=== PATIENT | female | born 1950 | race Caucasian/White ===

== ENCOUNTER 2018-02-15 15:07 | Emergency (ER) | payer OTHER ==
[2018-02-15 15:59] LABS: Absolute Lymphocytes (CBC) 1.3 K/uL (0.7-4.9); Absolute Monocytes 0.7 K/uL (0.1-1.3); Absolute Neutrophil 3.1 K/uL (1.8-8.0); Basophils % 0.8 % (0-1.3); Eosinophils % 1.1 % (0-4.4); MCH 29.4 pg (27.0-35.0); Monocytes % 13.4 % (3.3-12.3); RBC Red Blood Cell Count 3.82 M/uL (3.86-4.86)
[2018-02-15 16:04] LABS: Protime INR 1.28
[2018-02-15 16:05] LABS: Potassium 3.8 mEq/L (3.6-5.0)
--- NOTE | 2018-02-15 16:15 | RAD REPORT ---
EXAM DESCRIPTION: CT - Head Brain Wo Cont - 02/15/2018 4:00 pm CLINICAL HISTORY: Headache COMPARISON: None. TECHNIQUE: Computed axial tomography of the head was obtained. IV contrast was not requested. All CT scans are performed using dose optimization technique as appropriate and may include automated exposure control or mA/KV adjustment according to patient size. FINDINGS: An intracranial bleed is not seen . The ventricles are normal in caliber. No extra-axial fluid collection is noted. 22 Fluid within the mastoids is not noted IMPRESSION: No acute intracranial abnormality is seen. If patient's symptoms persist MRI of the bra in would be recommended.
--- NOTE | 2018-02-15 16:19 | RAD REPORT ---
EXAM DESCRIPTION: CT - Facial Bones W/ Mpr - 02/15/2018 4:00 pm CLINICAL HISTORY: Right mastoid pain. Headache COMPARISON: none TECHNIQUE: Computed axial tomography of the face was obtained. Coronal and sagittal reconstruction w as performed. All CT scans are performed using dose optimization technique as appropriate and may include automated exposure control or mA/KV adjustment according to patient size. FINDINGS: A fracture is not seen. A TMJ dislocation is not noted. The globes are intact. Felisha bullosa is present. Mucoperiosteal thickening involves in the right max illary ostia results narrowing of the right ostiomeatal complex Mild chronic opacification the mastoids is seen. A fluid collection is not noted. A small amount of fluid is present within the ethmoid sinus. IMPRESSION: Mild acute ethmoid sinusitis Narrowing of the right ostiomeatal complex Mild chronic opacification of the mastoids
[2018-02-15] MEDS ORDERED: CEFTRIAXONE 1000 MG/VIAL ONE (17:01)
[2018-02-15] MEDS ORDERED: NA CHLORIDE 0.9% 100 ML IV ONE (17:01)
[2018-02-15] MEDS ORDERED: DEXAMETHASONE 10 MG/ML VIAL ONE (17:01)
[2018-02-15] MEDS ORDERED: METOCLOPRAMIDE 10 MG/2mL INJ ONE (17:01)
--- NOTE | 2018-02-15 17:31 | EDPHYS ---
Physician Documentation [facility] Name: Chrissie Siddiqi Age: 67 yrs Sex: Female : 1950 Arrival Date: 02/15/2018 Time: 15:11 Bed 23 Private MD: Joel Emmanuel ED Physician Rito Merrill HPI: 02/15 15:34 This 67 yrs old Female presents to ER via Wheelchair with complaints of Ear cp Pain, Headache. 15:34 The patient presents with pain, that is acute. The complaints affect the right ear. cp 15:34 Onset: The symptoms/episode began/occurred last week. Associated signs and symptoms: cp Pertinent positives: sinus trouble, Pertinent negatives: cough, fever, rhinorrhea, shortness of breath, sore throat, vomiting. Severity of symptoms: in the emergency department the symptoms are worse. The patient has been recently seen at an urgent care, for similar complaints, prescribed Bactrim antibiotic. Historical: - Allergies: 15:18 Decongestants; la1 - PMHx: 15:18 Atrial Fib; COPD; Hypertension; la1 - Immunization history:: Adult Immunizations up to date. - Social history:: Smoking status: Patient/guardian denies using tobacco. ROS: 15:40 Constitutional: Negative for body aches, chills, fever, poor PO intake. cp 15:40 Eyes: Negative for injury, pain, redness, and discharge. cp 15:40 ENT: Positive for ear pain, sinus pain, Negative for drainage from ear(s), rhinorrhea, sore throat, dental pain, difficulty swallowing, difficulty handling secretions. 15:40 Neck: Negative for pain with movement, stiffness. 15:40 Cardiovascular: Negative for chest pain, edema, palpitations. 15:40 Respiratory: Negative for cough, shortness of breath, wheezing. 15:40 Abdomen/GI: Negative for abdominal pain, nausea, vomiting, and diarrhea. 15:40 Back: Negative for pain at rest, pain with movement, radiated pain. 15:40 : Negative for urinary symptoms. 15:40 Skin: Negative for cellulitis, rash. 15:40 Neuro: Positive for headache, Negative for altered mental status, dizziness, hearing loss, weakness. 15:40 All other systems are negative. Exam: 15:45 Constitutional: The patient appears in no acute distress, alert, awake, cp non-diaphoretic, non-toxic, well developed, well nourished. 15:45 Eyes: Pupils equal round and reactive to light, extra-ocular motions intact. Lids and cp lashes normal. Conjunctiva and sclera are non-icteric and not injected. Cornea within normal limits. Periorbital areas with no swelling, redness, or edema. 15:45 Head/face: Noted is tenderness, that is mild, of the behind right ear, Sinus tenderness, that is mild, is located over the right frontal sinus and right maxillary sinus. 15:45 ENT: External ear(s): are unremarkable, Ear canal(s): are normal, clear, TM's: dullness, bilaterally, Nose: is normal, Mouth: Lips: moist, Oral mucosa: pink and intact, moist, Posterior pharynx: is normal, airway is patent, no erythema, no exudate, Dental exam: abscess, is not appreciated, dental caries, that is mild, gum swelling, not appreciated, pain, that is mild, specifically in the right upper jaw. 15:45 Neck: ROM/movement: is normal, is supple, without pain, no range of motions limitations, no meningismus, no nuchal rigidity, Lymph nodes: no appreciated lymphadenopathy. 15:45 Chest/axilla: Inspection: normal, Palpation: is normal, no crepitus, no tenderness. 15:45 Cardiovascular: Rate: bradycardic, Rhythm: regular. 15:45 Respiratory: the patient does not display signs of respiratory distress, Respirations: normal, no use of accessory muscles, no retractions, no splinting, no tachypnea, labored breathing, is not present, Breath sounds: are clear throughout. 15:45 Skin: cellulitis, is not appreciated, no rash present. 15:45 Neuro: Orientation: to person, place \T\ time. Mentation: lucid, able to follow commands, Cerebellar function: is grossly normal, Motor: moves all fours, strength is normal, Sensation: no obvious gross deficits. Vital Signs: 15:18 BP 143 / 63; Pulse 56; Resp 20; Temp 97.2(TE); Pulse Ox 98% on 3.5 lpm NC; Weight la1 136.08 kg; Height 5 ft. 7 in. (170.18 cm); 16:30 BP 144 / 60; Pulse 57; Resp 18; Pulse Ox 100% on 3 lpm NC; mb3 16:30 BP 143 / 62; Pulse 55; Resp 20; Pulse Ox 100% on 3 lpm NC; mb3 15:18 Body Mass Index 46.99 (136.08 kg, 170.18 cm) la1 15:18 pt uses home 02 la MDM: 15:24 Patient medically screened. cp 16:00 Differential diagnosis: otitis media, otitis externa, ruptured TM, cerumen impaction, cp sinusitis, mastoiditis, dental abscess. 17:28 Data reviewed: vital signs, nurses notes, radiologic studies, CT scan, and as a result, cp I will discharge patient. 17:28 Counseling: I had a detailed discussion with the patient and/or guardian regarding: the cp historical points, exam findings, and any diagnostic results supporting the discharge/admit diagnosis, radiology results, the need for outpatient follow up, an ENT specialist, to return to the emergency department if symptoms worsen or persist or if there are any questions or concerns that arise at home. 02/15 15:34 Order name: BMP cp 02/15 15:34 Order name: CBC with Diff; Complete Time: 16:29 cp 02/15 16:29 Interpretation: Normal except: RBC 3.82; HGB 11.2; HCT 34.0; MCV 89.0; RDW 16.4; MN% cp 13.4. 02/15 15:34 Order name: CT Head Brain wo Cont; Complete Time: 16:29 cp 02/15 16:34 Interpretation: Report reviewed. cp 02/15 15:34 Order name: PT-INR; Complete Time: 16:29 cp 02/15 16:30 Interpretation: Abnormal: PT 15.2. cp 02/15 15:34 Order name: Ptt, Activated; Complete Time: 16:29 cp 02/15 15:34 Order name: Basic Metabolic Panel; Complete Time: 16:29 EDMS 02/15 16:30 Interpretation: Normal except: CL 98; BUN 22; GFR 56. cp 02/15 15:34 Order name: IV; Complete Time: 15:53 cp 02/15 15:47 Order name: CT Facial Bones W/O Con; Complete Time: 16:29 cp Administered Medications: 17:11 Drug: Rocephin - (cefTRIAXone) 2 grams Route: IVPB; Infused Over: 30 mins; Site: right mb3 antecubital; 18:15 Follow up: IV Status: Completed infusion mb3 18:15 Follow up: Response: No adverse reaction mb3 17:11 Drug: Reglan 10 mg Route: IVP; Site: right antecubital; mb3 18:15 Follow up: Response: No adverse reaction mb3 17:12 Drug: Decadron - Dexamethasone 10 mg Route: IVP; Site: right antecubital; mb3 18:15 Follow up: Response: No adverse reaction mb3 Disposition: 02/16 07:48 Co-signature as Attending Physician, Rito Merrill MD I agree with the assessment and iram plan of care. Disposition: 02/15/18 17:30 Discharged to Home. Impression: Acute ethmoidal sinusitis. - Condition is Stable. - Discharge Instructions: Sinusitis, Adult. - Prescriptions for prednisone 50 mg Oral tablet - take 1 tablet by ORAL route once daily for 5 days; 5 tablet. Augmentin 875- 125 mg Oral Tablet - take 1 tablet by ORAL route every 12 hours for 10 days; 20 tablet. - Medication Reconciliation Form, Thank You Letter, Antibiotic Education, Prescription Opioid Use form. - Follow up: Nicolasa Orozco MD; When: 2 - 3 days; Reason: Recheck today's complaints. - Problem is new. - Symptoms have improved. Signatures: Dispatcher [employer] Rito Damon MD MD cha Attema, Lee, RN RN la1 Rito Reynaga PA PA cp Abhilash Parry, RN RN mb3 Corrections: (The following items were deleted from the chart) 02/15 15:50 15:34 Sinus Wo Cont+CT.RAD.BRZ ordered. [facility] 18:16 17:30 02/15/2018 17:30 Discharged to Home. Impression: Acute ethmoidal sinusitis. mb3 Condition is Stable. Forms are Medication Reconciliation Form, Thank You Letter, Antibiotic Education, Prescription Opioid Use. Follow up: Nicolasa Orozco; When: 2 - 3 days; Reason: Recheck today's complaints. Problem is new. Symptoms have improved. cp
--- NOTE | 2018-02-15 17:31 | ER ---
Nurse's Notes [facility] Name: Chrissie Siddiqi Age: 67 yrs Sex: Female : 1950 Arrival Date: 02/15/2018 Time: 15:11 Bed 23 Private MD: Joel Emmanuel Diagnosis: Acute ethmoidal sinusitis Presentation: 02/15 15:17 Presenting complaint: Patient states: I have had right ear pain and a headache since la1 Friday, was seen then by urgent care and given abx but I am still having the pain. Transition of care: patient was not received from another setting of care. Onset of symptoms was February 15, 2018. Initial Sepsis Screen: Does the patient meet any 2 criteria? No. Patient's initial sepsis screen is negative. Does the patient have a suspected source of infection? No. Patient's initial sepsis screen is negative. Care prior to arrival: None. 15:17 Method Of Arrival: Wheelchair la1 15:17 Acuity: RODRIGO 4 la1 Historical: - Allergies: 15:18 Decongestants; la1 - PMHx: 15:18 Atrial Fib; COPD; Hypertension; la1 - Immunization history:: Adult Immunizations up to date. - Social history:: Smoking status: Patient/guardian denies using tobacco. Screenin:14 Abuse screen: Denies threats or abuse. Nutritional screening: No deficits noted. mb3 Tuberculosis screening: No symptoms or risk factors identified. Fall Risk None identified. Assessment: 16:30 General: Appears uncomfortable, obese, well groomed, Behavior is calm, cooperative, mb3 appropriate for age. Pain: Complains of pain in right cheek, right ear, right amish and right jaw. Neuro: Level of Consciousness is awake, alert, obeys commands, Oriented to person, place, time, situation, Appropriate for age. Cardiovascular: No deficits noted. Heart tones S1 S2 present Capillary refill < 3 seconds Clubbing of nail beds is present Pulses are 1+ in right radial artery, right dorsalis pedis artery, left radial artery and left dorsalis pedis artery. Respiratory: Airway is patent Respiratory effort is even, labored, Respiratory pattern is regular, symmetrical, Breath sounds are clear Breath sounds are diminished bilaterally. 16:30 GI: Abdomen is round obese, Bowel sounds present X 4 quads. : No signs and/or mb3 symptoms were reported regarding the genitourinary system. EENT: Oral mucosa is moist. Vital Signs: 15:18 BP 143 / 63; Pulse 56; Resp 20; Temp 97.2(TE); Pulse Ox 98% on 3.5 lpm NC; Weight la1 136.08 kg; Height 5 ft. 7 in. (170.18 cm); 16:30 BP 144 / 60; Pulse 57; Resp 18; Pulse Ox 100% on 3 lpm NC; mb3 16:30 BP 143 / 62; Pulse 55; Resp 20; Pulse Ox 100% on 3 lpm NC; mb3 15:18 Body Mass Index 46.99 (136.08 kg, 170.18 cm) la1 15:18 pt uses home 02 la1 ED Course: 15:11 Patient arrived in ED. sb2 15:12 Joel Emmanuel MD is Private Physician. sb2 15:18 Triage completed. la1 15:18 Arm band placed on left wrist. la1 15:23 Rito Reynaga PA is PHCP. cp 15:23 Rito Merrill MD is Attending Physician. cp 15:40 Abhilash Parry, DAVID is Primary Nurse. mb3 15:50 Initial lab(s) drawn, by me, sent to lab. Inserted saline lock: 20 gauge in right dh3 antecubital area, using aseptic technique. Blood collected. 16:00 CT Head Brain wo Cont In Process Unspecified. EDMS 16:00 CT completed. Patient moved to CT via wheelchair. Patient moved back from CT. cw1 16:00 CT Facial Bones W/O Con In Process Unspecified. EDMS 17:29 Nicolasa Orozco MD is Referral Physician. cp 18:10 No provider procedures requiring assistance completed. IV discontinued, intact, mb3 bleeding controlled, No redness/swelling at site. Pressure dressing applied. 18:14 Patient has correct armband on for positive identification. mb3 Administered Medications: 17:11 Drug: Rocephin - (cefTRIAXone) 2 grams Route: IVPB; Infused Over: 30 mins; Site: right mb3 antecubital; 18:15 Follow up: IV Status: Completed infusion mb3 18:15 Follow up: Response: No adverse reaction mb3 17:11 Drug: Reglan 10 mg Route: IVP; Site: right antecubital; mb3 18:15 Follow up: Response: No adverse reaction mb3 17:12 Drug: Decadron - Dexamethasone 10 mg Route: IVP; Site: right antecubital; mb3 18:15 Follow up: Response: No adverse reaction mb3 Outcome: 17:30 Discharge ordered by . cp 18:13 Discharged to home via wheelchair. mb3 18:13 Condition: stable 18:13 Discharge instructions given to patient, family, Instructed on discharge instructions, follow up and referral plans. medication usage, Demonstrated understanding of instructions, follow-up care, medications, Prescriptions given X 2. 18:16 Patient left the ED. mb3 Signatures: Dispatcher [employer] EDMS Lori Hahn cw1 David Smith, RN RN la1 Rito Reynaga PA PA cp Herrera, Deanna 3 Abbey Omer sb2 Abhilash Parry, RN RN mb3
[2018-02-15 18:23] VITALS: TEMP 97.2
[2018-02-15 18:25] VITALS: BP 143/62; O2SAT 100
== END 2018-02-15 18:16 | disposition home or self-care (01) ==
LOC: ER 15:07
DX: J01.20 Acute ethmoidal sinusitis, unspecified (principal); I10 Essential (primary) hypertension; J44.9 Chronic obstructive pulmonary disease, unspecified
CPT/HCPCS: 36415; 70450; 70486; 76377; 80048; 85025; 85610; 85730; 96365; 96375; 99284; J1100; J2765

== ENCOUNTER 2019-03-16 19:38 | Emergency (ER) | payer OTHER ==
--- OUTSIDE RECORDS SUMMARY | 2019-03-16 19:47 | XMS REPORT | Continuity of Care Document ---
:1950 Author Organization Interface Problems Problem Status Onset Classification Date Comments Source Date Reported Hypercapnic Active Finding 11/05/[address] [facility] respiratory failure [facility]18 [facility] [place] CHF Active Finding 11/05/[address] [facility]18 [facility] [place] Morbid obesity with Active Finding 11/05/[address] [facility] BMI of 50.0-59.9, 018 [facility] [place] COPD Active Finding 11/05/[address] [facility]18 [facility] [place] Obesity Active Finding 11/05/[address] [facility] hypoventilation 018 [facility] syndrome [place] GERD Active Finding 11/05/[address] [facility]18 [facility] [place] Congestive heart Active Finding 11/05/[address] [facility] failure 018 [facility] [place] Chronic obstructive Active Finding 11/05/[address] [facility] pulmonary disease 018 [facility] [place] Gastroesophageal Active Finding 11/05/[address] [facility] reflux disease 018 [facility] [place] Respiratory failure Active Finding 11/05/[address] [facility] with hypercapnia 018 [facility] [place] Morbid obesity with Active Finding 11/05/[address] [facility] 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 fibrillation 018 [facility] [place] COPD exacerbation Active Finding 11/05/[address] [facility]18 [facility] [place] HTN Active Finding 11/05/[address] [facility]18 [facility] [place] Pneumonia Active Finding 11/05/[address] [facility]18 [facility] [place] RESPIRATORY FAILURE Active [facility]16 [facility] AF (<span Active Problem 03/14/2019 [facility] ID="[id number]">C Neuro onfirmed</span>) [facility] (<span ID="[id number]">C onfirmed</span>) Hay fever Resolved Problem 03/14/2019 [facility] Neuro Hypothyroidism [facility] Morbid obesity Active Problem 03/14/2019 [facility] Peripheral [facility] Obstructive sleep Active Finding 11/05/[address] [facility] [address] apnea [facility] [place] Edema Active Finding 11/05/[address] [facility] [place] Respiratory failure Resolved Finding 11/05/[address] [facility] [place] Obesity Active Finding 11/05/[address] [facility] [address] [facility] [place] RESPIRATORY Active [facility] Sugar FAILURE, UNSP, UNSP [place] W HYPOXI Medications Medication Details Route Status Patient Ordering Order Source Instructions Provider Date Aspirin 81 mg, PO, Active 07/01/ [facility] [place] Daily, 0 2017 [facility] Refill(s) Fluticasone/[place] TWICE DAILY Active Roel [facility] St[facility] eterol 2018 [facility] [place] Spironolactone TWICE DAILY Active Roel [facility] St[facility] 2018 [facility] [place] Cefuroxime TWICE DAILY Active Roel [facility] St[facility] 2018 [facility] [place] Prednisone TWICE DAILY Active Roel [facility] St[facility] 2018 [facility] [place] Ipratropium/Albu FOUR TIMES Active [facility] St[facility] terol Sulfate DAILY PRN For 2018 [facility] Shortness Of [place] Breath Metolazone DAILY Active [facility] St[facility] 2018 [facility] [place] Metoprolol DAILY Active [facility] St[facility] Succinate 2018 [facility] [place] Mometasone/Formo TWICE DAILY Active Prezas [facility] St[facility] terol 2018 [facility] [place] Nicotine DAILY Active Prezas [facility] St. 2018 [facility] [place] Benzonatate THREE TIMES A Active Prezas [facility] St[facility] DAY PRN For 2018 [facility]ough [place] Furosemide DAILY Active Prezas . 2017 [facility] [place] Albuterol EVERY 6 HOURS Active Pre. Inhaler NEEDED PRN 2018 [facility] Shortness [place] Of Breath Pantoprazole DAILY Active Prezas . 2017 [facility] [place] Rivaroxaban DAILY Active . 2017 [facility] [place] Albuterol EVERY 6 HOURS Active . Inhaler NEEDED PRN 2018 [facility] [place] Of Breath Furosemide DAILY Active . 2017 [facility] [place] Amiodarone Hcl TWICE DAILY Active 2017 [facility] [place] Levofloxacin 750 mg, 1 tab, No Longer Sugar Route: PO, Drug Active 2015 [place] form: TAB, Daily, Dosing Weight 150.5, kg, For CrCl > 49ml/min, Start date: 04/10/16 9:00:00 CDT, Duration: 30 day, Stop date: 05/09/16 9:00:00 CDTNotes: Do not give w/antacids, dairy pdt & minerals Take 1 hr before or 2 hr after dairy products Nebulizer 1 ea, MISC, Active [facility] ONCALL, # 1 ea, 2015 [place] 0 Refill(s) pantoprazole 40 40 mg=1 tab, Active [facility] mg oral enteric PO, Daily, # 30 2015 coated tablet tab, 0 Refill(s) metoprolol 25 mg=1 tab, Active [facility] tartrate 25 mg PO, Q12H, # 60 2015 [place] oral tablet tab, 0 Refill(s) levofloxacin 750 750 mg=1 tab, Active [facility] mg oral tablet PO, Daily, X 5 2015 day, # 5 tab, 0 Refill(s) Budesonide 0.25 1 mg=4 mL, NEB, Active [facility] MG/ML Inhalant RBID, # 240 mL, 2015 [place] Solution 0 Refill(s) [Pulmicort] atorvastatin 40 40 mg=1 tab, Active [facility] mg oral tablet PO, Bedtime, # 2016 [place] 30 tab, 0 Refill(s) AMIODarone 200 200 mg=1 tab, Active [facility] mg oral tablet PO, BID, # 60 2016 [place] tab, 0 Refill(s) predniSONE 20 mg See Special Active Sugar oral tablet Instructions, 2016 [place] PO, Daily, 16 day regimen: Days 1-4 - 40 mg (2 tabs) daily Days 5-8 - 30 mg (1 1/2 tabs) daily Days 9-12 - 20 mg (1 tab) daily Day 13-16 - 10 mg (1/2 tab) daily, X 16 day, # 24 tab, 0 Refill(s) Albuterol 0.833 3 mL, NEB, QID, Active Sugar MG/ML / PRN as needed 2015 [place] Ipratropium for shortness [place] 0.167 of breath or MG/ML Inhalant wheezing, # 360 Solution mL, 0 Refill(s) [DuoNeb] apixaban 5 mg 5 mg=1 tab, PO, Active [place] oral tablet BID, # 60 tab, 2015 [place] 0 Refill(s) Furosemide 40 MG 40 mg=1 tab, Active [facility] Oral Tablet PO, Daily, # 30 2016 [place] [Lasix] tab, 0 Refill(s) diltiazem 360 360 mg=1 tab, Active Sugar mg/24 hours oral PO, Daily, # 30 2016 [place] tablet, extended tab, 0 release Refill(s) Acetazolamide 250 mg, 1 tab, Inactive Sugar Route: PO, Drug 2015 [place] form: TAB, Daily, Dosing Weight 153.007, kg, Start date: 04/09/16 9:00:00 CDT, Duration: 30 day, Stop date: 05/08/16 9:00:00 CDTNotes: (Same as: Diamox) Acetylcysteine 400 mg, 2 mL, No Longer Sugar 200 MG/ML Route: NEB, Active 2015 Inhalant Drug Form: Solution SOLN, Dosing Weight 153.007, kg, RQID, Start date: 04/08/16 15:00:00 CDT, Duration: 30 day, Stop date: 05/08/16 11:00:00 CDT Albuterol 0.833 3 ml, Route: No Longer Sugar MG/ML / NEB, Drug Form: Active 2015 [place] Ipratropium SOLN, Dosing [place] 0.167 Weight 157.2, MG/ML Inhalant kg, QID, PRN as Solution needed for [DuoNeb] shortness of breath or wheezing, Start date: 04/08/16 13:56:00 CDT, Duration: 30 day, Stop date: 05/08/16 13:55:00 CDTNotes: (Same as: Duoneb) metoprolol 25 mg, 1 tab, No Longer Sugar tartrate Route: PO, Drug Active 2015 [place] form: TAB, Q12H, Dosing Weight 153.007, kg, Priority: NOW, Start date: 04/08/16 10:24:00 CDT, Duration: 30 day, Stop date: 05/08/16 9:00:00 CDTNotes: (Same as: Lopressor) vancomycin + 2,000 mg, No Longer Sugar sodium chloride Route: IVPB, Active 2015 [place] 0.9% 500 mL INJ [id number], Start (for IV set) 500 date: 04/07/16 mL 23:00:00 CDT, Duration: 30 day, Stop date: 05/07/16 11:00:00 CDTNotes: TIME CRITICAL MEDICATION (Same As: Vancocin) Infusion rate 2001 mg: infuse over 2.5 hours MEDICATION WASTE Product Size: 1000 mg Product Wasted: ___ mg Solu-Medrol 40 mg, 1 mL, No Longer Sugar Route: IVP, Active 2015 [facility] Drug form: INJ, Q12H, Dosing Weight 157.2, kg, Start date: 04/07/16 21:00:00 CDT, Duration: 30 day, Stop date: 05/07/16 9:00:00 CDTNotes: (Same as:Solu-MEDROL, A-Methapred) Cardizem 360 mg, 2 cap, No Longer Sugar Route: PO, Drug Active 2015 [place] form: ERCAP, Daily, Dosing Weight 153.007, kg, Start date: 04/07/16 11:32:00 CDT, Duration: 30 day, Stop date: 05/07/16 9:00:00 CDTNotes: (Same as: Tiazac) Before meals. DO NOT CRUSH. 24 HR Nifedipine 30 mg, 1 tab, Inactive Sugar 30 MG Extended Route: PO, Drug 2015 [place] Release Tablet form: ERTAB, [Procardia] Daily, Dosing Weight 153.007, kg, Priority: NOW, Start date: 04/07/16 9:05:00 CDT, Duration: 30 day, Stop date: 05/07/16 9:00:00 CDTNotes: (Same as: Procardia XL) "Do Not Crush" "Avoid grapefruit and grapefruit juice" Lasix 40 mg, 4 mL, No Longer Sugar Route: IVP, Active 2015 [place] Drug form: INJ, Daily, Dosing Weight 157.2, kg, Start date: 04/07/16 9:00:00 CDT, Duration: 30 day, Stop date: 05/06/16 9:00:00 CDTNotes: (Same as: Lasix) MEDICATION WASTE Product Size: 40 mg Product Wasted: ___ mg Lipitor 40 mg, 1 tab, No Longer Sugar Route: PO, Drug Active 2015 [place] form: TAB, Bedtime, Dosing Weight 153.007, kg, Start date: 04/06/16 21:00:00 CDT, Duration: 30 day, Stop date: 05/05/16 21:00:00 CDTNotes: (Same as: Lipitor) Aspirin 325 MG 325 mg, 1 tab, Inactive Sugar Oral Tablet Route: PO, Drug 2015 [place] form: TAB, Daily, Dosing Weight 153.007, kg, Start date: 04/06/16 9:00:00 CDT, Duration: 30 day, Stop date: 05/05/16 9:00:00 CDTNotes: Take with food. Cardizem 90 mg, 3 tab, No Longer Sugar Route: PO, Drug Active 2015 [place] form: TAB, QID, Dosing Weight 153.007, kg, Priority: NOW, Start date: 04/05/16 14:20:00 CDT, Stop date: 05/05/16 13:00:00 CDTNotes: (Same as: Cardizem) Before meals vancomycin + 2,250 mg, No Longer Sugar sodium chloride Route: IVPB, Active 2015 [place] 0.9% 500 mL INJ [id number], Start (for IV set) 500 date: 04/05/16 mL 11:00:00 CDT, Duration: 30 day, Stop date: 05/04/16 23:00:00 CDTNotes: TIME CRITICAL MEDICATION (Same As: Vancocin) Infusion rate 2001 mg: infuse over 2.5 hours MEDICATION WASTE Product Size: 1000 mg Product Wasted: ___ mg apixaban 5 mg, 2 tab, No Longer Sugar Route: PO, Drug Active 2015 [place] form: TAB, Q12H, Dosing Weight 153.007, kg, Start date: 04/04/16 20:00:00 CDT, Duration: 30 day, Stop date: 05/04/16 9:00:00 CDTNotes: Same as: Eliquis Insulin, Aspart, 10 unit, 0.1 No Longer Sugar Human mL, Route: Active 2015 [place] SUB-Q, Drug form: SOLN, TID-Before Meals, Dosing Weight 153.007, kg, PRN Blood Glucose Results, Start date: 04/04/16 11:12:00 CDT, Duration: 30 day, Stop date: 05/04/16 11:11:00 CDTNotes: Roll in palms of hands gently; Do not shake vigorously. (Same as: NovoLOG) "single patient use only" WASTE: F/P - Black; E - Municipal Trash Bin Stable for 28 days at room temperature. Expires in days from D ate Glucagon 1 mg, Route: No Longer Sugar IM, Drug form: Active 2015 [place] PDR/INJ, PRN, Dosing Weight 153.007, kg, PRN Blood Glucose Results, Start date: 04/04/16 11:12:00 CDT, Duration: 30 day, Stop date: 05/04/16 11:11:00 CDT Dextrose 50% 25 gm, 50 mL, No Longer Sugar Syringe Route: IVP, Active 2015 [place] Drug Form: INJ, Dosing Weight 153.007, kg, PRN, PRN Blood Glucose Results, Start date: 04/04/16 11:12:00 CDT, Duration: 30 day, Stop date: 05/04/16 11:11:00 CDT Diltiazem 125 mg, 25 mL, No Longer Sugar Rate: Titrate, 2015 Start Dose: 5 mg/hr, Titration: 5 mg/hr every hour, Goal(s): Maintain HR Notes: (Same as: Cardizem) Amiodarone 200 mg, 1 tab, No Longer Sugar Route: PO, Drug Active 2015 [place] form: TAB, BID, Dosing Weight 153.007, kg, Priority: NOW, Start date: 04/04/16 9:28:00 CDT, Duration: 30 day, Stop date: 05/04/16 9:00:00 CDTNotes: (Same as: Cordarone) Aspirin 81 mg, 1 tab, Inactive Sugar Route: PO, Drug 2015 [place] form: ECTAB, Daily, Dosing Weight 157.2, kg, Start date: 04/04/16 9:00:00 CDT, Duration: 30 day, Stop date: 05/03/16 9:00:00 CDTNotes: Do not crush or chew. (Same As: Ecotrin) Bumex 1 mg, 4 mL, Inactive Sugar Route: IVP2015 Drug form: INJ, ONCE, Dosing Weight 153.007, kg, Start date: 04/04/16 7:59:00 CDT, Stop date: 04/04/16 7:59:00 CDTNotes: (Same As: Bumex) Protonix 40 mg, 1 tab, No Longer Sugar Route: PO, Drug Active 2015 [place] form: ECTAB, Daily, Dosing Weight 157.2, kg, Start date: 04/04/16 7:30:00 CDT, Duration: 30 day, Stop date: 05/03/16 7:30:00 CDTNotes: Tablet should not be chewed or crushed. (Same as: Protonix) AMIODarone INJ 900 mg, 18 mL, No Longer Sugar 900 mg + D5W Rate: 1 mg/min 2015 [place] 500ml non PVC for 6 hours, bag 482 mL then reduce to 0.5 mg/min, Dosing Weight 157.2, kg, Route: IV, Total Volume: 500, Start Date: 04/03/16 12:12:00 CDT, Duration: 30 day, Stop date: 05/03/16 12:11:00 CDT, Replace Every: 24 hrNotes: Central administration only for concentrations > 2 mg/ml. "Recommendation : Use an in-line filter during administration for continuous infusions to reduce the incidence of phlebitis" (Same as Codarone) MEDICATION WASTE Product Size: 150 mg Product Wasted: ___ mg Vitamin E 500 IntlUnit, Active Sugar PO, Daily, 0 2015 Refill(s) vancomycin 2 gm, 500 mL, No Longer Sugar Route: IVPB, Active 2015 Drug form: SOLN, [id number], Start date: 04/03/16 11:00:00 CDT, Duration: 30 day, Stop date: 05/02/16 23:00:00 CDTNotes: TIME CRITICAL MEDICATION Same as: Vancocin Infusion rate 2000 mg: infuse over 2.5 hours Vitamin B-50 1 tab, PO, Active Sugar Daily, 0 2015 Refill(s) Vitamin C 500 mg 500 mg=1 tab, Active Sugar oral tablet PO, Daily, # 30 2015 [place] tab, 0 Refill(s) Fish Oil 800 mg, PO, 0 Active Sugar Refill(s) 2015 [place] 200 ACTUAT 2 puff, Active Sugar Albuterol 0.09 INHALER, Q4H, 2015 [place] MG/ACTUAT PRN wheezing, Metered Dose coughing, or Inhaler [ProAir shortness of HFA] breath, # 1 ea, 1 Refill(s) heparin additive 500 mL, Rate: No Longer Sugar 25,000 unit [14 27.96 ml/hr, Active 2015 [place] unit/kg/hr] + Infuse over: Premix Diluent 17.9 hr, Route: Dextrose 5% 500 IV, Dosing mL Weight 99.84 kg, Total Volume: 500 mL, Start date: 04/03/16 10:21:00 CDT, Duration: 30 day, Stop date: 05/03/16 10:20:00 CDT Diltiazem 125 mg, 25 mL, No Longer Sugar Rate: Titrate, Active 2015 [facility] Start Dose: 5 mg/hr, Titration: 5 mg/hr every hour, Goal(s): Maintain HR Notes: (Same as: Cardizem) Adenosine 12 mg, 4 mL, No Longer Sugar Route: IVP, Active 2015 [facility] Drug form: INJ, ONCE, Dosing Weight 157.2, kg, PRN Other -See Comment, Start date: 04/03/16 9:37:00 CDTNotes: Rapid IV PUSH over 1-2 sec; Flush line immediately after drug is given. Lasix 40 mg, 4 mL, No Longer Sugar Route: IVP, 2015 [facility] Drug form: INJ, Q12H, Dosing Weight 157.2, kg, Start date: 04/03/16 9:00:00 CDT, Duration: 30 day, Stop date: 05/02/16 21:00:00 CDTNotes: (Same as: Lasix) MEDICATION WASTE Product Size: 40 mg Product Wasted: ___ mg Vancomycin 1 gm, Route: Inactive Sugar IVPB, Drug 2015 [place] form: INJ, Q12H, Dosing Weight 157.2, kg, Start date: 04/03/16 9:00:00 CDT, Duration: 30 day, Stop date: 05/02/16 21:00:00 CDT Lovenox 40 mg, 0.4 mL, Inactive Sugar Route: SUB-Q, 2015 Drug form: INJ, Daily, Dosing Weight 157.2, kg, Start date: 04/03/16 9:00:00 CDT, Duration: 30 day, Stop date: 05/02/16 9:00:00 CDTNotes: (Same as: Lovenox) Docusate 100 mg, 1 cap, No Longer Sugar Route: PO, Drug Active 2015 [place] form: CAP, BID, Dosing Weight 157.2, kg, Start date: 04/03/16 9:00:00 CDT, Duration: 30 day, Stop date: 05/02/16 17:00:00 CDTNotes: (Same as: Colace) (Do Not Crush) Nystatin 100 1 appl, Route: No Longer Sugar UNT/MG Topical TOP, TID, Drug Active 2015 [facility] Powder form: PWDR, Start date: 04/03/16 9:00:00 CDT, Duration: 30 day, Stop date: 05/02/16 21:00:00 CDTNotes: (Same as:Mycostatin, Nilstat) For external use only. Solu-Medrol 40 mg, 1 mL, No Longer Sugar Route: IVP, Active 2015 Drug form: INJ, Q8H, Dosing Weight 157.2, kg, Start date: 04/03/16 8:00:00 CDT, Duration: 30 day, Stop date: 05/03/16 0:00:00 CDTNotes: (Same as:Solu-MEDROL, A-Methapred) Ipratropium 0.5 mg, 2.5 ml, No Longer Sugar [place] 0.2 Route: NEB, Active 2015 [place] MG/ML Inhalant Drug form: Solution SOLN, RQ6H, Dosing Weight 157.2, kg, Start date: 04/03/16 8:00:00 CDT, Duration: 30 day, Stop date: 05/03/16 2:00:00 CDTNotes: SEE RT DOCUMENTATION (Same as:Atrovent) Xopenex 0.63 mg, 3 mL, No Longer Sugar Route: NEB, Active 2015 Drug form: SOLN, RQ6H, Dosing Weight 157.2, kg, Start date: 04/03/16 8:00:00 CDT, Duration: 30 day, Stop date: 05/03/16 2:00:00 CDTNotes: SEE RT DOCUMENTATION (Same as:Xopenex) Non-Formulary Lopressor 5 mg, 5 mL, Inactive Sugar Route: IVP2015 Drug form: INJ, ONCE, Dosing Weight 157.2, kg, Priority: STAT, Start date: 04/03/16 7:45:00 CDT, Stop date: 04/03/16 7:45:00 CDTNotes: (Same as: Lopressor) Push over 2 minutes Budesonide 0.25 1 mg, 4 ml, No Longer Sugar MG/ML Inhalant Route: NEB, Active 2015 [place] Solution Drug form: [Pulmicort] SUSP, RBID, Dosing Weight 157.2, kg, Start date: 04/03/16 7:34:00 CDT, Duration: 30 day, Stop date: 05/02/16 20:00:00 CDTNotes: (Same As: Pulmicort) Protonix 40 mg, 1 tab, Inactive Sugar Route: PO, Drug 2015 [place] form: ECTAB, Before Breakfast, Dosing Weight 157.2, kg, Start date: 04/03/16 7:30:00 CDT, Duration: 30 day, Stop date: 05/02/16 7:30:00 CDTNotes: Tablet should not be chewed or crushed. (Same as: Protonix) Lasix 40 mg, 4 mL, Inactive Sugar Route: IVP, 2015 Drug form: INJ, ONCE, Dosing Weight 157.2, kg, Start date: 04/03/16 7:24:00 CDT, Stop date: 04/03/16 7:24:00 CDTNotes: (Same as: Lasix) MEDICATION WASTE Product Size: 40 mg Product Wasted: ___ mg Insulin, Aspart, 3 unit, 0.03 No Longer Sugar Human mL, Route: Active 2015 [facility] SUB-Q, Drug form: SOLN, TID-Before Meals, Dosing Weight 157.2, kg, PRN Blood Glucose Results, Start date: 04/03/16 7:18:00 CDT, Duration: 30 day, Stop date: 05/03/16 7:17:00 CDTNotes: Roll in palms of hands gently; Do not shake vigorously. (Same as: NovoLOG) "single patient use only" WASTE: F/P - Black; E - Municipal Trash Bin Stable for 28 days at room temperature. Expires in days from D ate Dextrose 50% 25 gm, 50 mL, No Longer Sugar Syringe Route: IVP, Active 2015 Drug Form: INJ, Dosing Weight 157.2, kg, PRN, PRN Blood Glucose Results, Start date: 04/03/16 7:18:00 CDT, Duration: 30 day, Stop date: 05/03/16 7:17:00 CDT Glucagon 1 mg, Route: No Longer Sugar IM, Drug form: 2015 PDR/INJ, PRN, Dosing Weight 157.2, kg, PRN Blood Glucose Results, Start date: 04/03/16 7:18:00 CDT, Duration: 30 day, Stop date: 05/03/16 7:17:00 CDT Calcium 1,000 mg, 2 No Longer Sugar Carbonate 500 MG tab, Route: PO, 2015 Chewable Tablet Drug form: CHEWTAB, PRN, Dosing Weight 157.2, kg, PRN Abnormal Lab Result, FOR ICU USE ONLY, Start date: 04/03/16 6:50:00 CDT, Duration: 30 day, Stop date: 05/03/16 6:49:00 CDTNotes: (Same As: Tums) Calcium Carbonate 500 oe=211 mg elemental calcium Dose= mg calcium carbonate ( mg elemental calcium) Calcium 1 gm, 10 mL, No Longer Sugar Gluconate Route: IVPB, Active 2015 PRN, Dosing Weight 157.2, kg, PRN Abnormal Lab Result, Start date: 04/03/16 6:50:00 CDT, Duration: 30 day, Stop date: 05/03/16 6:49:00 CDT, FOR ICU USE ONLYNotes: WASTE: F/P - Sink; E - Municipal Trash Bin Magnesium Oxide 800 mg, 2 tab, No Longer Sugar Route: PO, Drug Active 2015 [place] form: TAB, PRN, Dosing Weight 157.2, kg, PRN Abnormal Lab Result, FOR ICU USE ONLY, Start date: 04/03/16 6:50:00 CDT, Duration: 30 day, Stop date: 05/03/16 6:49:00 CDTNotes: (Same as: Mag-Ox 400) Magnesium oxide [id number] elemental magnesium Dose=____mg magnesium oxide (___mg elemental magnesium) Neutra-Phos 2 pkt, Route: No Longer Sugar PO, Drug Form: Active 2015 [place] PDR/REC, Dosing Weight 157.2, kg, PRN, PRN Abnormal Lab Result, FOR ICU USE ONLY, Start date: 04/03/16 6:50:00 CDT, Duration: 30 day, Stop date: 05/03/16 6:49:00 CDTNotes: (Same as: Neutra-Phos) Each 1.25 gm pkt has 250mg phosphorous. Mix w/2.5oz water and stir. potassium 20 mEq, 15 mL, No Longer Sugar chloride Route: NJ, Drug Active 2015 [facility] form: LIQ, PRN, Dosing Weight 157.2, kg, PRN Abnormal Lab Result, Start date: 04/03/16 6:50:00 CDT, Duration: 30 day, Stop date: 05/03/16 6:49:00 CDT, FOR ICU USE ONLYNotes: (Same as: Potassium Chloride) Magnesium 2 gm, 50 mL, No Longer Sugar Sulfate Route: IVPB, 2015 [facility] Drug form: INJ, PRN, Dosing Weight 157.2, kg, PRN Abnormal Lab Result, Start date: 04/03/16 6:50:00 CDT, Duration: 30 day, Stop date: 05/03/16 6:49:00 CDT, FOR ICU USE ONLYNotes: WASTE: F/P - Sink; E - Municipal Trash Bin potassium 30 mmol, 10 mL, No Longer Sugar phosphate + Route: IVPB, Active 2015 sodium chloride PRN, Dosing 0.9% INJ 250 mL Weight 157.2, kg, PRN Abnormal Lab Result, Start date: 04/03/16 6:50:00 CDT, Duration: 30 day, Stop date: 05/03/16 6:49:00 CDT, FOR ICU USE ONLYNotes: (Same as: K Phosphate.) 1 mMol phoshate has 1.47 mEq potassium Infuse over 4 hours sodium phosphate 45 mmol, 15 mL, No Longer Sugar + sodium Route: IVPB, Active 2015 [facility] chloride 0.9% PRN, Dosing INJ 250 mL Weight 157.2, kg, PRN Abnormal Lab Result, Start date: 04/03/16 6:50:00 CDT, Duration: 30 day, Stop date: 05/03/16 6:49:00 CDT, FOR ICU USE ONLY Lasix 40 mg, 4 mL, Inactive Sugar Route: IV, Drug 2015 [place] form: INJ, ONCE, Dosing Weight 157.2, kg, Start date: 04/03/16 1:04:00 CDT, Stop date: 04/03/16 1:04:00 CDTNotes: (Same as: Lasix) MEDICATION WASTE Product Size: 40 mg Product Wasted: ___ mg Levaquin 750 mg, 150 mL, No Longer Sugar Route: IVPB, Active 2015 [facility] Drug form: SOLN, [id number], Dosing Weight 157.2, kg, Start date: 04/03/16 1:00:00 CDT, Duration: 30 day, Stop date: 05/02/16 1:00:00 CDTNotes: (Same as:Levaquin) Albuterol 0.833 3 ml, Route: No Longer Sugar MG/ML / NEB, Drug Form: Active 2015 [facility] Ipratropium SOLN, Dosing [place] 0.167 Weight 157.2, MG/ML Inhalant kg, QID, PRN as Solution needed for [DuoNeb] shortness of breath or wheezing, Start date: 04/03/16 0:52:00 CDT, Duration: 30 day, Stop date: 05/03/16 0:51:00 CDTNotes: (Same as: Duoneb) Acetaminophen 325 mg, 1 tab, No Longer Sugar Route: PO, Drug Active 2015 [place] form: TAB, Q4H, Dosing Weight 157.2, kg, PRN Pain Score 4-6, Start date: 04/03/16 0:50:00 CDT, Duration: 30 day, Stop date: 05/03/16 0:49:00 CDTNotes: Do not exceed 4 gm/day. (Same as: Tylenol) Ondansetron 4 mg, 2 mL, No Longer Sugar Route: IVP, Active 2015 [facility] Drug form: INJ, Q6H, Dosing Weight 157.2, kg, PRN Nausea & Vomiting, Start date: 04/03/16 0:50:00 CDT, Duration: 30 day, Stop date: 05/03/16 0:49:00 CDTNotes: (Same as: Esme) MEDICATION WASTE Product Size: 4 mg Product Wasted: ___ mg Allergies, Adverse Reactions, Alerts Substance Category Reaction Severity Reaction Status Date Comments Source type Reported Decongestant Assertion Severe Drug Active [facility] allergy [facility] Immunizations Immunization Date Given Site Status Last Comments Source Updated pneumococcal 04/03/2016 Left deltoid completed [facility] 23-valent vaccine [place],[facility] Results Order Name Results Value Reference Date Interpretation Comments Source Range Laboratory Other Total 11.7 g/dl 12 - 18 11/05 [facility] [address] Studies Hemoglobin [facility] (Blood Gas) [place] [facility] Blood Gas pH 7.45 7.35 - 11/05 [facility] [address] Studies 7.45 [facility] [place] [facility] Blood Gas 61.3 mmHG 75 - 100 11/[address] [facility] [address] Studies PO2 [facility] [place] [facility] Blood Gas 61.2 mmHG 35 - 45 11/05 [facility]. Studies PCO2 [facility] [place] [facility] Blood Gas 89.0 % 94 - 97 11/05 [facility]. Studies Oxyhemoglobi /2017 [facility] n [place] [facility] Blood Gas 30.0 % 11/05 [facility]. Studies Inspired [facility] - Oxygen [place] [facility] Blood Gas 42.4 22 - 28 11/05 [facility] [address]. Studies HCO3 mmol/L [facility] [place] [facility] Blood Gas 17.1 11/05 [facility] [address]. Studies Base Excess mmol/L [facility] [place] [facility] Arterial 0.6 % 0 - 1.5 11/05 [facility] [address]. Studies Blood [facility] - Methemoglobi [place] n [facility] Arterial 1.5 % 0 - 1.5 11/05 [facility] [address]. Studies Blood [facility] Carboxyhemog [place] lobin Laboratory Arterial Bld 90.9 % 92 - 98.5 11/05 [facility]. Studies O2 [facility] - Saturation [place] ([facility]) Laboratory Total 0.5 mg/dL 0.3 - 1.2 10/31 [facility] [address] Studies Bilirubin [facility] [place] [facility] Sodium Level 139 mEq/L 135 - 145 10/31 [facility] [facility] St[facility] Studies /2018 [facility] Serum Total 6.5 g/dL 6.0 - 8.3 10/31 [facility]. Studies Protein /2017 [facility] Potassium 4.5 mEq/L 3.6 - 5.0 10/31 [facility]. Studies Level /2018 [facility] Glucose 155 mg/dL 65 - 120 10/[address] [facility] [address] Studies Level /2017 [facility] Globulin 3.5 g/dL 2.3 - 3.5 10/31 [facility] [address] Studies /2017 [facility] Estimat null 90 10/31 [facility]. Studies Glomerular /2017 [facility] Filtration [facility] Creatinine 0.58 mg/dL 0.44 - 02 [facility]. Studies 1.00 [facility] Chloride 100 mEq/L 101 - 111 10/31 [facility] [address] Studies Level /2017 [facility] Carbon 34 mEq/L 21 - 31 10/31 [facility] [address] Studies Dioxide /2017 [facility] Level [facility] Calcium 8.4 mg/dL 8.5 - 10.5 10/31 [facility]. Studies Level /2017 [facility] Blood Urea 16 mg/dL 6 - 20 10/31 [facility]. Studies Nitrogen /2017 [facility] Aspartate 21 IU/L 10 - 42 10/31 [facility]. Studies Amino Transf /2017 [facility] (AST/SGOT) [facility] Alkaline 39 IU/L 42 - 121 10/31 [facility]. Studies Phosphatase /2017 [facility] Albumin/Glob 0.9 1.1 - 1.8 10/31 [facility]. Studies ulin Ratio /2017 [facility] Albumin 3.0 g/dL 3.2 - 5.5 10/31 [facility] [address] Studies /2017 [facility] Alanine 39 IU/L 10 - 60 10/31 [facility] Studies Aminotransfe /2017 [facility] rase [place] (ALT/SGPT) Laboratory White Blood 9.1 K/uL 4.3 - 10.9 10/31 [facility]. Studies Count /2017 [facility] Red Cell 17.7 % 12.1 - [address] [facility] [address] Studies Distribution 15.2 [facility] Width [facility] Red Blood 4.58 M/uL 3.86 - 02 [facility] [address] Studies Count 4.86 /2017 [facility] Platelet 172 K/uL 152 - 406 10/31 [facility] [address] Studies Count /2017 [facility] Neutrophils 84.1 % 41.7 - 02 [facility] [address] Studies % 73.7 /2017 [facility] Monocytes % 7.9 % 3.3 - 12.3 10/31 [facility] [address]. Studies /2018 [facility] Mean 8.6 fL 7.6 - 11.3 10/31 [facility] [address] Studies Platelet /2017 [facility] Volume [facility] Mean 85.4 fL 80 - 100 10/31 [facility] [address] Studies Corpuscular /2017 [facility] Volume [facility] Mean 31.2 g/dL 32.0 - 10/31 [facility] [address]. Studies Corpuscular 36.0 [facility] Hemoglobin [place] [facility] Mean 26.7 pg 27.0 - 10/31 [facility] [address] Studies Corpuscular 35.0 [facility] Hemoglobin [facility] Lymphocytes 7.4 % 15.3 - 10/31 [facility] [address]. Studies % 44.8 /2017 [facility] Hemoglobin 12.2 g/dL 12.0 - 10/31 [facility] [address] Studies 15.0 /2017 [facility] Hematocrit 39.1 % 36.0 - 10/31 [facility] [address] Studies 45.0 /2017 [facility] Eosinophils 0.3 % 0 - 4.4 10/31 [facility] [address] Studies % /2018 [facility] Basophils % 0.3 % 0 - 1.3 10/31 [facility] [address]. Studies /2018 [facility] Absolute 7.7 K/uL 1.8 - 8.0 10/31 [facility] [address] Studies Neutrophil /2017 [facility] Absolute 0.7 K/uL 0.1 - 1.3 10/31 [facility] [address] Studies Monocytes /2017 [facility] (CBC) [place] Absolute 0.7 K/uL 0.7 - 4.9 10/31 [facility] [address] Studies Lymphocytes /2017 [facility] (CBC[facility] Absolute 0.0 K/uL 0 - 0.5 10/31 [facility]. Studies Eosinophils /2017 [facility] (CBC[facility] [place] Absolute 0.0 K/uL 0 - 0.5 10/31 [facility]. Studies Basophils /2017 [facility] (CBC[facility] [place] Vancomycin 20.5 ug/mL 5 - 20 10/29 [facility] Studies Level Trough /2017 [facility] Segmented 63 % 40 - 80 10/28 [facility]. Studies Neutrophils /2017 [facility] Monocytes 10 % 0 - 10 10/28 St. Studies /2017 [facility] Lymphocytes 3 % 15 - 42 10/28 [facility] [address] Studies /2017 [facility] Blood Blood 10/28 [facility] Studies Morphology Morphology /2017 [facility] Comment Comment [place] [facility] Band 24 % 0 - 1 10/28 [facility] Studies Neutrophils /2017 [facility] Prothrombin 15.0 9.5 - 12.5 10/28 [facility] Studies Time SECONDS [facility] INR 1.27 10/28 [facility] Studies Internationa /2017 [facility] l Normalized [place] Ratio Laboratory Phosphorus 3.5 mg/dL 2.5 - 4.3 10/28 [facility] Studies Level /2017 [facility] Magnesium 1.9 mg/dL 1.8 - 2.5 10/28 [facility] Studies Level /2018 [facility] Procalcitoni null 10/27 [facility]. Studies n [facility] Lactic Acid 12.1 mg/dL 4.5 - 19.8 10/27 [facility] Studies Level /2018 [facility] Reactive 9 % 10/10 [facility] Studies Lymphocytes /2017 [facility] Urine WBC null 10/09 [facility]. Studies /2017 [facility] Urine Urine 10/09 [facility] Studies Squamous Squamous /2017 [facility] Epithelial Epithelial [place] Cells Cells [facility] Urine RBC null 10/09 [facility]. Studies /2018 [facility] Urine Mucus Urine 10/09 [facility]. Studies Mucus /2017 [facility] Urine Urine 10/09 [facility] Studies Culture Culture /2017 [facility] Reflexed Reflexed [place] [facility] Urine null 10/09 [facility] Studies Bacteria /2017 [facility] Urine pH 5.5 10/09 [facility]. Studies /2017 [facility] Urine 1.0 mg/dL 10/09 [facility] Studies Urobilinogen /2017 [facility] Urine Total Urine 10/09 [facility] Studies Protein Total /2017 [facility] Protein [facility] Urine 1.025 10/09 [facility]. Studies Specific /2017 [facility] [place] [facility] Urine Urine 10/09 [facility] Studies Nitrite Nitrite /2017 [facility] Urine Urine 10/09 [facility] Studies Leukocyte Leukocyte /2017 [facility] Esterase Esterase [place] [facility] Urine Urine 10/09 [facility] Studies Ketones Ketones /2017 [facility] Urine Urine 10/09 [facility] Studies Glucose Glucose /2017 [facility] Urine Color Urine 10/09 [facility] Studies Color /2017 [facility] Urine Blood Urine 10/09 [facility]. Studies Blood /2017 [facility] Urine Urine 10/09 [facility] Studies Bilirubin Bilirubin /2017 [facility] Urine Urine 10/09 [facility] Studies Appearance Appearance /2017 [facility] B-Type 179 pg/ml 10/08 [facility] Studies Natriuretic /2017 [facility] Peptide [place] [facility] Rapid null 10/08 [facility] Studies Troponin I /2017 [facility] Direct 0.2 mg/dL 0 - 0.2 10/08 [facility] Studies Bilirubin /2017 [facility] Activated 28.3 24.3 - 10/08 [facility] Studies Partial SECONDS 36.9 [facility] Thromboplast [place] Time CHEM PANEL Phosphorus 3.5 mg/dL 2.5 - 4.5 04/09 [facility] /2015 [place] CHEM PANEL Magnesium 2.5 mg/dL 1.8 - 2.4 04/09 [facility] Lvl [place] PARATHYROI Ca Norm WB 1.07 1.05 - 04/09 [facility] D PROFILE mMol/L . [place] PARATHYROI Ca Ion WB 1.07 1.05 - 04/09 [facility] PROFILE mMol/L . [place] CHEM PANEL eGFR 81 07/11 Result Comment: The eGFR is calculated using the CKD-EPI formula. In most young, healthy individuals the eGFR will be >90 mL/ min/1.73m2. The eGFR declines with age. An eGFR of 60-89 may be normal in mL/min/1. some populations, particularly the elderly, for whom the CKD-EPI formula has not been extensively validated. Use of the eGFR is not recommended in the following populations: [facility] 3m2 Individuals with unstable creatinine concentrations, including patients and those with serious co-morbid conditions. Patients with extremes in muscle mass or diet. The data above are obtained from the National Kidney Disease Education Program (NKDEP) which additionally recommends that when the eGFR is used in patients with extremes of body mass index for purposes of drug dosing, the eGFR should be multiplied by the estimated BMI. CHEM PANEL Glucose Lvl 124 mg/dL 70 - 99 04/08 [place] CHEM PANEL ALT 95 unit/L 0 - 65 04/08 [place] CHEM PANEL Albumin Lvl 2.9 g/dL 3.5 - 5.0 04/08 [place] CHEM PANEL A/G Ratio 0.8 0.7 - 1.6 04/08 [place] CHEM PANEL Globulin 3.5 g/dL 2.0 - 4.0 04/08 [place] CHEM PANEL AGAP 9.1 meq/L 10.0 - 04/08 [facility] 20.0 [place] CHEM PANEL Calcium Lvl 8.3 mg/dL 8.5 - 10.5 04/08 [place] CHEM PANEL CO2 42 meq/L 24 - 32 04/08 Result Comment: [facility] Critical Result(s) called to JESUS LAWS RN at 04/08/2016 03:37 byTLN. Read back OK. CHEM PANEL AST 48 unit/L 0 - 37 04/08 [place] CHEM PANEL Alk Phos 38 unit/L 39 - 136 04/08 [place] CHEM PANEL Bili Total 0.6 mg/dL 0.2 - 1.3 04/08 [place] CHEM PANEL B/C Ratio 38 6 - 25 07 [place] CHEM PANEL Total 6.4 g/dL 6.4 - 8.4 04/08 [place] CHEM PANEL Creatinine 0.77 mg/dL 0.50 - 07/11 [facility] Lvl 1.40 /2015 [place] CHEM PANEL BUN 29 mg/dL 7 - 22 04/08 [facility] /[place] CHEM PANEL Sodium Lvl 138 meq/L 135 - 145 04/08 [facility] [place] CHEM PANEL Potassium 4.1 meq/L 3.5 - 5.1 04/08 [facility] /2015 [place] CHEM PANEL Chloride Lvl 91 meq/L 95 - 109 04/08 [facility] [place] CHEM PANEL Phosphorus 3.8 mg/dL 2.5 - 4.5 04/08 [facility] /2015 [place] CHEM PANEL Magnesium 2.4 mg/dL 1.8 - 2.4 04/08 [facility] Lvl /2015 [place] HEMATOLOGY PTT 27.1 s 22.9 - 04/08 [facility] 35.8 [place] HEMATOLOGY PT 16.3 s 12.0 - 04/08 [facility] 14.7 [place] HEMATOLOGY INR 1.28 0.85 - 04/08 [facility] 1.17 [place] HEMATOLOGY Basophils # 0.0 K/CMM 0.0 - 0.2 04/08 [place] HEMATOLOGY Eosinophils 0.0 K/CMM 0.0 - 0.5 04/08 [facility] # /2015 [place] HEMATOLOGY Monocytes # 0.9 K/CMM 0.0 - 0.8 04/08 [place] HEMATOLOGY Lymphocytes 0.8 K/CMM 1.0 - 5.5 04/08 [facility] # /2015 [place] HEMATOLOGY Segs-Bands # 12.1 K/CMM 1.5 - 8.1 04/08 [place] HEMATOLOGY Eosinophils 0.0 % 0.0 - 4.0 04/08 [place] HEMATOLOGY Basophils 0.1 % 0.0 - 1.0 04/08 [place] HEMATOLOGY Lymphocytes 5.7 % 20.0 - 04/08 [place] 40.0 [place] HEMATOLOGY Monocytes 6.3 % 2.0 - 12.0 04/08 [place] HEMATOLOGY Segs 87.9 % 45.0 - 07 [place] 75.0 [place] HEMATOLOGY MCHC 31.9 g/dL 32.0 - 07/ [place] 36.0 /2015 [place] HEMATOLOGY MCH 26.8 pg 27.0 - 07 [facility] 31.0 [place] HEMATOLOGY Hgb 13.4 g/dL 12.0 - 04/08 [facility] 16.0 [facility] HEMATOLOGY RDW 18.1 % 11.5 - 04/08 [facility] 14.5 [facility] HEMATOLOGY MCV 84.1 fL 80.0 - 04/08 [facility] 98.0 [facility] HEMATOLOGY Hct 42.2 % 36.0 - 04/08 [facility] 48.0 [facility] HEMATOLOGY MPV 8.7 fL 7.4 - 10.4 04/08 [facility] HEMATOLOGY Platelet 202 K/CMM 133 - 450 04/08 [facility] HEMATOLOGY RBC 5.01 M/CMM 4.20 - 04/08 [facility] 5.40 /2015 [facility] HEMATOLOGY WBC 13.7 K/CMM 3.7 - 10.4 04/08 [facility] PARATHYROI Ca Ion WB 1.03 1.05 - 04/08 [facility] PROFILE mMol/L 1. [facility] PARATHYROI Ca Norm WB 1.03 1.05 - 04/08 [facility] PROFILE mMol/L 1. [facility] Chest Chest 1view EXAM: CHEST 1 VIEW XR 04/08 - [facility] 1view DX DX DATE: 04/08/2016 3:00 AM CDT . Read by: Carlo Neal MD Dictated Date/time: 04/08/16 05:25 TECHNIQUE: AP view of the chest Electronically Signed by: Carlo Neal MD 04/08/16 05:26 FINAL REPORT CLINICAL INDICATION: Line placement. COMPARISON: Chest x-ray of 04/07/2016 FINDINGS: SEE BELOW IMPRESSION: 1. Life-support: Right internal jugular central venous catheter tip projects over the right atrium, stable 2. Stable left greater than right pleural effusions. 3. Slightly improved pulmonary aeration with continued mild pulmonary edema 4. Stable cardiac silhouette TOXICOLOGY Vanco Tr TND N/A 04/08 [facility] TOXICOLOGY Vanco Tr 8.5 ug/ml 04/08 [facility] Chest Chest 1view CLINICAL HISTORY: Central Line Placement 04/07 - [facility] 1view DX DX AGE: 65 years GENDER: Female Read by: Juan Velázquez MD Dictated Date/time: 04/07/16 09:40 Electronically Signed by: Juan Velázquez MD 04/07/16 09:42 FINAL REPORT TECHNIQUE: Single AP, portable chest radiograph, 1 view. COMPARISON: None FINDINGS: The cardiomediastinal silhouette dementia is borderline cardiomegaly. Again seen is mild pulmonary edema with small bilateral pleural effusions. Improving left basilar consolidation/atelectasis.. Right IJ central venous catheter with its tip in the right atrium, unchanged. No significant osseous abnormalities are identified. IMPRESSION: Stable mild pulmonary edema. Unchanged positioning of right IJ central venous catheter. CHEM PANEL Phosphorus 3.3 mg/dL 2.5 - 4.5 /10 [facility] /2016 [place] CHEM PANEL Magnesium 2.5 mg/dL 1.8 - 2.4 /10 [facility] Lvl /2016 [place] ELECTROLYT AGAP 8.2 meq/L 10.0 - 04/07 [facility] ES 20.0 /2015 [place] ELECTROLYT Calcium Lvl 8.2 mg/dL 8.5 - 10.5 / [facility] ES /2016 [place] ELECTROLYT eGFR 92 04/07 Result Comment: The eGFR is calculated using the CKD-EPI formula. In most young, healthy individuals the eGFR will be >90 mL/ min/1.73m2. The eGFR declines with age. An eGFR of 60-89 may be normal in [place] [facility] mL/min/1.7 /2016 some populations, particularly the elderly, for whom the CKD-EPI formula has not been extensively validated. Use of the eGFR is not recommended in the following populations: [place] 3m2 Individuals with unstable creatinine concentrations, including patients and those with serious co-morbid conditions. Patients with extremes in muscle mass or diet. The data above are obtained from the National Kidney Disease Education Program (NKDEP) which additionally recommends that when the eGFR is used in patients with extremes of body mass index for purposes of drug dosing, the eGFR should be multiplied by the estimated BMI. ELECTROLYT Creatinine 0.66 mg/dL 0.50 - 07/10 [facility] [place] Lvl 1.40 /2016 [place] ELECTROLYT Glucose Lvl 131 mg/dL 70 - 99 /10 [facility] ES /2016 [place] ELECTROLYT BUN 26 mg/dL 7 - 22 /10 [facility] /2016 [place] ELECTROLYT Chloride Lvl 91 meq/L 95 - 109 /10 [facility] ES /2016 [place] ELECTROLYT CO2 41 meq/L 24 - 32 /10 Result [facility] Comment: [place] Critical Result(s) called to JESUS LAWS RN at _04/07/2016 04:00 by TLN_. Read back OK. ELECTROLYT Sodium Lvl 136 meq/L 135 - 145 07/10 [facility] ES /2016 [place] ELECTROLYT Potassium 4.2 meq/L 3.5 - 5.1 07/10 [facility] [place] Lvl /2015 [place] HEMATOLOGY MCV 85.1 fL 80.0 - 07/10 [facility] [place] 98.0 /2016 [place] HEMATOLOGY Hgb 13.6 g/dL 12.0 - 10 [facility] [place] 16.0 /2015 [place] HEMATOLOGY Hct 42.4 % 36.0 - 07/10 [facility] [place] 48.0 /2015 [place] HEMATOLOGY MCH 27.2 pg 27.0 - 07/10 [facility] [place] 31.0 /2015 [place] HEMATOLOGY RDW 17.7 % 11.5 - 07/10 [facility] [place] 14.5 /2015 [place] HEMATOLOGY MCHC 32.0 g/dL 32.0 - 07 [facility] [place] 36.0 /2015 [place] HEMATOLOGY MPV 8.6 fL 7.4 - 10.4 /10 [facility] /2015 [place] HEMATOLOGY Platelet 214 K/CMM 133 - 450 07/10 [facility] [place] /2016 [place] HEMATOLOGY RBC 4.98 M/CMM 4.20 - 07/10 [facility] [place] 5.40 /2016 [place] HEMATOLOGY WBC 12.2 K/CMM 3.7 - 10.4 07/10 [facility] [place] /2016 [place] HEMATOLOGY Monocytes 3.9 % 2.0 - 12.0 /10 [facility] [place] /2016 [place] HEMATOLOGY Lymphocytes 4.5 % 20.0 - 07/10 [facility] [place] 40.0 /2016 [place] HEMATOLOGY Segs 91.5 % 45.0 - 07/10 [facility] [place] 75.0 /2016 [place] HEMATOLOGY Monocytes # 0.5 K/CMM 0.0 - 0.8 07/10 [facility] [place] /2016 [place] HEMATOLOGY Lymphocytes 0.6 K/CMM 1.0 - 5.5 07/10 [facility] [place] # /2016 [place] HEMATOLOGY Basophils 0.1 % 0.0 - 1.0 07/10 [facility] /2016 [place] HEMATOLOGY Eosinophils 0.0 % 0.0 - 4.0 07/10 [facility] /2016 [place] HEMATOLOGY Segs-Bands # 11.2 K/CMM 1.5 - 8.1 07/10 [facility] [place] /2016 [place] HEMATOLOGY Eosinophils 0.0 K/CMM 0.0 - 0.5 07/10 [facility] [place] # /2016 [place] HEMATOLOGY Basophils # 0.0 K/CMM 0.0 - 0.2 04/07 [facility] /2015 [facility] HEMATOLOGY PTT 27.0 s 22.9 - 04/07 [place] 35.8 /2015 [facility] PARATHYROI Ca Ion WB 1.00 1.05 - 04/07 [facility] PROFILE mMol/L 1. [facility] PARATHYROI Ca Norm WB 1.02 1.05 - 04/07 [facility] PROFILE mMol/L . [facility] TOXICOLOGY Vanco Tr TND [id number] 04/07 [facility] /2015 [facility] TOXICOLOGY Vanco Tr 23.3 ug/ml 04/07 [facility] /2015 [facility] Carotid Carotid EXAM: 04/06 [facility] artery artery - [facility] Doppler Doppler Carotid Ultrasound. bilat US bilat US Read by: Jose Carlos Hernandez MD Dictated Date/time: 04/06/16 20:09 INDICATION: Electronically Signed by: Jose Carlos Hernandez MD 04/06/16 20:18 FINAL REPORT Transient cerebral ischemia. TECHNIQUE: Grayscale and Doppler sonogram of the carotid arteries. Note: ICA=internal carotid artery. CCA=common carotid artery. PSV=peak systolic velocity. Stenosis measurements are made indirectly by velocities using SRU Consensus Conference for Duplex Ultrasound using the below criteria: Stenosis (%): ICA PSV (cm/s) ICA/CCA ratio <50 <125 <2 50-69 125-230 2-4 >70 >230 >4 FINDINGS: Right: There is mild atherosclerotic plaque within the ICA and CCA. ICA: PSV 66.6 cm/s. CCA: PSV 60 cm/s. ICA/CCA PSV ratio: 1.11. Vertebral artery: Not well seen secondary to an overlying patch related to a catheter Left: There is mild atherosclerotic plaque within the ICA and CCA ICA: PSV 72.6 cm/s. CCA: PSV 75.7 cm/s. ICA/CCA PSV ratio: 0.96. Vertebral artery: Cephalad flow. IMPRESSION: Less than 50% stenosis of the bilateral internal carotid arteries Brain wo Brain wo MRI BRAIN WITHOUT CONTRAST: 04/06/201604/06 - [facility] contrast contrast MRI /2015 - [facility] MRI COMPARISON: Yesterday's head CT Read by: Jose Macdonald MD Dictated Date/time: 04/06/16 17:54 CLINICAL: Acute cognitive change Electronically Signed by: Jose Macdonald MD 04/06/16 17:57 FINAL REPORT COMMENTS: Limited sequences a of diffusion and T2 FLAIR axial images were performed only. There is mild diffuse cerebral atrophy. There are mild punctate T2 hyperintensities involving the cerebral white matter and tawanda without diffusion restriction. These are nonspecific but likely represent small vessel ischemic change. No hydrocephalus, acute infarct, definite intracranial hemorrhage, mass, or midline shift is seen. There is no evidence of diffusion restriction. IMPRESSION: No acute intracranial abnormality. The apparent left MCA infarction on prior CT is probably related to streak artifact. Mild probable small vessel ischemic changes, including tawanda involvement. CHEM PANEL AST 25 unit/L 0 - 37 04/06 [facility] CHEM PANEL ALT 38 unit/L 0 - 65 04/06 [facility] CHEM PANEL Bili Total 0.7 mg/dL 0.2 - 1.3 04/06 [facility] CHEM PANEL eGFR 91 04/06 Result Comment: The eGFR is calculated using the CKD-EPI formula. In most young, healthy individuals the eGFR will be >90 mL/ min/1.73m2. The eGFR declines with age. An eGFR of 60-89 may be normal in mL/min/1.7 /2016 some populations, particularly the elderly, for whom the CKD-EPI formula has not been extensively validated. Use of the eGFR is not recommended in the following populations: [place] 3m2 Individuals with unstable creatinine concentrations, including patients and those with serious co-morbid conditions. Patients with extremes in muscle mass or diet. The data above are obtained from the National Kidney Disease Education Program (NKDEP) which additionally recommends that when the eGFR is used in patients with extremes of body mass index for purposes of drug dosing, the eGFR should be multiplied by the estimated BMI. CHEM PANEL Alk Phos 41 unit/L 39 - 136 04/06 [facility] CHEM PANEL A/G Ratio 0.7 0.7 - 1.6 04/06 [place] CHEM PANEL Globulin 4.2 g/dL 2.0 - 4.0 04/06 [facility] [place] CHEM PANEL Albumin Lvl 2.9 g/dL 3.5 - 5.0 04/06 [place] CHEM PANEL Total 7.1 g/dL 6.4 - 8.4 04/06 [place] CHEM PANEL B/C Ratio 35 6 - 25 07/09 [facility] [place] /2015 [place] CHEM PANEL BUN 24 mg/dL 7 - 22 / [facility] [place] /2015 [place] CHEM PANEL Creatinine 0.69 mg/dL 0.50 - 07/09 [facility] [place] Lvl 1.40 /2015 [place] CHEM PANEL Glucose Lvl 127 mg/dL 70 - 99 07/ [facility] [place] /2015 [place] CHEM PANEL Sodium Lvl 134 meq/L 135 - 145 07/ [facility] [place] CHEM PANEL Calcium Lvl 8.3 mg/dL 8.5 - 10.5 / [facility] [place] /2015 [place] CHEM PANEL Chloride Lvl 90 meq/L 95 - 109 07/ [facility] [place] CHEM PANEL CO2 42 meq/L 24 - 32 / Result Comment: [place] Critical Result(s) called to Lisa FRANKLIN RN at 04/06/2016 05:16 byTLN. Read back OK. CHEM PANEL AGAP 6.1 meq/L 10.0 - 07 [place] 20.0 [place] CHEM PANEL Potassium 4.1 meq/L 3.5 - 5.1 04/06 [place] Lvl /2015 [place] CHEM PANEL LDH 179 unit/L 98 - 192 07/ [place] HEMATOLOGY Hct 42.5 % 36.0 - 07 [facility] 48.0 [place] HEMATOLOGY MCV 85.2 fL 80.0 - 04/06 [place] 98.0 [place] HEMATOLOGY MCH 26.9 pg 27.0 - 04/06 [place] 31.0 [place] HEMATOLOGY WBC 13.1 K/CMM 3.7 - 10.4 / [place] HEMATOLOGY RBC 4.99 M/CMM 4.20 - 09 [facility] 5.40 [place] HEMATOLOGY Hgb 13.4 g/dL 12.0 - 07 [place] 16.0 [place] HEMATOLOGY MCHC 31.6 g/dL 32.0 - 0709 [place] 36.0 /2015 [place] HEMATOLOGY MPV 8.4 fL 7.4 - 10.4 /09 [facility] [place] /2015 [place] HEMATOLOGY Platelet 224 K/CMM 133 - 450 07/ [place] /2015 [place] HEMATOLOGY RDW 18.0 % 11.5 - 07 [place] 14.5 /2015 [place] HEMATOLOGY Segs 88.7 % 45.0 - 07/09 [place] 75.0 /2016 [facility] HEMATOLOGY Lymphocytes 0.9 K/CMM 1.0 - 5.5 04/06 [place] # /2015 [place] HEMATOLOGY Monocytes # 0.5 K/CMM 0.0 - 0.8 04/06 [facility] HEMATOLOGY Segs-Bands # 11.6 K/CMM 1.5 - 8.1 04/06 [facility] HEMATOLOGY Eosinophils 0.0 K/CMM 0.0 - 0.5 04/06 [place] # /2016 [facility] HEMATOLOGY Basophils # 0.1 K/CMM 0.0 - 0.2 04/06 [facility] HEMATOLOGY Monocytes 4.1 % 2.0 - 12.0 04/06 [facility] HEMATOLOGY Eosinophils 0.0 % 0.0 - 4.0 04/06 [facility] HEMATOLOGY Lymphocytes 6.7 % 20.0 - 04/06 [place] 40.0 [facility] HEMATOLOGY Basophils 0.5 % 0.0 - 1.0 04/06 [facility] Chest Chest 1view EXAM: CHEST 1 VIEW XR 04/06 [facility] 1view DX DX DATE: 04/06/2016 3:00 AM CDT . Read by: Carlo Neal MD Dictated Date/time: 04/06/16 06:08 TECHNIQUE: AP view of the chest Electronically Signed by: Carlo Neal MD 04/06/16 06:09 FINAL REPORT CLINICAL INDICATION: Abnormal chest sounds. COMPARISON: Chest x-ray of 04/17/2016 FINDINGS: SEE BELOW IMPRESSION: 1. Life-support: Right internal jugular central venous catheter tip projects over the right atrium, stable 2. Stable cardiac silhouette, vascular congestion, mild pulmonary edema and small pleural effusions 3. Overall stable study Brain wo Brain wo EXAM: CT HEAD WITHOUT CONTRAST 04/05 [facility] contrast contrast CT CT DATE: 04/05/2016 6:16 PM CDT Read by: Carlo Neal MD Dictated Date/time: 04/05/16 22:24 Electronically Signed by: Carlo Neal MD 04/05/16 22:29 FINAL REPORT CLINICAL INDICATION: Dysarthria. COMPARISON: Unavailable TECHNIQUE: Contiguous axial images of the brain are obtained from skull base to vertex without administration of intravenous contrast .Axial, sagittal, coronal images are interpreted. Dose: DLP 691 mGy-cm FINDINGS: There is subtle vasogenic edema in the left temporal lobe. The insular and motor strip are spared.. The ibarra-white distinction is otherwise maintained. The ventricles, sulci, and basal cistern s are normal. The orbits, mastoids, paranasal sinuses and skull base are within normal limits. IMPRESSION: 1. Findings most suggestive of recent left MCA infarct without hemorrhage or mass effect 2. Critical findings were discussed with Intensive Care Unit nurse Nia by telephone on 04/05/2016 at approximately 1029 hours CHEM PANEL Alk Phos 47 unit/L 39 - 136 / [facility] 2016 [facility] CHEM PANEL ALT 33 unit/L 0 - 65 / MH Sugar [facility] CHEM PANEL AST 23 unit/L 0 - 37 / MH Sugar [facility] CHEM PANEL Bili Total 0.5 mg/dL 0.2 - 1.3 04/05 Sugar [facility] CHEM PANEL B/C Ratio 26 6 - 25 04/05 [place] CHE[place] PANEL Total 7.4 g/dL 6.4 - 8.4 04/05 [place] CHEM PANEL Albumin Lvl 3.0 g/dL 3.5 - 5.0 07/ MH [facility] 2016 [facility] CHEM PANEL A/G Ratio 0.7 0.7 - 1.6 / MH [place] /2016 [place] CHEM PANEL Globulin 4.4 g/dL 2.0 - 4.0 /08 MH [facility] /2016 [facility] HEMATOLOGY PT 15.6 s 12.0 - 07/08 [facility] 14.7 /2015 [facility] HEMATOLOGY INR 1.21 0.85 - / [facility] 1.17 /2015 [facility] HEMATOLOGY PTT 30.4 s 22.9 - 07/08 [facility] 35.8 /2016 [facility] LIPIDS CHD Risk 3.13 3.90 - 07/08 [facility] 5.80 /2016 [facility] LIPIDS VLDL 16 / MH [facility] 2016 [facility] LIPIDS LDL 65 mg/dL <=99 mg/dL 04/05 [facility] (Calculated) [facility] LIPIDS HDL 38 mg/dL >=61 mg/dL 04/05 [facility] 2016 [facility] LIPIDS Trig 80 mg/dL <=149 /08 [facility] mg/dL /2016 [facility] LIPIDS Chol 119 mg/dL <=199 /08 [facility] mg/dL /2015 [facility] Chest Chest 1view EXAM: CHEST 1 VIEW XR 04/05 - [place] 1view DX DX /2015 - [place] DATE: 04/05/2016 3:00 AM CDT . Read by: Carlo Neal MD Dictated Date/time: 04/05/16 06:32 TECHNIQUE: AP view of the chest Electronically Signed by: Carlo Neal MD 04/05/16 06:33 FINAL REPORT CLINICAL INDICATION: Abnormal chest sounds. COMPARISON: Chest x-ray of 04/04/2016 FINDINGS: SEE BELOW IMPRESSION: 1. Life-support: Right internal jugular central venous catheter tip remains overlying the right atrium 2. Small bilateral pleural effusions, stable 3. Slightly improved pulmonary aeration with continued venous congestion left retrocardiac atelectasis 4. Stable heart and mediastinal contour TOXICOLOGY Vanco Tr TND [id number] 04/05 [facility] TOXICOLOGY Vanco Tr 13.8 ug/ml 04/05 [facility] BODY Protein BF 2.5 g/dL 04/04 [facility] FLUIDS /2015 [facility] BODY Prot BF Type Pleural 04/04 [facility] FLUIDS /2015 [place] *NA* (04/04/16 3:24 PM) BODY LDH BF Type Pleural 04/04 [facility] FLUIDS /2015 [place] *NA* (04/04/16 3:24 PM) BODY LDH BF 201 unit/L 04/04 [facility] FLUIDS /2015 [facility] BODY Glucose BF 144 mg/dL 04/04 [facility] FLUIDS /2015 [facility] BODY Gluc BF Type Pleural 04/04 [place] FLUIDS /2015 [place] *NA* (04/04/16 3:24 PM) BODY Macrophage 0 % 04/04 [place] FLUIDS BF [facility] BODY Lymph BF 0 % 04/04 [facility] FLUIDS /2015 [facility] BODY CellCnt BF Pleural 04/04 [facility] FLUIDS Type /2015 [facility] (04/04/16 3:24 PM) BODY Eos BF 0 % 04/04 [facility] FLUIDS /2015 [facility] BODY Color BF Light Yellow Colorless 04/04 [facility] FLUIDS /2015 [facility] (04/04/16 3:24 PM) BODY Supernat BF Colorless Colorless 04/04 [facility] FLUIDS /2015 [facility] (04/04/16 3:24 PM) BODY Clarity BF Clear Clear 04/04 [facility] FLUIDS /2015 [facility] (04/04/16 3:24 PM) BODY WBC BF 0 /mm3 04/04 [facility] FLUIDS /2015 [facility] BODY RBC BF 75 /mm3 04/04 [place] FLUIDS /2016 [facility] BODY Segs BF 0 % 04/04 [facility] FLUIDS /2015 [facility] HEMATOLOGY INR 1.15 0.85 - 04/04 [facility] 1.17 /2015 [facility] HEMATOLOGY PT 15.0 s 12.0 - 04/04 [facility] 14.7 /2015 [facility] Thoracente Thoracentesi ULTRASOUND GUIDED RIGHT THORACENTESIS, 04/04/201604/04 - [facility] sis wo s - [facility] catheter catheter US US HISTORY: Right pleural effusion Read by: Uriah Lakhani MD Dictated Date/time: 04/05/16 06:50 Electronically Signed by: Uriah Lakhani MD 04/05/16 06:52 FINAL REPORT After obtaining informed consent, the loculated right pleural effusion was localized with ultrasound. The skin was cleansed and anesthetized with 5 cc of 1% Lidocaine. A [employer] catheter was used to acce ss the fluid. Less than 10 mL of yellow fluid were aspirated. Specimens were sent to lab as requested. The patient tolerated the procedure well with no immediate complications. Images were recorded before, during and following the procedure. IMPRESSION: Loculated right pleural effusion with less than 10 mL of yellow fluid aspirated. Chest Chest 1view Exam: Chest x-ray, one view 04/04 - [facility] 1view DX DX [facility] Reason for Exam: Pleural effusion. Status post thoracentesis. Read by: Juan Jose Baer MD Dictated Date/time: 04/04/16 16:26 Electronically Signed by: Juan Jose Baer MD 04/04/16 16:27 FINAL REPORT Comparison Exam: 04/04/2016 at 0526 hours Discussion: Cardiac silhouette is slightly enlarged. Mild pulmonary vascular congestion. Small bilateral pleural effusions. No appreciable evidence seen for pneumothorax. Right IJ line appears stable. No acute bony abnormalities. Impression: 1. Small bilateral pleural effusions. No appreciable evidence seen for pneumothorax. CVC insert CVC insert Right IJ central line insertion using ultrasound guidance, 04/03/201604/04 - [place] non-tunnel non-tunnel /2015 - [facility] age 5+ yrs age 5+ yrs VR VR HISTORY: Venous access. Read by: Uriah Lakhani MD Dictated Date/time: 04/04/16 08:01 Electronically Signed by: Uriah Lakhani MD 04/04/16 08:03 FINAL REPORT After obtaining informed consent, the right neck was cleansed and draped in the usual manner. Ultrasound was used to identify the right IJ vein, confirm patency, and guide needle access into the vein. A micropuncture set was used to access the vein. Following needle access of the right IJ vein, guidewire, dilator, and right IJ central line were inserted without complication. The patient tolerated the procedure well with no immediate complications. IMPRESSION: Successful ultrasound-guided right IJ central line insertion. CARDIAC Troponin-I 0.02 ng/mL 0.00 - 04/04 [facility] ENZYMES 0.40 /2015 [facility] CARDIAC Total CK 43 unit/L 12 - 191 04/04 [facility] ENZYMES [facility] Chest Chest 1view EXAM: CHEST 1 VIEW XR 04/04 - [facility] 1view DX DX /2015 [facility] DATE: 04/04/2016 3:00 AM CDT . Read by: Carlo Neal MD Dictated Date/time: 04/04/16 06:16 TECHNIQUE: AP view of the chest Electronically Signed by: Carlo Neal MD 04/04/16 06:17 FINAL REPORT CLINICAL INDICATION: Abnormal chest sounds. COMPARISON: 04/03/2016 chest x-ray FINDINGS: SEE BELOW IMPRESSION: 1. Life-support: Right internal jugular central venous catheter tip is stable overlying the right atrium 2. Stable venous congestion, pulmonary edema, and bilateral pleural effusions 3. Stable cardiac silhouette CARDIAC Total CK 53 unit/L 12 - 191 04/03 [facility] ENZYMES [facility] CARDIAC Troponin-I 0.02 ng/mL 0.00 - 04/03 [facility] ENZYMES 0.40 /2015 [facility] CARDIAC BNP 327 pg/mL <=100 04/03 [facility] ENZYMES pg/mL /2015 [facility] HEMATOLOGY RBC Morph Normal 04/03 [place] /2015 [facility] (04/03/16 11:20 AM) Ext Lower Ext Lower EXAM: 04/03 - [facility] Venous Venous /2015 - [facility] Doppler Doppler Bilateral lower extremity venous doppler. Bilat US Bilat US Read by: Dutch Ken MD Dictated Date/time: 04/03/16 15:37 INDICATION: Electronically Signed by: Dutch Ken MD 04/03/16 15:38 FINAL REPORT Embolism/occlusion lower extremity. TECHNIQUE: The bilateral lower extremity deep venous system was evaluated with grayscale and Doppler ultrasound. Note: DVT=deep vein thrombosis. FINDINGS: Acute DVT: Negative. Other: Mildly limited by nonvisualization of the peroneal veins bilaterally. Mild bilateral lower extremity subcutaneous edema. IMPRESSION: 1. No evidence of acute DVT. CARDIAC Total CK 45 unit/L 12 - 191 04/03 [place] ENZYMES /2015 [facility] CARDIAC Troponin-I 0.02 ng/mL 0.00 - 04/03 [facility] ENZYMES 0.40 /2015 [facility] Chest Chest 1view Addendum: 04/03 - [place] 1view DX DX /2015 - [facility] The tip of right IJ line is most likely in the upper right atrium. The catheter may be used for IV therapy. Read by: Uriah Lakhani MD Dictated Date/time: 04/03/16 13:01 Electronically Signed by: Uriah Lakhani MD 04/03/16 13:03 FINAL REPORT Film discussed with DAVID Montanez. - - EXAM: Read by: Dutch Ken MD Dictated Date/time: 04/03/16 12:47 1 view(s) of the chest. Electronically Signed by: Dutch Ken MD 04/03/16 12:54 FINAL REPORT INDICATION: Central line placement. COMPARISON: Chest x-ray: Earlier today. IMPRESSION: 1. Support apparatus: New right IJ central line with tip projecting over the right atrium; consider 5 cm retraction. 2. Stable enlarged cardiac silhouette with mild pulmonary edema and right greater left pleural effusions. 3. No pneumothorax. Note: Critical findings discussed with the patient's Intensive Care Unit nurse Cecilia on 04/03/2016 12:51 PM CDT over the phone. Readback performed. URINE AND Micro? Performed 04/03 [facility] STOOL [facility] (04/03/16 6:05 AM) URINE AND UA Sq Epi Rare /LPF Few /LPF 04/03 [facility] STOOL [facility] URINE AND UA Bacteria Occasional None Seen 04/03 [place] STOOL /HPF /HPF /2015 [facility] URINE AND UA RBC 0-2 /HPF 0 - 2 04/03 [place] STOOL [facility] URINE AND UA WBC 0-2 /HPF None Seen 04/03 [place] STOOL /HPF /2015 [place] URINE AND UA Ketones Negative Negative 04/03 [place] STOOL mg/dL mg/dL [facility] URINE AND UA 0.2 EU/dL 0.1 - 1.0 04/03 [place] STOOL Urobilinogen /2015 [facility] URINE AND UA Bili Negative Negative 04/03 [place] *NA* (04/03/16 6:05 AM) URINE AND UA Nitrite Negative Negative 04/03 [place] (04/03/16 6:05 AM) URINE AND UA Blood Negative Negative 04/03 [place] (04/03/16 6:05 AM) URINE AND UA Leuk Est Negative Negative 04/03 [place] (04/03/16 6:05 AM) URINE AND UA Glucose Negative Negative 04/03 [place] STO[facility] mg/dL mg/dL URINE AND UA Protein Negative Negative 04/03 [place] [facility] mg/dL mg/dL URINE AND UA pH 6.0 5.0 - 8.0 04/03 [place] URINE AND UA Color Yellow Yellow 04/03 [place] *NA* (04/03/16 6:05 AM) URINE AND UA Turbidity Clear Clear 04/03 [place] (04/03/16 6:05 AM) URINE AND UA Spec Grav 1.015 <=1.030 04/03 Sugar [facility] Chest Chest 1view EXAM: CHEST 1 VIEW XR 04/03 [facility] 1view DX DATE: 04/03/2016 5:34 AM CDT . Read by: Carlo Neal MD Dictated Date/time: 04/03/16 06:25 TECHNIQUE: AP view of the chest Electronically Signed by: Carlo Neal MD 04/03/16 06:25 FINAL REPORT CLINICAL INDICATION: Same-day chest CT. COMPARISON: UNAVAILABLE FINDINGS: SEE BELOW IMPRESSION: 1. Life-support: None present 2. Cardiomegaly, central venous congestion and bilateral pleural effusions. Mild pulmonary edema is suspected 3. Basal atelectasis BACTERIAL MRSA by PCR Negative 04/03 [place] - SEROLOGY (04/03/16 12:20 AM) CHEM PANEL Lactic Acid 1.3 mMol/L 0.5 - 2.2 04/03 [place] Lvl [facility] HEMATOLOGY Plt Morph Normal 04/03 (04/03/16 12:18 AM) HEMATOLOGY Hypochrom Slight 04/03 HEMATOLOGY Macrocyte 1+ None Seen 04/03 *ABN* (7/6/16 12:18 AM) Chest Chest EXAM: CT CHEST WITH CONTRAST: PE PROTOCOL 04/03 - [place] Pulmonary Pulmonary /2015 - [place] Embolism Embolism CTA DATE: 04/02/2016 11:37 PM CDT CTA Read by: Carlo Neal MD Dictated Date/time: 04/03/16 02:09 CLINICAL INDICATION: Tachycardia. Electronically Signed by: Carlo Neal MD 04/03/16 02:16 FINAL REPORT TECHNIQUE: Following the intravenous administration of 150 mL Omnipaqueiodinated contrast, the chest was scanned from bases to apices. Computer-generated, sagittal, coronal and oblique MIP images were obtained and reviewed. Total DLP was 576 mGy-cm COMPARISON: Unavailable FINDINGS: Pulmonary arteries: The main, right, and left pulmonary arteries are normal in size. There are no filling defects. Aorta: Mild calcified atherosclerosis Lungs: Bilateral lower lobe atelectasis. Right lower lobe calcified granuloma Pleura: Small to moderate bilateral pleural effusions without loculation.. Lymph nodes: No lymphadenopathy. Heart: Cardiac chamber enlargement. Mild calcified atherosclerosis Proximal abdomen: Unremarkable. Neck soft tissues: Unremarkable where visualized. Bony thorax: No worrisome abnormality Subcutaneous tissues: Unremarkable IMPRESSION: 1. No pulmonary embolus identified 2. Right greater than left pleural effusions with dependent atelectasis 3. Mild cardiomegaly and calcified coronary atherosclerosis. Vital Signs Vital Sign Value Date Comments Source BMI Calculated 57.91 02/05/[facility] Weight 167.727 02/05/2019 [facility] Height 170.18 cm 02/05/2019 [facility] Systolic (mm Hg) 165 02/05/2019 [facility] Diastolic (mm Hg) 80 02/05/2019 [facility] Heart Rate 66 02/05/2019 [facility] Respitory Rate 16 02/05/2019 [facility] Height 160.02 cm 07/01/2018 [facility] Heart Rate 65 07/01/2018 [facility] Systolic (mm Hg) 154 07/01/2018 [facility] Diastolic (mm Hg) 71 07/01/2018 [facility] BMI Calculated 62.13 07/01/2018 [facility] Weight 159.091 07/01/2018 [facility] Temperature Oral (F) 97.4 F 11/05/[address] [facility] Heart Rate 66 11/05/[address] [facility] Respitory Rate 18 11/05/[address] [facility] Systolic (mm Hg) 165 11/05/[address] [facility] Diastolic (mm Hg) 60 11/05/[address] [facility] Height 67 11/04/[address] [facility] Weight 337 11/04/[address] [facility] Temperature Oral (F) 97.4 F 04/09/2016 [facility] Systolic (mm Hg) 118 04/09/2016 [facility] [place] Diastolic (mm Hg) 76 04/09/2016 [facility] Heart Rate 67 04/09/2016 [facility] Heart Rate 69 04/09/2016 [facility] Temperature Oral (F) 97.9 F 04/09/2016 [facility] [place] Systolic (mm Hg) 131 04/09/2016 [facility] [place] Diastolic (mm Hg) 86 04/09/2016 [facility] [place] Systolic (mm Hg) 138 04/09/2016 [facility] [place] Diastolic (mm Hg) 85 04/09/2016 [facility] Heart Rate 84 04/09/2016 [facility] Respitory Rate 18 04/09/2016 [facility] Temperature Oral (F) 98.1 F 04/09/2016 [facility] [place] Weight 150.5 04/09/2016 [facility] Respitory Rate 18 04/09/2016 [facility] Respitory Rate 20 04/09/2016 [facility] Weight 153.007 04/04/2016 [facility] Height 170.18 cm 04/04/2016 [facility] Weight 157.2 04/03/2016 [facility] Height 170.18 cm 04/03/2016 [facility] BMI Calculated 54.28 04/03/2016 [facility] Encounters Location Location Encounter Encounter Reason Attending ADM DC Status Source Details Type Number For Provider Date Date Visit [facility] Inpatient [id number] Jarad 04/03 04/09 [facility]an Lamie /[place] [facility] [id number] 10/08 10/[address] [facility] [id number] 10/27 11/[address] [facility] Out[facility] [id number] SUNG 05/21 Active [facility] KRE Phan Outpatient [id number] SUNG 07/01 Active [facility] KRE [place] [facility] [id number] Sung 07/01 07/02 [facility] Krell /2017 [facility] [place] [facility] Outside [id number] 07/09 07/11 [facility] /2017 [facility] [place] Records Outpatient [id number] SUNG 08/25 Active [facility] KRE [place] [facility] Ambulatory [id number] Sung 08/25 08/25 [facility] Pre-Reg Krell /2017 [facility] [place] Outpatient [id number] SUNG 08/28 Active [facility] [place] Outpatient [id number] Sung 12/25 [facility] Phan Outpatient [id number] Sung 02/05 Active [facility] [place] [facility] Outpatient [id number] Sung 02/05 02/06 [facility] Kre /2018 [facility] [place] Outpatient [id number] Sung 05/14 Active [facility] Phan Procedures Procedure Code Date Perfomer Comments Source Chest Single View [id number] 10/31/[address] [facility] Chest Single View [id number] 10/30/[address] [facility] Chest Single View [id number] 10/29/[address] [facility] Gram Stain [id number] 10/28/[address] [facility] Culture & [id number] 10/28/[address] [facility] [place] Chest Single View [id number] 10/28/[address] [facility] Anaerobic Blood [id number] 10/27/[address] [facility] [place] Aerobic Blood [id number] 10/27/[address] [facility] [place] Chest Single View [id number] 10/27/[address] [facility] Chest Pa And Lat [id number] 10/10/[address] [facility] (2 [facility] [place] Gram Stain [id number] 10/09/[address] [facility] Culture & [id number] 10/09/[address] [facility] [place] Chest Pa And Lat [id number] 10/09/[address] [facility] (2 [facility] [place] Anaerobic Blood [id number] 10/08/[address] [facility] [place] Aerobic Blood [id number] 10/08/[address] [facility] [place] Chest Single View [id number] 10/08/[address] [facility] [place] Carpal tunnel [id number] [facility] release Hysterectomy<sup> [id number] 16 years ago [facility] 1</sup> Carpal tunnel [id number] [facility] release Hysterectomy<sup> [id number] 16 years ago [facility] 1</sup>
--- OUTSIDE RECORDS SUMMARY | 2019-03-16 19:48 | XMS REPORT | Summary of Care ---
:1950 Author Organization [facility] Address [address] [place] [address]- Encounter HQ Clark(FIN) [id number] Date(s): 07/01/18 - 07/01/18 [facility] [address] [place] [address]- [phone] Discharge Disposition: Home or Self Care Attending Physician: Dylon Tang MD Referring Physician: Dylon Tang MD Vital Signs Most recent to oldest [Reference Range]: 1 Height 160.02 cm (07/01/18 10:32 AM) Blood Pressure [90-140/60-90 mmHg] 154/71 mmHg *HI* (07/01/18 10:32 AM) Peripheral Pulse Rate [60-100 bpm] 65 bpm (07/01/18 10:32 AM) Weight 159.091 kg (07/01/18 10:32 AM) Body Mass Index 62.13 m2 (07/01/18 10:32 AM) Problem List Condition Effective Dates Status Health Status Informant AF (atrial fibrillation)(Confirmed) Active Chronic obstructive pulmonary Active disease (COPD)(Confirmed) Hay fever(Confirmed) Resolved Hypothyroidism(Confirmed) Active Morbid obesity(Confirmed) Active Peripheral neuropathy(Confirmed) Active Allergies, Adverse Reactions, Alerts Substance Reaction Severity Status Decongestant Severe Active Medications aspirin 81 mg, PO, Daily, 0 Refill(s) Start Date: 07/01/18 Status: Ordered Results No data available for this section Immunizations Given and Recorded Vaccine Date Status Refusal Reason pneumococcal 23-valent vaccine 04/03/16 Given Procedures Procedure Date Related Diagnosis Body Site Status Carpal tunnel release Completed Hysterectomy1 Completed 116 years ago Social History Social History Type Response Substance Abuse Use: None. Employment/School Status: Retired. Alcohol Past, Frequency: 1-2 times per week. Last use: 15 years ago. Smoking Status Never smoker; Exposure to Tobacco Smoke None; Cigarette Smoking Last 365 Days No; Reg Smoking Cessation Counseling No entered on: 12/25/18 Assessment and Plan No data available for this section
--- OUTSIDE RECORDS SUMMARY | 2019-03-16 19:48 | XMS REPORT | Summary of Care ---
:1950 Author Organization [facility] Address [address] [place] [address]- Encounter [facility] Clark(FIN) [id number] Date(s): 02/05/19 - 02/05/19 [facility] [address] [place] [address]- [phone] Discharge Disposition: Home or Self Care Attending Physician: Dylon Tang MD Referring Physician: Joel Gutierrez MD Vital Signs Most recent to oldest [Reference Range]: 1 Height 170.18 cm (02/05/19 11:04 AM) Blood Pressure [90-140/60-90 mmHg] 165/80 mmHg *HI* (02/05/19 11:04 AM) Respiratory Rate [14-20 BRMIN] 16 BRMIN (02/05/19 11:04 AM) Peripheral Pulse Rate [60-100 bpm] 66 bpm (02/05/19 11:04 AM) Weight 167.727 kg (02/05/19 11:04 AM) Body Mass Index 57.91 m2 (02/05/19 11:04 AM) Problem List Condition Effective Dates Status Health Status Informant AF (atrial fibrillation)(Confirmed) Active Chronic obstructive pulmonary Active disease (COPD)(Confirmed) Hay fever(Confirmed) Resolved Hypothyroidism(Confirmed) Active Morbid obesity(Confirmed) Active Peripheral neuropathy(Confirmed) Active Allergies, Adverse Reactions, Alerts Substance Reaction Severity Status Decongestant Severe Active Medications No Known Medications Results No data available for this section [...] Last use: 15 years ago. Smoking Status Current every day smoker; Type: Cigarettes; Ready to change: Yes; Concerns about tobacco use in household: No; Exposure to Tobacco Smoke None ; Cigarette Smoking Last 365 Days Yes; Reg Smoking Cessation Counseling No; Tobacco u se per day: 10; Number of years: 50; entered on: 02/05/19 Assessment and Plan No data available for this section
--- OUTSIDE RECORDS SUMMARY | 2019-03-16 19:48 | XMS REPORT | Summary of Care ---
:1950 Author Organization [facility] [place] Address [address] [place] [address]- Encounter HQ Lilianer_william(FIN) [id number] Date(s): 08/25/18 - 08/25/18 [facility] [address] [place] [address]- [phone] Attending Physician: Dylon Tang MD Referring Physician: Dylon Tang MD Vital Signs No data available for this section Problem List Condition Effective Dates Status Health Status Informant AF (atrial fibrillation)(Confirmed) Active Chronic obstructive pulmonary Active disease (COPD)(Confirmed) Hay fever(Confirmed) Resolved Hypothyroidism(Confirmed) Active Morbid obesity(Confirmed) Active Peripheral neuropathy(Confirmed) Active Allergies, Adverse Reactions, Alerts Substance Reaction Severity Status Decongestant Severe Active Medications No data available for this section Results No data available for this section [...]
--- OUTSIDE RECORDS SUMMARY | 2019-03-16 19:48 | XMS REPORT | Summary of Care ---
:1950 Author Organization [facility] Address [address] [place] [address]- Encounter HQ Janellentr_william(FIN) [id number] Date(s): 07/09/18 - 07/10/18 [facility] [place] [address] [place] [address]- [phone] Vital Signs No data available for this [...]
[2019-03-16 20:33] LABS: Absolute Lymphocytes (CBC) 1.6 K/uL (0.7-4.9); Basophils % 0.8 % (0-1.3); Eosinophils % 1.7 % (0-4.4); Hematocrit 32.4 % (36.0-45.0); Lymphocytes % 17.7 % (15.3-44.8); MPV 10.3 fL (7.6-11.3); Monocytes % 8.5 % (3.3-12.3); RBC Red Blood Cell Count 3.63 M/uL (3.86-4.86)
[2019-03-16] MEDS ORDERED: NA CHLORIDE 0.9% 1,000 ML ONE (20:33)
[2019-03-16] MEDS ORDERED: CEFTRIAXONE/SWI 1gm 1 GM/10 ML SYR ONE (20:33)
[2019-03-16 20:35] LABS: Protime INR 0.98
--- NOTE | 2019-03-16 20:39 | RAD REPORT ---
EXAM DESCRIPTION: RAD - Chest Single View - 03/16/2019 8:31 pm CLINICAL HISTORY: COUGH Chest pain. COMPARISON: <Comparisons> FINDINGS: Portable technique limits examination quality. The lungs are grossly clear. The heart is mildly enlarged in size. No displaced fractures. IMPRESSION: No acute intrathoracic process suspected.
[2019-03-16 20:51] LABS: ALT/SGPT 40 U/L (12-78); AST/SGOT 26 U/L (15-37); Alkaline Phosphatase 57 U/L (45-117); BUN Blood Urea Nitrogen 19 mg/dL (7-18); Bicarbonate 29 mmol/L (21-32); Bilirubin Direct 0.1 mg/dL (0-0.2); Bilirubin Total 0.4 mg/dL (0.2-1.0); Glucose Level 131 mg/dL (74-106); Lipase 123 U/L (73-393); Magnesium 2.5 mg/dL (1.8-2.4); NT PRO-BNP 409 pg/mL (<125); Potassium 4.2 mmol/L (3.5-5.1); Protein, Total 8.3 g/dL (6.4-8.2); Sodium Level 142 mmol/L (136-145); Troponin (Emerg Dept Use Only) < 0.02 ng/mL (0.0-0.045)
[2019-03-16 21:16] LABS: Urine Bacteria <20 /HPF (<20); Urine Culture Reflex Order NOT NEEDED; Urine RBC >50 /HPF (NONE SEEN)
--- NOTE | 2019-03-16 22:24 | EDPHYS ---
Physician Documentation [facility] Name: Chrissie Siddiqi Age: 68 yrs Sex: Female : 1950 Arrival Date: 03/16/2019 Time: 19:41 Bed 23 Private MD: Jamir Packer V ED Physician Rito Merrill HPI: 03/16 20:08 This 68 yrs old Female presents to ER via Wheelchair with complaints of Blood iram in urine. 20:08 The patient presents with urinary symptoms, dysuria, frequency, hematuria, hesitancy. iram Onset: The symptoms/episode began/occurred 2 day(s) ago. Modifying factors: The symptoms are alleviated by nothing, the symptoms are aggravated by nothing. Associated signs and symptoms: The patient has no apparent associated signs or symptoms. Severity of symptoms: At their worst the symptoms were. The patient has not experienced similar symptoms in the past. Historical: - Allergies: 19:55 Decongestants; lp1 - Home Meds: 19:55 amiodarone 200 mg Oral tab 1 tab once daily [Active]; Lasix 40 mg Oral tab 1 tab once lp1 daily [Active]; Albuterol Inhl [Active]; Advair Diskus Inhl [Active]; Diuretic that is 2x/week [Active]; - PMHx: 19:55 Atrial Fib; COPD; Hypertension; lp1 - PSHx: 19:55 Hysterectomy; lp1 - Immunization history:: Adult Immunizations up to date. - Social history:: Smoking status: Patient/guardian denies using tobacco, the patient reports quitting approximately 1 years ago. - Ebola Screening: : No symptoms or risks identified at this time. - Family history:: not pertinent. ROS: 20:08 Constitutional: Negative for fever, chills, and weight loss, Eyes: Negative for injury, iram pain, redness, and discharge, ENT: Negative for injury, pain, and discharge, Neck: Negative for injury, pain, and swelling, Cardiovascular: Negative for chest pain, palpitations, and edema, Respiratory: Negative for shortness of breath, cough, wheezing, and pleuritic chest pain, Abdomen/GI: Negative for abdominal pain, nausea, vomiting, diarrhea, and constipation, Back: Negative for injury and pain, MS/Extremity: Negative for injury and deformity, Skin: Negative for injury, rash, and discoloration, Neuro: Negative for headache, weakness, numbness, tingling, and seizure, Psych: Negative for depression, anxiety, suicide ideation, homicidal ideation, and hallucinations, Allergy/Immunology: Negative for hives, rash, and allergies, Endocrine: Negative for neck swelling, polydipsia, polyuria, polyphagia, and marked weight changes, Hematologic/Lymphatic: Negative for swollen nodes, abnormal bleeding, and unusual bruising. 20:08 : Positive for urinary symptoms, urinary frequency, small amounts, hematuria, burning with urination, difficulty urinating. Exam: 20:08 Constitutional: This is a well developed, well nourished patient who is awake, alert, iram and in no acute distress. Head/Face: Normocephalic, atraumatic. Eyes: Pupils equal round and reactive to light, extra-ocular motions intact. Lids and lashes normal. Conjunctiva and sclera are non-icteric and not injected. Cornea within normal limits. Periorbital areas with no swelling, redness, or edema. ENT: Nares patent. No nasal discharge, no septal abnormalities noted. Tympanic membranes are normal and external auditory canals are clear. Oropharynx with no redness, swelling, or masses, exudates, or evidence of obstruction, uvula midline. Mucous membranes moist. Neck: Trachea midline, no thyromegaly or masses palpated, and no cervical lymphadenopathy. Supple, full range of motion without nuchal rigidity, or vertebral point tenderness. No Meningismus. Chest/axilla: Normal chest wall appearance and motion. Nontender with no deformity. No lesions are appreciated. Cardiovascular: Regular rate and rhythm with a normal S1 and S2. No gallops, murmurs, or rubs. Normal PMI, no JVD. No pulse deficits. Respiratory: Lungs have equal breath sounds bilaterally, clear to auscultation and percussion. No rales, rhonchi or wheezes noted. No increased work of breathing, no retractions or nasal flaring. Abdomen/GI: Soft, non-tender, with normal bowel sounds. No distension or tympany. No guarding or rebound. No evidence of tenderness throughout. Back: No spinal tenderness. No costovertebral tenderness. Full range of motion. Female : Normal external genitalia. Skin: Warm, dry with normal turgor. Normal color with no rashes, no lesions, and no evidence of cellulitis. MS/ Extremity: Pulses equal, no cyanosis. Neurovascular intact. Full, normal range of motion. Neuro: Awake and alert, GCS 15, oriented to person, place, time, and situation. Cranial nerves II-XII grossly intact. Motor strength 5/5 in all extremities. Sensory grossly intact. Cerebellar exam normal. Normal gait. Psych: Awake, alert, with orientation to person, place and time. Behavior, mood, and affect are within normal limits. Vital Signs: 19:53 BP 154 / 69; Pulse 67; Resp 18; Temp 98.4(O); Pulse Ox 98% on 4 lpm NC; Weight 158.76 lp1 kg; Height 5 ft. 7 in. (170.18 cm); Pain 0/10; 21:47 BP 156 / 67; Pulse 67; Resp 18; Pulse Ox 100% on R/A; mg2 22:40 BP 155 / 68; Pulse 68; Resp 18; Temp 98(O); Pulse Ox 98% on 3 lpm NC; Pain 0/10; mg2 19:53 Body Mass Index 54.82 (158.76 kg, 170.18 cm) lp1 MDM: 19:58 Patient medically screened. [facility] 20:10 Data reviewed: vital signs, nurses notes, lab test result(s), EKG, radiologic studies, [facility] CT scan, plain films. 03/16 20:07 Order name: Basic Metabolic Panel; Complete Time: 21:05 [facility] 03/16 20:07 Order name: CBC with Diff; Complete Time: 21:05 [facility] 03/16 20:07 Order name: LFT's; Complete Time: 21:05 [facility] 03/16 20:07 Order name: Magnesium; Complete Time: 21:05 [facility] 03/16 20:07 Order name: NT PRO-BNP; Complete Time: 21:05 [facility] 03/16 20:07 Order name: PT-INR; Complete Time: 21:05 [facility] 03/16 20:07 Order name: Troponin (emerg Dept Use Only); Complete Time: 21:05 [facility] 03/16 20:07 Order name: XRAY Chest (1 view); Complete Time: 21:05 [facility] 03/16 20:07 Order name: Lipase; Complete Time: 21:05 [facility] 03/16 20:07 Order name: CT Stone Protocol [facility] 03/16 20:07 Order name: Urine Culture [facility] 03/16 20:14 Order name: Urine Microscopic Only; Complete Time: 21:31 [facility] 03/16 20:07 Order name: EKG; Complete Time: 20:11 [facility] 03/16 20:07 Order name: Cardiac monitoring; Complete Time: 20:14 [facility] 03/16 20:07 Order name: EKG - Nurse/Tech; Complete Time: 20:14 [facility] 03/16 20:07 Order name: IV Saline Lock; Complete Time: 20:14 [facility] 03/16 20:07 Order name: Labs collected and sent; Complete Time: 20:14 [facility] 03/16 20:07 Order name: O2 Per Protocol; Complete Time: 20:14 [facility] 03/16 20:07 Order name: O2 Sat Monitoring; Complete Time: 20:14 [facility] 03/16 20:07 Order name: Urine Dipstick-Ancillary (obtain specimen); Complete Time: 20:14 [facility] Administered Medications: 21:04 Drug: Rocephin - (cefTRIAXone) 1 grams Route: IVPB; Infused Over: 30 mins; Site: [place] [facility] antecubital; 22:26 Follow up: Response: No adverse reaction; IV Status: Completed infusion mg2 22:26 Not Given (no iv): NS 0.9% 1000 ml IV at 125 ml/hr continuous mg2 22:39 Drug: Bactrim (160 mg-800 mg (DS) 1 tablet Route: PO; mg2 22:39 Follow up: Response: No adverse reaction; Medication administered at discharge. mg2 Disposition: 03/16/19 22:23 Discharged to Home. Impression: Hematuria, Dysuria, Anemia, unspecified, Obesity, unspecified. - Condition is Stable. - Discharge Instructions: Dysuria, Hematuria, Adult, Obesity, Adult, Obesity, Adult, Umai-ry-Iwap. - Prescriptions for Tylenol- Codeine #3 300-30 mg Oral Tablet - take 2 tablet by ORAL route every 6 hours As needed; 30 tablet. Bactrim DS 800- 160 mg Oral Tablet - take 1 tablet by ORAL route every 12 hours for 7 days; 14 tablet. - Medication Reconciliation Form, Thank You Letter, Antibiotic Education, Prescription Opioid Use form. - Follow up: Jamir Packer; When: 2 - 3 days; Reason: Recheck today's complaints, Continuance of care, Re-evaluation by your physician. Follow up: Petar Conteh; When: 2 - 3 days; Reason: Recheck today's complaints, Re-evaluation by your physician. - Problem is new. - Symptoms have improved. Signatures: Dispatcher [employer] EDRito Ji MD MD cha Pena, Laura, RN RN lp1 Wayne Martínez RN RN mg2 Corrections: (The following items were deleted from the chart) 22:41 22:23 03/16/2019 22:23 Discharged to Home. Impression: Hematuria; Dysuria; Anemia, mg2 unspecified; Obesity, unspecified. Condition is Stable. Discharge Instructions: Dysuria, Hematuria, Adult. Prescriptions for Tylenol-Codeine #3 300-30 mg Oral Tablet - take 2 tablet by ORAL route every 6 hours As needed; 30 tablet, Bactrim DS 800-160 mg Oral Tablet - take 1 tablet by ORAL route every 12 hours for 7 days; 14 tablet. and Forms are Medication Reconciliation Form, Thank You Letter, Antibiotic Education, Prescription Opioid Use. Follow up: Jamir Packer; When: 2 - 3 days; Reason: Recheck today's complaints, Continuance of care, Re-evaluation by your physician. Follow up: Petar Conteh; When: 2 - 3 days; Reason: Recheck today's complaints, Re-evaluation by your physician. Problem is new. Symptoms have improved. iram
--- NOTE | 2019-03-16 22:24 | ER ---
Nurse's Notes [facility] Name: Chrissie Siddiqi Age: 68 yrs Sex: Female : 1950 Arrival Date: 03/16/2019 Time: 19:41 Bed 23 Private MD: Jamir Packer V Diagnosis: Hematuria;Dysuria;Anemia, unspecified;Obesity, unspecified Presentation: 03/16 19:52 Presenting complaint: Patient states: Blood in urine since Friday, states more lp1 significant now; Passed some blood clots last night; Denies any pain, fever. Transition of care: patient was not received from another setting of care. Onset of symptoms was March 16, 2019. Risk Assessment: Do you want to hurt yourself or someone else? Patient reports no desire to harm self or others. Initial Sepsis Screen: Does the patient meet any 2 criteria? No. Patient's initial sepsis screen is negative. Does the patient have a suspected source of infection? No. Patient's initial sepsis screen is negative. Care prior to arrival: None. 19:52 Method Of Arrival: Wheelchair lp1 19:52 Acuity: RODRIGO 3 lp1 Historical: - Allergies: 19:55 Decongestants; lp1 - Home Meds: 19:55 amiodarone 200 mg Oral tab 1 tab once daily [Active]; Lasix 40 mg Oral tab 1 tab once lp1 daily [Active]; Albuterol Inhl [Active]; Advair Diskus Inhl [Active]; Diuretic that is 2x/week [Active]; - PMHx: 19:55 Atrial Fib; COPD; Hypertension; lp1 - PSHx: 19:55 Hysterectomy; lp1 - Immunization history:: Adult Immunizations up to date. - Social history:: Smoking status: Patient/guardian denies using tobacco, the patient reports quitting approximately 1 years ago. - Ebola Screening: : No symptoms or risks identified at this time. - Family history:: not pertinent. Screenin:55 Abuse screen: Denies threats or abuse. Denies injuries from another. Nutritional lp1 screening: No deficits noted. Tuberculosis screening: No symptoms or risk factors identified. 20:40 Fall Risk IV access (20 points). mg2 Assessment: 20:39 General: Appears in no apparent distress. comfortable, Behavior is calm, cooperative. mg2 Pain: Denies pain. Neuro: Level of Consciousness is awake, alert, obeys commands, Oriented to person, place, time, situation. Cardiovascular: Capillary refill < 3 seconds Patient's skin is warm and dry. Respiratory: Airway is patent Respiratory effort is even, unlabored. GI: No signs and/or symptoms were reported involving the gastrointestinal system. : Urine is león blood, Reports hematuria. EENT: No signs and/or symptoms were reported regarding the EENT system. Derm: Skin is intact, is healthy with good turgor, Skin is pink, warm \T\ dry. normal. Musculoskeletal: Circulation, motion, and sensation intact. Capillary refill < 3 seconds. 21:15 Reassessment: patient sent to ct scan via stretcher. mg2 22:39 Reassessment: no complaints noted. mg2 Vital Signs: 19:53 BP 154 / 69; Pulse 67; Resp 18; Temp 98.4(O); Pulse Ox 98% on 4 lpm NC; Weight 158.76 lp1 kg; Height 5 ft. 7 in. (170.18 cm); Pain 0/10; 21:47 BP 156 / 67; Pulse 67; Resp 18; Pulse Ox 100% on R/A; mg2 22:40 BP 155 / 68; Pulse 68; Resp 18; Temp 98(O); Pulse Ox 98% on 3 lpm NC; Pain 0/10; mg2 19:53 Body Mass Index 54.82 (158.76 kg, 170.18 cm) lp1 ED Course: 19:41 Patient arrived in ED. es 19:42 Jamir Packer MD is Private Physician. es 19:53 Triage completed. lp1 19:53 Arm band placed on right wrist. lp1 19:57 Wayne Martínez, DAVID is Primary Nurse. mg2 19:58 Rito Merrill MD is Attending Physician. iram 20:05 Urine collected: clean catch specimen, tea colored, blood tinged, Amount Voided: 30mL. jp3 20:20 EKG done, by ED staff, reviewed by Rito Merrill MD. jp3 20:21 Placed in gown. Bed in low position. Call light in reach. Side rails up X 1. Side rails jp3 up X2. Warm blanket given. Verbal reassurance given. athletic monitor on. Pulse ox on. NIBP on. 20:28 XRAY Chest (1 view) In Process Unspecified. EDMS 20:40 No provider procedures requiring assistance completed. mg2 21:32 CT Stone Protocol In Process Unspecified. EDMS 22:20 Paresh Reza PA is PHCP. [facility] 22:23 Jamir Packer MD is Referral Physician. [facility] 22:23 Petar Conteh MD is Referral Physician. [facility] 22:41 Patient did not have IV access during this emergency room visit. mg2 Administered Medications: 21:04 Drug: Rocephin - (cefTRIAXone) 1 grams Route: IVPB; Infused Over: 30 mins; Site: left [facility] [place] antecubital; 22:26 Follow up: Response: No adverse reaction; IV Status: Completed infusion mg2 22:26 Not Given (no iv): NS 0.9% 1000 ml IV at 125 ml/hr continuous mg2 22:39 Drug: Bactrim (160 mg-800 mg (DS) 1 tablet Route: PO; mg2 22:39 Follow up: Response: No adverse reaction; Medication administered at discharge. mg2 Outcome: 22:23 Discharge ordered by . [facility] 22:40 Discharged to home via wheelchair, with family. mg2 22:40 Condition: stable 22:40 Discharge instructions given to patient, family, Instructed on discharge instructions, follow up and referral plans. medication usage, Demonstrated understanding of instructions, follow-up care, medications, Prescriptions given X 1. 22:41 Patient left the ED. mg2 Signatures: Dispatcher [employer] EDMS Rito Merrill MD MD cha Mickail, Joel, PA PA Mechelle Umanzor Laura, RN RN lp1 aWyne Martínez RN RN mg2 Fracisco Shetty jp3
[2019-03-16] MEDS ORDERED: SMZ./TMP. 800/160 MG TABLET ONE (22:53)
[2019-03-16 23:26] VITALS: BP 155/68; TEMP 98; O2SAT 98
--- NOTE | 2019-03-17 07:55 | EKG ---
Test Date: 2019-03-16 Test Time: 20:14:26 Production Illustrator: JOSE LUIS MEASUREMENT RESULTS: Intervals: Rate: 67 NE: 168 QRSD: 92 QT: 412 QTc: 435 [place]: P: 44 NE: 168 QRS: 16 T: 64 INTERPRETIVE STATEMENTS: Normal sinus rhythm Normal ECG Compared to ECG 10/08/2017 17:18:12 No significant changes Electronically Signed On 03-17-19 07:54:24 CDT by Carlo Balderas
--- NOTE | 2019-03-17 09:59 | RAD REPORT ---
EXAM DESCRIPTION: Stone Protocol CLINICAL HISTORY: HEMATURIA. COMPARISON: None. TECHNIQUE: Sequential axial images were obtained with a multi-detector helical CT without administra tion of intravenous iodinated contrast material. Oral contrast was not given. Automatic exposure co ntrol (AEC), mA and/or kV adjustment by patient size, and/or iterative reconstructive technique was u sed, per departmental dose optimization program, during the performance of the CT examination. Due to technical factors the examination is somewhat limited. The lack of contrast limits detailed evaluation of the abdominal organs. FINDINGS: The visualized lung bases are clear. The non-contrast enhanced images of the liver is unremarkable . The spleen, pancreas and right adrena l gland are unremarkable. Low-attenuation is noted consistent with nonfunctioning adenoma. It measure s 3.7 x 2.2 cm in size. The gallbladder is unremarkable. The kidneys are normal in appearance. Ther e are no renal calculi. No evidence of ureteral calculi are seen. The stomach is unremarkable. The loops of small bowel are unremarkable. The appendix is normal. Colon ic diverticulosis is noted. The aorta and inferior vena cava are unremarkable. The bladder is unremarkable. Reproductive organs are absent. There is no pelvic or abdominal lymphade nopathy. No ascites. No free air. The inguinal regions are unremarkable. The visualized bony structures are Unremarkable. Exaggerated lumbar lordosis is noted. IMPRESSION: Unremarkable non-contrast abdominal and pelvis CT. Incidental nonfunctioning left adrena l adenoma. Electronically signed by: Edita Mendenhall MD 03/16/2019 10:06 PM CDT Due to temporary technical issues with the PACS/Fluency reporting system, reports are being signed by the in house radiologist as a courtesy to ensure prompt reporting. The interpreting radiologist is nu rivasly responsible for the content of the report.
== END 2019-03-16 22:41 | disposition home or self-care (01) ==
LOC: ER 19:38
DX: R30.0 Dysuria (principal); D64.9 Anemia, unspecified; E66.9 Obesity, unspecified; I10 Essential (primary) hypertension; J44.9 Chronic obstructive pulmonary disease, unspecified; I48.91 Unspecified atrial fibrillation; Z88.8 Allergy status to other drugs, medicaments and biological substances
CPT/HCPCS: 93005; 87088; 85025; 87086; 80048; 36415; 83735; 85610; 80076; 81015; 84484; 83690; 83880; 76377; 74176; 71045; J0696; J7030; 96365; 99284

== ENCOUNTER 2019-07-07 10:28 | Inpatient (IN) | payer OTHER ==
--- NOTE | 2019-07-07 11:57 | ER ---
Nurse's Notes [facility] Name: Chrissie Siddiqi Age: 69 yrs Sex: Female : 1950 Arrival Date: 07/07/2019 Time: 10:31 Bed 18 Private MD: Diagnosis: Cellulitis and acute lymphangitis of other parts of limb-failed outpatient;Obesity, unspecified;Atrial fibrillation and flutter;Hypokalemia;Unspecified combined systolic (congestive) and diastolic (congestive) heart failure;Anemia, unspecified;Unspecified kidney failure Presentation: 07/07 10:39 Presenting complaint: Patient states: "I saw the automobile mechanic a couple of weeks ago and aa5 he gave me antibiotics and I finished them but it didn't take care of the problem". ([employer] Administrator) sent patient here to be evaluated of left leg cellulitis. Transition of care: patient was not received from another setting of care. Onset of symptoms was 2018. Risk Assessment: Do you want to hurt yourself or someone else? Patient reports no desire to harm self or others. Initial Sepsis Screen: Does the patient meet any 2 criteria? No. Patient's initial sepsis screen is negative. Does the patient have a suspected source of infection? No. Patient's initial sepsis screen is negative. Care prior to arrival: None. 10:39 Acuity: RODRIGO 3 aa5 10:39 Method Of Arrival: Wheelchair aa5 Historical: - Allergies: 10:41 Decongestants; aa5 - PMHx: 10:41 Atrial Fib; COPD; Hypertension; aa5 - PSHx: 10:41 Hysterectomy; aa5 - Immunization history:: Flu vaccine is not up to date. - Social history:: Smoking status: Patient/guardian denies using tobacco. - Ebola Screening: : No symptoms or risks identified at this time. Screenin:45 Abuse screen: Denies threats or abuse. Denies injuries from another. Nutritional aj1 screening: No deficits noted. Tuberculosis screening: No symptoms or risk factors identified. 17:43 Fall Risk No fall in past 12 months (0 pts). No secondary diagnosis (0 pts). IV access aj1 (20 points). Ambulatory Aid- None/Bed Rest/Nurse Assist (0 pts). Gait- Normal/Bed Rest/Wheelchair (0 pts) Mental Status- Oriented to own ability (0 pts). Total Castro Fall Scale indicates No Risk (0-24 pts). Assessment: 11:45 General: Appears in no apparent distress. comfortable, Behavior is calm, cooperative, aj1 appropriate for age. Pain: Complains of pain in left leg. Neuro: Level of Consciousness is awake, alert, obeys commands. Cardiovascular: Patient's skin is warm and dry. Respiratory: Airway is patent Respiratory effort is even, unlabored, Respiratory pattern is regular, symmetrical. GI: No signs and/or symptoms were reported involving the gastrointestinal system. : No signs and/or symptoms were reported regarding the genitourinary system. EENT: No signs and/or symptoms were reported regarding the EENT system. Derm: redness, swelling, and blistering to right leg. Musculoskeletal: No signs and/or symptoms reported regarding the musculoskeletal system. Circulation, motion, and sensation intact. 12:45 Reassessment: Patient appears in no apparent distress at this time. No changes from aj1 previously documented assessment. Patient and/or family updated on plan of care and expected duration. Pain level reassessed. Patient is alert, oriented x 3, equal unlabored respirations, skin warm/dry/pink. 13:45 Reassessment: Patient and/or family updated on plan of care and expected duration. Pain aj1 level reassessed. General: Appears in no apparent distress. comfortable, Behavior is calm, cooperative, appropriate for age. Neuro: Level of Consciousness is awake, alert, obeys commands, Oriented to person, place, time, situation. Cardiovascular: Patient's skin is warm and dry. Rhythm is sinus rhythm. Respiratory: Airway is patent Respiratory effort is even, unlabored, Respiratory pattern is regular, symmetrical. GI: No signs and/or symptoms were reported involving the gastrointestinal system. Derm: redness, swelling and blistering noted to left lower leg. Musculoskeletal: No signs and/or symptoms reported regarding the musculoskeletal system. Circulation, motion, and sensation intact. 14:20 Reassessment: Patient appears in no apparent distress at this time. No changes from aj1 previously documented assessment. Patient and/or family updated on plan of care and expected duration. Pain level reassessed. Patient is alert, oriented x 3, equal unlabored respirations, skin warm/dry/pink. 15:20 Reassessment: Patient appears in no apparent distress at this time. No changes from aj1 previously documented assessment. Patient and/or family updated on plan of care and expected duration. Pain level reassessed. Patient is alert, oriented x 3, equal unlabored respirations, skin warm/dry/pink. 16:30 Reassessment: Patient and/or family updated on plan of care and expected duration. Pain aj1 level reassessed. General: Appears in no apparent distress. comfortable, Behavior is calm, cooperative, appropriate for age. Neuro: Level of Consciousness is awake, alert, obeys commands, Oriented to person, place, time, situation. Cardiovascular: Patient's skin is warm and dry. Rhythm is sinus rhythm. Respiratory: Airway is patent Respiratory effort is even, unlabored, Respiratory pattern is regular, symmetrical. GI: No signs and/or symptoms were reported involving the gastrointestinal system. Derm: Skin is pink, warm \\T\\ dry. Musculoskeletal: Circulation, motion, and sensation intact. 17:30 Reassessment: Patient appears in no apparent distress at this time. No changes from aj1 previously documented assessment. Patient and/or family updated on plan of care and expected duration. Pain level reassessed. Patient is alert, oriented x 3, equal unlabored respirations, skin warm/dry/pink. Vital Signs: 10:41 BP 144 / 59; Pulse 62; Resp 20 S; Temp 97.3(TE); Pulse Ox 97% on 4 lpm NC; Weight aa5 158.76 kg (R); Height 5 ft. 7 in. (170.18 cm) (R); Pain 8/10; 11:45 BP 147 / 65; Pulse 60; Resp 14; Pulse Ox 100% on 4 lpm NC; aj1 12:45 BP 139 / 66; Pulse 65; Resp 18; Pulse Ox 100% on 4 lpm NC; aj1 13:45 BP 142 / 78; Pulse 63; Resp 16; Pulse Ox 100% on 4 lpm NC; aj1 14:22 BP 161 / 67; Pulse 60; Resp 13; Pulse Ox 100% on 4 lpm NC; aj1 15:15 BP 136 / 70; Pulse 70; Resp 18; Pulse Ox 100% on 4 lpm NC; aj1 16:15 BP 155 / 69; Pulse 64; Resp 18; Pulse Ox 96% on 4 lpm NC; aj1 17:40 BP 147 / 66; Pulse 69; Resp 20; Pulse Ox 98% on 4 lpm NC; aj1 10:41 Body Mass Index 54.82 (158.76 kg, 170.18 cm) aa5 ED Course: 10:31 Patient arrived in ED. as 10:39 Arm band placed on. aa5 10:40 Triage completed. aa5 10:43 Malika Dempsey RN is Primary Nurse. aj1 10:44 Rito Merrill MD is Attending Physician. iram 11:45 Patient has correct armband on for positive identification. Bed in low position. Call aj1 light in reach. 11:45 No provider procedures requiring assistance completed. aj1 11:56 Jamir Packer MD is Hospitalizing Provider. iram 12:05 EKG done, by technical sales support manager. reviewed by Rito Merrill MD. at1 17:40 Patient admitted, IV remains in place. aj1 17:42 Report given to DAVID Huizar on 4th floor. aj1 Administered Medications: 12:44 CANCELLED (Duplicate Order): NS 0.9% 1000 ml IV at 125 ml/hr continuous iram 14:01 Drug: Potassium Effervescent Tablet 50 mEq Route: PO; aj1 15:05 Follow up: Response: No adverse reaction aj1 14:01 Drug: Lasix 40 mg Route: IVP; Site: right antecubital; aj1 15:05 Follow up: Response: No adverse reaction aj1 14:02 Drug: morphine 2 mg {Note: RASS score 0- patient is alert.} Route: IVP; Site: right aj1 antecubital; 15:05 Follow up: Response: No adverse reaction; Pain is decreased; RASS: Alert and Calm (0) aj1 14:02 Drug: Zofran 4 mg Route: IVP; Site: right antecubital; aj1 15:05 Follow up: Response: No adverse reaction aj1 14:02 Drug: Zosyn 3.375 grams Route: IVPB; Infused Over: 60 mins; Site: right antecubital; aj1 15:05 Follow up: IV Status: Completed infusion; IV Intake: 100ml aj1 14:02 Drug: Lovenox 40 mg Route: Sub-Q; Site: right lower abdomen; aj1 15:05 Follow up: Response: No adverse reaction aj1 14:02 Drug: Pepcid 20 mg Route: IVP; Site: right antecubital; aj 15:05 Follow up: Response: No adverse reaction aj 15:16 Drug: vancoMYCIN 2 grams Route: IVPB; Rate: calculated rate; Site: right antecubital; aj1 17:41 Follow up: IV Status: Infusion continued upon admission; IV Intake: 250ml aj Intake: 15:05 IV: 100ml; Total: 100ml. aj1 17:41 IV: 250ml; Total: 350ml. aj Outcome: 11:57 Decision to Hospitalize by Provider. iram 17:43 Admitted to Med/surg aj 17:43 Condition: good 17:43 Discharge instructions given to patient, Instructed on the need for admit, Demonstrated understanding of instructions. 17:44 Patient left the ED. aj Signatures: Malika Dempsey RN RN aj1 Rito Merrill MD MD cha Martinez, Amelia as Calderon, Audri, RN RN aa5 Vanessa Bazan, obstetrics/gynecology nurse EKG Tat1 Corrections: (The following items were deleted from the chart) 17:03 11:45 BP 147 / 65; Pulse 60bpm; Resp 14bpm; Pulse Ox 100% RA; [place] [id number] 17:03 12:45 BP 139 / 66; Pulse 65bpm; Resp 18bpm; Pulse Ox 100% RA; [facility] aj 17:03 13:45 BP 142 / 78; Pulse 63bpm; Resp 16bpm; Pulse Ox 100% RA; [place] [id number] 17:03 14:22 BP 161 / 67; Pulse 60bpm; Resp 13bpm; Pulse Ox 100% RA; [place] [id number]
--- NOTE | 2019-07-07 11:58 | EDPHYS ---
Physician Documentation [facility] Name: Chrissie Siddiqi Age: 69 yrs Sex: Female : 1950 Arrival Date: 07/07/2019 Time: 10:31 Bed 18 Private MD: ED Physician Rito Merrill HPI: 07/07 11:52 This 69 yrs old Female presents to ER via Wheelchair with complaints of left iram leg cellulitis. 11:52 The patient presents with pain, swelling, tenderness. The complaints affect the right iram leg and left leg. Context: The problem was sustained at home. Onset: The symptoms/episode began/occurred 3 day(s) ago. Modifying factors: The symptoms are alleviated by elevating leg, remaining still, the symptoms are aggravated by movement, weight bearing. Associated signs and symptoms: Pertinent positives: calf tenderness, fever, swelling, warmth, weakness. Treatment prior to arrival includes: prescription medications, abx, bactrim. Severity of symptoms: At their worst the symptoms were mild, moderate, in the emergency department the symptoms are unchanged. The patient has experienced similar episodes in the past, multiple times. Historical: - Allergies: 10:41 Decongestants; aa5 - PMHx: 10:41 Atrial Fib; COPD; Hypertension; aa5 - PSHx: 10:41 Hysterectomy; aa5 - Immunization history:: Flu vaccine is not up to date. - Social history:: Smoking status: Patient/guardian denies using tobacco. - Ebola Screening: : No symptoms or risks identified at this time. ROS: 11:53 Constitutional: Negative for fever, chills, and weight loss, Eyes: Negative for injury, iram pain, redness, and discharge, ENT: Negative for injury, pain, and discharge, Neck: Negative for injury, pain, and swelling, Cardiovascular: Negative for chest pain, palpitations, and edema, Respiratory: Negative for shortness of breath, cough, wheezing, and pleuritic chest pain, Abdomen/GI: Negative for abdominal pain, nausea, vomiting, diarrhea, and constipation, Back: Negative for injury and pain, : Negative for injury, bleeding, discharge, and swelling, Neuro: Negative for headache, weakness, numbness, tingling, and seizure, Psych: Negative for depression, anxiety, suicide ideation, homicidal ideation, and hallucinations, Allergy/Immunology: Negative for hives, rash, and allergies, Endocrine: Negative for neck swelling, polydipsia, polyuria, polyphagia, and marked weight changes, Hematologic/Lymphatic: Negative for swollen nodes, abnormal bleeding, and unusual bruising. 11:53 MS/extremity: Positive for decreased range of motion, pain, swelling, tenderness, of the right leg and left leg. 11:53 Skin: Positive for cellulitis, swelling. Exam: 11:53 Constitutional: This is a well developed, well nourished patient who is awake, alert, iram and in no acute distress. Head/Face: Normocephalic, atraumatic. Eyes: Pupils equal round and reactive to light, extra-ocular motions intact. Lids and lashes normal. Conjunctiva and sclera are non-icteric and not injected. Cornea within normal limits. Periorbital areas with no swelling, redness, or edema. ENT: Nares patent. No nasal discharge, no septal abnormalities noted. Tympanic membranes are normal and external auditory canals are clear. Oropharynx with no redness, swelling, or masses, exudates, or evidence of obstruction, uvula midline. Mucous membranes moist. Neck: Trachea midline, no thyromegaly or masses palpated, and no cervical lymphadenopathy. Supple, full range of motion without nuchal rigidity, or vertebral point tenderness. No Meningismus. Chest/axilla: Normal chest wall appearance and motion. Nontender with no deformity. No lesions are appreciated. Cardiovascular: Regular rate and rhythm with a normal S1 and S2. No gallops, murmurs, or rubs. Normal PMI, no JVD. No pulse deficits. Respiratory: Lungs have equal breath sounds bilaterally, clear to auscultation and percussion. No rales, rhonchi or wheezes noted. No increased work of breathing, no retractions or nasal flaring. Abdomen/GI: Soft, non-tender, with normal bowel sounds. No distension or tympany. No guarding or rebound. No evidence of tenderness throughout. Back: No spinal tenderness. No costovertebral tenderness. Full range of motion. Neuro: Awake and alert, GCS 15, oriented to person, place, time, and situation. Cranial nerves II-XII grossly intact. Motor strength 5/5 in all extremities. Sensory grossly intact. Cerebellar exam normal. Normal gait. Psych: Awake, alert, with orientation to person, place and time. Behavior, mood, and affect are within normal limits. 11:53 Musculoskeletal/extremity: Circulation is intact in all extremities. Severe pain noted. Compartment Syndrome exam of affected extremity: is normal. DVT Exam: no tenderness, negative Homans' sign noted on exam, no appreciated bluish discoloration, pain, swelling, tenderness, erythema, increased warmth. Vital Signs: 10:41 BP 144 / 59; Pulse 62; Resp 20 S; Temp 97.3(TE); Pulse Ox 97% on 4 lpm NC; Weight aa5 158.76 kg (R); Height 5 ft. 7 in. (170.18 cm) (R); Pain 8/10; 11:45 BP 147 / 65; Pulse 60; Resp 14; Pulse Ox 100% on 4 lpm NC; aj1 12:45 BP 139 / 66; Pulse 65; Resp 18; Pulse Ox 100% on 4 lpm NC; aj1 13:45 BP 142 / 78; Pulse 63; Resp 16; Pulse Ox 100% on 4 lpm NC; aj1 14:22 BP 161 / 67; Pulse 60; Resp 13; Pulse Ox 100% on 4 lpm NC; aj1 15:15 BP 136 / 70; Pulse 70; Resp 18; Pulse Ox 100% on 4 lpm NC; aj1 16:15 BP 155 / 69; Pulse 64; Resp 18; Pulse Ox 96% on 4 lpm NC; aj1 17:40 BP 147 / 66; Pulse 69; Resp 20; Pulse Ox 98% on 4 lpm NC; aj1 10:41 Body Mass Index 54.82 (158.76 kg, 170.18 cm) [facility] MDM: 10:44 Patient medically screened. [facility] 11:53 Data reviewed: vital signs, nurses notes, lab test result(s), EKG, radiologic studies, iram plain films. 07/07 11:51 Order name: Basic Metabolic Panel; Complete Time: 12:44 [facility] 07/07 11:51 Order name: CBC with Diff; Complete Time: 12:44 [facility] 07/07 11:51 Order name: LFT's; Complete Time: 12:44 [facility] 07/07 11:51 Order name: Magnesium; Complete Time: 12:44 [facility] 07/07 11:51 Order name: NT PRO-BNP; Complete Time: 12:44 [facility] 07/07 11:51 Order name: PT-INR; Complete Time: 12:44 [facility] 07/07 11:51 Order name: Troponin (emerg Dept Use Only); Complete Time: 12:44 [facility] 07/07 11:51 Order name: XRAY Chest (1 view) [facility] 07/07 12:31 Order name: RAD; Complete Time: 12:44 [facility] 07/07 11:51 Order name: EKG; Complete Time: 11:52 [facility] 07/07 11:51 Order name: Cardiac monitoring; Complete Time: 13:13 [facility] 07/07 11:51 Order name: EKG - Nurse/Tech; Complete Time: 11:57 [facility] 07/07 11:51 Order name: IV Saline Lock; Complete Time: 13:00 [facility] 07/07 11:51 Order name: Labs collected and sent; Complete Time: 13:00 [facility] 07/07 11:51 Order name: O2 Per Protocol; Complete Time: 11:57 [facility] 07/07 11:51 Order name: O2 Sat Monitoring; Complete Time: 11:57 [facility] 07/07 16:34 Order name: Diet Heart Healthy; Complete Time: 16:35 aj Administered Medications: 12:44 CANCELLED (Duplicate Order): NS 0.9% 1000 ml IV at 125 ml/hr continuous [facility] 14:01 Drug: Potassium Effervescent Tablet 50 mEq Route: PO; aj1 15:05 Follow up: Response: No adverse reaction aj 14:01 Drug: Lasix 40 mg Route: IVP; Site: right antecubital; aj1 15:05 Follow up: Response: No adverse reaction aj 14:02 Drug: morphine 2 mg {Note: RASS score 0- patient is alert.} Route: IVP; Site: right aj1 antecubital; 15:05 Follow up: Response: No adverse reaction; Pain is decreased; RASS: Alert and Calm (0) aj 14:02 Drug: Zofran 4 mg Route: IVP; Site: right antecubital; aj1 15:05 Follow up: Response: No adverse reaction aj 14:02 Drug: Zosyn 3.375 grams Route: IVPB; Infused Over: 60 mins; Site: right antecubital; aj1 15:05 Follow up: IV Status: Completed infusion; IV Intake: 100ml 14:02 Drug: Lovenox 40 mg Route: Sub-Q; Site: right lower abdomen; aj1 15:05 Follow up: Response: No adverse reaction aj1 14:02 Drug: Pepcid 20 mg Route: IVP; Site: right antecubital; aj1 15:05 Follow up: Response: No adverse reaction aj1 15:16 Drug: vancoMYCIN 2 grams Route: IVPB; Rate: calculated rate; Site: right antecubital; aj1 17:41 Follow up: IV Status: Infusion continued upon admission; IV Intake: 250ml aj1 Disposition: 07/07/19 11:57 Hospitalization ordered by Jamir Packer for Inpatient Admission. Preliminary diagnosis are Cellulitis and acute lymphangitis of other parts of limb - failed outpatient, Obesity, unspecified, Atrial fibrillation and flutter, Hypokalemia, Unspecified combined systolic (congestive) and diastolic (congestive) heart failure, Anemia, unspecified, Unspecified kidney failure. - Bed requested for Telemetry/MedSurg (Inpatient). - Status is Inpatient Admission. aj1 - Condition is Fair. - Problem is new. - Symptoms have improved. UTI on Admission? No Signatures: Dispatcher [employer] EDMalika Hirsch RN RN aj1 Rito Merrill MD MD cha Calderon, Audri RN RN aa5 Lani Fuentes Corrections: (The following items were deleted from the chart) 12:44 11:51 NS 0.9% 1000 ml IV at 125 ml/hr continuous ordered. iram iram 12:46 11:57 Hospitalization Ordered by Jamir Packer MD for Inpatient Admission. Preliminary [facility] diagnosis is Cellulitis and acute lymphangitis of other parts of limb - failed outpatient; Obesity, unspecified; Atrial fibrillation and flutter. Bed requested for Telemetry/MedSurg (Inpatient). Status is Inpatient Admission. Condition is Fair. Problem is new. Symptoms have improved. UTI on Admission? No. iram 14:34 12:46 07/07/2019 11:57 Hospitalization Ordered by Jamir Packer MD for Inpatient gm Admission. Preliminary diagnosis is Cellulitis and acute lymphangitis of other parts of limb - failed outpatient; Obesity, unspecified; Atrial fibrillation and flutter; Hypokalemia; Unspecified combined systolic (congestive) and diastolic (congestive) heart failure; Anemia, unspecified. Bed requested for Telemetry/MedSurg (Inpatient). Status is Inpatient Admission. Condition is Fair. Problem is new. Symptoms have improved. UTI on Admission? No. iram 14:38 14:34 07/07/2019 11:57 Hospitalization Ordered by Jamir Packer MD for Inpatient iram Admission. Preliminary diagnosis is Cellulitis and acute lymphangitis of other parts of limb - failed outpatient; Obesity, unspecified; Atrial fibrillation and flutter; Hypokalemia; Unspecified combined systolic (congestive) and diastolic (congestive) heart failure; Anemia, unspecified. Bed requested for Telemetry/MedSurg (Inpatient). Status is Inpatient Admission. Condition is Fair. Problem is new. Symptoms have improved. UTI on Admission? No. gm 17:44 14:38 07/07/2019 11:57 Hospitalization Ordered by Jamir Packer MD for Inpatient aj1 Admission. Preliminary diagnosis is Cellulitis and acute lymphangitis of other parts of limb - failed outpatient; Obesity, unspecified; Atrial fibrillation and flutter; Hypokalemia; Unspecified combined systolic (congestive) and diastolic (congestive) heart failure; Anemia, unspecified; Unspecified kidney failure. Bed requested for Telemetry/MedSurg (Inpatient). Status is Inpatient Admission. Condition is Fair. Problem is new. Symptoms have improved. UTI on Admission? No. iram
--- NOTE | 2019-07-07 12:10 | EKG ---
Test Date: 2019-07-07 Test Time: 11:57:16 Group Billing Coordinator: RACH MEASUREMENT RESULTS: Intervals: Rate: 61 MN: 188 QRSD: 100 QT: 468 QTc: 471 [place]: P: 71 MN: 188 QRS: 25 T: 53 INTERPRETIVE STATEMENTS: Normal sinus rhythm Normal ECG Compared to ECG 03/16/2019 20:14:26 No significant changes Electronically Signed On 07-07-19 12:10:09 CDT by Carlo Balderas
[2019-07-07 12:19] LABS: Absolute Lymphocytes (CBC) 1.4 K/uL (0.7-4.9); Basophils % 0.6 % (0-1.3); Hematocrit 27.5 % (36.0-45.0); Lymphocytes % 17.7 % (15.3-44.8); MPV 9.1 fL (7.6-11.3); RBC Red Blood Cell Count 3.28 M/uL (3.86-4.86)
[2019-07-07 12:25] LABS: Protime INR 1.04
--- NOTE | 2019-07-07 12:29 | RAD REPORT ---
EXAM DESCRIPTION: RAD - Chest Single View - 07/07/2019 12:22 pm CLINICAL HISTORY: COUGH Chest pain. COMPARISON: Chest Single View dated 03/16/2019; Chest Single View dated 10/31/2017; Chest Single View d ated 10/30/2017; Chest Single View dated 10/29/2017 FINDINGS: Portable technique limits examination quality. Mild pulmonary edema is noted. The heart is moderately enlarged in size. No displaced fractures. IMPRESSION: Mild CHF.
[2019-07-07 12:41] LABS: Albumin 3.5 g/dL (3.4-5.0); Bilirubin Direct 0.1 mg/dL (0-0.2); Bilirubin Total 0.3 mg/dL (0.2-1.0); Potassium 3.3 mmol/L (3.5-5.1); Protein, Total 8.1 g/dL (6.4-8.2)
[2019-07-07 12:42] LABS: Magnesium 2.4 mg/dL (1.8-2.4); Troponin (Emerg Dept Use Only) < 0.02 ng/mL (0.0-0.045)
[2019-07-07] MEDS ORDERED: POTASSIUM 25 MEQ EFFERV TAB ONE (13:34)
[2019-07-07] MEDS ORDERED: ONDANSETRON 4 MG/2 ML VIAL ONE (13:34)
[2019-07-07] MEDS ORDERED: MORPHINE 2 MG/ML SYR ONE (13:34)
[2019-07-07] MEDS ORDERED: FAMOTIDINE 20 MG/2 ML VIAL IV ONE (13:34)
[2019-07-07] MEDS ORDERED: FUROSEMIDE 40 MG/4 ML VIAL ONE (13:34)
[2019-07-07] MEDS ORDERED: ENOXAPARIN 60 MG/0.6 ML SQ ONE (13:35)
[2019-07-07] MEDS ORDERED: PIPER/TAZO/NS 3.375gm 3.375 GM/100 ML BAG ONE (13:35)
[2019-07-07] MEDS: VANCOMYCIN 2 GM in NA CHLORIDE 0.9% 500 ML IVPB SCH (14:00)
[2019-07-07] MEDS ORDERED: MORPHINE 4 MG/ML SYR IV PRN (14:43)
[2019-07-07] MEDS ORDERED: ONDANSETRON 4 MG/2 ML VIAL IV PRN (14:43)
[2019-07-07] MEDS ORDERED: VANCOMYCIN/NS 1 gm 1 GM/250 ML BAG IVPB SCH (14:43)
[2019-07-07 17:59] VITALS: BMI 54.8
[2019-07-07] MEDS ORDERED: HOME MED 1 EA UNK (Ipratropium/Albuterol Sulfate [Iprat-Albut 0.5-3(2.5) Mg/3 Ml] 1 VIAL) IH PRN (20:30)
[2019-07-07] MEDS ORDERED: ALBUTEROL NEB PRN (20:30)
--- NOTE | 2019-07-07 20:39 | P.HP ---
Certification for Inpatient Patient admitted to: Inpatient With expected LOS: >2 Midnights Practitioner: I am a practitioner with admitting privileges, knowledge of patient current condition, hospital course, and medical plan of care. Services: Services provided to patient in accordance with Admission requirements found in Title 42 Section 412.3 of the Code of Federal Regulations Patient History Date of Service: 07/07/19 Reason for admission: LEG PAIN AND REDNESS. History of Present Illness: MR. PORTER IS 69 YEARS OLD LADY WHO HAS BEEN TO A FOOT DOCTOR FOR LEG SWELLING AND PAIN. HE GAVE HER BACTRIM DS THAT DID NOT WORK AND HER PAIN IS GETTING WORSE. SHE HAS NO NEW DYSPEA. Allergies decongestants Adverse Reaction (Uncoded 05/06/16 14:38) increased heart rate Home Medications: Amiodarone HCl [Pacerone] 200 mg PO DAILY 10/08/17 Albuterol Inhaler [Ventolin Inhaler*] 1 puff NEB Q6HP PRN #1 hfa.aer.ad Ipratropium/Albuterol Sulfate [Iprat-Albut 0.5-3(2.5) mg/3 ml] 1 vial IH QID PRN 10/28/17 Fluticasone/Umeclidin/Vilanter [Trelegy Ellipta 100-62.5-25] 1 puff IH DAILY 06/17 Furosemide [Lasix] 40 mg PO DAILY 07/07/19 - Past Medical/Surgical History Has patient received pneumonia vaccine in the past: Yes Diabetic: No -: COPD -: Atrial Fib -: Hypertension -: PAD -: Obesity -: SILVANA -: CHF -: Former Smoker -: hysterectomy -: carpal tunnel surgery Psychosocial/ Personal History: Lives with her - Family History Mother -: Cancer Notes: lung cancer Father -: Heart disease - Social History Smoking Status: Never smoker Alcohol use: Yes CD- Drugs: No Caffeine use: Yes Place of Residence: Home Review of Systems 10-point ROS is otherwise unremarkable General: Malaise Physical Examination - Vital Signs Temperature: 97.3 F Blood Pressure: 147/66 Pulse: 69 Respirations: 20 - Physical Exam General: Moderate distress, Obese HEENT: Atraumatic, PERRLA, Mucous membr. moist/pink, EOMI, Sclerae nonicteric Neck: Supple, 2+ carotid pulse no bruit, No LAD, Without JVD or thyroid abnormality Respiratory: Clear to auscultation bilaterally, Normal air movement Cardiovascular: Regular rate/rhythm, Normal S1 S2 Gastrointestinal: Normal bowel sounds, No tenderness Musculoskeletal: Swelling, Erythema (L LEG MORE THAN R), Tenderness, Warmth Integumentary: No rashes Neurological: Normal gait, Normal speech, Normal strength at 5/5 x4 extr, Normal tone, Normal affect Lymphatics: No axilla or inguinal lymphadenopathy Assessment and Plan - Problems (Diagnosis) (1) Cellulitis, leg Current Visit: Yes Status: Acute Plan: BACTRIM DID NOT WORK. CHANGE TO VANCYMYCIN AND ZOSY STARTED BY ER. MAY GO HOME IN A FEW DAYS. THIS MAY BE ALSO REACTION TO LASIX BEING DIURETIC WITH SULFA. I WILL CHANGE TO TORSEMIDE AND SPIRONOLACTONE HER VENOUS DOPPLER WAS NEGATIVE RECENTLY. SHE WILL BENEFIT BY EDEMA THERAPY THAT SHE HAS NOT HAD YET. Qualifiers: Laterality: left Qualified Code(s): L03.116 - Cellulitis of left lower limb (2) Edema Current Visit: No Status: Chronic Plan: CHANGE TO TORSEMIDE AND SPIRONOLACTONE. CXR SHOWS CHF BUT I AM NOT SURE CLINICALLY. Qualifiers: - Advance Directives Does patient have a Living Will: Yes Does patient have a Durable POA for Healthcare: No
[2019-07-07] MEDS ORDERED: INFLUENZA VACCINE (for 3y+) 0.5 ML DOSE IMVAC ONE (21:00)
[2019-07-08] MEDS: PIPER/TAZO/NS 3.375gm 3.375 GM/100 ML BAG IVPB SCH ×3 (01:43→16:28)
[2019-07-08 04:47] LABS: Absolute Lymphocytes (CBC) 1.5 K/uL (0.7-4.9); Basophils % 0.4 % (0-1.3); Hematocrit 26.3 % (36.0-45.0); Lymphocytes % 19.6 % (15.3-44.8); MPV 9.2 fL (7.6-11.3); RBC Red Blood Cell Count 3.11 M/uL (3.86-4.86)
[2019-07-08 05:07] LABS: Potassium 3.6 mmol/L (3.5-5.1)
[2019-07-08] MEDS: AMIODARONE HCL 200 MG TAB PO SCH (08:01)
[2019-07-08] MEDS: SPIRONOLACTONE 25 MG TABLET PO SCH (08:01)
[2019-07-08] MEDS: TORSEMIDE 20 MG TAB PO SCH (08:01)
[2019-07-08] MEDS: ASPIRIN EC 81 MG TAB PO SCH (08:02)
[2019-07-08] MEDS: Fluticasone/Umeclidin/Vilanter [Trelegy Ellipta 100-62.5-25] IH SCH (08:03)
--- NOTE | 2019-07-08 08:13 | RAD REPORT ---
EXAM DESCRIPTION: RAD - Chest Single View - 07/08/2019 5:52 am CLINICAL HISTORY: Chest Pain Chest pain. COMPARISON: Chest Single View dated 07/07/2019; Chest Single View dated 03/16/2019; Chest Single View dated 10/31/2017; Chest Single View dated 10/30/2017 FINDINGS: Portable technique limits examination quality. Mild interstitial pulmonary edema. The pre pulmonary edema is mildly improved since the prior study. The heart is moderately enlarged. No displaced fractures. IMPRESSION: Mild improvement in CHF since yesterday's study.
[2019-07-08] MEDS: GABAPENTIN 400 MG CAP PO SCH ×2 (10:19→21:13)
--- NOTE | 2019-07-08 11:37 | EKG ---
Test Date: 2019-07-08 Test Time: 07:17:55 Dry Cleaning Supervisor: RACH MEASUREMENT RESULTS: Intervals: Rate: 60 [place]: 198 QRSD: 98 QT: 460 QTc: 460 [place]: P: 58 [place]: 198 QRS: 22 T: 67 INTERPRETIVE STATEMENTS: Normal sinus rhythm Normal ECG Compared to ECG 07/07/2019 11:57:16 No significant changes Electronically Signed On 07-08-19 11:36:07 CDT by Carlo Balderas
[2019-07-08] MEDS: ENOXAPARIN 40 MG/0.4 ML SQ SCH (16:28)
[2019-07-09] MEDS: ACETAMINOPHEN 325 MG TABLET PO PRN (02:17)
[2019-07-09] MEDS: PIPER/TAZO/NS 3.375gm 3.375 GM/100 ML BAG IVPB SCH ×3 (02:17→17:14)
[2019-07-09] MEDS: VANCOMYCIN 2 GM in NA CHLORIDE 0.9% 500 ML IVPB SCH (02:18)
--- NOTE | 2019-07-09 02:24 | PN ---
Subjective: Patient is feeling about the same. Denies any chest pain, nausea, vomiting. She contin ues to have bilateral leg pains, chronic edema from lymphedema. Physical Examination: Vital Signs: Blood pressure 128/55, pulse is 63. HEENT: No JVD. No carotid bruits. Abdomen: She is morbidly obese. No guarding, no rebound, no rigidity. Chest: Clear. Heart: Irregular. Extremities: Leg examination, left side has still significant inflammation and pain on the left leg, more than right side. Assessment And Plan: 1.Severe cellulitis. Continue IV antibiotics, vancomycin and Zosyn currently as clinically she fail ed Bactrim orally. 2.Morbid obesity. Weight control needs to be there as a primary concern for her at this point. She is aware. 3.Edema, chronic lymphedema. On lymphedema therapy by lymphedema therapist in [facility]. LAMAR/MURALI Voice ID: [id number] Report ID: [id number]
[2019-07-09] MEDS: ASPIRIN EC 81 MG TAB PO SCH (08:25)
[2019-07-09] MEDS: AMIODARONE HCL 200 MG TAB PO SCH (08:25)
[2019-07-09] MEDS: GABAPENTIN 400 MG CAP PO SCH ×2 (08:25→20:01)
[2019-07-09] MEDS: SPIRONOLACTONE 25 MG TABLET PO SCH (08:25)
[2019-07-09] MEDS: TORSEMIDE 20 MG TAB PO SCH (08:25)
[2019-07-09] MEDS: Fluticasone/Umeclidin/Vilanter [Trelegy Ellipta 100-62.5-25] IH SCH (08:26)
[2019-07-09] MEDS: ENOXAPARIN 40 MG/0.4 ML SQ SCH (17:13)
--- NOTE | 2019-07-10 04:02 | PN ---
Subjective: The patient is feeling a lot better. Denies any chest pain, nausea, vomiting. She is s hort of breath at rest minimally. She is morbidly obese. Physical Examination: VITAL SIGNS: Blood pressure 145/65, pulse is 63. HEENT: No JVD. No carotid bruits. Chest: Clear. Heart: Regular. Abdomen: No guarding, no rebound, no rigidity. Morbidly obese. Lymphedema is from obesity. Cellul itis improved on both sides significantly. Assessment: Lower limb cellulitis failed on Bactrim p.o., which is why I want to keep her in the [facility] pital for IV antibiotics for about 3-4 days. She does not have any culturable discharge. Her therap y is on the clinical management at this point, and I believe she would need vancomycin as character o f infection was Methicillin-resistant Staphylococcus aureus like. LAMAR/MURALI Voice ID: [id number] Report ID: [id number]
[2019-07-10] MEDS ORDERED: VANCOMYCIN 2 GM in NA CHLORIDE 0.9% 500 ML IVPB SCH (05:00)
[2019-07-10] MEDS: Fluticasone/Umeclidin/Vilanter [Trelegy Ellipta 100-62.5-25] IH SCH (09:00)
[2019-07-10] MEDS: GABAPENTIN 400 MG CAP PO SCH ×2 (09:50→20:38)
[2019-07-10] MEDS: ASPIRIN EC 81 MG TAB PO SCH (09:50)
[2019-07-10] MEDS: AMIODARONE HCL 200 MG TAB PO SCH (09:51)
[2019-07-10] MEDS: SPIRONOLACTONE 25 MG TABLET PO SCH (09:51)
[2019-07-10] MEDS: TORSEMIDE 20 MG TAB PO SCH (09:52)
[2019-07-10] MEDS ORDERED: PIPER/TAZO/NS 3.375gm 3.375 GM/100 ML BAG IV SCH ×2 (13:00→14:00)
--- NOTE | 2019-07-10 15:41 | PN ---
Subjective: Chrissie is feeling a little worse today. Her pain in the left leg has worsened and this is after I stopped her Zosyn yesterday evening, thinking that she will possibly need only for MRSA cove rage. Physical Examination: Vital Signs: Blood pressure 146/59, pulse is 68. General: Morbidly obese lady with chronic lymphedema. Chest: Clear. Heart: Regular. Abdomen: No guarding, no rebound, no rigidity. Assessment And Plan: Severe cellulitis. Add Zosyn at this point, 3.375 g q.6 hours. Continue vanco mycin and depending on the response, I will probably stop vancomycin. This is a clinical diagnosis a t this point. We do not have the culture source or any kind of discharge from any ulcer. She has no ulcer, so this is a clinical judgment for antibiotic choice at this point. LAMAR/MURALI Voice ID: [id number] Report ID: [id number]
[2019-07-10] MEDS: ENOXAPARIN 40 MG/0.4 ML SQ SCH (18:08)
[2019-07-10] MEDS ORDERED: DIPHENHYDRAMINE 25 MG TAB/CAP PO ONE (21:19)
[2019-07-11] MEDS: TORSEMIDE 20 MG TAB PO SCH (08:56)
[2019-07-11] MEDS: SPIRONOLACTONE 25 MG TABLET PO SCH (08:56)
[2019-07-11] MEDS: GABAPENTIN 400 MG CAP PO SCH ×2 (08:57→20:56)
[2019-07-11] MEDS: ASPIRIN EC 81 MG TAB PO SCH (08:57)
[2019-07-11] MEDS: AMIODARONE HCL 200 MG TAB PO SCH (08:57)
[2019-07-11] MEDS: Fluticasone/Umeclidin/Vilanter [Trelegy Ellipta 100-62.5-25] IH SCH (08:58)
[2019-07-11] MEDS ORDERED: Levofloxacin500mg IV 500 MG/100 ML BAG IV SCH (09:00)
[2019-07-11] MEDS ORDERED: NA CHLORIDE 0.9% 0 ML ONE (11:30)
--- NOTE | 2019-07-11 12:15 | PN ---
Subjective: Ms. Siddiqi had an episode of tongue swelling yesterday, on 2 antibiotics. It is uncle ar what antibiotic gave her swelling of the tongue. Otherwise, she is feeling lot better today. She is short of breath with a few steps or long duration. She is on oxygen therapy at home by Dr. Royer cortes. She is morbidly obese. She has also atrial fibrillation. She is on amiodarone for control of t hat. Physical Examination: Vital Signs: Blood pressure 146/59, pulse is 58. HEENT: No JVD. No carotid bruits. Chest: Clear. Decreased breath sounds bilaterally. Heart: Regular. Abdomen: No guarding. No rebound or rigidity. Extremities: Cellulitis in the left leg has significantly improved. Right side is normal now. Assessment And Plan: 1.Cellulitis both legs. We will give her Levaquin alone at this point. She is allergic to either v ancomycin or Zosyn, unclear what and whether it was really allergic reaction or just angioedema from being on gabapentin is unclear and this will remain unsolved question until she needs antibiotics aga in. 2.Atrial fibrillation. I am not sure why she is not on anticoagulation from Dr. Carrington. I will di scuss with him. She should be possibly on Eliquis 5 mg p.o. b.i.d. She is morbidly obese. She is h igh risk for pulmonary embolus and she may have intermittent atrial fibrillation, which we may not be aware of and I think she should be on anticoagulation. I will talk to Dr. Carrington to clarify need o f Levaquin and amiodarone together. LAMAR/MURALI Voice ID: [id number] Report ID: [id number]
[2019-07-11] MEDS: ENOXAPARIN 40 MG/0.4 ML SQ SCH (18:25)
[2019-07-11] MEDS: ACETAMINOPHEN 325 MG TABLET PO PRN (21:06)
[2019-07-11 21:35] VITALS: O2SAT 99
[2019-07-12] MEDS: GABAPENTIN 400 MG CAP PO SCH (08:08)
[2019-07-12] MEDS: TORSEMIDE 20 MG TAB PO SCH (08:08)
[2019-07-12] MEDS: Fluticasone/Umeclidin/Vilanter [Trelegy Ellipta 100-62.5-25] IH SCH (08:08)
[2019-07-12] MEDS: SPIRONOLACTONE 25 MG TABLET PO SCH (08:09)
[2019-07-12] MEDS: ASPIRIN EC 81 MG TAB PO SCH (08:09)
[2019-07-12] MEDS ORDERED: AMIODARONE HCL 200 MG TAB PO SCH (09:00)
[2019-07-12] MEDS ORDERED: levoFLOXacin 500 MG TAB PO SCH (09:00)
[2019-07-12] MEDS ORDERED: levoFLOXacin 250 MG TAB PO SCH (09:00)
--- NOTE | 2019-07-12 09:03 | CON ---
Date of Consultation: 07/11/[address] Packer's service on 07/09/2019, I saw the patient on 07/11/2019. Reason For Consultation: Atrial fibrillation. History Of Present Illness: Ms. Siddiqi is a 69-year-old white woman. She is known to me from previ ous office visits and admission. She has a history of paroxysmal atrial fibrillation, COPD, neuropat hy, and hypertension. She was admitted with bilateral cellulitis, more on the left side. She has mullen d some dyspnea. History Of Present Illness: Ms. Siddiqi has major issue with morbid obesity. She is not having any chest pain or palpitation. She has been in sinus rhythm for actually a few years on amiodarone 200 mg daily. She is actually bradycardic but not symptomatic with it. Has had some dyspnea but no ches t pain and no syncope. Past Medical History: As stated above. Allergies: DECONGESTANTS. Medications: At home, include amiodarone 200 mg daily, inhalers, Lasix, potassium, and Neurontin. Review of Systems: Negative. Social History: Negative. Family History: Noncontributory. Physical Examination: General: Ms. Siddiqi appeared to be in no acute distress. When I saw her, she stated that she had mostly shortness of breath when she bends over. She was in sinus sophia. HEENT: Negative. Neck: Supple no bruit. Chest: Clear. Cardiac: Exam revealed normal sinus rhythm without murmurs, gallops, or rubs. Abdomen: Obese. Extremities: Revealed no clubbing or cyanosis. She had some bilateral edema. Cellulitis appears to be improving. Diagnostic Data: All within normal limits. Her last echocardiogram was in September of 2017 that was normal. Impression And Plan: The patient with cellulitis. Dr. Packer wants to put her on Levaquin. She did try vancomycin, but she had angioedema of her tongue with the vancomycin. I agree with the use of Le vaquin. However, with her amiodarone on board, I would actually cut the amiodarone dose to 100 mg da latonya as well as the Levaquin to 250 mg daily. We will monitor her rate and her rhythm overnight and t hen as an outpatient. Another echocardiogram is pending. D-dimer is pending. Case was discussed wi Dr. Packer. Her COPD, neuropathy, and hypertension, are well controlled. I will continue to follo w her along with him. MARIELLE/MURALI Voice ID: [id number] Report ID: [id number]
--- NOTE | 2019-07-12 09:59 | EKG ---
Test Date: 2019-07-12 Test Time: 07:29:38 Coffee Grower: RACH MEASUREMENT RESULTS: Intervals: Rate: 57 NH: 198 QRSD: 92 QT: 460 QTc: 447 [place]: P: 57 [place]: 198 QRS: 29 T: 62 INTERPRETIVE STATEMENTS: Sinus bradycardia Nonspecific ST abnormality Abnormal ECG Compared to ECG 07/08/2019 07:17:55 ST (T wave) deviation now present Sinus rhythm no longer present Electronically Signed On 07-12-19 09:59:07 CDT by Carlo Balderas
--- NOTE | 2019-07-12 10:43 | ECHO ---
HEIGHT: 5 ft 7 in WEIGHT: 350 lb 0 oz DATE OF STUDY: 07/12/[address]: Chris Carrington MD 2-DIMENSIONAL: YES M.MODE: YES DOPPLER: YES COLOR FLOW: YES TDS: NO PORTABLE: NO DEFINITY: NO BUBBLE STUDY: NO DIAGNOSIS: SHORTNESS OF BREATH CARDIAC HISTORY: CATHERIZATION: NO SURGERY: NO PROSTHETIC VALVE: NO PACEMAKER: NO MEASUREMENTS (cm) DIASTOLIC (NORMALS) SYSTOLIC (NORMALS) IVSd 1.2 (0.6-1.2) LA Diam 4.3 (1.9-4.0) LVEF 68% LVIDd 5.5 (3.5-5.7) LVIDs 3.4 (2.0-3.5) %FS 38% LVPWd 1.3 (0.6-1.2) Ao Diam 3.1 (2.0-3.7) 2 DIMENSIONAL ASSESSMENT: RIGHT ATRIUM: NORMAL LEFT ATRIUM: DILATED RIGHT VENTRICLE: NORMAL LEFT VENTRICLE: LEFT VENTRICULAR HYPERTROPHY TRICUSPID VALVE: NORMAL MITRAL VALVE: NORMAL PULMONIC VALVE: NORMAL AORTIC VALVE: NORMAL PERICARDIAL EFFUSION: NONE AORTIC ROOT: NORMAL LEFT VENTRICULAR WALL MOTION: NORMAL DOPPLER/COLOR FLOW: MILD MITRAL AND TRICUSPID REGURGITATION. NORMAL RIGHT VENTRICULAR SYSTOLIC PRESSURE. COMMENTS: NORMAL LEFT VENTRICULAR EJECTION FRACTION. LEFT VENTRICULAR HYPERTROPHY. DILATED LEFT ATRIUM. MILD MITRAL AND TRICUSPID REGURGITATION. TECHNOLOGIST: Jina CONCEPCION
[2019-07-12 13:49] VITALS: BP 157/70; TEMP 97
--- NOTE | 2019-07-12 20:39 | P.DS ---
Admission Date: 07/07/19 Discharge Date: 07/12/19 Disposition: ROUTINE DISCHARGE Discharge Condition: FAIR Reason for Admission: LEG PAIN AND REDNESS. - Problems (1) Cellulitis, leg Status: Acute Qualifiers: Laterality: left Qualified Code(s): L03.116 - Cellulitis of left lower limb (2) Edema Status: Chronic Qualifiers: Brief History of Present Illness: MR. PORTER IS 69 YEARS OLD LADY WHO HAS BEEN TO A FOOT DOCTOR FOR LEG SWELLING AND PAIN. HE GAVE HER BACTRIM DS THAT DID NOT WORK AND HER PAIN IS GETTING WORSE. SHE HAS NO NEW DYSPEA. Hospital Course: MS. PORTER IS DOING GREAT. SHE IS STABLE TO GO HOME. I CHECKED HER EKG AND MADE SURE HER QT IS NOT PROLONGED. I DISCUSSED WITH DR. MARR TO SEE IF IT IS OKAY FOR HER TO HAVE AMIODARONE AND LEVAQUIN. HE ASKED TO CUT DOSE OF BOTH IN HALF TO REDUCE THE QT PRLONGATION COMPLICATION. I WILL SEE HER ON FRIDAY. SHE IS HIGH RISK FOR CARDIAC COMPLICATIONS JUST BY HER HISTORY OF OBESITY, CHF AND COPD WITH HYPOXIA. Vital Signs/Physical Exam: Temp Pulse Resp BP Pulse Ox 97.0 F 66 20 157/70 H 95 07/12/19 12:00 07/12/19 12:00 07/12/19 12:00 07/12/19 12:00 07/12/19 12:00 Laboratory Data at Discharge: WBC 7.7 K/uL (4.3-10.9) 07/08/19 04:05 Hgb 8.6 g/dL (12.0-15.0) L 07/08/19 04:05 Hct 26.3 % (36.0-45.0) L 07/08/19 04:05 Plt Count 191 K/uL (152-406) 07/08/19 04:05 PT 12.3 SECONDS (9.5-12.5) 07/07/19 12:10 INR 1.04 07/07/19 12:10 Sodium 138 mmol/L (136-145) 07/08/19 04:05 Potassium 3.6 mmol/L (3.5-5.1) 07/08/19 04:05 BUN 29 mg/dL (7-18) H 07/08/19 04:05 Creatinine 1.12 mg/dL (0.55-1.3) 07/08/19 04:05 Glucose 114 mg/dL (74-106) H 07/08/19 04:05 Magnesium 2.4 mg/dL (1.8-2.4) 07/07/19 12:10 Total Bilirubin 0.3 mg/dL (0.2-1.0) 07/07/19 12:10 AST 23 U/L (15-37) 07/07/19 12:10 ALT 35 U/L (12-78) 07/07/19 12:10 Alkaline Phosphatase 41 U/L (45-117) L 07/07/19 12:10 Troponin I < 0.02 ng/mL (0.0-0.045) 07/07/19 20:54 Home Medications: Amiodarone HCl [Pacerone] 200 mg PO DAILY 10/08/17 Albuterol Inhaler [Ventolin Inhaler*] 1 puff NEB Q6HP PRN #1 hfa.aer.ad Ipratropium/Albuterol Sulfate [Iprat-Albut 0.5-3(2.5) mg/3 ml] 1 vial IH QID PRN 10/28/17 Fluticasone/Umeclidin/Vilanter [Trelegy Ellipta 100-62.5-25] 1 puff IH DAILY 06/17 Gabapentin [Neurontin*] 400 mg PO BID 07/08/19 Spironolactone [Aldactone*] 50 mg PO DAILY #90 tab 07/12/19 Torsemide [Demadex*] 20 mg PO DAILY #90 tab 07/12/19 levoFLOXacin [Levaquin*] 250 mg PO DAILY #7 tab 07/12/19 New Medications: levoFLOXacin [Levaquin*] 250 mg PO DAILY #7 tab Spironolactone [Aldactone*] 50 mg PO DAILY #90 tab Torsemide [Demadex*] 20 mg PO DAILY #90 tab Followup: Jamir Packer MD [Primary Care Provider] - (call to schedule appointment)
== END 2019-07-12 13:26 | disposition home or self-care (01) | DRG 603 ==
LOC: ER 10:28 → ERHOLD 11:59 → 4TH 17:12
PROVIDERS: ADMIT Internal Medicine; ATTEND Internal Medicine
DX: L03.116 Cellulitis of left lower limb (principal); Z68.43 Body mass index [BMI] 50.0-59.9, adult; L03.115 Cellulitis of right lower limb; R60.9 Edema, unspecified; J44.9 Chronic obstructive pulmonary disease, unspecified; I48.0 Paroxysmal atrial fibrillation; E66.01 Morbid (severe) obesity due to excess calories; I11.0 Hypertensive heart disease with heart failure; I50.9 Heart failure, unspecified
CPT/HCPCS: 36415; 71045; 80048; 80076; 80202; 83605; 83735; 83880; 84145; 84484; 85025; 85610; 93005; 93306; 96365; 96366; 96367; 96372; 96375; 99285; J1650; J1940; J2270; J2405; J2543; J7030; J7040

== ENCOUNTER 2021-04-10 16:07 | Inpatient (IN) | payer OTHER ==
--- NOTE | 2021-04-10 18:27 | ER ---
Nurse's Notes [facility] Name: Chrissie Siddiqi Age: 70 yrs Sex: Female : 1950 Arrival Date: 04/10/2021 Time: 16:08 Bed Waiting Private MD: Diagnosis: Unspecified atrial flutter Presentation: 04/10 16:19 Chief complaint: Send by Dr. Carrington for direct admit, a fluttter. Pt c/o worsening SOB hb and exercise intolerance x 1 week. Coronavirus screen: Client presents with at least one sign or symptom that may indicate coronavirus-19. Standard/surgical mask placed on the client. Provider contacted for isolation considerations. Ebola Screen: No symptoms or risks identified at this time. Initial Sepsis Screen: Does the patient meet any 2 criteria? No. Patient's initial sepsis screen is negative. Does the patient have a suspected source of infection? No. Patient's initial sepsis screen is negative. Risk Assessment: Do you want to hurt yourself or someone else? Patient reports no desire to harm self or others. Onset of symptoms was April 04, 2021. 16:19 Method Of Arrival: Wheelchair hb 16:19 Acuity: RODRIGO 3 hb Historical: - Allergies: 16:21 Decongestants; hb - PMHx: 16:21 Atrial Fib; COPD; Hypertension; CHF; hb - Immunization history:: Adult Immunizations up to date, Client reports having NOT received the Covid vaccine. - Social history:: Smoking status: Patient denies any tobacco usage or history of. Vital Signs: 16:19 Pulse 82; Resp 20; Temp 97.3; Pulse Ox 97% 3 lpm ; Weight 158.76 kg; Height 5 ft. 7 in. hb (170.18 cm); Pain 0/10; 16:19 Body Mass Index 54.82 (158.76 kg, 170.18 cm) hb ED Course: 16:08 Patient arrived in ED. as 16:21 Triage completed. hb 16:21 Arm band placed on. hb 18:23 Chris Carrington MD is Hospitalizing Provider. ss Administered Medications: No medications were administered Outcome: 18:26 Decision to Hospitalize by Provider. ss 18:27 Patient left the ED. ss Signatures: Ines Mello Shelby, RN RN ss Sheron Edwards, RN RN hb Corrections: (The following items were deleted from the chart) 17:01 16:19 Pulse 82bpm; Resp 20bpm; Pulse Ox 97% 3 lpm; Temp 87.3F; 158.76 kg; Height 5 ft. hb 7 in.; BMI: 54.8; Pain 0/10; hb
[2021-04-10] MEDS: ALBUTEROL 2.5 MG/3 ML NEB SOL NEB SCH (20:55)
[2021-04-10] MEDS ORDERED: DULOXETINE 30 MG CAP PO SCH (21:00)
[2021-04-10] MEDS: RIVAROXABAN 20 MG TABLET PO SCH (21:49)
[2021-04-10] MEDS: AMIODARONE HCL 200 MG TAB PO SCH (21:50)
[2021-04-10 22:10] LABS: Absolute Lymphocytes (CBC) 0.9 K/uL (0.7-4.9); Basophils % 0.3 % (0-1.3); Hematocrit 29.5 % (36.0-45.0); Lymphocytes % 9.2 % (15.3-44.8); RBC Red Blood Cell Count 3.54 M/uL (3.86-4.86)
[2021-04-10 22:14] LABS: Protime INR 1.19
[2021-04-10 22:22] LABS: Potassium 4.4 mmol/L (3.5-5.1)
[2021-04-11] MEDS: ALBUTEROL 2.5 MG/3 ML NEB SOL NEB SCH ×7 (01:00→23:15)
[2021-04-11] MEDS ORDERED: FUROSEMIDE 40 MG/4 ML VIAL IV ONE (02:40)
[2021-04-11] MEDS: METHYLPREDNISOLONE 40 MG INJ IV SCH ×4 (02:48→23:30)
[2021-04-11] MEDS ORDERED: FUROSEMIDE 40 MG/4 ML VIAL ONE (03:01)
[2021-04-11] MEDS ORDERED: METHYLPREDNISOLONE 40 MG INJ ONE (03:02)
--- NOTE | 2021-04-11 06:27 | RAD REPORT ---
EXAM DESCRIPTION: RAD - Chest Single View - 04/10/2021 10:08 pm CLINICAL HISTORY: Aflutter COMPARISON: June 2019 TECHNIQUE: AP portable chest image was obtained 04/10/2021 10:08 pm . FINDINGS: Lung volumes are low and very large body habitus accentuates the heart, vasculature and trupti ng markings. Diffuse airspace opacification is present throughout both lung burgess. Cardiomegaly is present simila r to comparison. Vascular engorgement is present. Trachea is midline. No measurable pleural effusion and no pneumothorax. No acute bony abnormality seen. No acute aortic findings suspected. IMPRESSION: Diffuse airspace opacification throughout the lung burgess with cardiomegaly and vascular engorgement. Prominent CHF/volume overload would be the primary consideration. Noncardiogenic pulmonary edema is a lso possible. Diffuse pneumonia is possible but unlikely given the absence of any supporting history.
[2021-04-11] MEDS ORDERED: predniSONE 10 MG TAB PO SCH (09:00)
[2021-04-11] MEDS: AMIODARONE HCL 200 MG TAB PO SCH ×3 (09:00→23:30)
[2021-04-11] MEDS: FUROSEMIDE 40 MG TABLET PO SCH ×2 (09:50→17:00)
[2021-04-11] MEDS: DULOXETINE 30 MG CAP PO SCH (09:51)
--- NOTE | 2021-04-11 12:38 | EKG ---
Test Date: 2021-04-11 Test Time: 08:06:20 Business Operations Manager: RACH MEASUREMENT RESULTS: Intervals: Rate: 106 [place]: 116 QRSD: 94 QT: 346 QTc: 459 [place]: P: 84 [place]: 116 QRS: 26 T: 70 INTERPRETIVE STATEMENTS: Sinus tachycardia Nonspecific ST abnormality Abnormal ECG Compared to ECG 04/10/2021 16:20:44 No significant changes Electronically Signed On 04-11-21 12:37:17 CDT by Chris Carrington
--- NOTE | 2021-04-11 12:40 | EKG ---
Test Date: 2021-04-10 Test Time: 21:50:19 Product Inspection Supervisor: SILVIANO MEASUREMENT RESULTS: Intervals: Rate: 107 [place]: 230 QRSD: 96 QT: 376 QTc: 501 [place]: P: [place]: 230 QRS: 39 T: 71 INTERPRETIVE STATEMENTS: Sinus tachycardia with 1st degree AV block Otherwise normal ECG Compared to ECG 04/10/2021 16:20:44 First degree AV block now present ST (T wave) deviation no longer present Electronically Signed On 04-11-21 12:37:30 CDT by Chris Carrington
--- NOTE | 2021-04-11 12:41 | EKG ---
Test Date: 2021-04-10 Test Time: 16:20:44 Ore Smelter: MIRANDA MEASUREMENT RESULTS: Intervals: Rate: 111 SD: 128 QRSD: 90 QT: 336 QTc: 456 [place]: P: 100 SD: 128 QRS: 67 T: 86 INTERPRETIVE STATEMENTS: Sinus tachycardia Nonspecific ST and T wave abnormality Abnormal ECG Compared to ECG 07/12/2019 07:29:38 Sinus bradycardia no longer present ST (T wave) deviation still present Electronically Signed On 04-11-21 12:37:40 CDT by Chris Carrington
[2021-04-11] MEDS ORDERED: RIVAROXABAN 20 MG TABLET PO SCH (17:00)
[2021-04-11] MEDS: RIVAROXABAN 20 MG TABLET PO SCH (17:00)
[2021-04-12 00:50] VITALS: BMI 63.7
[2021-04-12] MEDS: ALBUTEROL 2.5 MG/3 ML NEB SOL NEB SCH ×3 (03:30→11:40)
[2021-04-12] MEDS: METHYLPREDNISOLONE 40 MG INJ IV SCH ×2 (04:50→08:23)
[2021-04-12] MEDS: AMIODARONE HCL 200 MG TAB PO SCH (08:17)
[2021-04-12] MEDS: DULOXETINE 30 MG CAP PO SCH (08:17)
[2021-04-12] MEDS: FUROSEMIDE 40 MG TABLET PO SCH (08:17)
--- NOTE | 2021-04-12 10:54 | PN ---
Date of Progress Note: 04/12/2021 Ms. Siddiqi was admitted with atrial flutter that has resolved on amiodarone 400 b.i.d. She was adm itted for CHF exacerbation that has improved on IV Lasix. She had COPD exacerbation that was improve d with nebulized treatment. I think she can go home today with her present regimen and I will see he r in the office in the next 2 weeks. MARIELLE/MURALI Voice ID: [id number] Report ID: [id number]
[2021-04-12 11:56] VITALS: BP 137/74; TEMP 97.2
--- NOTE | 2021-04-12 12:30 | CON ---
Date of Consultation: 04/11/2021 Reason For Consultation: Congestive heart failure and atrial flutter. History Of Present Illness: Ms. Siddiqi is a 70-year-old white woman, very well known to me from of fice visits and admission. She has a history of COPD, atrial flutter, status post cardioversion in t he past, has a history of diastolic congestive heart failure, diabetes, hypertension, dyslipidemia, a nd obesity. I recently noted that she has recurrent atrial flutter. We put her on amiodarone 400 b. i.d. and then cut the dose down to 200 b.i.d. and she remained in atrial flutter, remained short of b reath, so she got admitted through the emergency room yesterday for cardioversion today; however, tod ay she is back in sinus tachycardia at a rate of 100. Past Medical History: As stated above. Allergies: INCLUDE DECONGESTANT. Review of Systems: Negative. Social History: Negative. Family History: Noncontributory. Medications: Listed by Dr. Kim, but mainly include amiodarone 200 mg b.i.d. and she is also on Xa relto. Physical Examination: General: She is morbidly obese, on home oxygen because of COPD. O2 saturations were adequate. She was in sinus tachycardia at a rate of 100. HEENT: Negative. Neck: Supple with no bruit. Chest: Revealed expiratory wheezing and some rales at the bases. Cardiac: Revealed sinus tachycardia. Abdomen: Obese. Extremities: Revealed 2+ edema. Diagnostic Data: Unremarkable, except for the initial EKG of atrial flutter. Impression And Plan: 1.Atrial flutter, resolved on amiodarone. She is in sinus tachycardia. We will continue to observe , continue amiodarone 400 b.i.d., continue Xarelto. Echocardiogram showed normal ejection fraction. 2.Acute on chronic diastolic congestive heart failure. We will diurese. 3.Chronic obstructive pulmonary disease exacerbation. We will give Xarelto. I would prefer to keep the patient in the office 1 more day and send her home in 24 hours after diuresis and after inhalers and nebulized treatment. I think if her atrial flutter reoccur, we will cardiovert her electrically and if that does not work, we will consider ablation. MARIELLE/MURALI Voice ID: [id number] Report ID: [id number]
[2021-04-12 14:44] VITALS: O2SAT 98
== END 2021-04-12 14:56 | disposition home or self-care (01) | DRG 308 ==
LOC: ER 16:07 → ERHOLD 16:10 → 2ND 18:27 → OBSVTOIN 04-11 15:05
DX: I48.92 Unspecified atrial flutter (principal); I50.33 Acute on chronic diastolic (congestive) heart failure; J44.1 Chronic obstructive pulmonary disease with (acute) exacerbation; Z68.43 Body mass index [BMI] 50.0-59.9, adult; E66.01 Morbid (severe) obesity due to excess calories; I11.0 Hypertensive heart disease with heart failure; E11.9 Type 2 diabetes mellitus without complications; E78.5 Hyperlipidemia, unspecified; R00.0 Tachycardia, unspecified; Z99.81 Dependence on supplemental oxygen; Z88.8 Allergy status to other drugs, medicaments and biological substances; Z20.822 Contact with and (suspected) exposure to COVID-19
CPT/HCPCS: 36415; 71045; 80048; 85025; 85610; 85730; 93005; 94640; 99281; G0378; J1940; J2920; U0003

== ENCOUNTER 2021-04-20 09:14 | Day surgery (SDC) | payer OTHER ==
[~2021-04-20 09:14] MED LIST: ATROPINE SULF 1 MG/10 ML SYR IV ONE; FLUMAZENIL 0.1 MG/ML (5 mL VIAL) IV ONE; MIDAZOLAM HCL 2 MG/2 ML INJ ONE; NA CHLORIDE 0.9% 500 ML ONE
[2021-04-20 09:28] VITALS: TEMP 97; O2SAT 100
[2021-04-20 10:53] VITALS: BP 107/58
--- NOTE | 2021-04-20 11:11 | OP ---
Date of Procedure: 04/20/2021 Surgeon: Chris Carrington MD Procedure: Direct current cardioversion. Indication: Atrial flutter. Ms. Siddiqi is a 71-year-old woman with recurrent atrial flutter that had failed p.o. amiodarone. She is having symptoms with dyspnea on exertion. She was brought to the recovery room today as an outpatient. She received a total of 5 mg of Versed for total sedation. S he received 1 shock of 100 joules and she converted to sinus rhythm without any complications or bloo d loss. The patient tolerated the procedure well. She will be going home today after she wakes up o n amiodarone 200 mg b.i.d., her anticoagulation of Xarelto and I will see her in the office in the ne xt 2 weeks. MARIELLE/MURALI Voice ID: [id number] Report ID: [id number]
--- NOTE | 2021-04-24 12:43 | EKG ---
Test Date: 2021-04-20 Test Time: 06:46:34 Pedigree Researcher: MEASUREMENT RESULTS: Intervals: Rate: 105 [place]: 166 QRSD: 92 QT: 370 QTc: 489 [place]: P: 97 [place]: 166 QRS: 35 T: 57 INTERPRETIVE STATEMENTS: Sinus tachycardia Junctional ST depression, probably normal Borderline ECG Compared to ECG 04/11/2021 08:06:20 No significant changes Electronically Signed On 04-24-21 12:38:06 CDT by Chris Carrington
--- NOTE | 2021-04-24 12:43 | EKG ---
Test Date: 2021-04-20 Test Time: 07:53:26 Paster Supervisor: MEASUREMENT RESULTS: Intervals: Rate: 67 UT: 146 QRSD: 92 QT: 418 QTc: 441 [place]: P: 37 UT: 146 QRS: 45 T: 60 INTERPRETIVE STATEMENTS: Normal sinus rhythm Normal ECG Compared to ECG 04/20/2021 06:46:34 Sinus tachycardia no longer present ST (T wave) deviation no longer present Electronically Signed On 04-24-21 12:38:05 CDT by Chris Carrington
== END 2021-04-20 10:30 | disposition home or self-care (01) ==
LOC: CCL 09:14
DX: I48.92 Unspecified atrial flutter (principal); I48.0 Paroxysmal atrial fibrillation; I11.0 Hypertensive heart disease with heart failure; I50.32 Chronic diastolic (congestive) heart failure; E78.2 Mixed hyperlipidemia; I87.2 Venous insufficiency (chronic) (peripheral); J44.1 Chronic obstructive pulmonary disease with (acute) exacerbation; K21.9 Gastro-esophageal reflux disease without esophagitis; E03.9 Hypothyroidism, unspecified; G62.9 Polyneuropathy, unspecified; E66.01 Morbid (severe) obesity due to excess calories
CPT/HCPCS: 92960; U0003; J2250 ×2; J7040; 93005

== ENCOUNTER 2021-05-29 15:51 | Emergency (ER) | payer OTHER ==
[2021-05-29 19:43] LABS: Absolute Lymphocytes (CBC) 1.6 K/uL (0.7-4.9); Basophils % 0.4 % (0-1.3); Lymphocytes % 15.3 % (15.3-44.8); MPV 8.7 fL (7.6-11.3); RBC Red Blood Cell Count 4.05 M/uL (3.86-4.86)
[2021-05-29] MEDS ORDERED: ONDANSETRON 4 MG/2 ML VIAL ONE (21:38)
[2021-05-29] MEDS ORDERED: CLINDAMYCIN 600MG/D5W 600 MG/50 ML BAG IV ONE (21:38)
[2021-05-29] MEDS ORDERED: MORPHINE 4 MG/ML SYR ONE (21:38)
--- NOTE | 2021-05-29 22:25 | EDPHYS ---
Physician Documentation [facility] Name: Chrissie Siddiqi Age: 71 yrs Sex: Female : 1950 Arrival Date: 05/29/2021 Time: 15:57 Bed 3 Private MD: ED Physician Timo Desouza HPI: 05/29 21:07 This 71 yrs old Female presents to ER via Wheelchair with complaints of Fall ma2 Injury, Leg Injury. 21:07 Details of fall: The patient fell from an upright position. Onset: The symptoms/episode ma2 began/occurred gradually, 3 day(s) ago. Associated injuries: The patient sustained right leg. Severity of symptoms: At their worst the symptoms were mild, in the emergency department the symptoms are unchanged. The patient has experienced a previous episode. Historical: - Allergies: 16:59 Decongestants; jl7 - PMHx: 16:59 Atrial Fib; COPD; CHF; Hypertension; jl7 - PSHx: 16:59 Total abdominal hysterectomy; jl7 - Immunization history:: Adult Immunizations unknown, Client reports having NOT received the Covid vaccine. - Social history:: Smoking status: Patient denies any tobacco usage or history of. - Family history:: not pertinent. ROS: 21:07 Constitutional: Negative for fever, chills, and weight loss. ma2 21:07 All other systems are negative. Exam: 21:07 Constitutional: This is a well developed, well nourished patient who is awake, alert, ma2 and in no acute distress. Head/Face: Normocephalic, atraumatic. Eyes: Pupils equal round and reactive to light, extra-ocular motions intact. Lids and lashes normal. Conjunctiva and sclera are non-icteric and not injected. Cornea within normal limits. Periorbital areas with no swelling, redness, or edema. ENT: Nares patent. No nasal discharge, no septal abnormalities noted. Tympanic membranes are normal and external auditory canals are clear. Oropharynx with no redness, swelling, or masses, exudates, or evidence of obstruction, uvula midline. Mucous membranes moist. Neck: Trachea midline, no thyromegaly or masses palpated, and no cervical lymphadenopathy. Supple, full range of motion without nuchal rigidity, or vertebral point tenderness. No Meningismus. Chest/axilla: Normal chest wall appearance and motion. Nontender with no deformity. No lesions are appreciated. Cardiovascular: Regular rate and rhythm with a normal S1 and S2. No gallops, murmurs, or rubs. Normal PMI, no JVD. No pulse deficits. Respiratory: Lungs have equal breath sounds bilaterally, clear to auscultation and percussion. No rales, rhonchi or wheezes noted. No increased work of breathing, no retractions or nasal flaring. Abdomen/GI: Soft, non-tender, with normal bowel sounds. No distension or tympany. No guarding or rebound. No evidence of tenderness throughout. Back: No spinal tenderness. No costovertebral tenderness. Full range of motion. Skin: Warm, dry with normal turgor. Normal color with no rashes, no lesions, and no evidence of cellulitis. MS/ Extremity: has lymphedema and obesety, right lateral lower leg has cellulitis smild, 3x10 cm, no swelling no fluctuence or crepitations, there is area of contusion andechymosis as well, otherwise Pulses equal, no cyanosis. Neurovascular intact. Full, normal range of motion. Neuro: Awake and alert, GCS 15, oriented to person, place, time, and situation. Cranial nerves II-XII grossly intact. Motor strength 5/5 in all extremities. Sensory grossly intact. Cerebellar exam normal. Normal gait. Vital Signs: 16:56 BP 152 / 56; Pulse 66; Resp 19; Temp 97.4; Pulse Ox 100% on 3.5 lpm NC; Weight 158.76 jl7 kg (R); Height 5 ft. 7 in. (170.18 cm); Pain 7/10; 22:16 BP 112 / 58; Pulse 66; Resp 18; Pulse Ox 100% on R/A; ea 16:56 Body Mass Index 54.82 (158.76 kg, 170.18 cm) jl7 MDM: 20:25 Patient medically screened. ma2 21:07 Differential diagnosis: abrasion, contusion, sprain, strain, cellulitis, no abscess or ma2 nec fascitis . 22:24 Data reviewed: vital signs, nurses notes. Counseling: I had a detailed discussion with ma2 the patient and/or guardian regarding: the historical points, exam findings, and any diagnostic results supporting the discharge/admit diagnosis, the presence of at least one elevated blood pressure reading (>120/80) during this emergency department visit, the need for outpatient follow up. Response to treatment: the patient's symptoms have markedly improved after treatment. 05/29 19:19 Order name: Basic Metabolic Panel; Complete Time: 20:32 [facility] 05/29 19:19 Order name: CBC with Diff; Complete Time: 20:32 [facility] 05/29 19:19 Order name: Procalcitonin; Complete Time: 22:25 [facility] 05/29 19:19 Order name: Blood Culture Adult (2) 7 Administered Medications: 21:24 Drug: morphine 4 mg Route: IVP; Site: right hand; ea 22:16 Follow up: Response: No adverse reaction ea 21:24 Drug: Zofran (Ondansetron) 4 mg Route: IVP; Site: right hand; ea 22:16 Follow up: Response: No adverse reaction ea 21:24 Drug: Clindamycin 600 mg Route: IVPB; Infused Over: 30 mins; Site: right hand; ea 22:16 Follow up: Response: No adverse reaction; IV Status: Completed infusion ea Disposition Summary: 05/29/21 22:25 Discharge Ordered Location: Home ma2 Condition: Stable ma2 Diagnosis - Acute lymphangitis of right lower limb ma2 Followup: ma2 - With: Private Physician - When: Tomorrow - Reason: If symptoms return Discharge Instructions: - Discharge Summary Sheet ma2 - Cellulitis, Adult, [id number] ma2 Forms: - Medication Reconciliation Form ma2 - Thank You Letter ma2 - Antibiotic Education ma2 - Prescription Opioid Use ma2 Prescriptions: - Clindamycin HCl 300 mg Oral Capsule - take 1 capsule by ORAL route every 6 hours for 10 days; 40 capsule; Refills: 0, ma2 Product Selection Permitted - Diclofenac Sodium 75 mg Oral Tablet Sustained Release - take 1 tablet by ORAL route 2 times per day; 30 tablet; Refills: 0, Product ma2 Selection Permitted - bacitracin zinc - apply 1 application by TOPICAL route 3-4 times daily for 14 days; 5 tube; ma2 Refills: 0, Product Selection Permitted Signatures: Dispatcher [employer] Mayra Thornton RN RN jl7 Moran, Gloria, RN RN ea Alzahri, Mohammad, MD MD ma2
--- NOTE | 2021-05-29 22:25 | ER ---
Nurse's Notes [facility] Name: Chrissie Siddiqi Age: 71 yrs Sex: Female : 1950 Arrival Date: 05/29/2021 Time: 15:57 Bed 3 Private MD: Diagnosis: Acute lymphangitis of right lower limb Presentation: 05/29 16:56 Chief complaint: Patient states: Fell 5 days ago and scrapped the lymphedema bumps off jl7 of right lateral calf, increased redness and swelling and pain. Coronavirus screen: Vaccine status: Patient reports being unvaccinated. Ebola Screen: No symptoms or risks identified at this time. Initial Sepsis Screen: Does the patient meet any 2 criteria? No. Patient's initial sepsis screen is negative. Does the patient have a suspected source of infection? No. Patient's initial sepsis screen is negative. Risk Assessment: Do you want to hurt yourself or someone else? Patient reports no desire to harm self or others. Onset of symptoms was May 25, 2021. 16:56 Method Of Arrival: Wheelchair [facility] 16:56 Acuity: RODRIGO 3 jl7 Triage Assessment: 16:59 General: Appears in no apparent distress. uncomfortable, Behavior is calm, cooperative, jl7 appropriate for age. Pain: Complains of pain in lateral aspect of right calf. Neuro: Level of Consciousness is awake, alert, obeys commands, Oriented to person, place, time, situation. Cardiovascular: Patient's skin is warm and dry. Respiratory: Airway is patent Respiratory effort is even, unlabored, Respiratory pattern is regular, symmetrical. Derm: Skin is pink, warm \T\ dry. redness and swelling noted to right lateral calf. Historical: - Allergies: 16:59 Decongestants; jl7 - PMHx: 16:59 Atrial Fib; COPD; CHF; Hypertension; jl7 - PSHx: 16:59 Total abdominal hysterectomy; jl7 - Immunization history:: Adult Immunizations unknown, Client reports having NOT received the Covid vaccine. - Social history:: Smoking status: Patient denies any tobacco usage or history of. - Family history:: not pertinent. Screenin:24 Abuse screen: Denies threats or abuse. Nutritional screening: No deficits noted. ea Tuberculosis screening: No symptoms or risk factors identified. Fall Risk IV access (20 points). Assessment: 21:25 General: Appears in no apparent distress. Behavior is appropriate for age. Pain: ea Complains of pain in right leg. Neuro: Level of Consciousness is awake, alert, obeys commands, Oriented to person, place, time. Respiratory: Airway is patent Respiratory effort is even, unlabored, Respiratory pattern is regular, symmetrical. Derm: warmth and redness to right lower extremity. 22:16 Reassessment: Patient and/or family updated on plan of care and expected duration. Pain ea level reassessed. Patient is alert, oriented x 3, equal unlabored respirations, skin warm/dry/pink. Patient states feeling better. 22:48 Reassessment: Patient and/or family updated on plan of care and expected duration. Pain ea level reassessed. Patient is alert, oriented x 3, equal unlabored respirations, skin warm/dry/pink. Discharge instruction given to patient verbalized the understanding of instruction. Pt left ED via wheelchair accompanied by family, pt tolerating well. Vital Signs: 16:56 BP 152 / 56; Pulse 66; Resp 19; Temp 97.4; Pulse Ox 100% on 3.5 lpm NC; Weight 158.76 jl7 kg (R); Height 5 ft. 7 in. (170.18 cm); Pain 7/10; 22:16 BP 112 / 58; Pulse 66; Resp 18; Pulse Ox 100% on R/A; ea 16:56 Body Mass Index 54.82 (158.76 kg, 170.18 cm) 7 ED Course: 15:57 Patient arrived in ED. mr 16:59 Triage completed. [facility] 17:17 Paresh Reza PA is PHCP. [facility] 17:17 Rito Merrill MD is Attending Physician. [facility] 20:25 Timo Desouza MD is Attending Physician. ma2 21:24 Patient has correct armband on for positive identification. Bed in low position. Call ea light in reach. 22:16 Arm band placed on right wrist. Patient placed in an exam room, on a stretcher, on ea pulse oximetry. 22:17 Gloria Moran, RN is Primary Nurse. ea 22:17 No provider procedures requiring assistance completed. ea 22:48 IV discontinued, intact, bleeding controlled, No redness/swelling at site. Pressure ea dressing applied. Administered Medications: 21:24 Drug: morphine 4 mg Route: IVP; Site: right hand; ea 22:16 Follow up: Response: No adverse reaction ea 21:24 Drug: Zofran (Ondansetron) 4 mg Route: IVP; Site: right hand; ea 22:16 Follow up: Response: No adverse reaction ea 21:24 Drug: Clindamycin 600 mg Route: IVPB; Infused Over: 30 mins; Site: right hand; ea 22:16 Follow up: Response: No adverse reaction; IV Status: Completed infusion ea Outcome: 22:25 Discharge ordered by MD. guallpa 22:48 Discharged to home via wheelchair, with family. ea 22:48 Condition: stable 22:48 Discharge instructions given to patient, Instructed on discharge instructions, follow up and referral plans. medication usage, Demonstrated understanding of instructions, follow-up care, medications, Prescriptions given X 3. 22:49 Patient left the ED. ea Signatures: Paresh Reza PA PA jmm Rivera, Mary mr Mayra Emmanuel RN RN jl7 Gloria Moran RN RN ea Alzahri, Mohammad, MD MD ma2
[2021-05-29 23:01] VITALS: TEMP 97.4; O2SAT 100
[2021-05-29 23:02] VITALS: BP 112/58
== END 2021-05-29 22:49 | disposition home or self-care (01) ==
LOC: ER 15:51
DX: L03.125 Acute lymphangitis of right lower limb (principal); W19.XXXA Unspecified fall, initial encounter; I10 Essential (primary) hypertension; Z88.8 Allergy status to other drugs, medicaments and biological substances
CPT/HCPCS: 96365; 87040 ×2; 85025; 80048; 36415; 84145; 96375; 99283; J2405

== ENCOUNTER 2021-07-03 08:17 | Emergency (ER) | payer OTHER ==
--- NOTE | 2021-07-03 08:59 | ER ---
Nurse's Notes [facility] Name: Chrissie Siddiqi Age: 71 yrs Sex: Female : 1950 Arrival Date: 07/03/2021 Time: 08:19 Bed 12 Private MD: Diagnosis: Cellulitis of right lower limb Presentation: 07/03 08:29 Chief complaint: Patient states: RLE swelling and redness have increased over the last sv few days. Coronavirus screen: Vaccine status: Patient reports being unvaccinated. Client denies travel out of the [place] in the last 14 days. Ebola Screen: No symptoms or risks identified at this time. Risk Assessment: Do you want to hurt yourself or someone else? Patient reports no desire to harm self or others. Onset of symptoms was June 2021. 08:29 Method Of Arrival: Wheelchair sv 08:29 Acuity: RODRIGO 3 sv 08:39 Initial Sepsis Screen: Does the patient have a suspected source of infection? Yes: oh Other: previous diagnosed cellulitis. 08:39 Initial Sepsis Screen: Does the patient meet any 2 criteria? No. Patient's initial oh sepsis screen is negative. Triage Assessment: 08:39 General: Appears uncomfortable, Behavior is calm, cooperative, appropriate for age. oh Historical: - Allergies: 08:31 Decongestants; sv 08:31 Clindamycin; sv - PMHx: 08:31 Atrial Fib; CHF; COPD; Hypertension; Lymphedema; Arthritis; Neuropathy; sv - PSHx: 08:31 Total abdominal hysterectomy; sv - Immunization history:: Adult Immunizations up to date, Flu vaccine is not up to date. - Family history:: not pertinent. Screenin:38 Abuse screen: Denies threats or abuse. Nutritional screening: No deficits noted. oh Tuberculosis screening: No symptoms or risk factors identified. Fall Risk Gait-. Assessment: 08:37 Derm: Rash noted that is on right leg. oh Vital Signs: 08:29 Weight 158.76 kg; Height 5 ft. 7 in. (170.18 cm); sv 08:37 BP 170 / 60 LA; Pulse 65; Resp 20; Temp 98.7(O); Pulse Ox 98% on 3 lpm NC; oh 08:43 BP 157 / 63 RA; oh 08:29 Body Mass Index 54.82 (158.76 kg, 170.18 cm) sv ED Course: 08:19 Patient arrived in ED. ds1 08:20 Santosh Alberto MD is Attending Physician. rn 08:24 Angie Hamlin, DAVID is Primary Nurse. oh 08:30 Triage completed. sv 08:30 Arm band placed on. sv 08:38 Bed in low position. Call light in reach. oh 09:07 Patient did not have IV access during this emergency room visit. oh 09:07 No provider procedures requiring assistance completed. oh Administered Medications: 08:52 CANCELLED (Duplicate Order): Bactrim (trimethoprim-sulfamethoxazole) (160 mg-800 mg rn (DS) 1 tablet PO once 08:56 Drug: Bactrim (trimethoprim-sulfamethoxazole) (160 mg-800 mg (DS) 2 tablet Route: PO; oh 09:08 Follow up: Response: No adverse reaction oh Outcome: 08:59 Discharge ordered by . rn 09:07 Discharged to home via wheelchair, with friend. oh 09:07 Condition: stable 09:07 Discharge instructions given to patient. 09:08 Patient left the ED. oh Signatures: Nicolasa Harkins RN RN Adia Jeffries ds1 Santosh Alberto MD MD rn Harriott, Oneka, DAVID RN oh Corrections: (The following items were deleted from the chart) 08:44 08:37 BP 170 / 60; Pulse 65bpm; Resp 20bpm; Pulse Ox 98% 3 lpm Nasal Cannula; Temp oh 98.7F Oral; oh
--- NOTE | 2021-07-03 09:00 | EDPHYS ---
Physician Documentation [facility] Name: Chrissie Siddiqi Age: 71 yrs Sex: Female : 1950 Arrival Date: 07/03/2021 Time: 08:19 Bed 12 Private MD: ED Physician Santosh Alberto HPI: 07/03 08:55 This 71 yrs old Female presents to ER via Wheelchair with complaints of Leg rn Swelling, redness. 08:55 The patient presents with cellulitis of the right leg. rn 08:55 Onset: The symptoms/episode began/occurred 3 day(s) ago. Possible cause(s): unknown. rn Associated signs and symptoms: Pertinent positives: erythema, swelling, Pertinent negatives: fever, shortness of breath. Modifying factors: the symptoms are alleviated by nothing, the symptoms are aggravated by touching. Severity of symptoms: At their worst the symptoms were mild, in the emergency department the symptoms are unchanged. The patient has experienced similar episodes in the past. The patient has not recently seen a physician. Reports fell on carpet a few days ago with abrasion, now having erythema and warmth to right lower extremity. Patient with chronic lymphedema and has not worsened recently. Denies any fever.. Historical: - Allergies: 08:31 Decongestants; sv 08:31 Clindamycin; sv - PMHx: 08:31 Atrial Fib; CHF; COPD; Hypertension; Lymphedema; Arthritis; Neuropathy; sv - PSHx: 08:31 Total abdominal hysterectomy; sv - Immunization history:: Adult Immunizations up to date, Flu vaccine is not up to date. - Family history:: not pertinent. ROS: 08:55 Constitutional: Negative for fever, chills, and weight loss, Cardiovascular: Negative rn for chest pain, palpitations Respiratory: Negative for shortness of breath, cough, wheezing, and pleuritic chest pain, Abdomen/GI: Negative for abdominal pain, nausea, vomiting, diarrhea, and constipation, MS/Extremity: Positive for right lower extremity itching and redness Skin: Positive for rash and itching to right lower extremity Neuro: Negative for headache, weakness, numbness, tingling, and seizure. Exam: 08:55 Constitutional: This is a well developed, well nourished patient who is awake, alert, rn and in no acute distress. MS/ Extremity: Pulses equal, no cyanosis. Neurovascular intact. Full, normal range of motion. Equal circumference. Mild erythema and dry flaky skin to right pretibial region. No fluctuance. No open wounds. No streaking. Erythema and skin changes do not cross the knee. Vital Signs: 08:29 Weight 158.76 kg; Height 5 ft. 7 in. (170.18 cm); sv 08:37 BP 170 / 60 LA; Pulse 65; Resp 20; Temp 98.7(O); Pulse Ox 98% on 3 lpm NC; oh 08:43 BP 157 / 63 RA; oh 08:29 Body Mass Index 54.82 (158.76 kg, 170.18 cm) sv MDM: 08:22 Patient medically screened. rn 08:55 Differential diagnosis: cellulitis. Data reviewed: vital signs, nurses notes, and as a rn result, I will discharge patient. Counseling: I had a detailed discussion with the patient and/or guardian regarding: the historical points, exam findings, and any diagnostic results supporting the discharge/admit diagnosis, the need for outpatient follow up, to return to the emergency department if symptoms worsen or persist or if there are any questions or concerns that arise at home. Special discussion: I discussed with the patient/guardian in detail that at this point there is no indication for admission to the hospital. It is understood, however, that if the symptoms persist or worsen the patient needs to return immediately for re-evaluation. ED course: Patient with mild cellulitis of the right lower extremity on top of her chronic lymphedema. Afebrile. Stable vital signs. No indication for emergent admission at this point. Will DC home with return precautions. Administered Medications: 08:52 CANCELLED (Duplicate Order): Bactrim (trimethoprim-sulfamethoxazole) (160 mg-800 mg rn (DS) 1 tablet PO once 08:56 Drug: Bactrim (trimethoprim-sulfamethoxazole) (160 mg-800 mg (DS) 2 tablet Route: PO; oh 09:08 Follow up: Response: No adverse reaction oh Disposition Summary: 07/03/21 08:59 Discharge Ordered Location: Home rn Problem: new rn Symptoms: are unchanged rn Condition: Stable rn Diagnosis - Cellulitis of right lower limb rn Followup: rn - With: Private Physician - When: As needed - Reason: Recheck today's complaints, Re-evaluation by your physician Discharge Instructions: - Discharge Summary Sheet rn - Cellulitis, Adult rn Forms: - Medication Reconciliation Form rn - Thank You Letter rn - Antibiotic turn supervisor - Prescription Opioid Use rn Prescriptions: - Bactrim DS 800-160 mg Oral Tablet - take 1 tablet by ORAL route every 12 hours for 10 days; 20 tablet; Refills: 0, rn Product Selection Permitted Signatures: Nicolasa Harkins RN RN sv Nieto, Roman, MD MD rn Harriott, Oneka, RN RN oh Corrections: (The following items were deleted from the chart) 08:52 08:51 Bactrim (trimethoprim-sulfamethoxazole) (160 mg-800 mg (DS) 1 tablet PO once rn ordered. rn
[2021-07-03 09:13] VITALS: TEMP 98.7; O2SAT 98
[2021-07-03 09:14] VITALS: BP 157/63
[2021-07-03] MEDS ORDERED: SMZ./TMP. 800/160 MG TABLET ONE (09:20)
== END 2021-07-03 09:08 | disposition home or self-care (01) ==
LOC: ER 08:17
DX: L03.115 Cellulitis of right lower limb (principal); I10 Essential (primary) hypertension; Z88.3 Allergy status to other anti-infective agents; Z88.8 Allergy status to other drugs, medicaments and biological substances
CPT/HCPCS: 99283

== ENCOUNTER 2021-08-24 11:04 | Inpatient (IN) | payer OTHER ==
[2021-08-24] MEDS ORDERED: CEFTRIAXONE 1000 MG/VIAL ONE (12:36)
[2021-08-24] MEDS ORDERED: NA CHLORIDE 0.9% 50 ML ONE (12:36)
[2021-08-24] MEDS ORDERED: ACETAMINOPHEN 500 MG TAB ONE (12:36)
[2021-08-24 13:17] LABS: Absolute Lymphocytes (CBC) 0.4 K/uL (0.7-4.9); Basophils % 0.5 % (0-1.3); Hematocrit 26.7 % (36.0-45.0); Lymphocytes % 1.5 % (15.3-44.8); MPV 8.1 fL (7.6-11.3); RBC Red Blood Cell Count 3.63 M/uL (3.86-4.86)
[2021-08-24 13:20] LABS: Protime INR 1.52
[2021-08-24 13:33] LABS: ALT/SGPT 33 U/L (12-78); AST/SGOT 18 U/L (15-37); Albumin 2.7 g/dL (3.4-5.0); Alkaline Phosphatase 56 U/L (45-117); Amylase 27 U/L (25-115); BUN Blood Urea Nitrogen 24 mg/dL (7-18); Bicarbonate 30 mmol/L (21-32); Bilirubin Direct 0.4 mg/dL (0-0.2); Creatine Phosphokinase 59 U/L (26-192); Glucose Level 207 mg/dL (74-106); Lipase 49 U/L (73-393); Potassium 4.1 mmol/L (3.5-5.1); Protein, Total 7.9 g/dL (6.4-8.2); Sodium Level 135 mmol/L (136-145); Troponin (Emerg Dept Use Only) < 0.02 ng/mL (0.0-0.045)
[2021-08-24 13:34] LABS: CKMB Creatine Kinase MB < 1.0 ng/mL (1.0-3.6)
--- NOTE | 2021-08-24 13:34 | RAD REPORT ---
EXAM DESCRIPTION: Samara Single View08/24/2021 1:10 pm CLINICAL HISTORY: Cough COMPARISON: March 2021 FINDINGS: 8 centimeter right upper lobe opacity. Additional bilateral pulmonary opacities. Moderate cardiomegaly IMPRESSION: 8 centimeter right upper lobe opacity may represent pneumonia or focal alveolar pulmonar y edema. A mass is probably less likely and should be followed on subsequent examinations. Additional bilateral pulmonary opacities could represent pulmonary edema or pneumonia
[2021-08-24] MEDS ORDERED: NA CHLORIDE 0.9% 0 ML ONE (13:43)
[2021-08-24] MEDS ORDERED: NA CHLORIDE 0.9% 1,000 ML ONE (13:48)
[2021-08-24] MEDS ORDERED: VANCOMYCIN 1.5 GM in NA CHLORIDE 0.9% 500 ML IVPB ONE (14:00)
[2021-08-24 14:33] LABS: Platelet Estimate ADEQ; Toxic Granulation 1+
[2021-08-24 14:34] LABS: Blood Morphology Comment NOT SEEN (NOT SEEN)
[2021-08-24 15:05] LABS: Urine Blood 2+ (Negative); Urine Glucose Negative (Negative); Urine Protein 1+ (Negative); Urine Specific Gravity 1.025 (1.005-1.030)
[2021-08-24 15:29] LABS: Urine Amorphous Sediment 1+ /HPF (NONE SEEN); Urine Bacteria 20-50 /HPF (<20); Urine Mucus 4+ /HPF (NONE SEEN); Urine RBC 20-50 /HPF (NONE SEEN)
[2021-08-24] MEDS ORDERED: ALBUTEROL 2.5 MG/3 ML NEB SOL ONE (17:05)
[2021-08-24] MEDS ORDERED: METHYLPREDNISOLONE 125 MG INJ ONE (17:05)
[2021-08-24] MEDS ORDERED: IPRATROPIUM BROM 0.5MG/2.5ML ONE (17:05)
[2021-08-24] MEDS ORDERED: IBUPROFEN 400 MG TAB ONE (17:08)
--- NOTE | 2021-08-24 17:44 | ER ---
Nurse's Notes [facility] Name: Chrissie Siddiqi Age: 71 yrs Sex: Female : 1950 Arrival Date: 08/24/2021 Time: 11:53 Bed External Waiting Private MD: Diagnosis: Other pneumonia, unspecified organism;Shortness of breath;Fever, unspecified;Fever presenting with conditions classified elsewhere;COPD/ Chronic obstructive pulmonary disease with (acute) exacerbation Presentation: 08/24 11:58 Chief complaint: EMS states: Toned out for SOB. Coronavirus screen: Vaccine status: ll3 Patient reports being unvaccinated. Client denies travel out of the [place] in the last 14 days. Client presents with at least one sign or symptom that may indicate coronavirus-19. Standard/surgical mask placed on the client. Ebola Screen: No symptoms or risks identified at this time. Initial Sepsis Screen: Does the patient meet any 2 criteria? RR > 20 per min. Temp <36.0*C (96.8*F)) or > 38.3*C (100.9*F). Yes Does the patient have a suspected source of infection? Yes: Productive cough/pneumonia Dysuria/Frequency/Urgency/UTI. Risk Assessment: Do you want to hurt yourself or someone else? Patient reports no desire to harm self or others. Onset of symptoms was August 21, 2021. 11:58 Method Of Arrival: EMS: [place] [id number] 11:58 Acuity: RODRIGO 2 ll3 Triage Assessment: 14:35 General: Appears in no apparent distress. uncomfortable, Behavior is calm, cooperative. ll3 Historical: - Allergies: 12:03 Clindamycin; ll3 12:03 Decongestants; ll3 - PMHx: 12:03 Arthritis; Atrial Fib; CHF; COPD; Hypertension; lymphedema; neuropathy; ll3 - PSHx: 12:03 Total abdominal hysterectomy; ll3 - Immunization history:: Client reports having NOT received the Covid vaccine. - Social history:: Smoking status: Patient/guardian denies using tobacco, the patient reports quitting approximately 3 years ago. Screenin:34 Abuse screen: Denies threats or abuse. Nutritional screening: No deficits noted. ll3 Tuberculosis screening: No symptoms or risk factors identified. Fall Risk Secondary diagnosis (15 points) impaired mobility, IV access (20 points). Ambulatory Aid- None/Bed Rest/Nurse Assist (0 pts). Assessment: 12:04 General: See triage. Pain: Denies pain. Neuro: Level of Consciousness is awake, alert, ll3 Oriented to person, place, time, situation, Weakness Speech is normal, Facial symmetry appears normal. Cardiovascular: Patient's skin is warm and dry. 12:04 Respiratory: Airway is patent Trachea midline Respiratory effort is even, unlabored, ll3 Respiratory pattern is regular, symmetrical, Breath sounds are diminished bilaterally. 13:31 Reassessment: Patient appears in no apparent distress at this time. No changes from ll3 previously documented assessment. Patient and/or family updated on plan of care and expected duration. Pain level reassessed. Patient is alert, oriented x 3, equal unlabored respirations, skin warm/dry/pink. 14:30 Reassessment: Patient appears in no apparent distress at this time. No changes from ll3 previously documented assessment. Patient and/or family updated on plan of care and expected duration. Pain level reassessed. Patient is alert, oriented x 3, equal unlabored respirations, skin warm/dry/pink. 15:46 Reassessment: Patient appears in no apparent distress at this time. No changes from ll3 previously documented assessment. Patient and/or family updated on plan of care and expected duration. Pain level reassessed. Patient is alert, oriented x 3, equal unlabored respirations, skin warm/dry/pink. 17:03 Reassessment: Pt reports increased difficulty breathing, sat pt and and pt continues to jl7 c/o of shortness of breath, pulse Ox 90% on [address] Hammer notified and gave VO for 125 mg Solu-medrol IVP and 3:1 NEB treatment. 17:08 Reassessment: Pt's temp 100.8, Dr. Hammer notified and gave VO for 800 mg ibuprofen. jl7 18:12 Reassessment: Patient appears in no apparent distress at this time. No changes from jl7 previously documented assessment. Patient and/or family updated on plan of care and expected duration. Pain level reassessed. Patient is alert, oriented x 3, equal unlabored respirations, skin warm/dry/pink. Patient states feeling better. Vital Signs: 11:58 BP 147 / 108; Pulse 78; Resp 24; Temp 100.6; Pulse Ox 99% on 4 lpm NC; Weight 181.44 kg ll3 (R); Height 5 ft. 4 in. (162.56 cm) (R); 12:30 BP 159 / 78; Pulse 74; Resp 22; Pulse Ox 98% on 4 lpm NC; ll3 13:00 BP 170 / 71; Pulse 75; Resp 22; Pulse Ox 100% on 4 lpm NC; ll3 15:00 BP 125 / 53; Pulse 68; Resp 20; Pulse Ox 98% on 4 lpm NC; ll3 15:58 BP 134 / 96; Pulse 72; Resp 22; Pulse Ox 99% on 4 lpm NC; ll3 16:07 BP 140 / 75; Pulse 72; Resp 15; Pulse Ox 96% on 4 lpm NC; ll3 17:09 BP 170 / 75; Pulse 76; Resp 25; Temp 100.8; Pulse Ox 90% ; jl7 18:09 BP 131 / 48; Pulse 80; Resp 21; Temp 99.6(O); Pulse Ox 97% ; jl7 11:58 Body Mass Index 68.66 (181.44 kg, 162.56 cm) ll3 ED Course: 11:53 Patient arrived in ED. ss 11:53 Dwayne Hammer MD is Attending Physician. kdr 11:58 Cassius Cabrera, DAVID is Primary Nurse. ll3 12:03 Triage completed. ll3 12:50 Missed attempt(s): 22 gauge in left wrist. Bleeding controlled, band aid applied, jl7 catheter tip intact. 12:58 Missed attempt(s): 22 gauge in right wrist. Bleeding controlled, band aid applied, jl7 catheter tip intact. 13:04 Inserted saline lock: 20 gauge in left upper arm, using aseptic technique. Blood jl7 collected. 13:04 Initial lab(s) drawn, by me, sent to lab. First set of blood cultures drawn by me. jl7 13:10 Chest Single View XRAY In Process Unspecified. EDMS 14:34 Patient has correct armband on for positive identification. Placed in gown. Bed in low ll3 position. Call light in reach. Side rails up X2. 14:35 Arm band placed on. ll3 17:32 Basic Metabolic Panel Sent. ll3 17:32 Amylase, Serum Sent. ll3 17:42 Jamir Packer MD is Hospitalizing Provider. kdr 18:41 Eric Alberto MD is Hospitalizing Provider. kdr 21:16 No provider procedures requiring assistance completed. Patient admitted, IV remains in df1 place. Administered Medications: 13:10 Drug: Tylenol 1000 mg Route: PO; ll3 13:29 Follow up: Response: No adverse reaction ll3 13:10 Drug: Rocephin - (cefTRIAXone) 1 grams Route: IVPB; Infused Over: 30 mins; Site: left ll3 antecubital; 13:50 Follow up: Response: No adverse reaction; IV Status: Completed infusion; IV Intake: [id number] 13:46 Drug: NS 0.9% (30 ml/kg) 30 ml/kg {Note: VO to give 500 ml NS bolus then NS at 125 ll3 ml/hr.} Route: IV; Rate: bolus; Site: left upper arm; 18:11 Follow up: Response: No adverse reaction; IV Status: Completed infusion; IV Intake: jl7 1000ml 14:07 Drug: vancoMYCIN 1.5 grams Route: IVPB; Rate: calculated rate; Site: left upper arm; jl7 16:07 Follow up: Response: No adverse reaction; IV Status: Completed infusion; IV Intake: ll3 500ml 17:22 Drug: SOLU-Medrol (methylPrednisoLONE) 125 mg Route: IVP; Site: left upper arm; ll3 17:52 Follow up: Response: No adverse reaction; Marked relief of symptoms ll3 17:22 Drug: Albuterol - atroVENT (ipratropium) (3:1) (2.5 mg - 0.5 mg) 3 ml Route: Nebulizer; ll3 17:52 Follow up: Response: No adverse reaction; Marked relief of symptoms ll3 17:23 Drug: Motrin (ibuprofen) 800 mg Route: PO; ll3 18:08 Follow up: Response: No adverse reaction; Temperature is decreased jl7 19:03 Drug: Lasix (furosemide) 40 mg Route: IVP; Site: left femoral; jl7 Intake: 13:50 IV: 50ml; Total: 50ml. ll3 16:07 IV: 500ml; Total: 550ml. ll3 18:11 IV: 1000ml; Total: 1550ml. jl7 Outcome: 17:43 Decision to Hospitalize by Provider. kdr 21:16 Admitted to Tele accompanied by tech. df1 21:16 Condition: good 21:16 Instructed on the need for admit. 21:17 Patient left the ED. df1 Signatures: Dispatcher [employer] EDMS Dwayne Hammer MD MD kdr Rosemary Lopez RN RN ss Mayra Emmanuel RN RN jl7 Ana María Temple df1 Cassius Cabrera RN RN ll3 Corrections: (The following items were deleted from the chart) 13:52 13:46 NS 0.9% (30 ml/kg) 30 ml/kg IV at bolus in left upper arm ll3 ll3 15:44 14:33 BP 120 / 29; Pulse 76bpm; Resp 22bpm; Pulse Ox 98%; ll3 ll3 15:46 15:00 BP 125 / 53; Pulse 68bpm; Resp 20bpm; Pulse Ox 98%; ll3 ll3 16:07 13:14 BP 159 / 78; Pulse 74bpm; Resp 22bpm; Pulse Ox 98%; ll3 ll3
--- NOTE | 2021-08-24 17:44 | EDPHYS ---
Physician Documentation [facility] Name: Chrissie Siddiqi Age: 71 yrs Sex: Female : 1950 Arrival Date: 08/24/2021 Time: 11:53 Bed External Waiting Private MD: ED Physician Dwayne Hammer HPI: 08/24 17:43 This 71 yrs old Female presents to ER via EMS with complaints of Shortness Of Breath. kdr 17:43 The patient has shortness of breath at rest. Onset: The symptoms/episode began/occurred kdr gradually, 2 day(s) ago. Duration: The symptoms are continuous, and are steadily getting worse. The patient's shortness of breath is aggravated by coughing, exertion, light activity, is alleviated by nothing. Associated signs and symptoms: Pertinent positives: productive cough, fever, nausea. Severity of symptoms: At their worst the symptoms were mild moderate just prior to arrival, in the emergency department the symptoms are unchanged. The patient has not experienced similar symptoms in the past. The patient has not recently seen a physician. Patient had a complaint of shortness of breath. Historical: - Allergies: 12:03 Clindamycin; ll3 12:03 Decongestants; ll3 - PMHx: 12:03 Arthritis; Atrial Fib; CHF; COPD; Hypertension; lymphedema; neuropathy; ll3 - PSHx: 12:03 Total abdominal hysterectomy; ll3 - Immunization history:: Client reports having NOT received the Covid vaccine. - Social history:: Smoking status: Patient/guardian denies using tobacco, the patient reports quitting approximately 3 years ago. ROS: 17:44 Eyes: Negative for injury, pain, redness, and discharge, ENT: Negative for injury, kdr pain, and discharge, Neck: Negative for injury, pain, and swelling, Cardiovascular: Negative for chest pain, palpitations, and edema, Abdomen/GI: Negative for abdominal pain, vomiting, diarrhea, and constipation, she has had nausea Back: Negative for injury and pain, : Negative for injury, bleeding, discharge, and swelling, MS/Extremity: Negative for injury and deformity, Skin: Negative for injury, rash, and discoloration, Neuro: Negative for headache, weakness, numbness, tingling, and seizure activity. Psych: Negative for depression, anxiety, suicide ideation, homicidal ideation, and hallucinations, Allergy/Immunology: Negative for hives, rash, and allergies, Endocrine: Negative for neck swelling, polydipsia, polyuria, polyphagia, and marked weight changes, Hematologic/Lymphatic: Negative for swollen nodes, abnormal bleeding, and unusual bruising. 17:44 Constitutional: Positive for chills, fever. 17:44 Respiratory: Positive for cough, "sounds productive", dyspnea on exertion, shortness of breath. Exam: 17:44 Constitutional: This is a well developed, well nourished patient who is awake, alert, kdr and in no acute distress. Head/Face: Normocephalic, atraumatic. Eyes: Pupils equal round and reactive to light, extra-ocular motions intact. Lids and lashes normal. Conjunctiva and sclera are non-icteric and not injected. Cornea within normal limits. Periorbital areas with no swelling, redness, or edema. Neck: Trachea midline, no thyromegaly or masses palpated, and no cervical lymphadenopathy. Supple, full range of motion without nuchal rigidity, or vertebral point tenderness. No Meningismus. Chest/axilla: Normal chest wall appearance and motion. Nontender with no deformity. No lesions are appreciated. Cardiovascular: Regular rate and rhythm with a normal S1 and S2. No gallops, murmurs, or rubs. Normal PMI, no JVD. No pulse deficits. Back: No spinal tenderness. No costovertebral tenderness. Full range of motion. Skin: Warm, dry with normal turgor. Normal color with no rashes, no lesions, and no evidence of cellulitis. Neuro: Awake and alert, GCS 15, oriented to person, place, time, and situation. Cranial nerves II-XII grossly intact. Motor strength 5/5 in all extremities. Sensory grossly intact. Cerebellar exam normal. Normal gait. 17:44 Respiratory: mild respiratory distress is noted, moderate respiratory distress is noted, Respirations: normal, Breath sounds: rales, that are mild, are scattered, wheezing: that is mild, is scattered. 19:02 ECG was reviewed by the Attending Physician. kdr Vital Signs: 11:58 BP 147 / 108; Pulse 78; Resp 24; Temp 100.6; Pulse Ox 99% on 4 lpm NC; Weight 181.44 kg ll3 (R); Height 5 ft. 4 in. (162.56 cm) (R); 12:30 BP 159 / 78; Pulse 74; Resp 22; Pulse Ox 98% on 4 lpm NC; ll3 13:00 BP 170 / 71; Pulse 75; Resp 22; Pulse Ox 100% on 4 lpm NC; ll3 15:00 BP 125 / 53; Pulse 68; Resp 20; Pulse Ox 98% on 4 lpm NC; ll3 15:58 BP 134 / 96; Pulse 72; Resp 22; Pulse Ox 99% on 4 lpm NC; ll3 16:07 BP 140 / 75; Pulse 72; Resp 15; Pulse Ox 96% on 4 lpm NC; ll3 17:09 BP 170 / 75; Pulse 76; Resp 25; Temp 100.8; Pulse Ox 90% ; jl7 18:09 BP 131 / 48; Pulse 80; Resp 21; Temp 99.6(O); Pulse Ox 97% ; jl7 11:58 Body Mass Index 68.66 (181.44 kg, 162.56 cm) ll3 MDM: 17:43 Patient medically screened. kdr 17:44 Data reviewed: vital signs, nurses notes, lab test result(s), radiologic studies. kdr Counseling: I had a detailed discussion with the patient and/or guardian regarding: the historical points, exam findings, and any diagnostic results supporting the discharge/admit diagnosis, lab results, radiology results, the need for outpatient follow up. 08/24 12:06 Order name: Amylase, Serum kdr 08/24 12:06 Order name: Basic Metabolic Panel kdr 08/24 12:06 Order name: Blood Culture Adult (2) kdr 08/24 12:06 Order name: CBC with Diff; Complete Time: 15:49 kdr 08/24 12:06 Order name: CPK; Complete Time: 13:54 kdr 08/24 12:06 Order name: Ckmb; Complete Time: 13:54 kdr 08/24 12:06 Order name: LFT's; Complete Time: 13:54 kdr 08/24 12:06 Order name: Lactate; Complete Time: 13:54 kdr 08/24 12:06 Order name: Lipase; Complete Time: 13:54 kdr 08/24 12:06 Order name: Procalcitonin; Complete Time: 13:54 kdr 08/24 12:06 Order name: Protime (+inr); Complete Time: 13:54 kdr 08/24 12:06 Order name: Ptt, Activated; Complete Time: 13:[address] [facility] 08/24 12:06 Order name: Troponin (emerg Dept Use Only); Complete Time: 13:[address] [facility] 08/24 12:06 Order name: Urine Microscopic Only; Complete Time: 15:[address] [facility] 08/24 12:06 Order name: Chest Single View XRAY; Complete Time: 13:[address] [facility] 08/24 12:07 Order name: Amylase; Complete Time: 13:54 [facility] 08/24 12:07 Order name: Basic Metabolic Panel; Complete Time: 13:54 [facility] 08/24 12:19 Order name: Urine Culture [facility] 08/24 14:01 Order name: SARS-COV-2 RT PCR; Complete Time: 15:49 [facility] 08/24 14:33 Order name: Manual Differential; Complete Time: 15:49 [facility] 08/24 15:05 Order name: Urine Dipstick-Ancillary; Complete Time: 15:49 [facility] 08/24 18:53 Order name: Chest For Pe Angio [facility] 08/24 12:06 Order name: Accucheck; Complete Time: 13:[address] [facility] 08/24 12:06 Order name: Cardiac monitoring; Complete Time: 13:[address] [facility] 08/24 12:06 Order name: EKG - Nurse/Tech; Complete Time: 17:[address] [facility] 08/24 12:06 Order name: IV Saline Lock - Large Bore; Complete Time: 13:[address] [facility] 08/24 12:06 Order name: Labs collected and sent; Complete Time: 13:[address] [facility] 08/24 12:06 Order name: O2 Per Protocol; Complete Time: 13:[address] [facility] 08/24 12:06 Order name: O2 Sat Monitoring; Complete Time: 13:[address] [facility] 08/24 12:06 Order name: Urine Dipstick-Ancillary (obtain specimen); Complete Time: 15:[address] [facility] 08/24 12:18 Order name: Misc. Order: Hold fluid bolus secondary to possible volume overload/failure kdr ; Complete Time: 12:28 08/24 12:19 Order name: Reid Leg Bag; Complete Time: 15:[address] [facility] 08/24 16:02 Order name: VS Recheck; Complete Time: 16:[address] [facility] 08/24 18:53 Order name: CONS Physician Consult EDMS Administered Medications: 13:10 Drug: Tylenol 1000 mg Route: PO; ll3 13:29 Follow up: Response: No adverse reaction ll3 13:10 Drug: Rocephin - (cefTRIAXone) 1 grams Route: IVPB; Infused Over: 30 mins; Site: left ll3 antecubital; 13:50 Follow up: Response: No adverse reaction; IV Status: Completed infusion; IV Intake: [id number] 13:46 Drug: NS 0.9% (30 ml/kg) 30 ml/kg {Note: VO to give 500 ml NS bolus then NS at 125 ll3 ml/hr.} Route: IV; Rate: bolus; Site: left upper arm; 18:11 Follow up: Response: No adverse reaction; IV Status: Completed infusion; IV Intake: jl7 1000ml 14:07 Drug: vancoMYCIN 1.5 grams Route: IVPB; Rate: calculated rate; Site: left upper arm; jl7 16:07 Follow up: Response: No adverse reaction; IV Status: Completed infusion; IV Intake: ll3 500ml 17:22 Drug: SOLU-Medrol (methylPrednisoLONE) 125 mg Route: IVP; Site: left upper arm; ll3 17:52 Follow up: Response: No adverse reaction; Marked relief of symptoms ll3 17:22 Drug: Albuterol - atroVENT (ipratropium) (3:1) (2.5 mg - 0.5 mg) 3 ml Route: Nebulizer; ll3 17:52 Follow up: Response: No adverse reaction; Marked relief of symptoms ll3 17:23 Drug: Motrin (ibuprofen) 800 mg Route: PO; ll3 18:08 Follow up: Response: No adverse reaction; Temperature is decreased jl7 19:03 Drug: Lasix (furosemide) 40 mg Route: IVP; Site: left femoral; jl7 Disposition Summary: 08/24/21 17:43 Hospitalization Ordered Hospitalization Status: Inpatient Admission [facility]dr [facility] Condition: Fair kdr Problem: new kdr Symptoms: have improved kdr Bed/Room Type: Standard kdr Provider: Eric Alberto(08/24/21 18:41) kdr Room Assignment: [facility](08/24/21 20:08) cg Diagnosis - Other pneumonia, unspecified organism kdr - Shortness of breath kdr - Fever, unspecified kdr - Fever presenting with conditions classified elsewhere kdr - COPD/ Chronic obstructive pulmonary disease with (acute) exacerbation kdr Forms: - Medication Reconciliation Form kdr - SBAR form kdr Signatures: Dispatcher [employer] EDMS Dwayne Hammer MD MD kdr Fela Hammond RN RN cg Mayra Emmanuel RN RN jl7 Cassius Cabrera RN RN ll3 Corrections: (The following items were deleted from the chart) 14:01 12:20 CORONAVIRUS+LAB.BRZ ordered. EDMS EDMS 18:41 17:43 Jamir Packer kdr kdr 20:08 17:43 kdr
[2021-08-24] MEDS ORDERED: FUROSEMIDE 20 MG/ 2ML VIAL ONE (18:51)
--- NOTE | 2021-08-24 21:07 | RAD REPORT ---
EXAM DESCRIPTION: CT - Chest For Pe Angio - 08/24/2021 8:45 pm CLINICAL HISTORY: sob COMPARISON: August 24, 2021 chest x-ray TECHNIQUE: Dynamically enhanced axial 3 mm thick images of the chest were obtained during administra tion of <100> mL Isovue 370 IV contrast. Coronal and oblique reconstruction images were generated and reviewed. Exam utilizes a protocol for optimal evaluation of pulmonary arterial tree. Maximum intensity projections 3D imaging was utilized All CT scans are performed using dose optimization technique as appropriate and may include automated exposure control or mA/KV adjustment according to patient size. FINDINGS: The opacification of pulmonary arteries is suboptimal. A pulmonary embolus is not seen. A thoracic aortic aneurysm is not noted. A pleural effusion is not seen. A pericardial effusion is not seen. Left lower lobe and right upper lobe consolidations. Additional patchy alveolar opacities within the lungs. 3.6 centimeter left adrenal mass without significant change from 2019 presumably an adenoma IMPRESSION: No gross evidence of a pulmonary embolus. Bilateral lung consolidations in additional bilateral pulmonary opacities all probably pneumonia. Thi s should be followed until it is clear to help exclude a post obstructive process/underlying mass
--- NOTE | 2021-08-24 21:47 | P.HP ---
Certification for Inpatient Patient admitted to: Inpatient With expected LOS: >2 Midnights Patient will require the following post-hospital care: None Practitioner: I am a practitioner with admitting privileges, knowledge of patient current condition, hospital course, and medical plan of care. Services: Services provided to patient in accordance with Admission requirements found in Title 42 Section 412.3 of the Code of Federal Regulations Patient History Date of Service: 08/24/21 Reason for admission: pneumonia History of Present Illness: Ms. Siddiqi is a 71 yo F with COPD on 3.5L home O2, CHF, afib, lymphedema who presents with 3 days of fever, cough productive of brown sputum, SOB, BROWN, orthopnea, and wheezing. She denies N/V/D, pleuritic pain. She has had to increase her home Ow to 5L at home and her home O2 sats have continued to decrease. She says she has short mild relief with nebulizer treatments and her rescue inhaler. WBC 28.9 H/H 8.1 MCV 73.6 Glu 207 procal 0.61. CXR IMPRESSION: 8 centimeter right upper lobe opacity may represent pneumonia or focal alveolar pulmonary edema. A mass is probably less likely and should be followed on subsequent examinations. Additional bilateral pulmonary opacities could represent pulmonary edema or pneumonia CTPE IMPRESSION: No gross evidence of a pulmonary embolus. Bilateral lung consolidations in additional bilateral pulmonary opacities all probably pneumonia. This should be followed until it is clear to help exclude a post obstructive process/underlying mass Allergies decongestants Adverse Reaction (Mild, Uncoded 04/10/21 19:40) increased heart rate Home Medications: Albuterol Inhaler [Ventolin Inhaler*] 2 puff IH QIDP PRN 04/10/21 Albuterol Neb [Proventil 0.083% Neb Soln] 1 amp NEB QIDP PRN 04/10/21 Amiodarone HCl [Cordarone*] 400 mg PO BID 04/10/21 Duloxetine HCl [Cymbalta] 30 mg PO DAILY 04/10/21 Gabapentin [Neurontin*] 400 mg PO BID 04/10/21 Ipratropium Neb [Atrovent*] 1 amp NEB QIDP PRN 04/10/21 Rivaroxaban [Xarelto*] 20 mg PO DAILY 04/10/21 Spironolactone [Aldactone*] 25 mg PO DAILY 04/10/21 Torsemide [Demadex*] 20 mg PO DAILY 04/10/21 predniSONE [Prednisone*] 10 mg PO DAILY 04/10/21 - Past Medical/Surgical History Diabetic: No -: COPD -: Atrial Fib -: htn -: PAD -: Obesity -: SILVANA -: CHF -: Former Smoker -: hysterectomy -: carpal tunnel surgery Psychosocial/ Personal History: Lives with her - Family History Mother -: Cancer Notes: lung cancer Father -: Heart disease - Social History Smoking Status: Former smoker Alcohol use: No CD- Drugs: No Caffeine use: Yes Place of Residence: Home Review of Systems 10-point ROS is otherwise unremarkable General: Fever, Chills, Sweats, Malaise, As per HPI Eyes: Unremarkable ENT: Unremarkable Respiratory: Cough, Shortness of Breath, SOB with Excertion, Sputum, Wheezing, As per HPI Cardiovascular: Orthopnea, As per HPI Gastrointestinal: Unremarkable Genitourinary: Unremarkable Musculoskeletal: Unremarkable Integumentary: Unremarkable Neurological: Unremarkable Lymphatics: Unremarkable Physical Examination - Vital Signs Temperature: 99.6 F Blood Pressure: 131/48 Pulse: 80 Respirations: 21 - Physical Exam General: Alert, In no apparent distress, Obese HEENT: Atraumatic, PERRLA, Mucous membr. moist/pink, EOMI, Sclerae nonicteric Neck: Supple, 2+ carotid pulse no bruit, No LAD, Without JVD or thyroid abnormality Respiratory: Crackles/rales, Expiratory wheezes, Rhonchi/gurgles Cardiovascular: Regular rate/rhythm, Normal S1 S2, Edema Gastrointestinal: Normal bowel sounds, No tenderness Musculoskeletal: No tenderness Integumentary: No rashes Neurological: Normal speech, Normal strength at 5/5 x4 extr, Normal tone, Normal affect Lymphatics: No axilla or inguinal lymphadenopathy - Studies Laboratory Data (last 24 hrs) 08/24/21 13:04: PT 17.6 H, INR 1.52, APTT 31.1 08/24/21 13:04: WBC 28.90 H*, Hgb 8.1 L, Hct 26.7 L, Plt Count 290 08/24/21 13:04: Sodium 135 L, Potassium 4.1, BUN 24 H, Creatinine 1.26, Glucose 207 H, Total Bilirubin 1.0, AST 18, ALT 33, Alkaline Phosphatase 56, Amylase 27, Lipase 49 L Assessment and Plan - Problems (Diagnosis) (1) Pneumonia Onset Date: 10/09/17 Current Visit: No Status: Acute Qualifiers: Pneumonia type: due to unspecified organism Laterality: right Lung location: upper lobe of lung Qualified Code(s): J18.9 - Pneumonia, unspecified organism (2) CHF (congestive heart failure) Onset Date: 10/28/17 Current Visit: No Status: Chronic Qualifiers: Qualified Code(s): I50.32 - Chronic diastolic (congestive) heart failure (3) COPD (chronic obstructive pulmonary disease) Onset Date: 10/28/17 Current Visit: No Status: Chronic Qualifiers: COPD type: COPD with acute exacerbation Qualified Code(s): J44.1 - Chronic obstructive pulmonary disease with (acute) exacerbation (4) Chronic atrial fibrillation Onset Date: 10/09/17 Current Visit: No Status: Chronic (5) Morbid obesity with BMI of 50.0-59.9, adult Onset Date: 10/28/17 Current Visit: No Status: Chronic - Plan pulm consulted, RT consulted continue IV antibiotics and IV steroids continue IV Lasix breathing treatments and O2 as needed antipyretics PRN anemia workup pending, continue to monitor H/H sliding scale insulin and accuchecks, A1c pending reconcile and continue home medications DVT ppx Discharge Plan: Home Plan to discharge in: 72 Hours - Advance Directives Does patient have a Living Will: No Does patient have a Durable POA for Healthcare: No - Code Status/Comfort Care Code Status Assessed: Yes (full code ) Critical Care: No Time Spent Managing Pts Care (In Minutes): 70
[2021-08-24] MEDS ORDERED: BENZONATATE 100 MG CAP PO PRN (22:37)
[2021-08-24] MEDS: LEVALBUTEROL 1.25 MG/3 ML NEB NEB SCH (22:37)
[2021-08-24] MEDS ORDERED: ONDANSETRON 4 MG/2 ML VIAL IV PRN (22:37)
[2021-08-24] MEDS ORDERED: Levofloxacin 750mg IV 750 MG/150 ML BAG IV SCH (23:00)
[2021-08-24] MEDS: INSULIN -REGULAR HUMAN 50 UNIT/0.5 ML ML SQ SCH (23:07)
[2021-08-24 23:26] LABS: Blood O2 Saturation 90.5 % (92-98.5)
[2021-08-24 23:27] LABS: Arterial Blood Carboxyhemoglob 2.2 % (0-1.5); Blood Gas Oxyhemoglobin 87.4 % (94-97)
[2021-08-25] MEDS ORDERED: VANCOMYCIN 500 MG/VIAL ONE (00:41)
[2021-08-25] MEDS: METHYLPREDNISOLONE 40 MG INJ IV SCH ×2 (00:55→08:33)
[2021-08-25] MEDS ORDERED: VANCOMYCIN 1.5 GM in NA CHLORIDE 0.9% 500 ML IVPB ONE (01:00)
[2021-08-25] MEDS ORDERED: Pharmacy Consult 1 EA XX PRN (02:00)
[2021-08-25] MEDS: LEVALBUTEROL 1.25 MG/3 ML NEB NEB SCH ×4 (02:45→20:20)
[2021-08-25] MEDS: IPRATROPIUM BROM 0.5MG/2.5ML NEB PRN ×3 (02:45→13:45)
[2021-08-25] MEDS: ACETAMINOPHEN 500 MG TAB PO PRN (05:52)
[2021-08-25 06:31] LABS: Absolute Lymphocytes (CBC) 0.3 K/uL (0.7-4.9); Basophils % 0.1 % (0-1.3); Hematocrit 26.7 % (36.0-45.0); Lymphocytes % 0.9 % (15.3-44.8); MPV 8.3 fL (7.6-11.3); RBC Red Blood Cell Count 3.52 M/uL (3.86-4.86)
--- NOTE | 2021-08-25 06:32 | P.PN ---
Date of Service: 08/25/21 Subjective: Patient still having shortness of breath, reports some slight improvements Still requiring BiPAP, fever curve seems to be slightly improving, but still intermittently febrile No new complaints ROS: 10 point ROS as noted above, otherwise negative Physical exam GEN: Alert, oriented, NAD HEENT: Normal conjunctiva, sclera anicteric CV: Regular rate and rhythm, no edema Pulm: On BiPAP, expiratory wheeze with rhonchi bilaterally ABD: Soft, nontender, nondistended Integumentary: No rashes Neuro: Normal speech, normal affect, moves all extremities Problem List Community-acquired pneumonia Acute on chronic COPD exacerbation Chronic diastolic CHF Chronic atrial fibrillation Super morbid obesity Chronic anemia, microcytic continue empiric antibiotics for community-acquired pneumonia IV steroids, nebs, BiPAP for hypoxia and COPD exacerbation Pulmonology consulted Continue home diuretic Antipyretics as needed Anemia work-up pending this morning, trend H&H Microcytic, suspect iron deficiency, no evidence of león bleeding Code: full Dispo: anticipate hospitalization > 2 days Time Spent Managing Pts Care (In Minutes): 35
[2021-08-25 06:53] LABS: Arterial Blood Carboxyhemoglob 2.1 % (0-1.5); Blood Gas Oxyhemoglobin 90.5 % (94-97); Blood O2 Saturation 93.7 % (92-98.5)
[2021-08-25 07:22] LABS: ALT/SGPT 42 U/L (12-78); AST/SGOT 32 U/L (15-37); Albumin 2.6 g/dL (3.4-5.0); Alkaline Phosphatase 57 U/L (45-117); BUN Blood Urea Nitrogen 28 mg/dL (7-18); Bicarbonate 33 mmol/L (21-32); Bilirubin Total 0.6 mg/dL (0.2-1.0); Ferritin 174.3 ng/mL (8-388); Folic Acid, (Folate) > 20.0 ng/mL (3.1-17.5); Glucose Level 240 mg/dL (74-106); HDL Cholesterol 37 mg/dL (40-60); LDL Cholesterol, Calculated 35 (<130); Magnesium 2.6 mg/dL (1.8-2.4); Phosphorus 3.4 mg/dL (2.5-4.9); Potassium 4.4 mmol/L (3.5-5.1); Sodium Level 136 mmol/L (136-145); Transferrin 248 mg/dL (200-360)
[2021-08-25] MEDS: INSULIN -REGULAR HUMAN 50 UNIT/0.5 ML ML SQ SCH ×4 (08:34→21:00)
[2021-08-25] MEDS ORDERED: INFLUENZA VACCINE (for 6+ mo) 0.5 ML DOSE IMVAC ONE (09:00)
[2021-08-25] MEDS ORDERED: FUROSEMIDE 40 MG/4 ML VIAL IV SCH (09:00)
--- NOTE | 2021-08-25 10:49 | P.CNS ---
Date of Consult: 08/25/21 Reason for Consult: Severe community-acquired pneumonia Chief Complaint: pneumonia History of Present Illness: Patient is 71 years of age with a history of COPD on home oxygen admitted with 3-day onset of fever productive cough she has severe community-acquired pneumonia currently stable to maybe doing a little bit better Allergies decongestants Adverse Reaction (Mild, Uncoded 04/10/21 19:40) increased heart rate Home Medications: Albuterol Inhaler [Ventolin Inhaler*] 2 puff IH QIDP PRN 04/10/21 Albuterol Neb [Proventil 0.083% Neb Soln] 1 amp NEB QIDP PRN 04/10/21 Amiodarone HCl [Cordarone*] 400 mg PO BID 04/10/21 Duloxetine HCl [Cymbalta] 30 mg PO DAILY 04/10/21 Gabapentin [Neurontin*] 400 mg PO BID 04/10/21 Ipratropium Neb [Atrovent*] 1 amp NEB QIDP PRN 04/10/21 Rivaroxaban [Xarelto*] 20 mg PO DAILY 04/10/21 Spironolactone [Aldactone*] 25 mg PO DAILY 04/10/21 Torsemide [Demadex*] 20 mg PO DAILY 04/10/21 predniSONE [Prednisone*] 10 mg PO DAILY 04/10/21 - Past Medical/Surgical History Diabetic: No -: COPD -: Atrial Fib -: htn -: PAD -: Obesity -: SILVANA -: CHF -: Former Smoker -: hysterectomy -: carpal tunnel surgery Psychosocial/ Personal History: Lives with her - Family History Mother Medical History: Cancer Notes: lung cancer Father Medical History: Heart disease Notes: heart attack - Social History Smoking Status: Current every day smoker Alcohol use: No CD- Drugs: No Caffeine use: Yes Place of Residence: Home Review of Systems 10-point ROS is otherwise unremarkable General: Weakness Respiratory: Cough, Shortness of Breath Physical Examination Temp Pulse Resp BP Pulse Ox 97.8 F 74 19 131/54 L 92 08/25/21 08:00 08/25/21 08:00 08/25/21 08:00 08/25/21 08:00 08/25/21 08:00 General: Alert, In no apparent distress, Oriented x3 Neck: Supple Respiratory: Crackles/rales (Crackles worse on the left side) Cardiovascular: Normal S1 S2, Edema Laboratory Data (last 24 hrs) 08/24/21 13:04: PT 17.6 H, INR 1.52, APTT 31.1 08/24/21 13:04: WBC 28.90 H*, Hgb 8.1 L, Hct 26.7 L, Plt Count 290 08/24/21 13:04: Sodium 135 L, Potassium 4.1, BUN 24 H, Creatinine 1.26, Glucose 207 H, Total Bilirubin 1.0, AST 18, ALT 33, Alkaline Phosphatase 56, Amylase 27, Lipase 49 L - Problems (1) Pneumonia Onset Date: 10/09/17 Current Visit: No Status: Acute Plan: Patient is 71 years of age admitted with severe community-acquired pneumonia bilateral infiltrate right greater than left but is bilateral labs reviewed patient has significant leukocytosis microcytic anemia hypoxic hypercarbic respiratory failure hemodynamically stable changed to p.o. prednisone DC vancomycin Qualifiers: Pneumonia type: due to unspecified organism Laterality: right Lung location: upper lobe of lung Qualified Code(s): J18.9 - Pneumonia, unspecified organism
[2021-08-25] MEDS ORDERED: CEFTRIAXONE 1,000 MG in NA CHLORIDE 0.9% 50 ML IVPB SCH (12:00)
[2021-08-25] MEDS: SPIRONOLACTONE 25 MG TABLET PO SCH (12:46)
[2021-08-25] MEDS: TORSEMIDE 20 MG TAB PO SCH (12:46)
[2021-08-25] MEDS: RIVAROXABAN 10 MG TABLET PO SCH (17:23)
[2021-08-25] MEDS: predniSONE 20 MG TAB PO SCH (20:58)
[2021-08-26] MEDS: LEVALBUTEROL 1.25 MG/3 ML NEB NEB SCH ×4 (01:45→20:20)
[2021-08-26 04:46] LABS: Absolute Lymphocytes (CBC) 0.4 K/uL (0.7-4.9); Basophils % 0.1 % (0-1.3); Hematocrit 25.9 % (36.0-45.0); Lymphocytes % 1.4 % (15.3-44.8); MPV 8.3 fL (7.6-11.3); RBC Red Blood Cell Count 3.48 M/uL (3.86-4.86)
[2021-08-26 05:03] LABS: Albumin 2.3 g/dL (3.4-5.0); Bilirubin Total 0.5 mg/dL (0.2-1.0); Magnesium 2.7 mg/dL (1.8-2.4); Potassium 4.3 mmol/L (3.5-5.1); Protein, Total 7.7 g/dL (6.4-8.2)
[2021-08-26] MEDS ORDERED: FUROSEMIDE 20 MG/ 2ML VIAL IV ONE (06:15)
--- NOTE | 2021-08-26 06:17 | P.PN ---
Date of Service: 08/26/21 Subjective: increased somnolence this morning, arousable, but only briefly Seems to have a slight increased work of breathing. Reportedly no acute events overnight ROS: 10 point ROS as noted above, otherwise negative Physical exam GEN: Somnolent, arousable HEENT: Normal conjunctiva, sclera anicteric CV: Regular rate and rhythm, 1+ b/l edema Pulm: On BiPAP, expiratory wheeze with rhonchi bilaterally (worse on R) ABD: Soft, nontender, nondistended Integumentary: No rashes Neuro: Somnolent, moves extremities, arousable to verbal stimuli Problem List Acute hypoxemic, hypercarbic respiratory failure secondary to severe community- acquired pneumonia Acute on chronic COPD exacerbation Chronic diastolic CHF Chronic atrial fibrillation Super morbid obesity Chronic anemia, microcytic continue empiric antibiotics for community-acquired pneumonia IV steroids, nebs, BiPAP for hypoxia and COPD exacerbation Pulmonology consulted, continue levaquin, dc'd vanc patient with increased rhonchi, and more somnolent, suspect more hypercarbic, will obtain chest x-ray and ABG to further evaluate patient appears somewhat volume overloaded as well will change medications to IV to minimized aspiration risk and law off BIPAP Antipyretics as needed Hemoglobin slightly decreased, workup with component of iron deficiency, no bleeding. Will transfuse 1 unit PRBC will discuss further with pulm Code: full Dispo: anticipate hospitalization > 2 days Time Spent Managing Pts Care (In Minutes): 35
[2021-08-26] MEDS ORDERED: NA CHLORIDE 0.9% 250 ML IV SCH (07:00)
[2021-08-26] MEDS: INSULIN -REGULAR HUMAN 50 UNIT/0.5 ML ML SQ SCH ×4 (07:30→20:29)
[2021-08-26] MEDS: IPRATROPIUM BROM 0.5MG/2.5ML NEB PRN (08:49)
[2021-08-26] MEDS: SPIRONOLACTONE 25 MG TABLET PO SCH ×2 (09:00→09:43)
[2021-08-26] MEDS: predniSONE 20 MG TAB PO SCH ×2 (09:00→09:43)
[2021-08-26] MEDS: TORSEMIDE 20 MG TAB PO SCH ×2 (09:00→09:43)
[2021-08-26] MEDS ORDERED: FUROSEMIDE 40 MG/4 ML VIAL IV SCH (11:00)
[2021-08-26 11:32] LABS: Arterial Blood Carboxyhemoglob 1.8 % (0-1.5); Blood Gas Oxyhemoglobin 88.5 % (94-97)
--- NOTE | 2021-08-26 11:41 | P.PN ---
Subjective Date of Service: 08/26/21 Chief Complaint: Respiratory failure Subjective: Worsening (Patient's condition is deteriorating she is now unresponsive 100% BiPAP chest x-ray also looks worse) Review of Systems is unable to be obtained Physical Examination - Vital Signs Temperature: 97.6 F Blood Pressure: 164/72 Pulse: 76 Respirations: 22 Pulse Ox (%): 91 - Physical Exam General: Unresponsive Respiratory: Clear to auscultation bilaterally, Diminished, Crackles/rales (Worse on the right side) Cardiovascular: Regular rate/rhythm, Edema - Studies Microbiology Data (last 24 hrs): 08/24/21 15:00 Catheterized Urine [place] Count - Final No growth. 08/24/21 15:00 Catheterized Urine - Final No growth. 08/24/21 13:04 Blood - Blood Anaerobic Blood Culture - Final Assessment & Plan - Problems (Diagnosis) (1) Pneumonia Onset Date: 10/09/17 Current Visit: No Status: Acute Plan: Patient is 71 years of age admitted with severe community-acquired pneumonia bilateral infiltrate right greater than left but is bilateral labs reviewed patient has significant leukocytosis microcytic anemia hypoxic hypercarbic respiratory failure hemodynamically stable changed to p.o. prednisone DC vancomycin Qualifiers: Pneumonia type: due to unspecified organism Laterality: right Lung location: upper lobe of lung Qualified Code(s): J18.9 - Pneumonia, unspecified organism (2) Respiratory failure with hypoxia and hypercapnia Current Visit: Yes Status: Acute Plan: Patient is 71 years of age admitted with severe pneumonia community-acquired she has become progressively worse chest x-ray also looks worse she is got complete consolidation of the right upper lobe white count is declining hemodynamically stable plan to transfer to the ICU continue with the present treatment Qualifiers: Chronicity: acute on chronic Qualified Code(s): J96.21 - Acute and chronic respiratory failure with hypoxia; J96.22 - Acute and chronic respiratory failure with hypercapnia
--- NOTE | 2021-08-26 11:48 | RAD REPORT ---
EXAM DESCRIPTION: RAD - Chest Single View - 08/26/2021 9:38 am CLINICAL HISTORY: hypoxia, pneumonia Chest pain. COMPARISON: Chest Single View dated 08/24/2021; Chest Single View dated 04/10/2021; Chest Single View dated 07/08/2019; Chest Single View dated 07/07/2019 FINDINGS: Portable technique limits examination quality. Large right upper lobe pulmonary consolidation has moderately worsened since comparative study. Moder ate bilateral pulmonary opacities have also moderately worsened. The heart is significantly enlarged. No displaced fractures. IMPRESSION: Moderate worsening in lung aeration is seen since comparative examination.
[2021-08-26] MEDS: METHYLPREDNISOLONE 125 MG INJ IV SCH ×2 (11:51→20:33)
[2021-08-26] MEDS ORDERED: FUROSEMIDE 20 MG/ 2ML VIAL IV SCH (12:00)
[2021-08-26] MEDS ORDERED: VANCOMYCIN 2 GM in NA CHLORIDE 0.9% 500 ML IVPB SCH (13:00)
[2021-08-26 15:57] LABS: Blood O2 Saturation 96.1 % (92-98.5)
[2021-08-26 15:58] LABS: Arterial Blood Carboxyhemoglob 1.8 % (0-1.5); Blood Gas Oxyhemoglobin 93.5 % (94-97)
[2021-08-26] MEDS: RIVAROXABAN 10 MG TABLET PO SCH (16:01)
[2021-08-26] MEDS ORDERED: NA CHLORIDE 0.9% 250 ML ONE (16:04)
[2021-08-26] MEDS ORDERED: FUROSEMIDE 20 MG/ 2ML VIAL ONE (19:25)
[2021-08-26] MEDS ORDERED: LEVALBUTEROL 1.25 MG/3 ML NEB ONE (20:19)
[2021-08-26] MEDS ORDERED: METHYLPREDNISOLONE 125 MG INJ ONE (20:31)
[2021-08-26] MEDS ORDERED: FUROSEMIDE 40 MG/4 ML VIAL ONE (20:32)
[2021-08-26 21:26] LABS: Hematocrit 25.8 % (36.0-45.0)
[2021-08-26] MEDS: FUROSEMIDE 40 MG/4 ML VIAL IV SCH (22:00)
[2021-08-26] MEDS ORDERED: Levofloxacin 750mg IV 750 MG/150 ML BAG IV ONE (22:35)
[2021-08-26] MEDS: Levofloxacin 750mg IV 750 MG/150 ML BAG IV SCH (22:36)
[2021-08-26] MEDS ORDERED: Levofloxacin 750mg IV 750 MG/150 ML BAG IV SCH (23:00)
[2021-08-27] MEDS: LEVALBUTEROL 1.25 MG/3 ML NEB NEB SCH ×4 (01:40→20:45)
[2021-08-27] MEDS ORDERED: LEVALBUTEROL 1.25 MG/3 ML NEB ONE ×4 (01:42→20:35)
[2021-08-27 03:48] LABS: Absolute Lymphocytes (CBC) 0.6 K/uL (0.7-4.9); Hematocrit 26.3 % (36.0-45.0); Lymphocytes % 2.7 % (15.3-44.8)
[2021-08-27 04:05] LABS: Bilirubin Total 0.5 mg/dL (0.2-1.0); Potassium 4.4 mmol/L (3.5-5.1); Protein, Total 7.7 g/dL (6.4-8.2)
--- NOTE | 2021-08-27 06:24 | P.PN ---
Date of Service: 08/27/21 Subjective: Improved, more alert/awake, breathing more comfortably slightly States she feels a little better than yesterday, yesterday morning is a bit hazy for her No new complaints ROS: 10 point ROS as noted above, otherwise negative Physical exam GEN: Awake, alert/oriented HEENT: Normal conjunctiva, sclera anicteric CV: Regular rate and rhythm, 1+ b/l edema Pulm: On BiPAP, expiratory wheeze with rhonchi bilaterally (worse on R) ABD: Soft, nontender, nondistended Integumentary: No rashes Neuro: Follows commands, moves all extremities Problem List Acute hypoxemic, hypercarbic respiratory failure secondary to severe community- acquired pneumonia Acute on chronic COPD exacerbation Chronic diastolic CHF Chronic atrial fibrillation Super morbid obesity Chronic anemia, microcytic continue empiric antibiotics for community-acquired pneumonia IV steroids, nebs, BiPAP for hypoxia and COPD exacerbation Pulmonology consulted, continue levaquin Patient transferred to ICU on 08/26 due to increased somnolence, more hypercarbic noted on ABG Improved with continued BiPAP use and diuresis Antipyretics as needed Hemoglobin slightly decreased, workup with component of iron deficiency, no bleeding. s/p transfusion 1u PRBC Code: full Dispo: anticipate hospitalization > 2 days Time Spent Managing Pts Care (In Minutes): 35
[2021-08-27] MEDS: INSULIN -REGULAR HUMAN 50 UNIT/0.5 ML ML SQ SCH ×4 (07:30→19:48)
[2021-08-27] MEDS ORDERED: INSULIN -REGULAR HUMAN 50 UNIT/0.5 ML ML ONE ×4 (08:52→19:36)
[2021-08-27] MEDS ORDERED: FUROSEMIDE 40 MG/4 ML VIAL ONE ×2 (08:53→19:34)
[2021-08-27] MEDS ORDERED: METHYLPREDNISOLONE 125 MG INJ ONE (08:53)
[2021-08-27] MEDS ORDERED: SPIRONOLACTONE 25 MG TABLET ONE (08:56)
[2021-08-27] MEDS: FUROSEMIDE 40 MG/4 ML VIAL IV SCH ×2 (09:28→19:46)
[2021-08-27] MEDS: SPIRONOLACTONE 25 MG TABLET PO SCH (09:29)
[2021-08-27] MEDS: METHYLPREDNISOLONE 125 MG INJ IV SCH (09:29)
--- NOTE | 2021-08-27 10:31 | RAD REPORT ---
EXAM DESCRIPTION: RAD - Chest Single View - 08/27/2021 8:18 am CLINICAL HISTORY: R pneumonia, eval effusions/edema COMPARISON: August 26 chest film, August 24 CT chest TECHNIQUE: AP portable chest image was obtained 08/27/2021 8:18 am . FINDINGS: Exam is semi upright in positioning. Volumes are low but fractionally improved from Novemb er 28 imaging. Dense masslike consolidation of the right upper lung field is present with no improvement or progress ion. Patchy airspace opacities are present scattered elsewhere in the lung burgess with no new or prog ressive finding. Left costophrenic angle blunting remains. This is probably part of consolidation in the posterior gutter seen on the August 24 CT study. Trachea is midline. Heart and vasculature are normal. No pneumothorax. IMPRESSION: Dense consolidation of the right upper lung field and posterior left base similar to daryn or imaging. Patchy airspace opacities elsewhere. No significant change from prior day imaging.
--- NOTE | 2021-08-27 12:01 | P.PN ---
Subjective Date of Service: 08/27/21 Chief Complaint: Respiratory failure Subjective: Improving (Patient is doing better today more comfortable on BiPAP communicating) Review of Systems is unable to be obtained Physical Examination - Vital Signs Temperature: 97.0 F Blood Pressure: 80/64 Pulse: 71 Respirations: 19 Pulse Ox (%): 92 - Physical Exam General: Alert, Cooperative Respiratory: Clear to auscultation bilaterally, Diminished Cardiovascular: Regular rate/rhythm, Edema - Studies Microbiology Data (last 24 hrs): 08/24/21 15:00 Catheterized Urine [place] Count - Final No growth. 08/24/21 15:00 Catheterized Urine - Final No growth. Assessment & Plan - Problems (Diagnosis) (1) Respiratory failure with hypoxia and hypercapnia Current Visit: Yes Status: Acute Plan: Patient admitted with severe community-acquired pneumonia appears to be improving white count has declined significantly cultures are so far negative chest x-ray shows right upper lobe consolidation continue weaning off the BiPAP can try high flow oxygen reduce dose of steroids continue with levofloxacin Qualifiers: Chronicity: acute on chronic Qualified Code(s): J96.21 - Acute and chronic respiratory failure with hypoxia; J96.22 - Acute and chronic respiratory failure with hypercapnia
[2021-08-27 13:15] LABS: Arterial Blood Carboxyhemoglob 1.8 % (0-1.5); Blood O2 Saturation 93.5 % (92-98.5)
[2021-08-27] MEDS ORDERED: RIVAROXABAN 20 MG TABLET PO ONE (17:51)
[2021-08-27] MEDS: RIVAROXABAN 20 MG TABLET PO SCH (17:53)
[2021-08-27] MEDS ORDERED: METHYLPREDNISOLONE 40 MG INJ ONE (19:34)
[2021-08-27] MEDS: METHYLPREDNISOLONE 40 MG INJ IV SCH (19:46)
[2021-08-27] MEDS ORDERED: IPRATROPIUM BROM 0.5MG/2.5ML ONE (20:34)
[2021-08-28] MEDS ORDERED: LEVALBUTEROL 0.63 MG/3 ML NEB ONE ×2 (02:44→02:45)
[2021-08-28] MEDS: LEVALBUTEROL 1.25 MG/3 ML NEB NEB SCH ×4 (02:45→19:20)
[2021-08-28 04:15] LABS: Absolute Lymphocytes (CBC) 0.6 K/uL (0.7-4.9); Hematocrit 25.3 % (36.0-45.0); Lymphocytes % 2.9 % (15.3-44.8); RBC Red Blood Cell Count 3.34 M/uL (3.86-4.86)
[2021-08-28 04:30] LABS: Bilirubin Total 0.4 mg/dL (0.2-1.0); Magnesium 2.6 mg/dL (1.8-2.4); Potassium 4.2 mmol/L (3.5-5.1); Protein, Total 7.4 g/dL (6.4-8.2)
[2021-08-28 05:22] LABS: Anisocytosis 1+; Blood Morphology Comment NOTED (NOT SEEN); Platelet Estimate ADEQ; Polychromasia SLIGHT
[2021-08-28] MEDS ORDERED: METHYLPREDNISOLONE 40 MG INJ ONE (08:17)
[2021-08-28] MEDS ORDERED: FUROSEMIDE 40 MG/4 ML VIAL ONE (08:18)
[2021-08-28] MEDS ORDERED: INSULIN -REGULAR HUMAN 50 UNIT/0.5 ML ML ONE ×3 (08:18→17:16)
[2021-08-28] MEDS ORDERED: SPIRONOLACTONE 25 MG TABLET ONE (08:20)
[2021-08-28] MEDS ORDERED: LEVALBUTEROL 1.25 MG/3 ML NEB ONE ×2 (08:23→14:10)
[2021-08-28] MEDS: INSULIN -REGULAR HUMAN 50 UNIT/0.5 ML ML SQ SCH ×4 (08:24→21:00)
[2021-08-28] MEDS: METHYLPREDNISOLONE 40 MG INJ IV SCH ×2 (08:24→21:54)
[2021-08-28] MEDS: FUROSEMIDE 40 MG/4 ML VIAL IV SCH (08:25)
[2021-08-28] MEDS: SPIRONOLACTONE 25 MG TABLET PO SCH (08:26)
--- NOTE | 2021-08-28 11:30 | P.PN ---
Subjective Date of Service: 08/28/21 Chief Complaint: Pneumonia Subjective: Improving (Much better on NC more alert less confused off BIPAP) Review of Systems General: Weakness Respiratory: Shortness of Breath Physical Examination - Vital Signs Temperature: 98.5 F Blood Pressure: 151/64 Pulse: 69 Respirations: 20 Pulse Ox (%): 95 - Physical Exam General: Alert, Oriented x3, Mild distress Respiratory: Crackles/rales Cardiovascular: No edema, Normal pulses Assessment & Plan - Problems (Diagnosis) (1) Respiratory failure with hypoxia and hypercapnia Current Visit: Yes Status: Acute Plan: Improving WBC is declining/ on 5 l on NCAN/ DC lasix renal function worse/ cultures neg Qualifiers: Chronicity: acute on chronic Qualified Code(s): J96.21 - Acute and chronic respiratory failure with hypoxia; J96.22 - Acute and chronic respiratory failure with hypercapnia
[2021-08-28] MEDS ORDERED: RIVAROXABAN 20 MG TABLET PO ONE (17:16)
[2021-08-28] MEDS: RIVAROXABAN 20 MG TABLET PO SCH (17:17)
[2021-08-28] MEDS ORDERED: INSULIN -REGULAR HUMAN 50 UNIT/0.5 ML ML IV ONE (18:08)
[2021-08-28] MEDS ORDERED: D50W 25 GM/50 ML SYRINGE IV PRN (18:08)
[2021-08-28] MEDS ORDERED: GLUCAGON 1 MG/VIAL IM PRN (18:08)
[2021-08-28] MEDS: INSULIN GLARGINE 100 UNIT/ML SQ SCH ×2 (18:13→21:00)
--- NOTE | 2021-08-28 19:51 | P.PN ---
Subjective Date of Service: 08/28/21 Chief Complaint: Pneumonia No major changes from yesterday. Patient is awake and alert. She denies shortness of breath. She is currently on 5 L oxygen by nasal cannula. Physical Examination - Vital Signs Temperature: 98.9 F Blood Pressure: 147/71 Pulse: 63 Respirations: 18 Pulse Ox (%): 96 Assessment And Plan - Plan Physical exam GEN: Awake, alert/oriented. Morbidly obese. HEENT: Normal conjunctiva, sclera anicteric CV: Regular rate and rhythm, Her bilateral lower extremity edema have improved. Pulm: Diffuse diminished breath sounds. Mild scattered wheezes. ABD: Soft, nontender, nondistended Integumentary: Bilateral lower extremity venous stasis dermatitis. Neuro: Follows commands, moves all extremities Problem List Acute hypoxemic, hypercarbic respiratory failure secondary to severe community- acquired pneumonia Acute on chronic COPD exacerbation Chronic diastolic CHF Chronic atrial fibrillation Super morbid obesity Chronic anemia, microcytic continue empiric antibiotics for community-acquired pneumonia IV steroids, nebs, BiPAP for obesity hypoventilation, sleep apnea and COPD exacerbation Pulmonology is following. Continue levaquin Diuresis as needed. Continue Aldactone Antipyretics as needed Hemoglobin slightly decreased, workup with component of iron deficiency, no bleeding. s/p transfusion 1u PRBC but hemoglobin is dropping. Monitor CBC and transfuse for hemoglobin less than 7. Stop Xarelto and check stool for occult blood.
[2021-08-28] MEDS: HYDRALAZINE HCL 20 MG/ML VIAL IV PRN (23:52)
[2021-08-29] MEDS: LEVALBUTEROL 1.25 MG/3 ML NEB NEB SCH ×4 (01:20→20:15)
[2021-08-29] MEDS: Levofloxacin 750mg IV 750 MG/150 ML BAG IV SCH (04:37)
[2021-08-29 06:05] LABS: Absolute Lymphocytes (CBC) 0.7 K/uL (0.7-4.9); Basophils % 0.1 % (0-1.3); Hematocrit 27.5 % (36.0-45.0); Lymphocytes % 3.6 % (15.3-44.8); MPV 8.3 fL (7.6-11.3); RBC Red Blood Cell Count 3.63 M/uL (3.86-4.86)
[2021-08-29 06:37] LABS: Potassium 4.4 mmol/L (3.5-5.1)
[2021-08-29] MEDS: INSULIN -REGULAR HUMAN 50 UNIT/0.5 ML ML SQ SCH ×4 (06:57→20:38)
[2021-08-29] MEDS: INSULIN GLARGINE 100 UNIT/ML SQ SCH ×2 (06:58→20:37)
[2021-08-29] MEDS: METHYLPREDNISOLONE 40 MG INJ IV SCH (08:13)
[2021-08-29] MEDS: SPIRONOLACTONE 25 MG TABLET PO SCH ×2 (08:23→20:39)
--- NOTE | 2021-08-29 10:54 | P.PN ---
Subjective Date of Service: 08/29/21 Chief Complaint: Pneumonia Patient states she feels better today. Oxygen weaned down to 4 L She is awake and alert. She denies shortness of breath. Blood sugar elevated to 371. Physical Examination - Vital Signs Temperature: 96.7 F Blood Pressure: 160/76 Pulse: 80 Respirations: 20 Pulse Ox (%): 98 Assessment And Plan - Plan Physical exam GEN: Awake, alert/oriented. Morbidly obese. HEENT: Normal conjunctiva, sclera anicteric CV: Regular rate and rhythm, Her bilateral lower extremity edema have improved. Pulm: Diffuse diminished breath sounds. Mild scattered wheezes. ABD: Soft, nontender, nondistended Integumentary: Bilateral lower extremity venous stasis dermatitis. Neuro: Follows commands, moves all extremities Problem List Acute hypoxemic, hypercarbic respiratory failure secondary to severe community- acquired pneumonia Acute on chronic COPD exacerbation Chronic diastolic CHF Chronic atrial fibrillation Super morbid obesity Chronic anemia, microcytic continue empiric antibiotics for community-acquired pneumonia Continue IV steroids, nebs, BiPAP for obesity hypoventilation, sleep apnea and COPD exacerbation. Scheduled bronchodilators. Pulmonology is following. Continue levaquin Diuresis as needed. Patient is hypertensive. Continue Aldactone Antipyretics as needed Hemoglobin slightly decreased, workup shows iron deficiency. S/p transfusion 1u PRBC hemoglobin appears to be stable. No active bleeding so we will continue Xarelto. Monitor CBC and transfuse for hemoglobin less than 7. Check stool for occult blood. Patient will need CPAP/BiPAP at home. Plan: Disposition to home with home health once leukocytosis improve.
--- NOTE | 2021-08-29 12:29 | P.PN ---
Subjective Date of Service: 08/29/21 Chief Complaint: Pneumonia Subjective: Improving (Patient is doing well on nasal cannula oxygen alert oriented responsive) Review of Systems General: Weakness Respiratory: Shortness of Breath Physical Examination - Vital Signs Temperature: 97.1 F Blood Pressure: 175/65 Pulse: 67 Respirations: 18 Pulse Ox (%): 97 - Physical Exam General: Alert, Oriented x3 Respiratory: Clear to auscultation bilaterally, Diminished Cardiovascular: No edema, Normal S1 S2, Edema Assessment & Plan - Problems (Diagnosis) (1) Pneumonia Onset Date: 10/09/17 Current Visit: No Status: Acute Plan: Patient is improving change to p.o. prednisone DC IV Solu-Medrol repeat chest x- ray tomorrow titrate sat to 90% sputum cultures are negative hemodynamically stable repeat arterial blood gases increase spironolactone for now Qualifiers: Pneumonia type: due to unspecified organism Laterality: right Lung location: upper lobe of lung Qualified Code(s): J18.9 - Pneumonia, unspecified organism
[2021-08-29] MEDS: AMIODARONE HCL 200 MG TAB PO SCH ×2 (13:38→20:39)
[2021-08-29 14:23] LABS: Arterial Blood Carboxyhemoglob 1.6 % (0-1.5); Blood Gas Oxyhemoglobin 85.5 % (94-97); Blood Gas RHB 8.6 %; Blood O2 Saturation 87.9 % (92-98.5)
[2021-08-29] MEDS: HYDRALAZINE HCL 20 MG/ML VIAL IV PRN (16:50)
[2021-08-29] MEDS: predniSONE 20 MG TAB PO SCH (20:40)
[2021-08-30] MEDS: LEVALBUTEROL 1.25 MG/3 ML NEB NEB SCH ×4 (01:30→19:25)
[2021-08-30] MEDS ORDERED: AMLODIPINE 5 MG TAB PO ONE (03:53)
[2021-08-30 05:51] LABS: Absolute Lymphocytes (CBC) 0.6 K/uL (0.7-4.9); Basophils % 0.3 % (0-1.3); Hematocrit 28.1 % (36.0-45.0); MPV 8.3 fL (7.6-11.3)
[2021-08-30 06:21] LABS: Potassium 4.6 mmol/L (3.5-5.1)
--- NOTE | 2021-08-30 07:20 | RAD REPORT ---
EXAM DESCRIPTION: RAD - Chest Single View - 08/30/2021 5:59 am CLINICAL HISTORY: Follow-up for pneumonia COMPARISON: Portable chest August 27 and August 26, CT chest August 24 TECHNIQUE: AP portable chest image was obtained 08/30/2021 5:59 am . FINDINGS: Masslike consolidation in the right upper lobe and posterior left lower lobe base have not changed. The may be slightly greater airspace opacification in the upper left lung field. Lung volum e is reduced compared to the August 27 chest film. Heart size is stable. Left costophrenic angle blunting is still present. No pneumothorax. No acute b shailesh abnormality seen. No acute aortic findings suspected. IMPRESSION: Bilateral pneumonia findings not substantially different from comparison.
[2021-08-30] MEDS: predniSONE 20 MG TAB PO SCH (11:01)
[2021-08-30] MEDS: AMIODARONE HCL 200 MG TAB PO SCH ×2 (11:01→20:10)
[2021-08-30] MEDS: INSULIN GLARGINE 100 UNIT/ML SQ SCH ×2 (11:03→20:12)
[2021-08-30] MEDS: INSULIN -REGULAR HUMAN 50 UNIT/0.5 ML ML SQ SCH ×4 (11:03→20:11)
[2021-08-30] MEDS: RIVAROXABAN 20 MG TABLET PO SCH (11:04)
[2021-08-30] MEDS: SPIRONOLACTONE 25 MG TABLET PO SCH ×2 (11:04→20:11)
--- NOTE | 2021-08-30 13:07 | P.PN ---
Subjective Date of Service: 08/30/21 Chief Complaint: Pneumonia Subjective: Improving (Patient is doing well no new complaints nasal cannula oxygen) Review of Systems General: Weakness Respiratory: Shortness of Breath Physical Examination - Vital Signs Temperature: 96.7 F Blood Pressure: 182/61 Pulse: 72 Respirations: 18 Pulse Ox (%): 94 - Physical Exam General: Alert, Oriented x3, Cooperative Respiratory: Clear to auscultation bilaterally, Diminished Cardiovascular: Edema - Studies Microbiology Data (last 24 hrs): 08/24/21 13:49 Blood - Blood Aerobic Blood Culture - Final No growth in 5 days. 08/24/21 13:49 Blood - Blood Anaerobic Blood Culture - Final No growth in 5 days. 08/24/21 13:04 Blood - Blood Aerobic Blood Culture - Final No growth in 5 days. 08/24/21 13:04 Blood - Blood Anaerobic Blood Culture - Final Assessment & Plan - Problems (Diagnosis) (1) Pneumonia Onset Date: 10/09/17 Current Visit: No Status: Acute Plan: Patient is doing well she has a history of COPD continue with bronchodilators reduce prednisone to 10 mg daily change to p.o. levofloxacin.pressure still elevated discharge planning she has oxygen at home follow-up as an outpatient follow-up chest x-rays history of sleep apnea not sure why patient is such a high dose of amiodarone patient does not use a CPAP at home not sure if she will qualify for a noninvasive ventilator as she has acute pneumonia patient has hypoxemia hypercarbia probably do a sleep study as an outpatient discharge home on oxygen and bronchodilators continue with levofloxacin for a total of 10 days reviewed dose of amiodarone with cardiology Qualifiers: Pneumonia type: due to unspecified organism Laterality: right Lung location: upper lobe of lung Qualified Code(s): J18.9 - Pneumonia, unspecified organism
--- NOTE | 2021-08-30 13:56 | P.PN ---
Subjective Date of Service: 08/30/21 Chief Complaint: Pneumonia Patient reports progressive improvement in her symptoms. Oxygen weaned down to baseline of 3.5 L She is awake and alert. She denies shortness of breath. Physical Examination - Vital Signs Temperature: 96.7 F Blood Pressure: 182/61 Pulse: 72 Respirations: 18 Pulse Ox (%): 94 - Studies Microbiology Data (last 24 hrs): 08/24/21 13:49 Blood - Blood Aerobic Blood Culture - Final No growth in 5 days. 08/24/21 13:49 Blood - Blood Anaerobic Blood Culture - Final No growth in 5 days. 08/24/21 13:04 Blood - Blood Aerobic Blood Culture - Final No growth in 5 days. 08/24/21 13:04 Blood - Blood Anaerobic Blood Culture - Final Assessment And Plan - Plan Physical exam GEN: Awake, alert/oriented. Morbidly obese. HEENT: Sclera anicteric CV: Regular rate and rhythm, Her bilateral lower extremity edema have improved. Pulm: Diffuse diminished breath sounds. No wheezes. ABD: Soft, nontender, nondistended Integumentary: Bilateral lower extremity venous stasis dermatitis. Neuro: Follows commands, moves all extremities Problem List Acute hypoxemic, hypercarbic respiratory failure secondary to severe community- acquired pneumonia Acute on chronic COPD exacerbation Chronic diastolic CHF Chronic atrial fibrillation Super morbid obesity Chronic anemia, microcytic continue empiric antibiotics for community-acquired pneumonia. CT chest ordered to further describe the pneumonia but the CT scan here could not handle her weight. Continue nebs, BiPAP for obesity hypoventilation, sleep apnea and COPD exacerbation. Scheduled bronchodilators. Pulmonology is following. Continue levaquin. IV steroids transition to oral prednisone today. Diuresis as needed. Patient is hypertensive. Continue Aldactone Antipyretics as needed Hemoglobin slightly decreased, workup shows iron deficiency. S/p transfusion 1u PRBC hemoglobin appears to be stable. No active bleeding so we will continue Xarelto. Hemoglobin has been stable. She will follow with Dr. Golden for arrangement for sleep study and CPAP. Monitor CBC and transfuse for hemoglobin less than 7. Check stool for occult blood. PT evaluation.
[2021-08-30] MEDS: HYDRALAZINE HCL 20 MG/ML VIAL IV PRN (20:10)
[2021-08-31] MEDS: LEVALBUTEROL 1.25 MG/3 ML NEB NEB SCH ×4 (02:10→20:00)
[2021-08-31 06:01] LABS: Absolute Lymphocytes (CBC) 1.4 K/uL (0.7-4.9); Basophils % 0.2 % (0-1.3); Lymphocytes % 5.9 % (15.3-44.8); MPV 7.9 fL (7.6-11.3); RBC Red Blood Cell Count 3.97 M/uL (3.86-4.86)
[2021-08-31 06:11] LABS: Potassium 4.4 mmol/L (3.5-5.1)
[2021-08-31] MEDS ORDERED: levoFLOXacin 500 MG TAB PO SCH (09:00)
[2021-08-31 09:54] LABS: Anisocytosis SLIGHT; Blood Morphology Comment NOTED (NOT SEEN); Platelet Estimate ADEQ
[2021-08-31] MEDS: predniSONE 10 MG TAB PO SCH (10:27)
[2021-08-31] MEDS: SPIRONOLACTONE 25 MG TABLET PO SCH ×2 (10:27→20:03)
[2021-08-31] MEDS: AMIODARONE HCL 200 MG TAB PO SCH ×2 (10:27→20:04)
[2021-08-31] MEDS: RIVAROXABAN 20 MG TABLET PO SCH (10:27)
[2021-08-31] MEDS: INSULIN -REGULAR HUMAN 50 UNIT/0.5 ML ML SQ SCH ×4 (10:28→20:05)
[2021-08-31] MEDS: INSULIN GLARGINE 100 UNIT/ML SQ SCH ×2 (10:28→20:04)
--- NOTE | 2021-08-31 11:51 | P.PN ---
Subjective Date of Service: 08/31/21 Chief Complaint: Pneumonia/ C resp failure Subjective: Improving (Feeling better still weak. WBc elevated. chest congestion) Review of Systems General: Weakness Respiratory: Cough, Shortness of Breath Physical Examination - Vital Signs Temperature: 96.8 F Blood Pressure: 146/58 Pulse: 60 Respirations: 18 Pulse Ox (%): 95 - Physical Exam General: Alert, In no apparent distress, Oriented x3 Respiratory: Expiratory wheezes Cardiovascular: Normal S1 S2, Edema Assessment & Plan - Problems (Diagnosis) (1) Pneumonia Onset Date: 10/09/17 Current Visit: No Status: Acute Plan: Patient is feeling better still has some chest congestion white count elevated white count elevated patient is hypoxic patient is hypoxic hypercapnic presumed history of sleep apnea liters sleep study as an outpatient continue with the present therapy hemodynamically stable hemodynamically stable titrate sat to 90% discharge planning follow-up as an outpatient labs reviewed Qualifiers: Pneumonia type: due to unspecified organism Laterality: right Lung location: upper lobe of lung Qualified Code(s): J18.9 - Pneumonia, unspecified organism
--- NOTE | 2021-08-31 13:40 | P.PN ---
Subjective Date of Service: 08/31/21 Chief Complaint: Pneumonia/ C resp failure Patient reports she feels better today compared to yesterday. She is coughing occasionally She has been tolerating 3.5 L of oxygen which is her baseline. She denies shortness of breath. Physical Examination - Vital Signs Temperature: 96.8 F Blood Pressure: 146/58 Pulse: 60 Respirations: 18 Pulse Ox (%): 95 Assessment And Plan - Plan Physical exam GEN: Awake, alert/oriented. Morbidly obese. HEENT: Sclera anicteric CV: Regular rate and rhythm, Her bilateral lower extremity edema have improved. Pulm: Diffuse diminished breath sounds. No wheezes. ABD: Soft, nontender, nondistended Integumentary: Bilateral lower extremity venous stasis dermatitis. Neuro: Follows commands, moves all extremities Problem List Acute hypoxemic, hypercarbic respiratory failure secondary to severe community- acquired pneumonia Acute on chronic COPD exacerbation Chronic diastolic CHF Chronic atrial fibrillation Super morbid obesity Chronic anemia, microcytic continue empiric antibiotics for community-acquired pneumonia. Previous CT shows large right upper lobe masslike pneumonia. Leukocytosis trended up but procalcitonin is low indicating elevated WBC is likely steroid-induced. Patient has clinically improved. She will need a repeat CT chest or chest x-ray within 1 month to assess for clearance of the masslike infiltrate, otherwise patient will need evaluation for malignancy. Continue nebs, BiPAP at night for obesity hypoventilation, sleep apnea and COPD exacerbation. Continue scheduled bronchodilators. Pulmonology is following. Continue levaquin. IV steroids transitioned to oral prednisone today. Diuresis as needed. Continue Aldactone Hemoglobin slightly decreased, workup shows iron deficiency. S/p transfusion 1u PRBC. Hemoglobin has been stable. No active bleeding so we will continue Xarelto. She will follow with Dr. Golden for arrangement for sleep study and CPAP. Monitor CBC and transfuse for hemoglobin less than 7. Patient needing significant assistance for even transfer. She will benefit from disposition to skilled rehab.
[2021-08-31] MEDS: IPRATROPIUM BROM 0.5MG/2.5ML NEB PRN (13:53)
[2021-08-31] MEDS ORDERED: TRAMADOL HCL 50 MG TAB PO PRN (14:16)
[2021-08-31] MEDS: GABAPENTIN 400 MG CAP PO PRN (18:35)
[2021-08-31] MEDS ORDERED: DOCUSATE NA/SENNA CONC 1 TAB PO PRN (19:17)
[2021-08-31] MEDS ORDERED: SIMETHICONE 80 MG TAB PO ONE (19:34)
[2021-08-31] MEDS ORDERED: FLEET ENEMA ADULT PR PRN (22:12)
[2021-09-01] MEDS: LEVALBUTEROL 1.25 MG/3 ML NEB NEB SCH ×4 (02:00→19:50)
[2021-09-01 06:23] LABS: RBC Red Blood Cell Count 3.84 M/uL (3.86-4.86)
[2021-09-01 06:24] LABS: Basophils % 0.1 % (0-1.3); Hematocrit 28.7 % (36.0-45.0); MPV 8.1 fL (7.6-11.3)
[2021-09-01 06:29] VITALS: BMI 71.1
[2021-09-01 06:35] LABS: Potassium 4.6 mmol/L (3.5-5.1)
[2021-09-01] MEDS: INSULIN -REGULAR HUMAN 50 UNIT/0.5 ML ML SQ SCH ×4 (07:30→21:00)
[2021-09-01] MEDS: IPRATROPIUM BROM 0.5MG/2.5ML NEB PRN (07:30)
[2021-09-01] MEDS: predniSONE 10 MG TAB PO SCH (08:40)
[2021-09-01] MEDS: SPIRONOLACTONE 25 MG TABLET PO SCH ×2 (08:40→21:50)
[2021-09-01] MEDS: AMIODARONE HCL 200 MG TAB PO SCH ×2 (08:41→21:50)
[2021-09-01] MEDS: INSULIN GLARGINE 100 UNIT/ML SQ SCH ×2 (08:41→21:52)
[2021-09-01] MEDS: RIVAROXABAN 20 MG TABLET PO SCH (08:41)
--- NOTE | 2021-09-01 12:37 | EKG ---
Test Date: 2021-08-31 Test Time: 09:53:33 Area Captain: RACH MEASUREMENT RESULTS: Intervals: Rate: 63 GA: 140 QRSD: 96 QT: 438 QTc: 448 Sullivan: P: GA: 140 QRS: 58 T: 72 INTERPRETIVE STATEMENTS: Sinus rhythm with premature atrial complexes Otherwise normal ECG Compared to ECG 08/24/2021 16:10:10 Atrial premature complex(es) now present ST (T wave) deviation no longer present Electronically Signed On 09-01-21 12:35:41 SACK SEWER by Chris Carrington
[2021-09-01] MEDS: IPRATROPIUM BROM 0.5MG/2.5ML NEB SCH ×2 (13:20→19:50)
--- NOTE | 2021-09-01 13:23 | P.PN ---
Subjective Date of Service: 09/01/21 Chief Complaint: Pneumonia/ C resp failure Patient reports constipation. She had an enema followed by a large bowel movement last night. She has been tolerating 3.5 L of oxygen which is her baseline. She reports some shortness of breath today. Physical Examination - Vital Signs Temperature: 97.8 F Blood Pressure: 161/66 Pulse: 62 Respirations: 17 Pulse Ox (%): 100 Assessment And Plan - Plan Physical exam GEN: Awake, alert/oriented. Morbidly obese. HEENT: Sclera anicteric CV: Regular rate and rhythm, Her bilateral lower extremity edema have improved. Pulm: Diffuse diminished breath sounds. Mild scattered wheezes. ABD: Soft, nontender, nondistended Integumentary: Bilateral lower extremity venous stasis dermatitis. Neuro: Follows commands, moves all extremities Problem List Acute hypoxemic, hypercarbic respiratory failure secondary to severe community- acquired pneumonia Acute on chronic COPD exacerbation Chronic diastolic CHF Chronic atrial fibrillation Super morbid obesity Chronic anemia, microcytic continue empiric antibiotics for community-acquired pneumonia. Previous CT shows large right upper lobe masslike pneumonia. Leukocytosis trended up but procalcitonin is low indicating elevated WBC is likely steroid-induced. WBC is trending down slowly Patient has clinically improved. She will need a repeat CT chest or chest x-ray within 1 month to assess for clearance of the masslike infiltrate, otherwise patient will need evaluation for malignancy. Continue nebs, BiPAP at night for obesity hypoventilation, sleep apnea and COPD exacerbation. Continue bronchodilators. Pulmonology is following. Continue levaquin. Continue oral prednisone. Diuresis as needed. Continue Aldactone S/p transfusion 1u PRBC. Hemoglobin has been stable. No active bleeding. Continue Xarelto. Follow with Dr. Golden for arrangement for sleep study and CPAP as an outpatient. Monitor CBC and transfuse for hemoglobin less than 7. Patient needing significant assistance for transfer. She will benefit from disposition to skilled rehab. Social service assisting with disposition to rehab.
[2021-09-02] MEDS: LEVALBUTEROL 1.25 MG/3 ML NEB NEB SCH ×4 (01:35→20:15)
[2021-09-02] MEDS: IPRATROPIUM BROM 0.5MG/2.5ML NEB SCH ×4 (01:35→20:15)
[2021-09-02 05:31] LABS: Absolute Lymphocytes (CBC) 0.9 K/uL (0.7-4.9); Hematocrit 28.2 % (36.0-45.0); Lymphocytes % 6.1 % (15.3-44.8); RBC Red Blood Cell Count 3.79 M/uL (3.86-4.86)
[2021-09-02 05:51] LABS: Potassium 4.5 mmol/L (3.5-5.1)
[2021-09-02] MEDS: INSULIN -REGULAR HUMAN 50 UNIT/0.5 ML ML SQ SCH ×4 (07:30→21:00)
[2021-09-02] MEDS: INSULIN GLARGINE 100 UNIT/ML SQ SCH ×2 (09:00→22:34)
[2021-09-02] MEDS: predniSONE 10 MG TAB PO SCH (09:55)
[2021-09-02] MEDS: SPIRONOLACTONE 25 MG TABLET PO SCH ×2 (09:55→22:23)
[2021-09-02] MEDS: AMIODARONE HCL 200 MG TAB PO SCH ×2 (09:55→22:23)
[2021-09-02] MEDS: RIVAROXABAN 20 MG TABLET PO SCH (09:55)
--- NOTE | 2021-09-02 11:57 | P.PN ---
Subjective Date of Service: 09/02/21 Chief Complaint: Pneumonia/ C resp failure Patient has no new complaint today. She has been tolerating 3.5 L of oxygen which is her baseline. Leukocytosis is trending down. Physical Examination - Vital Signs Temperature: 97.0 F Blood Pressure: 149/60 Pulse: 60 Respirations: 18 Pulse Ox (%): 100 Assessment And Plan - Plan Physical exam GEN: Awake, alert/oriented. Morbidly obese. HEENT: Sclera anicteric CV: Regular rate and rhythm, Her bilateral lower extremity edema have improved. Pulm: Diffuse diminished breath sounds. Mild scattered wheezes. ABD: Soft, nontender, nondistended Integumentary: Bilateral lower extremity venous stasis dermatitis. Neuro: Follows commands, moves all extremities Problem List Acute hypoxemic, hypercarbic respiratory failure secondary to severe community- acquired pneumonia Acute on chronic COPD exacerbation Chronic diastolic CHF Chronic atrial fibrillation Super morbid obesity Chronic anemia, microcytic continue empiric antibiotics for community-acquired pneumonia. Previous CT shows large right upper lobe masslike pneumonia. Leukocytosis trended up but procalcitonin is low indicating elevated WBC is likely steroid-induced. Leukocytosis is now trending down. Patient has clinically improved. She will need a repeat CT chest or chest x-ray within 1 month to assess for clearance of the masslike infiltrate, otherwise patient will need evaluation for malignancy. Continue nebs, BiPAP at night for obesity hypoventilation, sleep apnea and COPD exacerbation. Continue bronchodilators. Pulmonology is following. Continue levaquin. Continue oral prednisone. Diuresis as needed. Continue Aldactone S/p transfusion 1u PRBC. Hemoglobin has been stable. No active bleeding. Continue Xarelto. Follow with Dr. Golden for arrangement for sleep study and CPAP as an outpatien t. Monitor CBC and transfuse for hemoglobin less than 7. Patient needing significant assistance for transfer. She will benefit from disposition to rehab. Social service assisting with disposition to rehab.
[2021-09-02] MEDS ORDERED: RIVAROXABAN 15 MG TABLET PO SCH (17:00)
[2021-09-03] MEDS: ACETAMINOPHEN 500 MG TAB PO PRN ×2 (00:55→21:27)
[2021-09-03] MEDS: IPRATROPIUM BROM 0.5MG/2.5ML NEB SCH ×5 (02:00→20:30)
[2021-09-03] MEDS: LEVALBUTEROL 1.25 MG/3 ML NEB NEB SCH ×5 (02:00→20:30)
[2021-09-03 05:33] LABS: Absolute Lymphocytes (CBC) 0.9 K/uL (0.7-4.9); Basophils % 0.3 % (0-1.3); Hematocrit 27.8 % (36.0-45.0); Lymphocytes % 7.5 % (15.3-44.8); MPV 8.1 fL (7.6-11.3); RBC Red Blood Cell Count 3.74 M/uL (3.86-4.86)
[2021-09-03 06:02] LABS: Potassium 4.6 mmol/L (3.5-5.1)
[2021-09-03] MEDS: INSULIN -REGULAR HUMAN 50 UNIT/0.5 ML ML SQ SCH ×4 (07:30→21:03)
[2021-09-03] MEDS: predniSONE 10 MG TAB PO SCH (08:47)
[2021-09-03] MEDS: SPIRONOLACTONE 25 MG TABLET PO SCH ×2 (08:47→21:02)
[2021-09-03] MEDS: RIVAROXABAN 15 MG TABLET PO SCH (08:47)
[2021-09-03] MEDS: AMIODARONE HCL 200 MG TAB PO SCH ×2 (08:47→21:02)
[2021-09-03] MEDS: INSULIN GLARGINE 100 UNIT/ML SQ SCH ×2 (08:51→21:03)
--- NOTE | 2021-09-03 13:05 | P.PN ---
Subjective Date of Service: 09/03/21 Chief Complaint: Pneumonia/ C resp failure Patient has no new complaint. She has been tolerating 3.5 L of oxygen which is her baseline. Leukocytosis almost resolved. Physical Examination - Vital Signs Temperature: 97.5 F Blood Pressure: 134/54 Pulse: 57 Respirations: 18 Pulse Ox (%): 98 - Physical Exam General: Alert Assessment And Plan - Plan Physical exam GEN: Awake, alert/oriented. Morbidly obese. HEENT: Sclera anicteric CV: Regular rate and rhythm, Her bilateral lower extremity edema have improved. Pulm: Diffuse diminished breath sounds. ABD: Soft, nontender, nondistended Integumentary: Bilateral lower extremity venous stasis dermatitis. Neuro: Follows commands, moves all extremities Problem List Acute hypoxemic, hypercarbic respiratory failure secondary to severe community- acquired pneumonia Acute on chronic COPD exacerbation Chronic diastolic CHF Chronic atrial fibrillation Super morbid obesity Chronic anemia, microcytic continue empiric antibiotics for community-acquired pneumonia. Previous CT shows large right upper lobe masslike pneumonia. Leukocytosis trended up but procalcitonin is low indicating elevated WBC is likely steroid-induced. Leukocytosis almost resolved. Patient has clinically improved. She will need a repeat CT chest or chest x-ray within 1 month to assess for clearance of the masslike infiltrate, otherwise patient will need evaluation for malignancy. Continue nebs, BiPAP at night for obesity hypoventilation, sleep apnea and COPD exacerbation. Continue bronchodilators. Pulmonology is following. Continue levaquin. Continue oral prednisone. Diuresis as needed. Continue Aldactone S/p transfusion 1u PRBC. Hemoglobin has been stable. No active bleeding. Continue Xarelto. Follow with Dr. Golden for arrangement for sleep study and CPAP as an outpatient. Monitor CBC and transfuse for hemoglobin less than 7. Patient needing significant assistance for transfer. She will benefit from disposition to skilled rehab Social service assisting with disposition to skilled rehab.
[2021-09-04] MEDS: LEVALBUTEROL 1.25 MG/3 ML NEB NEB SCH ×4 (02:30→20:55)
[2021-09-04] MEDS: IPRATROPIUM BROM 0.5MG/2.5ML NEB SCH ×4 (02:30→20:55)
[2021-09-04 05:57] LABS: Hematocrit 27.9 % (36.0-45.0); MPV 8.4 fL (7.6-11.3); RBC Red Blood Cell Count 3.73 M/uL (3.86-4.86)
--- NOTE | 2021-09-04 06:14 | P.PN ---
Date of Service: 09/04/21 Subjective: Improved, more alert/awake, breathing more comfortably no new complaints, working with PT ROS: 10 point ROS as noted above, otherwise negative Physical exam GEN: Awake, alert/oriented HEENT: Normal conjunctiva, sclera anicteric CV: Regular rate and rhythm, 1+ b/l edema Pulm: nonlabored on 3 L NC, diminished at bases bilaterally ABD: Soft, nontender, nondistended Integumentary: No rashes Neuro: moves all extremities Problem List Acute hypoxemic, hypercarbic respiratory failure secondary to severe community- acquired bacterial pneumonia Acute on chronic COPD exacerbation Chronic diastolic CHF Chronic atrial fibrillation Super morbid obesity Chronic anemia, microcytic completed 5 days of Levaquin for community-acquired pneumonia IV steroids, nebs, BiPAP for hypoxia and COPD exacerbation Pulmonology consulted Patient transferred to ICU on 08/26 due to increased somnolence, more hypercarbic noted on ABG Improved with continued BiPAP use and diuresis Hemoglobin slightly decreased, workup with component of iron deficiency, no bleeding. s/p transfusion 1u PRBC Leukocytosis trended up but procalcitonin is low indicating elevated WBC is likely steroid-induced. Leukocytosis almost resolved. Patient has clinically improved. She will need a repeat CT chest or chest x-ray within 1 month to assess for clearance of the masslike infiltrate, otherwise patient will need evaluation for malignancy. Continue nebs, BiPAP at night for obesity hypoventilation, sleep apnea and COPD exacerbation. Diuresis as needed, continue Aldactone Follow with Dr. Frankel for arrangement for sleep study and CPAP as an outpatient. Monitor CBC and transfuse for hemoglobin less than 7. Patient needing significant assistance for transfer. She will benefit from disposition to skilled rehab Social service assisting with disposition to skilled rehab. Code: full Dispo: awaiting approval/auth for SNF Time Spent Managing Pts Care (In Minutes): 35
[2021-09-04 06:15] LABS: Magnesium 2.5 mg/dL (1.8-2.4); Potassium 4.4 mmol/L (3.5-5.1)
[2021-09-04] MEDS: INSULIN -REGULAR HUMAN 50 UNIT/0.5 ML ML SQ SCH ×4 (07:30→21:28)
[2021-09-04] MEDS: predniSONE 10 MG TAB PO SCH (08:30)
[2021-09-04] MEDS: INSULIN GLARGINE 100 UNIT/ML SQ SCH ×2 (08:30→21:29)
[2021-09-04] MEDS: AMIODARONE HCL 200 MG TAB PO SCH ×2 (08:30→21:00)
[2021-09-04] MEDS: RIVAROXABAN 15 MG TABLET PO SCH (08:30)
[2021-09-04] MEDS: SPIRONOLACTONE 25 MG TABLET PO SCH ×2 (08:30→21:26)
[2021-09-04] MEDS: SOD FERRIC GLUC COMPLX/SUCROSE 125 MG in NA CHLORIDE 0.9% 100 ML IV SCH (16:45)
[2021-09-04] MEDS: ACETAMINOPHEN 500 MG TAB PO PRN (21:25)
[2021-09-05] MEDS: LEVALBUTEROL 1.25 MG/3 ML NEB NEB SCH ×4 (02:05→20:20)
[2021-09-05] MEDS: IPRATROPIUM BROM 0.5MG/2.5ML NEB SCH ×4 (02:05→20:20)
[2021-09-05 06:34] LABS: Hematocrit 28.7 % (36.0-45.0); MPV 8.5 fL (7.6-11.3); RBC Red Blood Cell Count 3.88 M/uL (3.86-4.86)
[2021-09-05 06:53] LABS: Potassium 4.6 mmol/L (3.5-5.1)
[2021-09-05] MEDS: INSULIN -REGULAR HUMAN 50 UNIT/0.5 ML ML SQ SCH ×4 (07:30→20:31)
[2021-09-05 08:40] LABS: Anisocytosis 2+; Blood Morphology Comment NOTED (NOT SEEN); Platelet Estimate ADEQ; Stomatocytes 1+; Target Cells FEW; White Blood Cell Scan OK (OK)
[2021-09-05] MEDS: INSULIN GLARGINE 100 UNIT/ML SQ SCH ×2 (09:00→20:31)
[2021-09-05] MEDS: SOD FERRIC GLUC COMPLX/SUCROSE 125 MG in NA CHLORIDE 0.9% 100 ML IV SCH (09:00)
[2021-09-05] MEDS: SPIRONOLACTONE 25 MG TABLET PO SCH ×2 (09:02→20:29)
[2021-09-05] MEDS: RIVAROXABAN 15 MG TABLET PO SCH (09:02)
[2021-09-05] MEDS: predniSONE 10 MG TAB PO SCH (09:02)
[2021-09-05] MEDS: AMIODARONE HCL 200 MG TAB PO SCH ×2 (09:03→20:29)
--- NOTE | 2021-09-05 16:30 | P.PN ---
Date of Service: 09/05/21 Subjective: No acute events overnight. No new complaints. Feels like she is continuing to improve each day Working physical therapy, sitting to edge of bed Reluctant to stand/walk due to prior dizziness and unsteadiness ROS: 10 point ROS as noted above, otherwise negative Physical exam GEN: Awake, alert/oriented HEENT: Normal conjunctiva, sclera anicteric CV: Regular rate and rhythm, 1+ b/l edema Pulm: nonlabored on 2 L NC, diminished at bases bilaterally ABD: Soft, nontender, nondistended Integumentary: No rashes Neuro: moves all extremities Problem List Acute hypoxemic, hypercarbic respiratory failure secondary to severe community- acquired bacterial pneumonia Acute on chronic COPD exacerbation Chronic diastolic CHF Chronic atrial fibrillation Super morbid obesity Chronic anemia, microcytic; iron deficiency completed 5 days of Levaquin for community-acquired pneumonia IV steroids, nebs, BiPAP for hypoxia and COPD exacerbation Pulmonology consulted Patient transferred to ICU on 08/26 due to increased somnolence, more hypercarbic noted on ABG. Improved with continued BiPAP use and diuresis Hemoglobin slightly decreased, workup with component of iron deficiency, no bleeding. s/p transfusion 1u PRBC. Hemoglobin stable Leukocytosis trended up but procalcitonin is low indicating elevated WBC is likely steroid-induced. Leukocytosis resolved Patient has clinically improved. She will need a repeat CT chest or chest x-ray within 1 month to assess for clearance of the masslike infiltrate, otherwise patient will need evaluation for malignancy. Continue nebs, BiPAP at night for obesity hypoventilation, sleep apnea and COPD exacerbation. Diuresis as needed, continue Aldactone Follow with Dr. Frankel for arrangement for sleep study and CPAP as an outpatient. Monitor CBC and transfuse for hemoglobin less than 7. Patient needing significant assistance for transfer. She will benefit from disposition to skilled rehab Social service assisting with disposition to skilled rehab. 1 dose of IV iron given on 09/04, IVs blown x3, will transition to PO Code: full Dispo: awaiting approval/auth for SNF Time Spent Managing Pts Care (In Minutes): 35
[2021-09-05] MEDS: ACETAMINOPHEN 500 MG TAB PO PRN (20:33)
[2021-09-06] MEDS: LEVALBUTEROL 1.25 MG/3 ML NEB NEB SCH ×5 (01:45→20:00)
[2021-09-06] MEDS: IPRATROPIUM BROM 0.5MG/2.5ML NEB SCH ×5 (01:45→20:00)
--- NOTE | 2021-09-06 05:47 | P.PN ---
Date of Service: 09/06/21 Subjective: worked with PT, continues to improve awaiting insurance approval for SNF ROS: 10 point ROS as noted above, otherwise negative Physical exam GEN: Awake, alert/oriented HEENT: Normal conjunctiva, sclera anicteric CV: Regular rate and rhythm, trace to 1+ b/l edema Pulm: nonlabored on 2 L NC, diminished at bases bilaterally ABD: Soft, nontender, nondistended Integumentary: No rashes Neuro: moves all extremities Problem List Acute hypoxemic, hypercarbic respiratory failure secondary to severe community- acquired bacterial pneumonia Acute on chronic COPD exacerbation Chronic diastolic CHF Chronic atrial fibrillation Super morbid obesity Chronic anemia, microcytic; iron deficiency completed 5 days of Levaquin for community-acquired pneumonia steroids, nebs, BiPAP for hypoxia and COPD exacerbation Pulmonology consulted. Continue nebs, BiPAP at night for obesity hypoventilation, sleep apnea and COPD exacerbation. Patient transferred to ICU on 08/26 due to increased somnolence, more hypercarbic noted on ABG. Improved with continued BiPAP use and diuresis Hemoglobin slightly decreased, workup with component of iron deficiency, no bleeding. s/p transfusion 1u PRBC. Hemoglobin stable Leukocytosis trended up but procalcitonin is low indicating elevated WBC is likely steroid-induced. Leukocytosis resolved Patient has clinically improved. She will need a repeat CT chest or chest x-ray within 1 month to assess for clearance of the masslike infiltrate, otherwise patient will need evaluation for malignancy. Diuresis as needed, continue Aldactone Follow with Dr. Frankel for arrangement for sleep study and CPAP as an outpatient. Monitor CBC and transfuse for hemoglobin less than 7. Patient needing significant assistance for transfer. She will benefit from disposition to skilled rehab Social service assisting with disposition to skilled rehab. 1 dose of IV iron given on 09/04, IVs blown x3, will transition to PO Code: full Dispo: awaiting approval/auth for SNF Time Spent Managing Pts Care (In Minutes): 35
[2021-09-06 06:11] LABS: Magnesium 2.4 mg/dL (1.8-2.4); Phosphorus 3.5 mg/dL (2.5-4.9); Potassium 4.6 mmol/L (3.5-5.1)
[2021-09-06] MEDS: INSULIN -REGULAR HUMAN 50 UNIT/0.5 ML ML SQ SCH ×4 (07:30→20:31)
[2021-09-06] MEDS: INSULIN GLARGINE 100 UNIT/ML SQ SCH ×2 (08:49→20:32)
[2021-09-06] MEDS: RIVAROXABAN 15 MG TABLET PO SCH (08:54)
[2021-09-06] MEDS: FERROUS SULFATE 325 MG TAB PO SCH (08:54)
[2021-09-06] MEDS: predniSONE 10 MG TAB PO SCH (08:54)
[2021-09-06] MEDS: AMIODARONE HCL 200 MG TAB PO SCH ×2 (08:55→20:30)
[2021-09-06] MEDS: SPIRONOLACTONE 25 MG TABLET PO SCH ×2 (09:00→20:29)
[2021-09-06] MEDS: GABAPENTIN 400 MG CAP PO PRN (20:32)
[2021-09-07] MEDS: IPRATROPIUM BROM 0.5MG/2.5ML NEB SCH ×4 (01:10→20:05)
[2021-09-07] MEDS: LEVALBUTEROL 1.25 MG/3 ML NEB NEB SCH ×4 (01:10→20:05)
--- NOTE | 2021-09-07 05:50 | P.PN ---
Date of Service: 09/07/21 Subjective: No acute events overnight. Patient reports continued improvement, no new complaints/concerns Order physical therapy yesterday difficulty trying to stand up, feels she would do better if she had something higher that she could grab onto to pull herself up ROS: 10 point ROS as noted above, otherwise negative Physical exam GEN: Awake, alert/oriented HEENT: Normal conjunctiva, sclera anicteric CV: Regular rate and rhythm, trace b/l edema Pulm: nonlabored on 2 L NC, diminished at bases bilaterally ABD: Soft, nontender, nondistended Integumentary: No rashes Neuro: moves all extremities Problem List Acute hypoxemic, hypercarbic respiratory failure secondary to severe community- acquired bacterial pneumonia Acute on chronic COPD exacerbation Chronic diastolic CHF Chronic atrial fibrillation Super morbid obesity Chronic anemia, microcytic; iron deficiency completed 5 days of Levaquin for community-acquired pneumonia steroids, nebs, BiPAP for hypoxia and COPD exacerbation Pulmonology consulted. Continue nebs, BiPAP at night for obesity hypoventilation, sleep apnea and COPD exacerbation. Patient transferred to ICU on 08/26 due to increased somnolence, more hypercarbic noted on ABG. Improved with continued BiPAP use and diuresis Hemoglobin slightly decreased, workup with component of iron deficiency, no bleeding. s/p transfusion 1u PRBC. Hemoglobin stable Leukocytosis resolved, steroid-induced Diuresis as needed, continue Aldactone Follow with Dr. Frankel for arrangement for sleep study and CPAP as an outpatient. She will need a repeat CT chest or chest x-ray within 1 month to assess for clearance of the masslike infiltrate, otherwise patient will need evaluation for malignancy. Patient needing significant assistance for transfer. She will benefit from disposition to skilled rehab Social service assisting with disposition to skilled rehab. 1 dose of IV iron given on 09/04, IVs blown x3, transitioned to PO Code: full Dispo: awaiting approval/auth for SNF Time Spent Managing Pts Care (In Minutes): 35
[2021-09-07 06:35] LABS: Magnesium 2.3 mg/dL (1.8-2.4); Phosphorus 3.6 mg/dL (2.5-4.9); Potassium 4.6 mmol/L (3.5-5.1)
[2021-09-07] MEDS: INSULIN -REGULAR HUMAN 50 UNIT/0.5 ML ML SQ SCH ×4 (07:30→20:45)
[2021-09-07] MEDS: SPIRONOLACTONE 25 MG TABLET PO SCH ×2 (09:55→20:37)
[2021-09-07] MEDS: FERROUS SULFATE 325 MG TAB PO SCH (09:55)
[2021-09-07] MEDS: RIVAROXABAN 15 MG TABLET PO SCH (09:55)
[2021-09-07] MEDS: AMIODARONE HCL 200 MG TAB PO SCH ×2 (09:56→20:38)
[2021-09-07] MEDS: INSULIN GLARGINE 100 UNIT/ML SQ SCH ×2 (09:56→20:45)
[2021-09-07] MEDS: predniSONE 10 MG TAB PO SCH (10:01)
[2021-09-07] MEDS ORDERED: HYDRALAZINE HCL 10 MG TABLET PO ONE (14:00)
[2021-09-07] MEDS: MELATONIN 5 MG TABLET PO PRN (20:38)
[2021-09-07] MEDS: ACETAMINOPHEN 500 MG TAB PO PRN (20:39)
[2021-09-08] MEDS: LEVALBUTEROL 1.25 MG/3 ML NEB NEB SCH ×4 (01:47→19:15)
[2021-09-08] MEDS: IPRATROPIUM BROM 0.5MG/2.5ML NEB SCH ×4 (01:47→19:15)
--- NOTE | 2021-09-08 05:52 | P.PN ---
Date of Service: 09/08/21 Subjective: no acute events overnight, working with PT patient continues to do well, but notably sad/depressed appearing yesterday found out her ROS: 10 point ROS as noted above, otherwise negative Physical exam GEN: Awake, alert/oriented HEENT: Normal conjunctiva, sclera anicteric CV: Regular rate and rhythm, trace b/l edema Pulm: nonlabored on 2 L NC, diminished at bases bilaterally ABD: Soft, nontender, nondistended Integumentary: No rashes Neuro: moves all extremities Problem List Acute hypoxemic, hypercarbic respiratory failure secondary to severe community- acquired bacterial pneumonia Acute on chronic COPD exacerbation Chronic diastolic CHF Chronic atrial fibrillation Super morbid obesity Chronic anemia, microcytic; iron deficiency completed 5 days of Levaquin for community-acquired pneumonia steroids, nebs, BiPAP for hypoxia and COPD exacerbation Pulmonology consulted. Continue nebs, BiPAP at night for obesity hypoventilation, sleep apnea and COPD exacerbation. Patient transferred to ICU on 08/26 due to increased somnolence, more hypercarbic noted on ABG. Improved with continued BiPAP use and diuresis Hemoglobin slightly decreased, workup with component of iron deficiency, no bleeding. s/p transfusion 1u PRBC. Hemoglobin stable Leukocytosis resolved, steroid-induced Diuresis as needed, continue Aldactone Follow with Dr. Frankel for arrangement for sleep study and CPAP as an outpatient. She will need a repeat CT chest or chest x-ray within 1 month to assess for clearance of the masslike infiltrate, otherwise patient will need evaluation for malignancy. Patient needing significant assistance for transfer. She will benefit from disposition to skilled rehab Social service assisting with disposition to skilled rehab. 1 dose of IV iron given on 09/04, IVs blown x3, transitioned to PO Code: full Dispo: awaiting approval/auth for SNF Time Spent Managing Pts Care (In Minutes): 35
[2021-09-08 06:00] LABS: Absolute Lymphocytes (CBC) 0.6 K/uL (0.7-4.9); Basophils % 0.4 % (0-1.3); Hematocrit 29.8 % (36.0-45.0); Lymphocytes % 6.4 % (15.3-44.8); MPV 8.6 fL (7.6-11.3); RBC Red Blood Cell Count 3.91 M/uL (3.86-4.86)
[2021-09-08 06:16] LABS: Potassium 4.1 mmol/L (3.5-5.1)
[2021-09-08] MEDS: INSULIN -REGULAR HUMAN 50 UNIT/0.5 ML ML SQ SCH ×4 (07:30→20:36)
[2021-09-08] MEDS: RIVAROXABAN 15 MG TABLET PO SCH (08:26)
[2021-09-08] MEDS: predniSONE 10 MG TAB PO SCH (08:26)
[2021-09-08] MEDS: FERROUS SULFATE 325 MG TAB PO SCH (08:26)
[2021-09-08] MEDS: SPIRONOLACTONE 25 MG TABLET PO SCH ×2 (08:27→20:33)
[2021-09-08] MEDS: AMIODARONE HCL 200 MG TAB PO SCH ×2 (08:28→20:34)
[2021-09-08] MEDS: INSULIN GLARGINE 100 UNIT/ML SQ SCH ×2 (08:29→20:35)
[2021-09-08] MEDS: ACETAMINOPHEN 500 MG TAB PO PRN (11:12)
[2021-09-08] MEDS: DIPHENHYDRAMINE 25 MG TAB/CAP PO PRN (17:26)
[2021-09-08] MEDS: MELATONIN 5 MG TABLET PO PRN (20:36)
[2021-09-09] MEDS: IPRATROPIUM BROM 0.5MG/2.5ML NEB SCH ×3 (01:30→14:00)
[2021-09-09] MEDS: LEVALBUTEROL 1.25 MG/3 ML NEB NEB SCH ×3 (01:30→14:00)
[2021-09-09] MEDS: DIPHENHYDRAMINE 25 MG TAB/CAP PO PRN (02:14)
--- NOTE | 2021-09-09 06:02 | P.PN ---
Date of Service: 09/09/21 Subjective: Continues to do well, reports some itchiness in her back over the last few days, improves with lotion Has not gotten out of bed during the hospitalization, minimally as set up at bedside just recently Remains afebrile, no nausea/vomiting/fever Motivated to sit up at bedside today/work with physical therapy ROS: 10 point ROS as noted above, otherwise negative Physical exam GEN: Awake, alert/oriented HEENT: Normal conjunctiva, sclera anicteric CV: Regular rate and rhythm, trace to 1+ b/l pedal edema Pulm: nonlabored on 2 L NC, diminished at bases bilaterally ABD: Soft, nontender, nondistended Integumentary: mild erythema in b/l lower extremities, mild erythema on back, no induratin/drainage/lesion Neuro: moves all extremities Problem List Acute hypoxemic, hypercarbic respiratory failure secondary to severe community- acquired bacterial pneumonia Acute on chronic COPD exacerbation Chronic diastolic CHF Chronic atrial fibrillation Super morbid obesity Chronic anemia, microcytic; iron deficiency completed 5 days of Levaquin for community-acquired pneumonia steroids, nebs, BiPAP for hypoxia and COPD exacerbation Pulmonology consulted. Continue nebs, BiPAP at night for obesity hypoventilatio n, sleep apnea and COPD exacerbation. Patient transferred to ICU on 08/26 due to increased somnolence, more hypercarbic noted on ABG. Improved with continued BiPAP use and diuresis Hemoglobin slightly decreased, workup with component of iron deficiency, no bleeding. s/p transfusion 1u PRBC. Hemoglobin stable 1 dose of IV iron given on 09/04, IVs blown x3, transitioned to PO Leukocytosis resolved, steroid-induced Diuresis as needed, continue Aldactone Follow with Dr. Frankel for arrangement for sleep study and CPAP as an outpatient. She will need a repeat CT chest or chest x-ray within 1 month to assess for clearance of the masslike infiltrate, otherwise patient will need evaluation for malignancy. erythema in posterior legs / back, pt reports some sweating, minimal mobility, suspect heat rash / contact dermatitis, patient will sit up / reposition, continue lotion and benadryl PRN Patient needing significant assistance for transfer. She will benefit from disposition to skilled rehab Social service assisting with disposition to skilled rehab. Code: full Dispo: awaiting approval/auth for SNF Time Spent Managing Pts Care (In Minutes): 35
[2021-09-09] MEDS: INSULIN -REGULAR HUMAN 50 UNIT/0.5 ML ML SQ SCH ×4 (07:30→20:19)
[2021-09-09] MEDS: predniSONE 10 MG TAB PO SCH (08:25)
[2021-09-09] MEDS: RIVAROXABAN 15 MG TABLET PO SCH (08:25)
[2021-09-09] MEDS: FERROUS SULFATE 325 MG TAB PO SCH (08:25)
[2021-09-09] MEDS: SPIRONOLACTONE 25 MG TABLET PO SCH ×2 (08:26→20:28)
[2021-09-09] MEDS: AMIODARONE HCL 200 MG TAB PO SCH ×2 (08:27→20:28)
[2021-09-09] MEDS: INSULIN GLARGINE 100 UNIT/ML SQ SCH ×2 (08:28→20:28)
[2021-09-09] MEDS ORDERED: IPRATROPIUM BROM 0.5MG/2.5ML NEB PRN (15:51)
[2021-09-09] MEDS ORDERED: LEVALBUTEROL 1.25 MG/3 ML NEB NEB PRN (15:51)
[2021-09-09] MEDS: MELATONIN 5 MG TABLET PO PRN (20:27)
[2021-09-09] MEDS: GABAPENTIN 400 MG CAP PO PRN (20:28)
--- NOTE | 2021-09-10 05:57 | P.PN ---
Date of Service: 09/10/21 Subjective: ROS: 10 point ROS as noted above, otherwise negative Physical exam GEN: Awake, alert/oriented HEENT: Normal conjunctiva, sclera anicteric CV: Regular rate and rhythm, trace to 1+ b/l pedal edema Pulm: nonlabored on 2 L NC, diminished at bases bilaterally ABD: Soft, nontender, nondistended Integumentary: mild erythema in b/l lower extremities, mild erythema on back, no induratin/drainage/lesion Neuro: moves all extremities Problem List Acute hypoxemic, hypercarbic respiratory failure secondary to severe community- acquired bacterial pneumonia Acute on chronic COPD exacerbation Chronic diastolic CHF Chronic atrial fibrillation Super morbid obesity Chronic anemia, microcytic; iron deficiency completed 5 days of Levaquin for community-acquired pneumonia steroids, nebs, BiPAP for hypoxia and COPD exacerbation Pulmonology consulted. Continue nebs, BiPAP at night for obesity hypoventilation, sleep apnea and COPD exacerbation. Patient transferred to ICU on 08/26 due to increased somnolence, more hypercarbic noted on ABG. Improved with continued BiPAP use and diuresis Hemoglobin slightly decreased, workup with component of iron deficiency, no bleeding. s/p transfusion 1u PRBC. Hemoglobin stable 1 dose of IV iron given on 09/04, IVs blown x3, transitioned to PO Leukocytosis resolved, steroid-induced Diuresis as needed, continue Aldactone Follow with Dr. Frankel for arrangement for sleep study and CPAP as an outpatient. She will need a repeat CT chest or chest x-ray within 1 month to assess for clearance of the masslike infiltrate, otherwise patient will need evaluation for malignancy. erythema in posterior legs / back, pt reports some sweating, minimal mobility, suspect heat rash / contact dermatitis, patient will sit up / reposition, continue lotion and benadryl PRN Patient needing significant assistance for transfer. She will benefit from disposition to skilled rehab Social service assisting with disposition to skilled rehab. Code: full Dispo: awaiting approval/auth for SNF Time Spent Managing Pts Care (In Minutes): 35
[2021-09-10 06:01] LABS: Absolute Lymphocytes (CBC) 0.9 K/uL (0.7-4.9); Basophils % 0.7 % (0-1.3); Hematocrit 29.7 % (36.0-45.0); Lymphocytes % 8.7 % (15.3-44.8); MPV 8.3 fL (7.6-11.3); RBC Red Blood Cell Count 3.92 M/uL (3.86-4.86)
[2021-09-10 06:14] LABS: Magnesium 2.1 mg/dL (1.8-2.4); Potassium 4.2 mmol/L (3.5-5.1)
[2021-09-10] MEDS: INSULIN -REGULAR HUMAN 50 UNIT/0.5 ML ML SQ SCH ×2 (07:30→11:30)
[2021-09-10 07:35] LABS: Anisocytosis 1+; Blood Morphology Comment NOTED (NOT SEEN); Platelet Estimate ADEQ
[2021-09-10] MEDS: SPIRONOLACTONE 25 MG TABLET PO SCH (08:24)
[2021-09-10] MEDS: RIVAROXABAN 15 MG TABLET PO SCH (08:24)
[2021-09-10] MEDS: AMIODARONE HCL 200 MG TAB PO SCH (08:24)
[2021-09-10] MEDS: FERROUS SULFATE 325 MG TAB PO SCH (08:24)
[2021-09-10] MEDS: predniSONE 10 MG TAB PO SCH (08:24)
[2021-09-10] MEDS: INSULIN GLARGINE 100 UNIT/ML SQ SCH (08:25)
[2021-09-10] MEDS ORDERED: HYDROCORTISONE 0.5% CREAM 30 GM TOP PRN (09:26)
[2021-09-10 09:29] VITALS: O2SAT 97
--- NOTE | 2021-09-10 10:32 | P.DS ---
Admission Date: 08/24/21 Discharge Date: 09/10/21 Disposition: TRANSFER TO SNF - REHAB Discharge Condition: GOOD Reason for Admission: Pneumonia/ C resp failure Vital Signs/Physical Exam: Temp Pulse Resp BP Pulse Ox 97 F 53 16 137/68 96 09/10/21 04:00 09/10/21 04:00 09/10/21 04:00 09/10/21 04:00 09/10/21 04:00 Laboratory Data at Discharge: WBC 10.00 K/uL (4.3-10.9) 09/10/21 05:43 Hgb 9.3 g/dL (12.0-15.0) L 09/10/21 05:43 Hct 29.7 % (36.0-45.0) L 09/10/21 05:43 Plt Count 303 K/uL (152-406) 09/10/21 05:43 PT 17.6 SECONDS (9.5-12.5) H 08/24/21 13:04 INR 1.52 08/24/21 13:04 APTT 31.1 SECONDS (24.3-36.9) 08/24/21 13:04 Sodium 141 mmol/L (136-145) 09/10/21 05:43 Potassium 4.2 mmol/L (3.5-5.1) 09/10/21 05:43 BUN 17 mg/dL (7-18) 09/10/21 05:43 Creatinine 0.85 mg/dL (0.55-1.3) 09/10/21 05:43 Glucose 102 mg/dL (74-106) 09/10/21 05:43 Phosphorus 3.6 mg/dL (2.5-4.9) 09/07/21 05:49 Magnesium 2.1 mg/dL (1.8-2.4) 09/10/21 05:43 Total Bilirubin 0.4 mg/dL (0.2-1.0) 08/28/21 03:47 AST 72 U/L (15-37) H 08/28/21 03:47 ALT 86 U/L (12-78) H 08/28/21 03:47 Alkaline Phosphatase 58 U/L (45-117) 08/28/21 03:47 Triglycerides 105 mg/dL (<150) 08/25/21 05:37 Cholesterol 93 mg/dL (<200) 08/25/21 05:37 HDL Cholesterol 37 mg/dL (40-60) L 08/25/21 05:37 Cholesterol/HDL Ratio 2.51 08/25/21 05:37 Amylase 27 U/L (25-115) 08/24/21 13:04 Lipase 49 U/L (73-393) L 08/24/21 13:04 Home Medications: Albuterol Inhaler [Ventolin Inhaler*] 2 puff IH QIDP PRN 04/10/21 Amiodarone HCl [Cordarone*] 400 mg PO BID 04/10/21 Gabapentin [Neurontin*] 400 mg PO PRN PRN 04/10/21 Ipratropium Neb [Atrovent*] 1 amp NEB QIDP PRN 04/10/21 Rivaroxaban [Xarelto*] 20 mg PO DAILY 04/10/21 Spironolactone [Aldactone*] 25 mg PO DAILY 04/10/21 Torsemide [Demadex*] 20 mg PO DAILY 04/10/21 Diphenhydramine [Benadryl*] 50 mg PO Q6H PRN tab 09/10/21 Ferrous Sulfate [Ferrous Sulfate*] 325 mg PO DAILY tab 09/10/21 Hydrocortisone Cream [Hydrocortisone 0.5% Cream*] 1 appl TOP TID PRN tube 09/10/21 predniSONE [Deltasone*] 10 mg PO DAILY 5 Days #5 tab 09/10/21 Physician Discharge Instructions: Respiratory distress/hypoxemia secondary to CHF and COPD exacerbation. Improved with diuresis and initially use of BiPAP/CPAP. Will need to follow-up with Dr. Asif for arrangement for sleep study and CPAP as an outpatient. You will need a repeat CT chest or chest x-ray within 1 month to assess for clearance of the masslike infiltrate You are noted to be significantly iron deficient, you received 1 dose of IV iron, and was transitioned to p.o. iron, continue with iron supplementation. Continue prednisone for 5 more days Otherwise, resume home medications as previously prescribed. You were noted to have an erythematous and itchy rash, which is likely from being immobile, sweaty, leading to some heat rash. Continue topical steroid cream to help with itchiness Diet: Low sodium Activity: Fall precautions Followup: NONE,NONE [Primary Care Provider] -
[2021-09-10 12:16] VITALS: BP 149/65; TEMP 96.2
== END 2021-09-10 12:48 | DRG 190 ==
LOC: ER 11:04 → ERHOLD 19:06 → 2ND 20:11 → ERHOLD 08-26 15:51 → 2ND 08-28 18:50
PROVIDERS: ADMIT Hospitalist; ATTEND Hospitalist
PROC: 5A09457 Assistance with Respiratory Ventilation, 24-96 Consecutive Hours, Continuous Positive Airway Pressure (ICD-10-PCS; 2021-08-24)
PROC: 30233N1 Transfusion of Nonautologous Red Blood Cells into Peripheral Vein, Percutaneous Approach (ICD-10-PCS; principal; 2021-08-26)
DX: J44.0 Chronic obstructive pulmonary disease with (acute) lower respiratory infection (principal); J15.9 Unspecified bacterial pneumonia; J96.22 Acute and chronic respiratory failure with hypercapnia; J96.21 Acute and chronic respiratory failure with hypoxia; I50.32 Chronic diastolic (congestive) heart failure; I48.20 Chronic atrial fibrillation, unspecified; E66.2 Morbid (severe) obesity with alveolar hypoventilation; Z68.44 Body mass index [BMI] 60.0-69.9, adult; J44.1 Chronic obstructive pulmonary disease with (acute) exacerbation; L74.0 Miliaria rubra; I11.0 Hypertensive heart disease with heart failure; R40.4 Transient alteration of awareness; G47.33 Obstructive sleep apnea (adult) (pediatric); I87.2 Venous insufficiency (chronic) (peripheral); D50.9 Iron deficiency anemia, unspecified; L25.9 Unspecified contact dermatitis, unspecified cause; Z99.81 Dependence on supplemental oxygen; Z20.822 Contact with and (suspected) exposure to COVID-19
CPT/HCPCS: 36415; 71045; 71275; 80048; 80053; 80061; 80076; 80202; 81003; 81015; 82150; 82274; 82550; 82553; 82607; 82728; 82746; 82805; 82947; 83036; 83540; 83605; 83690; 83735; 83880; 84100; 84145; 84439; 84443; 84466; 84484; 85014; 85018; 85025; 85027; 85610; 85730; 86140; 86850; 86900; 86901; 86922; 87040; 87070; 87086; 87088; 87205; 93005; 94640; 94660; 94760; 94762; 97110; 97116; 97161; 97530; 99285; J0360; J1940; J2916; J2920; J2930; J3370; J7030; J7040; J7050; J7512; P9016; Q9967; U0003

== ENCOUNTER 2021-12-17 09:39 | Inpatient (IN) | payer OTHER ==
[2021-12-17] MEDS ORDERED: ALBUTEROL INHALER 60 PUFF/8 GM IH PRN (21:43)
[2021-12-17] MEDS: LOSARTAN POTASSIUM 50 MG TABLET PO SCH (22:14)
[2021-12-17] MEDS: AMIODARONE HCL 200 MG TAB PO SCH (22:15)
[2021-12-17] MEDS ORDERED: LOSARTAN POTASSIUM 50 MG TABLET ONE (22:15)
[2021-12-17] MEDS ORDERED: AMIODARONE HCL 200 MG TAB ONE (22:15)
[2021-12-17] MEDS ORDERED: D50W 25 GM/50 ML SYRINGE IV PRN (23:32)
[2021-12-17] MEDS ORDERED: GLUCAGON 1 MG/VIAL IM PRN (23:32)
[2021-12-18] MEDS ORDERED: PIPER TAZO 3.375 GM in NA CHLORIDE 0.9% 100 ML IV SCH ×5 (01:00→09:00)
--- OUTSIDE RECORDS SUMMARY | 2021-12-18 01:16 | XMS REPORT | Continuity of Care Document ---
:1950 Author Organization [facility] t Address [address] [place] [address] Care Team Providers Name Role Phone IHDE_G Attending Clinician Unavailable TYRONE Attending Clinician Unavailable IHDE_G Admitting Clinician Unavailable TYRONE Admitting Clinician Unavailable Payers Payer Name Policy Type Policy Number Effective Date Expiration Date [employer] - [id number] 2021 [facility] 00:00:00 (MEDICARE REPLACEMENT/[employer] - HMO) Problems This patient has no known problems. Allergies, Adverse Reactions, Alerts This patient has no known allergies or adverse reactions. Medications This patient has no known medications. Procedures This patient has no known procedures. Encounters Start End Encounter Admission Attending Care Care Encounter Source Date/Time Date/Time Type Type Clinicians Facility Department ID 2021-12-12 2021-12-12 Outpatient [id number] [place] 03:09:00 03:09:00 [id number] 2021-09-17 2021-09-26 Inpatient [facility] [id number] [place] 00:00:00 00:00:[address] Results This patient has no known results.
[2021-12-18 05:33] LABS: Absolute Lymphocytes (CBC) 1.6 K/uL (0.7-4.9); Hematocrit 27.8 % (36.0-45.0); Lymphocytes % 11.4 % (15.3-44.8); MPV 7.3 fL (7.6-11.3); RBC Red Blood Cell Count 3.57 M/uL (3.86-4.86)
[2021-12-18 06:00] LABS: Magnesium 2.5 mg/dL (1.8-2.4); Potassium 4.1 mmol/L (3.5-5.1); Prealbumin 19.5 mg/dL (20-40)
--- NOTE | 2021-12-18 07:29 | RAD REPORT ---
EXAM DESCRIPTION: RAD - Chest Single View - 12/18/2021 6:29 am CLINICAL HISTORY: Pneumonia COMPARISON: Portable chest 08/30/2021 TECHNIQUE: AP portable chest image was obtained 12/18/2021 6:29 am . FINDINGS: Left subclavian Port-A-Cath has been placed since the prior examination. Focal airspace op acification with air bronchogram formation seen in the mid upper left lung field. This is new from e August examination. Overall interstitial opacification is prominent and may be slightly increased from the comparison. Th e dense consolidation of the right upper lobe seen on the August study has cleared are almost entir irma cleared. There is minimal lateral opacification and may be remnant from that pneumonia. Heart size is prominent, similar to comparison. Central vasculature prominent. No measurable pleural effusion and no pneumothorax. No acute bony abnormality seen. No acute aortic findings suspected. IMPRESSION: Left upper lung field pneumonia new from prior imaging. Complete or near complete clearing of the right upper lobe pneumonia seen on the 08/30/2021 study. Heart, vasculature and lung markings are all prominent. A component of mild failure or volume overloa d concurrent with the pneumonia cannot be excluded.
[2021-12-18] MEDS: INSULIN -REGULAR HUMAN 50 UNIT/0.5 ML ML SQ SCH ×3 (07:30→16:30)
[2021-12-18] MEDS ORDERED: FUROSEMIDE 20 MG TABLET PO SCH (08:00)
[2021-12-18] MEDS ORDERED: SPIRONOLACTONE 25 MG TABLET PO SCH (08:00)
[2021-12-18] MEDS ORDERED: FLUCONAZOLE 100 MG TAB PO SCH (08:00)
[2021-12-18] MEDS ORDERED: LINEZOLID 600 MG TAB PO SCH ×2 (08:00)
[2021-12-18] MEDS ORDERED: FLUTICASONE 110 MCG/PUFF 12 GM INH IH SCH (08:00)
[2021-12-18] MEDS: GABAPENTIN 400 MG CAP PO SCH (08:07)
[2021-12-18] MEDS: ZINC SULFATE 220 MG CAP PO SCH ×2 (08:07→20:00)
[2021-12-18 08:08] LABS: Anisocytosis 2+; Blood Morphology Comment NOTED (NOT SEEN); White Blood Cell Scan OK (OK)
[2021-12-18] MEDS: FAMOTIDINE 20 MG TAB PO SCH ×2 (08:08→20:00)
[2021-12-18] MEDS: LOSARTAN POTASSIUM 50 MG TABLET PO SCH ×2 (08:08→19:59)
[2021-12-18] MEDS: FUROSEMIDE 20 MG TABLET PO SCH ×2 (08:08→17:24)
[2021-12-18] MEDS: FERROUS SULFATE 325 MG TAB PO SCH (08:08)
[2021-12-18] MEDS: RIVAROXABAN 10 MG TABLET PO SCH (08:08)
[2021-12-18] MEDS: SERTRALINE HCL 50 MG TAB PO SCH (08:08)
[2021-12-18 08:10] LABS: Platelet Estimate ADEQ
[2021-12-18] MEDS ORDERED: ALBUTEROL 2.5 MG/3 ML NEB SOL IH PRN (08:10)
[2021-12-18] MEDS: AMIODARONE HCL 200 MG TAB PO SCH ×2 (08:10→20:01)
[2021-12-18] MEDS: LINEZOLID 600 MG TAB PO SCH ×2 (09:47→20:00)
[2021-12-18] MEDS: FLUCONAZOLE 100 MG TAB PO SCH (09:47)
[2021-12-18] MEDS: NYSTATIN PWDR 100000 UNIT/GM TOP SCH ×2 (09:48→19:59)
[2021-12-18] MEDS: PIPER TAZO 3.375 GM in NA CHLORIDE 0.9% 100 ML IV SCH ×2 (10:49→16:03)
[2021-12-18] MEDS ORDERED: PNEUMOCOCCAL VACCINE 0.5 ML IMVAC ONE (12:00)
[2021-12-18] MEDS ORDERED: INFLUENZA VACCINE (for 6+ mo) 0.5 ML DOSE IMVAC ONE (12:00)
--- NOTE | 2021-12-18 17:00 | R.HP ---
HISTORY AND PHYSICAL FACILITY: [facility] ENCOUNTER DATE AND TIME: 12/18/2021 16:53 (CDT) MR#: [id number] NAME ISAÍAS PORTER ADDRESS: [address] [place] [address] CITY: [place]IP [id number] PHONE: DATE OF : 1950 AGE: 71 SSN# [id number] GENDER: Female MARITAL STATUS PRE-HOSPITAL LIVING SETTING 01 - Home (private home/apt. board/care, assisted living, alf, transitional living) PRE-HOSPITAL LIVING WITH Family/Relatives ENCOUNTER PHYSICIAN: Dr. Chan Augustin M.D. REFERRING DOCTOR: DATE OF ADMISSION: 12/17/2021 20:07 (CDT) REFERRING FACILITY [facility] HOME TYPE AND DETAILS: Type of home: single family house # of steps to enter the residence: 0 # of levels in the residence: 1 # of steps within the residence: 0 ONSET DATE: 12/03/2021 PRIMARY DIAGNOSIS-RELATED SURGERIES: N/A HISTORY OF PRESENT ILLNESS (HPI): Pt. is a 71 yo Right-handed female. On 12/03/2021 she was admitted to [facility] with diagnosis Bronchiectasis, Chronic Bronchiti s, COPD. Her impairment category is Pulmonary Disorders 10 - Chronic Obstructive Pulmonary Disease (10.1). Pre-morbidly, Pt. was independent/mod-I in Locomotion, Safety Awareness, Social Cognition, Balance, a nd Transfers Control; and she had good Sphincter Control, Self-Care, Communication, and Endurance. Currently, she has deficits of Locomotion, Safety Awareness, Social Cognition, Balance, Transfers Con trol, Sphincter Control, Self-Care, Communication, and Endurance. Pt. is now referred to [facility] for acute in-patient rehabilitation in order to maximize patient's functional independence in activities of daily living, strength, ROM, and mobi lity. Patient has realistic goal of being discharged at assistance level 7-Ind to reside at Home with Fami ly/Relatives. MEDICATION ALLERGIES: No Known Drug Allergies (NKDA) ENVIRONMENTAL ALLERGIES: - Substance Allergies None Known - Other Allergies None Known PAST MEDICAL HISTORY: COPD LYMPHEDMA AFIB PNEUMONIA RIGHT LEG PAIN CHRONIC ANEMIA CELLULITIS OF LEG UTI MORBID OBESITY ACUTE RENAL INSUFFICIENCY Bronchiectasis (J47) RLE W SWELLING OBESITY Chronic Respiratory Insufficiency Positive Blood Culture Unspecified chronic bronchitis (J42) SOCIAL HISTORY: - Home Living Family/Relatives REVIEW OF SYSTEMS: - Gen No Chills Fatigue No Fever - Eyes No Double Vision No itchiness - ENMT No Difficulty Swallowing - CVS Chest Discomfort No Chest Pain Fatigue No Weight Gain - Resp No Cough Shortness of Breath - GI Continent No Abdominal Pain No Constipation No Diarrhea - Continent No Kidney Pain No Painful Urination No Urinary Urgency - MSK No Joint Pain Muscle Cramps Stiffness - Skin No Itching No Rash No Suspicious Lesions - Neuro Coordination Difficulty No Difficulty with Concentration No Memory Loss No Seizures Weakness - Psych No Anxiety No Depression No HIV Exposure No Persistent Infections No Seasonal Allergies - Endo No Cold/Heat Intolerance No Excessive Hunger No Excessive Thirst No Excessive Urination PHYSICAL EXAM - Gen Alert and awake Lying in bed No apparent distress Oriented to: person, time, and place - CVS RRR VITAL SIGNS Temperature: 97.0 SBP/DBP: 122/48 Pulse: 51 Resp: 16 NURSING: - Shower allowing shower PRECAUTIONS: - Fall Precaution SAFTY AND FALL ACTIVITIES OOB only with supervision QI SCORES: - Self-Care A. Eating 03-Partial/moderate assistance B. Oral hygiene 02-Substantial/maximal assistance C. Toileting hygiene 02-Substantial/maximal assistance E. Shower/bathe self 02-Substantial/maximal assistance F. Upper body dressing 02-Substantial/maximal assistance G. Lower body dressing 02-Substantial/maximal assistance H. Putting on/taking off footwear 88-Not attempted due to medical condition or safety concerns - Mobility A. Roll left and right 03-Partial/moderate assistance B. Sit to lying 03-Partial/moderate assistance C. Lying to sitting on side of bed 02-Substantial/maximal assistance D. Sit to stand 02-Substantial/maximal assistance E. Chair/[id number] transfer 02-Substantial/maximal assistance F. Toilet transfer 02-Substantial/maximal assistance G. Car transfer 88-Not attempted due to medical condition or safety concerns I. Walk 10 feet 88-Not attempted due to medical condition or safety concerns J. Walk 50 feet with two turns 88-Not attempted due to medical condition or safety concerns K. Walk 150 feet 88-Not attempted due to medical condition or safety concerns L. Walking 10 feet on uneven surfaces 88-Not attempted due to medical condition or safety concerns M. 1 step (curb) 88-Not attempted due to medical condition or safety concerns N. 4 steps 88-Not attempted due to medical condition or safety concerns O. 12 steps 88-Not attempted due to medical condition or safety concerns P. Picking up object 88-Not attempted due to medical condition or safety concerns R. Wheel 50 feet with two turns 88-Not attempted due to medical condition or safety concerns S. Wheel 150 feet 88-Not attempted due to medical condition or safety concerns - Endurance Fair - Balance Poor - Safety Awareness Fair CURRENT [facility]. DEFICITS: Self-Care, Mobility, Endurance, Balance, and Safety Awareness MEDICATIONS: - Other See attached MAR (Medication Administration Record) ASSESSMENT: Pt. is a 71 yo Right-handed female.On 12/03/2021 she was admitted to [facility] with diagnosi s Bronchiectasis, Chronic Bronchitis, COPD.Her impairment category is Pulmonary Disorders 10 - Chron ic Obstructive Pulmonary Disease (10.1).Pre-morbidly, Pt. was independent/mod-I in Locomotion, Safety Awareness, Social Cognition, Balance, and Transfers Control; and she had good Sphincter Control, Dory f-Care, Communication, and Endurance.Currently, she has deficits of Locomotion, Safety Awareness, Soc ial Cognition, Balance, Transfers Control, Sphincter Control, Self-Care, Communication, and Endurance .Pt. is now referred to [facility] for acute in-patient rehabilitation in [facility] to maximize patient's functional independence in activities of daily living, strength, ROM, and mob ility.- Rehab Goal Patient has realistic goal of being discharged at assistance level 7-Ind to reside at Home with Fami ly/Relatives. - Physical Therapy Gait dysfunction - to improve, our physical therapists will perform initial evaluation of pt's status upon admission and devise an individualized program for Gait Training, and Wheel Chair mobility Inability to transfer - to improve, our physical therapists will perform initial evaluation of pt's s tatus upon admission and devise an individualized program for Bed mobility Need for home safety evaluation - to improve, our physical therapists will perform initial evaluation of pt's status upon admission and devise an individualized program for Home Evaluation Need in caregiver upon discharge - to improve, our physical therapists will perform initial evaluatio n of pt's status upon admission and devise an individualized program for Caregiver Training New precaution - to improve, our physical therapists will perform initial evaluation of pt's status u cornelio admission and devise an individualized program for Patient precaution education Poor balance - to improve, our physical therapists will perform initial evaluation of pt's status upo n admission and devise an individualized program for Balance Training Poor endurance - to improve, our physical therapists will perform initial evaluation of pt's status u cornelio admission and devise an individualized program for Endurance Training Weakness - to improve, our physical therapists will perform initial evaluation of pt's status upon ad mission and devise an individualized program for Aquatic Therapy, Neuromuscular Reeducation, and Stre ngthening Achieving independence - to improve, our physical therapists will perform initial evaluation of pt's status upon admission and devise an individualized program for Community Reintegration Activities - Occupational Therapy ADL deficits - to improve, our occupation therapists will perform initial evaluation of pt's status u cornelio admission and devise an individualized program for Bathing, Bed mobility, Community Reintegration , Cooking, Dressing, Eating, Fine Motor Skills, Grooming, Homemaking, Kitchen Mobility, Laundry, Sandrine ent Education, Safety Awareness, Splinting - Positioning, Transfers(Toilet, Tub, Shower), and Wheel C hair Management Cognitive deficits - to improve, our occupation therapists will perform initial evaluation of pt's st atus upon admission and devise an individualized program for Cognition - orientation Need for client care representative - to improve, our occupation therapists will perform initial evaluation of pt's s tatus upon admission and devise an individualized program for Caregiver Training Weakness - to improve, our occupation therapists will perform initial evaluation of pt's status upon admission and devise an individualized program for Aquatic Therapy, Balance, Endurance, UE ROM, and U E strengthening MEDICAL PLAN: - Diet Type Start Regular - Diet - Liquid Texture Start Regular - Tube Feed Start N/A - Fall Precaution SAFTY AND FALL - Other See attached MAR (Medication Administration Record) - Diet - Solid Texture Regular - Shower shower DISCHARGE PLAN: - Estimated Length of Stay (days) 11. - Consensus on plan Discharge plan has been discussed with primary caregiver. Patient/Family is in agreement with the pavithra n. Primary caregiver is in agreement with the plan. - Patient/Family Goals Return home independently. - Planned Living Setting Upon Discharge Home, to live with Family/Relatives. Transitional Living. MISCELLANEOUS IMPORTED INFO: - N/A WBC 13.8, neutrophils 78.8,, Hgb 8.7, Fire Claims Adjuster 1.35, prealbumin 19.5, glucose 94 to 109. Covid-19 is negat namita. SIGNATURE PANEL: (CDT)
--- NOTE | 2021-12-18 17:01 | PAPE ---
POST ADMISSION PHYSICIAN EVALUATION PATIENT: [facility] MR# [id number] REFERRING DOCTOR EVALUATION DATE AND TIME 12/18/2021 17:00 (CDT) NAME ISAÍAS PORTER DATE OF 1950 AGE 71 PHONE SSN# [id number] GENDER female EVALUATING PHYSICIAN Dr. Chan Augustin M.D. ADMISSION DIAGNOSIS: Bronchiectasis, Chronic Bronchitis, COPD ONSET DATE 12/03/2021 POST-ADMISSION FUNCTIONAL/MEDICAL STATUS: - Bladder Same accident frequency: 7-Ind - No accidents in the past 7 days - Bowel Same accident frequency: 7-Ind - No accidents in the past 7 days - Walking Same score based on distance walked: 0(N/A) - Wheelchair Same score based on distance traveled: 0(N/A) STATUS CHANGE EVALUATION: No change in Functional or Medical Status is identified compared with Pre-Admission screening. PATIENT NEEDS CLOSE MEDICAL SUPERVISION BY A REHABILITATION PHYSICIAN FOR: Coordination of Treatment Team Wound Care Medical and Co-Morbidity Management Pain Management Bowel and Bladder Management DVT Management Respiratory/Airway Management PATIENT REQUIRES 24X7 REHAB NURSING FOR MEDICAL AND FUNCTIONAL MGT. OF THE FOLLOWING DEFICITS: Disease Management Medication Management Patient requires 24x7 Rehabilitation Nursing for: Pain Issues, Identifying and preventing risk factor s, Monitoring and reporting current medical conditions, Assisting with ambulation and transfer, Amanda ting with all ADL-s, Teaching patients about disease process and medications, Family teaching, Provid ing safe environment, Bowel and Bladder Issues, Skin Integrity, and Medication Management Patient/Family Education Providing Safe Environment Bowel and Bladder Management Skin Integrity PATIENT REQUIRES INTENSIVE, COORDINATED INTERDISCIPLINARY APPROACH TO REHAB: Arranging Home Equipment/Services Discharge Planning Family Intervention/Training Patient needs Dietary and Nutrition Services for: Adequate Nutrition, Nutritional Supplements, and Nu tritional Education Patient needs Box Printer and/or Case Management for: Discharge Planning, Arranging Home Equipmen t or Services, and Family Interventions Box Printer/Case Management LIST OF IDENTIFIED AND POTENTIAL PROBLEMS: Alteration in leisure activities Bladder, Incontinence Bowel, Incontinence Infection, Actual or Potential Mobility Impaired Pain, Alteration in Comfort Self Care Deficit Skin Integrity, Actual or Potential Urinary Tract Infection (UTI), Actual or Potential RISK FOR COMPLICATIONS - SKIN BREAKDOWN Nursing will assess skin daily using assessment tool and will place on Skin Breakdown Precautions as Indicated per protocol. - DVT Medications will be administered as per MD. - Weakness Regular therapeutic activity and exercise. Strengthening exercises to be performed. - PNEUMONIA monitoring of patient symptoms and medication management by physician. - RESPIRATORY acute respiratory failure. - CVA pt has a history of A-Fib and symptoms will be monitored. - Falls Patient will be evaluated for Fall Precautions and will be placed on Fall Precautions as indicated pe r protocol. Educated pt on fall prevention strategies to reduce/eliminate fall risk. - Pain Clinical staff will assess patient's pain level every shift per protocol to monitor for pain manageme nt effectiveness. Educate patient on pain management strategies. INTERVENTIONS - CHF monitoring of patient symptoms and medication management by physician. - A-Fib monitor for complications. - ANEMIA - OBESITY monitor for complications. - Pneumonia pt will be instructed on use of and be encouraged to use incentive spirometry. Interval Chest X-Rays as needed. Medications will be administered as indicated by physician. Regular OOB activity and exerc ise to reduced risk for progression of condition. - COPD Educate pt on use of incentive spirometer and deep breathing exercises. Monitory O2 saturation and ot her vitals. Supplemental O2 as inidicated. - Cellulitis Daily monitoring of involved area. Medicate as indicated by physician. - UTI Medications as indicated by physician. Monitoring Urinary Output. PATIENT COULD BE AT RISK FOR COMPLICATIONS FROM ADVERSE MEDICAL CONDITIONS DUE TO HIS/HER COMORBIDITI ES AND THE RIGORS OF THE INTENSIVE REHABILLITATION PROGRAM. METHODS OR INTERVENTIONS TO AVOID COMPLIC ATIONS INCLUDE: - Deep Vein Thrombosis (DVT) Prophylaxis therapy for prevention . Sequential Compression Device (SCD). TE D Hose. - Bleeding Assess lab values and manage abnormalities. Nursing to teach precautions for anti-coagulation therapy . Wound to be assessed every shift. - Infection Clinical staff to assess and manage the signs and symptoms of infection including fever, redness, war mth, etc. - Urinary Tract Infection - Falls Patient will be evaluated for Fall Precautions and will be placed on Fall Precautions as indicated pe r protocol. - Skin Breakdown Nursing will assess skin daily using assessment tool and will place on Skin Breakdown Precautions as indicated per protocol. - Pain Clinical staff may employ non-medication methods such as massage, distraction, decrease stimulus, etc . as needed. Clinical staff will assess patient's pain level every shift per protocol to assess and e nsure pain management effectiveness. Medications will be given and the pain level re-assessed. PRELIMINARY PLAN OF CARE: - Physical Therapy Patient needs Physical Therapy for a daily minimum of 1.5 hours at least 5 out of 7 days, to improve: Mobility, Strengthening, Transfers, Stretching, ROM, Endurance, Ability to manage stairs, Gait, and Balance. - Speech Therapy Patient needs Speech Therapy for a daily minimum of 0.5 hours at least 5 out of 7 days, to improve: S wallowing, Cognition, Language Skills, and Compensatory Strategies. - Rehabilitation Nursing Patient requires 24x7 Rehabilitation Nursing for: Pain Issues, Identifying and preventing risk factor s, Monitoring and reporting current medical conditions, Assisting with ambulation and transfer, Amanda ting with all ADL-s, Teaching patients about disease process and medications, Family teaching, Provid ing safe environment, Bowel and Bladder Issues, Skin Integrity, and Medication Management. Patient needs Box Printer and/or Case Management for: Discharge Planning, Arranging Home Equipmen t or Services, and Family Interventions. - Dietary and Nutrition Services Patient needs Dietary and Nutrition Services for: Adequate Nutrition, Nutritional Supplements, and Nu tritional Education. - Occupational Therapy Patient needs Occupational Therapy for a daily minimum of 1.5 hours at least 5 out of 7 days, to impr ove Activities of Daily Living, including: Eating, Grooming, Bathing, Dressing, Toileting, Toilet Tra nsfers, Community Reintegration, Higher functional activities, Adaptive Equipment, Splinting, Househo ld Tasks, and Other activities as determined. QI SCORES: - Self-Care A. Eating 03-Partial/moderate assistance B. Oral hygiene 02-Substantial/maximal assistance C. Toileting hygiene 02-Substantial/maximal assistance E. Shower/bathe self 02-Substantial/maximal assistance F. Upper body dressing 02-Substantial/maximal assistance G. Lower body dressing 02-Substantial/maximal assistance H. Putting on/taking off footwear 88-Not attempted due to medical condition or safety concerns - Mobility A. Roll left and right 03-Partial/moderate assistance B. Sit to lying 03-Partial/moderate assistance C. Lying to sitting on side of bed 02-Substantial/maximal assistance D. Sit to stand 02-Substantial/maximal assistance E. Chair/[id number]-gfrvn transfer 02-Substantial/maximal assistance F. Toilet transfer 02-Substantial/maximal assistance G. Car transfer 88-Not attempted due to medical condition or safety concerns I. Walk 10 feet 88-Not attempted due to medical condition or safety concerns J. Walk 50 feet with two turns 88-Not attempted due to medical condition or safety concerns K. Walk 150 feet 88-Not attempted due to medical condition or safety concerns L. Walking 10 feet on uneven surfaces 88-Not attempted due to medical condition or safety concerns M. 1 step (curb) 88-Not attempted due to medical condition or safety concerns N. 4 steps 88-Not attempted due to medical condition or safety concerns O. 12 steps 88-Not attempted due to medical condition or safety concerns P. Picking up object 88-Not attempted due to medical condition or safety concerns R. Wheel 50 feet with two turns 88-Not attempted due to medical condition or safety concerns S. Wheel 150 feet 88-Not attempted due to medical condition or safety concerns - Endurance Fair - Balance Poor - Safety Awareness Fair POTENTIAL FUNCTIONAL GOALS FOR PATIENT TO ACHIEVE BY DISCHARGE: - Safety Precaution Patient will remain free from falls or injury at time of discharge. - Bed Mobility Patient will perform bed mobility at 4-Zuhair level of assistance. - Transfers Patient will complete transfers from bed to chair at 4-Zuhair level of assistance. - Mobility Patient will ambulate 150 ft with 4-Zuhair level of assistance with RW. PATIENT REHAB POTENTIAL Thomas PORTER is able and expected to receive 3 hours of individualized therapy daily on at least 5 of every 7 days Thomas PORTER's prognosis for significant practical improvement within a reasonable period of time appe ars Good Expected level of measurable improvement will be of a practical value to Thomas PORTER's functional cap acity or adaptations to impairments Has a viable Discharge Plan Medically appropriate; condition is sufficiently stable to participate in intensive rehab program DISCHARGE PLAN: - Estimated Length of Stay (days) 11. - Consensus on plan Discharge plan has been discussed with primary caregiver. Patient/Family is in agreement with the pavithra n. Primary caregiver is in agreement with the plan. - Patient/Family Goals Return home independently. - Planned Living Setting Upon Discharge Home, to live with Family/Relatives. Transitional Living. CONCLUSION ON REHABILITATION NECESSITY: I have evaluated patient's pre-admission functional status and, comparing it to the patient's post-ad mission functional status now, I conclude that the pre-admission assessment was accurate. Patient's c ondition on admission supports the medical necessity of admission to IR[facility]. It is safe to proceed with patient's therapy program. SIGNATURE PANEL: (CDT)
[2021-12-18] MEDS: FLUTICASONE 110 MCG/PUFF 12 GM INH IH SCH (20:00)
[2021-12-18] MEDS ORDERED: NA CHLORIDE 0.9% 250 ML ONE (20:08)
--- NOTE | 2021-12-18 21:26 | P.CNS ---
Date of Consult: 12/18/21 Reason for Consult: CKD Requesting Physician: Chan Augustin Chief Complaint: Weakness History of Present Illness: 71 yo WF morbid obesity, CKD recently admitted to [facility] with LE cellulitis and sepsis now presents to the [facility] for PT. She has a history of BARRETT that has improved since her admission. She is feeling better today. Improving appetite. She still feels swollen. Weakness and fatigue. Allergies clindamycin Allergy (Intermediate, Verified 12/17/21 21:41) Hives/Rash vancomycin Allergy (Intermediate, Verified 12/17/21 21:41) Hives/Rash decongestants Adverse Reaction (Mild, Uncoded 04/10/21 19:40) increased heart rate Home medications list reviewed: Yes Home Medications: Albuterol Inhaler [Ventolin Inhaler*] 2 puff IN Q4H PRN 12/17/21 Amiodarone HCl [Cordarone*] 200 mg PO BID 12/17/21 Famotidine [Pepcid*] 20 mg PO BID 12/17/21 Ferrous Sulfate [Ferrous Sulfate*] 325 mg PO DAILY 12/17/21 Fluconazole 200 mg PO DAILY 12/17/21 Furosemide [Lasix*] 20 mg PO BID 12/17/21 Gabapentin 400 mg PO DAILY 12/17/21 Linezolid 600 mg PO BID 12/17/21 Losartan Potassium 50 mg PO BID 12/17/21 PIPER/TAZO/NS 3.375gm [Zosyn 3.375 gm/100 ml Ns Ivpb] 3.375 gm IV Q8H 12/17/21 Rivaroxaban [Xarelto] 20 mg PO DAILY 12/17/21 Sertraline [Zoloft*] 50 mg PO DAILY 12/17/21 Spironolactone [Aldactone*] 25 mg PO DAILY 12/17/21 Zinc Sulfate [Zinc Sulfate*] 220 mg PO BID 12/17/21 - Past Medical/Surgical History Diabetic: No -: COPD -: Atrial Fib -: htn -: PAD -: Obesity -: SILVANA -: CHF -: Former Smoker -: hysterectomy -: carpal tunnel surgery Psychosocial/ Personal History: Lives with her - Family History Mother Medical History: Cancer Notes: lung cancer Father Medical History: Heart disease Notes: heart attack - Social History Smoking Status: Current every day smoker Alcohol use: No CD- Drugs: No Caffeine use: Yes Place of Residence: Home Review of Systems 10-point ROS is otherwise unremarkable General: Weakness Respiratory: SOB with Excertion Cardiovascular: Edema Neurological: Weakness Physical Examination Temp Pulse Resp BP Pulse Ox 96.5 F L 52 16 118/69 99 12/18/21 19:54 12/18/21 19:54 12/18/21 19:54 12/18/21 19:54 12/18/21 19:54 General: Oriented x3, Cooperative HEENT: Atraumatic Neck: Supple Respiratory: Diminished Cardiovascular: Regular rate/rhythm, Edema Gastrointestinal: Soft and benign, Non-distended Musculoskeletal: No clubbing, No contractures Integumentary: No rashes, No cyanosis Neurological: Normal speech Laboratory Data (last 24 hrs) 12/18/21 05:15: Sodium 134 L, Potassium 4.1, BUN 58 H, Creatinine 1.35 H, Glucose 98, Magnesium 2.5 H 12/18/21 05:15: WBC 13.80 H, Hgb 8.7 L, Hct 27.8 L, Plt Count 284 Imagings Data: [facility] [employer] records reviewed. Conclusions/Impression: CKD III -No NSAIDs Hyponatremia -Encourage nutrition Alkalosis -Start Diamox HTN with CKD/ CHF -Reduce Losartan 25mg BID SILVANA -Recommend CPAP Diastolic CHF, chronic -Start Bumex BID -Increase Spironolactone BID Mild malnutrition -Encourage nutrition Anemia in chronic illness -Monitor H&H Morbid Obesity Debility -PT as tolerated Thank you kindly for the consultation.
[2021-12-19] MEDS: PIPER TAZO 3.375 GM in NA CHLORIDE 0.9% 100 ML IV SCH ×3 (00:02→17:00)
[2021-12-19] MEDS: FLUTICASONE 110 MCG/PUFF 12 GM INH IH SCH ×2 (08:00→20:00)
[2021-12-19] MEDS: FERROUS SULFATE 325 MG TAB PO SCH (08:39)
[2021-12-19] MEDS: FLUCONAZOLE 100 MG TAB PO SCH (08:40)
[2021-12-19] MEDS: ZINC SULFATE 220 MG CAP PO SCH ×2 (08:40→20:22)
[2021-12-19] MEDS: DOCUSATE NA 100 MG CAP PO SCH ×2 (08:40→20:22)
[2021-12-19] MEDS: VITAMIN D 5,000 UNIT CAP PO SCH (08:40)
[2021-12-19] MEDS: LINEZOLID 600 MG TAB PO SCH ×2 (08:40→20:22)
[2021-12-19] MEDS: BUMETANIDE 1 MG TABLET PO SCH ×2 (08:40→17:29)
[2021-12-19] MEDS: RIVAROXABAN 10 MG TABLET PO SCH (08:41)
[2021-12-19] MEDS: SPIRONOLACTONE 25 MG TABLET PO SCH ×2 (08:41→17:29)
[2021-12-19] MEDS: GABAPENTIN 400 MG CAP PO SCH (08:42)
[2021-12-19] MEDS: LOSARTAN POTASSIUM 50 MG TABLET PO SCH ×2 (08:42→20:23)
[2021-12-19] MEDS: NYSTATIN PWDR 100000 UNIT/GM TOP SCH ×2 (08:42→20:22)
[2021-12-19] MEDS: FAMOTIDINE 20 MG TAB PO SCH ×2 (08:42→20:22)
[2021-12-19] MEDS: AMIODARONE HCL 200 MG TAB PO SCH ×2 (08:43→20:22)
[2021-12-19] MEDS: SERTRALINE HCL 50 MG TAB PO SCH (08:43)
[2021-12-19] MEDS: acetaZOLAMIDE 250 MG TAB PO SCH (12:08)
--- NOTE | 2021-12-19 17:10 | R.PN ---
PROGRESS NOTES ENCOUNTER DATE AND TIME: 12/19/2021 17:03 (CDT) NAME ISAÍAS PORTER DATE OF : 1950 DATE OF ADMISSION: 12/17/2021 20:07 (CDT) Bronchiectasis, Chronic Bronchitis, COPDCHIEF COMPLAINT: COPD, chronic bronchitis SUBJECTIVE: Pt denied any depression. Pt denied any Shortness of Breath. WBC 13.8, Hgb 8.7, Plt 284, Na 134, Clinical Science Liaison 1.35, prealbumin 19.5, glucose 94 to 135. COVID-19 is negativ e. Therapeutic exercises done with minimal assistance. Bed mobility done with standby assistance. VITAL SIGNS Temperature: 97.6 F SBP/DBP: 107 to 133/43 to 49 Pulse: 55 Resp: 16 MEDICATION ALLERGIES: No Known Drug Allergies (NKDA) ENVIRONMENTAL ALLERGIES: - Substance Allergies None Known - Other Allergies None Known NURSING: - Shower allowing shower PRECAUTIONS: - Fall Precaution SAFTY AND FALL ACTIVITIES OOB only with supervision THERAPIES: - Dietary and Nutrition Adequate Nutrition. Nutritional Education. Nutritional Supplements. Evaluate and Treat. - Occupational Therapy Cognitive Retraining. Patient needs Occupational Therapy for a daily minimum of 1.5 hours at least 5 out of 7 days, to improve Activities of Daily Living, including: Eating, Grooming, Bathing, Dressing, Toileting, Toilet Transfers, Community Reintegration, Higher functional activities, Adaptive Equipme nt, Splinting, Household Tasks, and Other activities as determined. Evaluate and Treat. Visual Percep tual Training. Patient/Family Education. Safety Awareness. Transfer Training. Adaptive Equipment. Ivan sehold Tasks. UE Strengthening. - Speech Therapy Cognitive Training. Expressive Language Skills. Memory Strategies. Patient needs Speech Therapy for a daily minimum of 1.5 hours at least 5 out of 7 days, to improve: Swallowing, Cognition, Language Ski lls, and Compensatory Strategies. Receptive Language Skills. Speech Intelligibility Training. Evaluat e and Treat. - Physical Therapy Patient needs Physical Therapy for a daily minimum of 1.5 hours at least 5 out of 7 days, to improve: Mobility, Strengthening, Transfers, Stretching, ROM, Endurance, Ability to manage stairs, Gait, and Balance. Mobility Training. Evaluate and Treat. Gait Training. Safety Awareness. Balance Training. Pa tient/Family Education. LE Strengthening. Medical Equipment Assessment and Evaluation. PHYSICAL EXAM - Gen Alert and awake Lying in bed No apparent distress Oriented to: person, time, and place - Skin No skin breakdown. Normacephalic - Eyes No abnormalities - Neck No abnormalities - CVS RRR - Chest No abnormalities - Abd Obese - Ext Moderate edema in both lower extremities. - MSK 4+/5 weakness in both lower extremities. - Neuro No focal deficits - Psych Mild depression. ASSESSMENT: Pt. is a 71 yo Right-handed female.On 12/03/2021 she was admitted to [facility] with diagnosi s Bronchiectasis, Chronic Bronchitis, COPD.Extreme obesity BMI 56.6Her impairment category is Pulmona ry Disorders 10 - Chronic Obstructive Pulmonary Disease (10.1).Pre-morbidly, Pt. was independent/mod -I in Locomotion, Safety Awareness, Social Cognition, Balance, and Transfers Control; and she had goo d Sphincter Control, Self-Care, Communication, and Endurance.Currently, she has deficits of Locomotio n, Safety Awareness, Social Cognition, Balance, Transfers Control, Sphincter Control, Self-Care, Comm unication, and Endurance.Pt. is now referred to [facility] for acute in-patien t rehabilitation in order to maximize patient's functional independence in activities of daily living , strength, ROM, and mobility.- Rehab Goal Patient has realistic goal of being discharged at assistance level 7-Ind to reside at Home with Fami ly/Relatives. MDM/PLAN: - Physical Therapy Gait dysfunction - to improve, our physical therapists will perform initial evaluation of pt's statu s upon admission and devise an individualized program for Gait Training, and Wheel Chair mobility Inability to transfer - to improve, our physical therapists will perform initial evaluation of pt's status upon admission and devise an individualized program for Bed mobility Need for home safety evaluation - to improve, our physical therapists will perform initial evaluatio n of pt's status upon admission and devise an individualized program for Home Evaluation Need in caregiver upon discharge - to improve, our physical therapists will perform initial evaluati on of pt's status upon admission and devise an individualized program for Caregiver Training New precaution - to improve, our physical therapists will perform initial evaluation of pt's status upon admission and devise an individualized program for Patient precaution education Poor balance - to improve, our physical therapists will perform initial evaluation of pt's status up on admission and devise an individualized program for Balance Training Poor endurance - to improve, our physical therapists will perform initial evaluation of pt's status upon admission and devise an individualized program for Endurance Training Weakness - to improve, our physical therapists will perform initial evaluation of pt's status upon a dmission and devise an individualized program for Aquatic Therapy, Neuromuscular Reeducation, and Str engthening Achieving independence - to improve, our physical therapists will perform initial evaluation of pt's status upon admission and devise an individualized program for Community Reintegration Activities - Occupational Therapy ADL deficits - to improve, our occupation therapists will perform initial evaluation of pt's status upon admission and devise an individualized program for Bathing, Bed mobility, Community Reintegratio n, Cooking, Dressing, Eating, Fine Motor Skills, Grooming, Homemaking, Kitchen Mobility, Laundry, Pat ient Education, Safety Awareness, Splinting - Positioning, Transfers(Toilet, Tub, Shower), and Wheel Chair Management Cognitive deficits - to improve, our occupation therapists will perform initial evaluation of pt's s tatus upon admission and devise an individualized program for Cognition - orientation Need for pet care assistant - to improve, our occupation therapists will perform initial evaluation of pt's status upon admission and devise an individualized program for Caregiver Training Weakness - to improve, our occupation therapists will perform initial evaluation of pt's status upon admission and devise an individualized program for Aquatic Therapy, Balance, Endurance, UE ROM, and UE strengthening - Other See attached MAR (Medication Administration Record) - Diet Type Continue Regular - Diet - Liquid Texture Continue Regular - Tube Feed Continue N/A - Fall Precaution SAFTY AND FALL - Diet - Solid Texture Continue Regular - Shower allowing shower FUNCTIONAL STATUS: UPDATED AT WEEKLY TEAM CONFERENCE - Bladder Same accident frequency: 7-Ind - No accidents in the past 7 days - Bowel Same accident frequency: 7-Ind - No accidents in the past 7 days - Walking Same score based on distance walked: 0(N/A) - Wheelchair Same score based on distance traveled: 0(N/A) FUNCTIONAL STATUS: - Self-Care A. Eating Ind B. Grooming modA C. Bathing Dep D. Dressing - Upper modA E. Dressing - Lower maxA F. Toileting maxA - Sphincter Control G. Bladder control sup H. Bowel control sup - Transfers Control I. Bed/Chair/Wheelchair Dep J. Toilet maxA K. Tub/Shower Dep - Locomotion L. Walk/Wheelchair (B) Dep M. Stairs ADNO - Communication N. Comprehension (B) Vern O. Expression (B) Vern - Social Cognition P. Social Interaction Ind Q. Problem Solving sup R. Memory Vern - Endurance Poor - Balance Poor - Safety Awareness Fair QI SCORES: - Self-Care A. Eating 03-Partial/moderate assistance B. Oral hygiene 02-Substantial/maximal assistance C. Toileting hygiene 02-Substantial/maximal assistance E. Shower/bathe self 02-Substantial/maximal assistance F. Upper body dressing 02-Substantial/maximal assistance G. Lower body dressing 02-Substantial/maximal assistance H. Putting on/taking off footwear 88-Not attempted due to medical condition or safety concerns - Mobility A. Roll left and right 03-Partial/moderate assistance B. Sit to lying 03-Partial/moderate assistance C. Lying to sitting on side of bed 02-Substantial/maximal assistance D. Sit to stand 02-Substantial/maximal assistance E. Chair/icn-yd-skhus transfer 02-Substantial/maximal assistance F. Toilet transfer 02-Substantial/maximal assistance G. Car transfer 88-Not attempted due to medical condition or safety concerns I. Walk 10 feet 88-Not attempted due to medical condition or safety concerns J. Walk 50 feet with two turns 88-Not attempted due to medical condition or safety concerns K. Walk 150 feet 88-Not attempted due to medical condition or safety concerns L. Walking 10 feet on uneven surfaces 88-Not attempted due to medical condition or safety concerns M. 1 step (curb) 88-Not attempted due to medical condition or safety concerns N. 4 steps 88-Not attempted due to medical condition or safety concerns O. 12 steps 88-Not attempted due to medical condition or safety concerns P. Picking up object 88-Not attempted due to medical condition or safety concerns R. Wheel 50 feet with two turns 88-Not attempted due to medical condition or safety concerns S. Wheel 150 feet 88-Not attempted due to medical condition or safety concerns - Endurance Fair - Balance Poor - Safety Awareness Fair [facility]IC[facility]: Self-Care, Mobility, Endurance, Balance, and Safety Awareness SIGNATURE PANEL: (CDT)
[2021-12-19] MEDS: JUVEN PACKET PO SCH (20:23)
[2021-12-20] MEDS: PIPER TAZO 3.375 GM in NA CHLORIDE 0.9% 100 ML IV SCH ×3 (00:32→16:50)
[2021-12-20 05:13] LABS: Absolute Lymphocytes (CBC) 0.7 K/uL (0.7-4.9); Hematocrit 27.3 % (36.0-45.0); Lymphocytes % 4.7 % (15.3-44.8); MPV 8.1 fL (7.6-11.3); RBC Red Blood Cell Count 3.45 M/uL (3.86-4.86)
[2021-12-20 05:33] LABS: Albumin 2.7 g/dL (3.4-5.0); Magnesium 2.6 mg/dL (1.8-2.4); Potassium 3.8 mmol/L (3.5-5.1); Prealbumin 22.4 mg/dL (20-40)
[2021-12-20 06:47] LABS: Platelet Estimate ADEQ
[2021-12-20 06:48] LABS: Anisocytosis 2+; Blood Morphology Comment NOTED (NOT SEEN)
[2021-12-20] MEDS: LOSARTAN POTASSIUM 50 MG TABLET PO SCH ×2 (08:00→19:39)
[2021-12-20] MEDS: FLUTICASONE 110 MCG/PUFF 12 GM INH IH SCH ×2 (08:00→19:42)
[2021-12-20] MEDS: FLUCONAZOLE 100 MG TAB PO SCH (08:20)
[2021-12-20] MEDS: NYSTATIN PWDR 100000 UNIT/GM TOP SCH ×2 (08:20→19:39)
[2021-12-20] MEDS: LINEZOLID 600 MG TAB PO SCH ×2 (08:20→19:39)
[2021-12-20] MEDS: DOCUSATE NA 100 MG CAP PO SCH ×2 (08:21→19:39)
[2021-12-20] MEDS: VITAMIN D 5,000 UNIT CAP PO SCH (08:21)
[2021-12-20] MEDS: FERROUS SULFATE 325 MG TAB PO SCH (08:21)
[2021-12-20] MEDS: SPIRONOLACTONE 25 MG TABLET PO SCH ×2 (08:21→16:51)
[2021-12-20] MEDS: BUMETANIDE 1 MG TABLET PO SCH ×2 (08:21→16:51)
[2021-12-20] MEDS: GABAPENTIN 400 MG CAP PO SCH (08:21)
[2021-12-20] MEDS: ZINC SULFATE 220 MG CAP PO SCH ×2 (08:21→20:00)
[2021-12-20] MEDS: FAMOTIDINE 20 MG TAB PO SCH ×2 (08:22→19:39)
[2021-12-20] MEDS: SERTRALINE HCL 50 MG TAB PO SCH (08:22)
[2021-12-20] MEDS: AMIODARONE HCL 200 MG TAB PO SCH ×2 (08:24→19:39)
[2021-12-20] MEDS: JUVEN PACKET PO SCH ×2 (08:27→19:42)
[2021-12-20] MEDS: RIVAROXABAN 20 MG TABLET PO SCH (08:27)
[2021-12-20] MEDS: acetaZOLAMIDE 250 MG TAB PO SCH (12:17)
[2021-12-20 14:10] VITALS: BMI 56.3
--- NOTE | 2021-12-20 18:07 | R.PN ---
PROGRESS NOTES ENCOUNTER DATE AND TIME: 12/20/2021 18:02 (CDT) NAME ISAÍAS PORTER DATE OF : 1950 DATE OF ADMISSION: 12/17/2021 20:07 (CDT) Bronchiectasis, Chronic Bronchitis, COPDCHIEF COMPLAINT: COPD, chronic bronchitis SUBJECTIVE: Pt denied any depression. Pt denied any Shortness of Breath. WBC 14.4, Hgb 8.2, Plt 284, Na 134, [employer] 1.52, prealbumin 22.4, glucose 118 to 138. COVID-19 is negati ve. Therapeutic exercises done with minimal assistance. Bed mobility done with standby assistance. Mobilized wheelchair 52' with minimum assistance. VITAL SIGNS Temperature: 97.8 F SBP/DBP: 130/65 Pulse: 61 Resp: 16 MEDICATION ALLERGIES: No Known Drug Allergies (NKDA) ENVIRONMENTAL ALLERGIES: - Substance Allergies None Known - Other Allergies None Known NURSING: - Shower allowing shower PRECAUTIONS: - Fall Precaution SAFTY AND FALL ACTIVITIES OOB only with supervision THERAPIES: - Dietary and Nutrition Adequate Nutrition. Nutritional Education. Nutritional Supplements. Evaluate and Treat. - Occupational Therapy Cognitive Retraining. Patient needs Occupational Therapy for a daily minimum of 1.5 hours at least 5 out of 7 days, to improve Activities of Daily Living, including: Eating, Grooming, Bathing, Dressing, Toileting, Toilet Transfers, Community Reintegration, Higher functional activities, Adaptive Equipme nt, Splinting, Household Tasks, and Other activities as determined. Evaluate and Treat. Visual Percep tual Training. Patient/Family Education. Safety Awareness. Transfer Training. Adaptive Equipment. Ivan sehold Tasks. UE Strengthening. - Speech Therapy Cognitive Training. Expressive Language Skills. Memory Strategies. Patient needs Speech Therapy for a daily minimum of 1.5 hours at least 5 out of 7 days, to improve: Swallowing, Cognition, Language Ski lls, and Compensatory Strategies. Receptive Language Skills. Speech Intelligibility Training. Evaluat e and Treat. - Physical Therapy Patient needs Physical Therapy for a daily minimum of 1.5 hours at least 5 out of 7 days, to improve: Mobility, Strengthening, Transfers, Stretching, ROM, Endurance, Ability to manage stairs, Gait, and Balance. Mobility Training. Evaluate and Treat. Gait Training. Safety Awareness. Balance Training. Pa tient/Family Education. LE Strengthening. Medical Equipment Assessment and Evaluation. PHYSICAL EXAM - Gen Alert and awake Lying in bed No apparent distress Oriented to: person, time, and place - Skin No skin breakdown. Normacephalic - Eyes No abnormalities - Neck No abnormalities - CVS RRR - Chest No abnormalities - Abd Obese - Ext Moderate edema in both lower extremities. - MSK 4+/5 weakness in both lower extremities. - Neuro No focal deficits - Psych Mild depression. ASSESSMENT: Pt. is a 71 yo Right-handed female.On 12/03/2021 she was admitted to [facility] with diagnosi s Bronchiectasis, Chronic Bronchitis, COPD.Extreme obesity BMI 56.6Her impairment category is Pulmona ry Disorders 10 - Chronic Obstructive Pulmonary Disease (10.1).Pre-morbidly, Pt. was independent/mod -I in Locomotion, Safety Awareness, Social Cognition, Balance, and Transfers Control; and she had goo d Sphincter Control, Self-Care, Communication, and Endurance.Currently, she has deficits of Locomotio n, Safety Awareness, Social Cognition, Balance, Transfers Control, Sphincter Control, Self-Care, Comm unication, and Endurance.Pt. is now referred to [facility] for acute in-patien t rehabilitation in order to maximize patient's functional independence in activities of daily living , strength, ROM, and mobility.- Rehab Goal Patient has realistic goal of being discharged at assistance level 7-Ind to reside at Home with Fami ly/Relatives. MDM/PLAN: - Physical Therapy Gait dysfunction - to improve, our physical therapists will perform initial evaluation of pt's statu s upon admission and devise an individualized program for Gait Training, and Wheel Chair mobility Inability to transfer - to improve, our physical therapists will perform initial evaluation of pt's status upon admission and devise an individualized program for Bed mobility Need for home safety evaluation - to improve, our physical therapists will perform initial evaluatio n of pt's status upon admission and devise an individualized program for Home Evaluation Need in caregiver upon discharge - to improve, our physical therapists will perform initial evaluati on of pt's status upon admission and devise an individualized program for Caregiver Training New precaution - to improve, our physical therapists will perform initial evaluation of pt's status upon admission and devise an individualized program for Patient precaution education Poor balance - to improve, our physical therapists will perform initial evaluation of pt's status up on admission and devise an individualized program for Balance Training Poor endurance - to improve, our physical therapists will perform initial evaluation of pt's status upon admission and devise an individualized program for Endurance Training Weakness - to improve, our physical therapists will perform initial evaluation of pt's status upon a dmission and devise an individualized program for Aquatic Therapy, Neuromuscular Reeducation, and Str engthening Achieving independence - to improve, our physical therapists will perform initial evaluation of pt's status upon admission and devise an individualized program for Community Reintegration Activities - Occupational Therapy ADL deficits - to improve, our occupation therapists will perform initial evaluation of pt's status upon admission and devise an individualized program for Bathing, Bed mobility, Community Reintegratio n, Cooking, Dressing, Eating, Fine Motor Skills, Grooming, Homemaking, Kitchen Mobility, Laundry, Pat ient Education, Safety Awareness, Splinting - Positioning, Transfers(Toilet, Tub, Shower), and Wheel Chair Management Cognitive deficits - to improve, our occupation therapists will perform initial evaluation of pt's s tatus upon admission and devise an individualized program for Cognition - orientation Need for palliative care coordinator - to improve, our occupation therapists will perform initial evaluation of pt's status upon admission and devise an individualized program for Caregiver Training Weakness - to improve, our occupation therapists will perform initial evaluation of pt's status upon admission and devise an individualized program for Aquatic Therapy, Balance, Endurance, UE ROM, and UE strengthening - Other See attached MAR (Medication Administration Record) - Diet Type Continue Regular - Diet - Liquid Texture Continue Regular - Tube Feed Continue N/A - Fall Precaution SAFTY AND FALL - Diet - Solid Texture Continue Regular - Shower allowing shower FUNCTIONAL STATUS: UPDATED AT WEEKLY TEAM CONFERENCE - Bladder Same accident frequency: 7-Ind - No accidents in the past 7 days - Bowel Same accident frequency: 7-Ind - No accidents in the past 7 days - Walking Same score based on distance walked: 0(N/A) - Wheelchair Same score based on distance traveled: 0(N/A) FUNCTIONAL STATUS: - Self-Care A. Eating Ind B. Grooming modA C. Bathing Dep D. Dressing - Upper modA E. Dressing - Lower maxA F. Toileting maxA - Sphincter Control G. Bladder control sup H. Bowel control sup - Transfers Control I. Bed/Chair/Wheelchair Dep J. Toilet maxA K. Tub/Shower Dep - Locomotion L. Walk/Wheelchair (B) Dep M. Stairs ADNO - Communication N. Comprehension (B) Vern O. Expression (B) Vern - Social Cognition P. Social Interaction Ind Q. Problem Solving sup R. Memory Vern - Endurance Poor - Balance Poor - Safety Awareness Fair QI SCORES: - Self-Care A. Eating 03-Partial/moderate assistance B. Oral hygiene 02-Substantial/maximal assistance C. Toileting hygiene 02-Substantial/maximal assistance E. Shower/bathe self 02-Substantial/maximal assistance F. Upper body dressing 02-Substantial/maximal assistance G. Lower body dressing 02-Substantial/maximal assistance H. Putting on/taking off footwear 88-Not attempted due to medical condition or safety concerns - Mobility A. Roll left and right 03-Partial/moderate assistance B. Sit to lying 03-Partial/moderate assistance C. Lying to sitting on side of bed 02-Substantial/maximal assistance D. Sit to stand 02-Substantial/maximal assistance E. Chair/[id number] transfer 02-Substantial/maximal assistance F. Toilet transfer 02-Substantial/maximal assistance G. Car transfer 88-Not attempted due to medical condition or safety concerns I. Walk 10 feet 88-Not attempted due to medical condition or safety concerns J. Walk 50 feet with two turns 88-Not attempted due to medical condition or safety concerns K. Walk 150 feet 88-Not attempted due to medical condition or safety concerns L. Walking 10 feet on uneven surfaces 88-Not attempted due to medical condition or safety concerns M. 1 step (curb) 88-Not attempted due to medical condition or safety concerns N. 4 steps 88-Not attempted due to medical condition or safety concerns O. 12 steps 88-Not attempted due to medical condition or safety concerns P. Picking up object 88-Not attempted due to medical condition or safety concerns R. Wheel 50 feet with two turns 88-Not attempted due to medical condition or safety concerns S. Wheel 150 feet 88-Not attempted due to medical condition or safety concerns - Endurance Fair - Balance Poor - Safety Awareness Fair [facility]IC[facility]: Self-Care, Mobility, Endurance, Balance, and Safety Awareness SIGNATURE PANEL: (CDT)
--- NOTE | 2021-12-20 20:40 | P.PN ---
Date of Service: 12/20/21 Vital Signs Temp Pulse Resp BP Pulse Ox 98.5 F 53 18 109/46 L 96 12/20/21 20:07 12/20/21 20:07 12/20/21 20:07 12/20/21 20:07 12/20/21 07:25 Medications Acetazolamide (Acetazolamide 250 Mg Tab) 500 mg PO Q24H [facility] Last Admin: 12/20/21 12:17 Dose: 500 mg Documented by: Albuterol Sulfate (Albuterol 2.5 Mg/3 Ml Neb Nishi) 2.5 mg IH Q4H PRN PRN Reason: SHORTNESS OF BREATH Last Admin: 12/19/21 05:40 Dose: 2.5 mg Documented by: Amiodarone HCl (Amiodarone Hcl 200 Mg Tab) 200 mg PO BID [facility] Last Admin: 12/20/21 19:39 Dose: 200 mg Documented by: Bumetanide (Bumetanide 1 Mg Tablet) 1 mg PO BIDL [facility] Last Admin: 12/20/21 16:51 Dose: 1 mg Documented by: Cholecalciferol (Vitamin D 5,000 Unit Cap) 5,000 unit PO DAILY [facility] Last Admin: 12/20/21 08:21 Dose: 5,000 unit Documented by: Dextrose (D50w 25 Gm/50 Ml Syringe) 12.5 gm IV PRN PRN; Protocol PRN Reason: HYPOGLYCEMIA Docusate Sodium (Docusate Na 100 Mg Cap) 100 mg PO BID [facility] Last Admin: 12/20/21 19:39 Dose: 100 mg Documented by: Famotidine (Famotidine 20 Mg Tab) 20 mg PO BID [facility]; Protocol Last Admin: 12/20/21 19:39 Dose: 20 mg Documented by: Ferrous Sulfate (Ferrous Sulfate 325 Mg Tab) 325 mg PO DAILY [facility] Last Admin: 12/20/21 08:21 Dose: 325 mg Documented by: Fluconazole (Fluconazole 100 Mg Tab) 200 mg PO DAILY [facility]; Protocol Stop: 12/24/21 08:01 Last Admin: 12/20/21 08:20 Dose: 200 mg Documented by: Gabapentin (Gabapentin 400 Mg Cap) 400 mg PO DAILY [facility] Last Admin: 12/20/21 08:21 Dose: 400 mg Documented by: Glucagon (Glucagon 1 Mg/Vial) 1 mg IM 1X PRN; Protocol PRN Reason: HYPOGLYCEMIA Home Med (Fluticasone 110 Mcg/Puff 12 Gm Inh) 110 ea IH BID [facility] Last Admin: 12/20/21 19:42 Dose: Not Given Documented by: Piperacillin Sod/Tazobactam (Sod 3.375 gm/ Sodium Chloride) 100 mls @ 25 mls/hr IV Q8HR [facility]; Protocol Last Admin: 12/20/21 16:50 Dose: 100 mls Documented by: L-Arginine/L-Glutamine/HMB (Chao Packet) 1 pkt PO BID [facility] Last Admin: 12/20/21 19:42 Dose: 1 pkt Documented by: Linezolid (Linezolid 600 Mg Tab) 600 mg PO BID [facility]; Protocol Stop: 12/27/21 20:01 Last Admin: 12/20/21 19:39 Dose: 600 mg Documented by: Losartan Potassium (Losartan Potassium 50 Mg Tablet) 25 mg PO BID [facility] Last Admin: 12/20/21 19:39 Dose: Not Given Documented by: Nystatin (Nystatin Pwdr [id number] Unit/Gm) 1 appl TOP BID [facility] Last Admin: 12/20/21 19:39 Dose: 1 appl Documented by: Rivaroxaban (Rivaroxaban 20 Mg Tablet) 20 mg PO DAILY [facility] Last Admin: 12/20/21 08:27 Dose: 20 mg Documented by: Sertraline HCl (Sertraline Hcl 50 Mg Tab) 50 mg PO DAILY [facility] Last Admin: 12/20/21 08:22 Dose: 50 mg Documented by: Sodium Chloride (Flush Normal Saline 10 Ml) 10 ml IV BID [facility] Last Admin: 12/20/21 19:42 Dose: 10 ml Documented by: Spironolactone (Spironolactone 25 Mg Tablet) 25 mg PO BIDL [facility] Last Admin: 12/20/21 16:51 Dose: 25 mg Documented by: Zinc Sulfate (Zinc Sulfate 220 Mg Cap) 220 mg PO BID [facility] Last Admin: 12/20/21 08:21 Dose: 220 mg Documented by: Lab Results (last 24 hrs) 12/20/21 19:11: POC Glucose 99 12/20/21 07:14: POC Glucose 120 12/20/21 04:30: Sodium 139, Potassium 3.8, Chloride 103, Carbon Dioxide 33 H, BUN 53 H, Creatinine 1.52 H, Estimated GFR 34 L, Glucose 138 H, Calcium 8.2 L, Magnesium 2.6 H, Albumin 2.7 L, Prealbumin 22.4 12/20/21 04:30: WBC 14.40 H, RBC 3.45 L, Hgb 8.2 L, Hct 27.3 L, MCV 79.1 L, MCH 23.8 L, MCHC 30.0 L, RDW 24.5 H, Plt Count 236, MPV 8.1 D, Neutrophils % 86.4 H, Lymphocytes % 4.7 L, Monocytes % 6.9, Eosinophils % 1.9, Basophils % 0.1, Absolute Neutrophils 12.4 H, Segmented Neutrophils 90 H, Absolute Lymphocytes 0.7, Lymphocytes 3 L, Monocytes 6, Absolute Monocytes 1.0, Eosinophils 1, Absolute Eosinophils 0.3, Absolute Basophils 0.0, Platelet Estimate Adeq, Anisocytosis 2+, Microcytosis 2+, Morphology Comment Noted Assessment/ Plan: Nephrology No dyspnea. BROWN. No chest pain Feeling better No acute events overnight Vitals, medications, blood work and imaging reviewed in the chart. General: Oriented x3, Cooperative. Obese. HEENT: Atraumatic Neck: Supple Respiratory: Diminished Cardiovascular: Regular rate/rhythm, Edema Gastrointestinal: Soft and benign, Non-distended Musculoskeletal: No clubbing, No contractures Integumentary: No rashes, No cyanosis Neurological: Normal speech Laboratory Data (last 24 hrs) 12/18/21 05:15: Sodium 134 L, Potassium 4.1, BUN 58 H, Creatinine 1.35 H, Glucose 98, Magnesium 2.5 H 12/18/21 05:15: WBC 13.80 H, Hgb 8.7 L, Hct 27.8 L, Plt Count 284 Imagings Data: EXAM DESCRIPTION: RAD - Chest Single View - 12/18/2021 6:29 am CLINICAL HISTORY: Pneumonia COMPARISON: Portable chest 08/30/2021 TECHNIQUE: AP portable chest image was obtained 12/18/2021 6:29 am . FINDINGS: Left subclavian Port-A-Cath has been placed since the prior examination. Focal airspace opacification with air bronchogram formation seen in the mid upper left lung field. This is new from the August examination. Overall interstitial opacification is prominent and may be slightly increased from the comparison. The dense consolidation of the right upper lobe seen on the August study has cleared are almost entirely cleared. There is minimal lateral opacification and may be remnant from that pneumonia. Heart size is prominent, similar to comparison. Central vasculature prominent. No measurable pleural effusion and no pneumothorax. No acute bony abnormality seen. No acute aortic findings suspected. IMPRESSION: Left upper lung field pneumonia new from prior imaging. Complete or near complete clearing of the right upper lobe pneumonia seen on the 08/30/2021 study. Heart, vasculature and lung markings are all prominent. A component of mild failure or volume overload concurrent with the pneumonia cannot be excluded. Conclusions/Impression: CKD III -No NSAIDs Hyponatremia -Encourage nutrition Alkalosis -Continue Diamox HTN with CKD/ CHF -Continue Losartan 25mg BID SILVANA -Recommend CPAP Diastolic CHF, chronic -Continue Bumex BID -Continue Spironolactone BID Mild malnutrition -Encourage nutrition Anemia in chronic illness -Monitor H&H Morbid Obesity Debility -PT as tolerated
[2021-12-21] MEDS: PIPER TAZO 3.375 GM in NA CHLORIDE 0.9% 100 ML IV SCH ×3 (00:32→16:44)
[2021-12-21 05:52] LABS: Hematocrit 25.5 % (36.0-45.0); Lymphocytes % 9.4 % (15.3-44.8); MPV 8.3 fL (7.6-11.3)
[2021-12-21 06:30] LABS: Albumin 2.7 g/dL (3.4-5.0); Bilirubin Total 0.5 mg/dL (0.2-1.0); Magnesium 2.2 mg/dL (1.8-2.4); Phosphorus 3.5 mg/dL (2.5-4.9); Potassium 3.8 mmol/L (3.5-5.1); Protein, Total 6.4 g/dL (6.4-8.2); Uric Acid 7.5 mg/dL (2.6-6.0)
[2021-12-21 06:31] LABS: Folic Acid, (Folate) 10.5 ng/mL (3.1-17.5)
[2021-12-21] MEDS: LOSARTAN POTASSIUM 50 MG TABLET PO SCH ×2 (08:00→20:00)
[2021-12-21] MEDS: FLUTICASONE 110 MCG/PUFF 12 GM INH IH SCH ×2 (08:00→20:00)
[2021-12-21] MEDS: JUVEN PACKET PO SCH ×2 (08:20→21:07)
[2021-12-21] MEDS: BUMETANIDE 1 MG TABLET PO SCH ×2 (08:21→16:48)
[2021-12-21] MEDS: DOCUSATE NA 100 MG CAP PO SCH ×2 (08:21→20:57)
[2021-12-21] MEDS: LINEZOLID 600 MG TAB PO SCH ×2 (08:21→20:59)
[2021-12-21] MEDS: FLUCONAZOLE 100 MG TAB PO SCH (08:21)
[2021-12-21] MEDS: RIVAROXABAN 20 MG TABLET PO SCH (08:21)
[2021-12-21] MEDS: GABAPENTIN 400 MG CAP PO SCH (08:21)
[2021-12-21] MEDS: FERROUS SULFATE 325 MG TAB PO SCH (08:22)
[2021-12-21] MEDS: VITAMIN D 5,000 UNIT CAP PO SCH (08:22)
[2021-12-21] MEDS: SPIRONOLACTONE 25 MG TABLET PO SCH ×2 (08:23→16:49)
[2021-12-21] MEDS: ZINC SULFATE 220 MG CAP PO SCH ×2 (08:23→21:01)
[2021-12-21] MEDS: SERTRALINE HCL 50 MG TAB PO SCH (08:23)
[2021-12-21] MEDS: FAMOTIDINE 20 MG TAB PO SCH ×2 (08:23→20:58)
[2021-12-21] MEDS: AMIODARONE HCL 200 MG TAB PO SCH ×2 (08:23→20:57)
[2021-12-21] MEDS: ACETAMINOPHEN 500 MG TAB PO PRN (08:53)
--- NOTE | 2021-12-21 09:46 | P.RH.PN ---
Estimated Length of Stay: 15 Expected Discharge Date: 01/01/22 Discharge Disposition Plan: Home Family Support: Yes Skilled Nursing Goal: Mobility, Transfers, Self Care Vital Signs: Last Vital Signs Temp 97.2 F 12/21/21 08:00 Pulse 56 12/21/21 08:21 Resp 16 12/21/21 08:00 BP 117/38 L 12/21/21 08:21 Pulse Ox 96 12/21/21 08:00 Laboratory: Laboratory Last Values WBC 10.70 K/uL (4.3-10.9) D 12/21/21 04:55 RBC 3.20 M/uL (3.86-4.86) L 12/21/21 04:55 Hgb 7.9 g/dL (12.0-15.0) L 12/21/21 04:55 Hct 25.5 % (36.0-45.0) L 12/21/21 04:55 MCV 79.9 fL (80-100) L 12/21/21 04:55 MCH 24.6 pg (27.0-35.0) L 12/21/21 04:55 MCHC 30.8 g/dL (32.0-36.0) L 12/21/21 04:55 RDW 23.8 % (12.1-15.2) H 12/21/21 04:55 Plt Count 233 K/uL (152-406) 12/21/21 04:55 MPV 8.3 fL (7.6-11.3) 12/21/21 04:55 Neutrophils % 79.3 % (41.7-73.7) H 12/21/21 04:55 Lymphocytes % 9.4 % (15.3-44.8) L 12/21/21 04:55 Monocytes % 8.8 % (3.3-12.3) 12/21/21 04:55 Eosinophils % 2.2 % (0-4.4) 12/21/21 04:55 Basophils % 0.3 % (0-1.3) 12/21/21 04:55 Absolute Neutrophils 8.5 K/uL (1.8-8.0) H 12/21/21 04:55 Segmented Neutrophils 90 % (40-80) H 12/20/21 04:30 Absolute Lymphocytes 1.0 K/uL (0.7-4.9) 12/21/21 04:55 Lymphocytes 3 % (15-42) L 12/20/21 04:30 Monocytes 6 % (0-10) 12/20/21 04:30 Absolute Monocytes 0.9 K/uL (0.1-1.3) 12/21/21 04:55 Eosinophils 1 % (0-3) 12/20/21 04:30 Absolute Eosinophils 0.2 K/uL (0-0.5) 12/21/21 04:55 Absolute Basophils 0.0 K/uL (0-0.5) 12/21/21 04:55 Platelet Estimate Adeq 12/20/21 04:30 Anisocytosis 2+ 12/20/21 04:30 Microcytosis 2+ 12/20/21 04:30 Morphology Comment Noted (NOT SEEN) 12/20/21 04:30 Sodium 139 mmol/L (136-145) 12/21/21 04:55 Potassium 3.8 mmol/L (3.5-5.1) 12/21/21 04:55 Chloride 103 mmol/L (98-107) 12/21/21 04:55 Carbon Dioxide 33 mmol/L (21-32) H 12/21/21 04:55 BUN 65 mg/dL (7-18) H 12/21/21 04:55 Creatinine 1.76 mg/dL (0.55-1.3) H 12/21/21 04:55 Estimated GFR 28 mL/min (=/>90) L 12/21/21 04:55 Glucose 121 mg/dL (74-106) H 12/21/21 04:55 POC Glucose 103 mg/dL (65-120) 12/21/21 07:15 Uric Acid 7.5 mg/dL (2.6-6.0) H 12/21/21 04:55 Calcium 8.7 mg/dL (8.5-10.1) 12/21/21 04:55 Phosphorus 3.5 mg/dL (2.5-4.9) 12/21/21 04:55 Magnesium 2.2 mg/dL (1.8-2.4) 12/21/21 04:55 Iron 23.0 ug/dL (50-170) L 12/21/21 04:55 TIBC 294 ug/dL (250-460) 12/21/21 04:55 Transferrin 210 mg/dL (200-360) 12/21/21 04:55 Transferrin % Sat 7.8 % (20.0-50.0) L 12/21/21 04:55 Total Bilirubin 0.5 mg/dL (0.2-1.0) 12/21/21 04:55 AST 14 U/L (15-37) L 12/21/21 04:55 ALT 33 U/L (12-78) 12/21/21 04:55 Alkaline Phosphatase 55 U/L (45-117) 12/21/21 04:55 NT-Pro-B Natriuret Pep 939 pg/mL (<125) H 12/21/21 04:55 Serum Total Protein 6.4 g/dL (6.4-8.2) 12/21/21 04:55 Albumin 2.7 g/dL (3.4-5.0) L 12/21/21 04:55 Globulin 3.7 g/dL (2.3-3.5) H 12/21/21 04:55 Albumin/Globulin Ratio 0.7 (1.1-1.8) L 12/21/21 04:55 Prealbumin 22.4 mg/dL (20-40) 12/20/21 04:30 Vitamin B12 880 pg/mL (193-986) 12/21/21 04:55 Serum Folate 10.5 ng/mL (3.1-17.5) 12/21/21 04:55 SARS-CoV-2 Rap RNA(RT-PCR) Negative (NEGATIVE) 12/17/21 22:00 Smear Scan Ok (OK) 12/18/21 05:15 Weight: 360 lb Wound Present: No Closed Surgical Incision Present: No Negative Pressure Wound Therapy Present: No Physician Update: Slow progress with physical therapy. Standby assistance yesterday. Now moderate assist with Vivien Lift to transfers. Wheelchair mobilized up to 24' with min assistance. Chest x-ray show continued pneumonia and she is on IV antibiotics. Comment: no skin breakdown reported Summary: Patient's care plan and senior living goals have been reviewed and revised as necessary. Please see the Rehabilitation Signature page for all necessary signatures.
[2021-12-21] MEDS: NYSTATIN PWDR 100000 UNIT/GM TOP SCH ×2 (10:43→20:58)
[2021-12-21] MEDS: acetaZOLAMIDE 250 MG TAB PO SCH (12:24)
[2021-12-21] MEDS ORDERED: ALBUTEROL 2.5 MG/3 ML NEB SOL IH PRN (14:00)
[2021-12-21] MEDS: SOD FERRIC GLUC COMPLX/SUCROSE 125 MG in NA CHLORIDE 0.9% 100 ML IV SCH (18:57)
--- NOTE | 2021-12-21 22:19 | P.PN ---
Date of Service: 12/21/21 Vital Signs Temp Pulse Resp BP Pulse Ox 96.6 F L 54 18 115/47 L 100 12/21/21 20:35 12/21/21 20:35 12/21/21 20:35 12/21/21 20:35 12/21/21 20:35 Medications Acetaminophen (Acetaminophen 500 Mg Tab) 500 mg PO Q4H PRN PRN Reason: Pain scale 2-4 (Mild) Last Admin: 12/21/21 08:53 Dose: 500 mg Documented by: Acetazolamide (Acetazolamide 250 Mg Tab) 500 mg PO Q24H [facility] Last Admin: 12/21/21 12:24 Dose: 500 mg Documented by: Albuterol Sulfate (Albuterol 2.5 Mg/3 Ml Neb Nishi) 2.5 mg IH [id number] PRN PRN Reason: SHORTNESS OF BREATH Amiodarone HCl (Amiodarone Hcl 200 Mg Tab) 200 mg PO BID [facility] Last Admin: 12/21/21 20:57 Dose: 200 mg Documented by: Bumetanide (Bumetanide 1 Mg Tablet) 1 mg PO BIDL [facility] Last Admin: 12/21/21 16:48 Dose: 1 mg Documented by: Cholecalciferol (Vitamin D 5,000 Unit Cap) 5,000 unit PO DAILY [facility] Last Admin: 12/21/21 08:22 Dose: 5,000 unit Documented by: Dextrose (D50w 25 Gm/50 Ml Syringe) 12.5 gm IV PRN PRN; Protocol PRN Reason: HYPOGLYCEMIA Docusate Sodium (Docusate Na 100 Mg Cap) 100 mg PO BID [facility] Last Admin: 12/21/21 20:57 Dose: 100 mg Documented by: Famotidine (Famotidine 20 Mg Tab) 20 mg PO BID [facility]; Protocol Last Admin: 12/21/21 20:58 Dose: 20 mg Documented by: Ferrous Sulfate (Ferrous Sulfate 325 Mg Tab) 325 mg PO DAILY [facility] Last Admin: 12/21/21 08:22 Dose: 325 mg Documented by: Fluconazole (Fluconazole 100 Mg Tab) 200 mg PO DAILY [facility]; Protocol Stop: 12/24/21 08:01 Last Admin: 12/21/21 08:21 Dose: 200 mg Documented by: Gabapentin (Gabapentin 400 Mg Cap) 400 mg PO DAILY [facility] Last Admin: 12/21/21 08:21 Dose: 400 mg Documented by: Glucagon (Glucagon 1 Mg/Vial) 1 mg IM 1X PRN; Protocol PRN Reason: HYPOGLYCEMIA Home Med (Fluticasone 110 Mcg/Puff 12 Gm Inh) 110 ea IH BID [facility] Last Admin: 12/21/21 20:00 Dose: Not Given Documented by: Piperacillin Sod/Tazobactam (Sod 3.375 gm/ Sodium Chloride) 100 mls @ 25 mls/hr IV Q8HR [facility]; Protocol Last Admin: 12/21/21 16:44 Dose: 100 mls Documented by: Ferric Sodium Gluconate Complex 125 mg/ Sodium Chloride 110 mls @ 100 mls/hr IV Q24H [facility] Stop: 12/28/21 21:05 Last Admin: 12/21/21 18:57 Dose: 110 mls Documented by: L-Arginine/L-Glutamine/HMB (Chao Packet) 1 pkt PO BID [facility] Last Admin: 12/21/21 21:07 Dose: 1 pkt Documented by: Linezolid (Linezolid 600 Mg Tab) 600 mg PO BID [facility]; Protocol Stop: 12/27/21 20:01 Last Admin: 12/21/21 20:59 Dose: 600 mg Documented by: Losartan Potassium (Losartan Potassium 50 Mg Tablet) 25 mg PO BID [facility] Last Admin: 12/21/21 20:00 Dose: Not Given Documented by: Nystatin (Nystatin Pwdr [id number] Unit/Gm) 1 appl TOP BID [facility] Last Admin: 12/21/21 20:58 Dose: 1 appl Documented by: Rivaroxaban (Rivaroxaban 15 Mg Tablet) 15 mg PO DAILY 5 PM [facility] Sertraline HCl (Sertraline Hcl 50 Mg Tab) 50 mg PO DAILY [facility] Last Admin: 12/21/21 08:23 Dose: 50 mg Documented by: Sodium Chloride (Flush Normal Saline 10 Ml) 10 ml IV BID [facility] Last Admin: 12/21/21 21:06 Dose: 10 ml Documented by: Spironolactone (Spironolactone 25 Mg Tablet) 25 mg PO BIDL [facility] Last Admin: 12/21/21 16:49 Dose: 25 mg Documented by: Zinc Sulfate (Zinc Sulfate 220 Mg Cap) 220 mg PO BID [facility] Last Admin: 12/21/21 21:01 Dose: 220 mg Documented by: Lab Results (last 24 hrs) 12/21/21 18:37: POC Glucose 104 12/21/21 07:15: POC Glucose 103 12/21/21 04:55: Sodium 139, Potassium 3.8, Chloride 103, Carbon Dioxide 33 H, BU N 65 H, Creatinine 1.76 H, Estimated GFR 28 L, Glucose 121 H, Uric Acid 7.5 H, Calcium 8.7, Phosphorus 3.5, Magnesium 2.2, Iron 23.0 L, TIBC 294, Transferrin 210, Transferrin % Sat 7.8 L, Total Bilirubin 0.5, AST 14 L, ALT 33, Alkaline Phosphatase 55, NT-Pro-B Natriuret Pep 939 H, Serum Total Protein 6.4, Albumin 2.7 L, Globulin 3.7 H, Albumin/Globulin Ratio 0.7 L, Vitamin B12 880, Serum Folate 10.5 12/21/21 04:55: WBC 10.70 D, RBC 3.20 L, Hgb 7.9 L, Hct 25.5 L, MCV 79.9 L, MCH 24.6 L, MCHC 30.8 L, RDW 23.8 H, Plt Count 233, MPV 8.3, Neutrophils % 79.3 H, Lymphocytes % 9.4 L, Monocytes % 8.8, Eosinophils % 2.2, Basophils % 0.3, Absolute Neutrophils 8.5 H, Absolute Lymphocytes 1.0, Absolute Monocytes 0.9, Absolute Eosinophils 0.2, Absolute Basophils 0.0 Assessment/ Plan: Nephrology No dyspnea. BROWN. No chest pain Feeling better No acute events overnight Vitals, medications, blood work and imaging reviewed in the chart. General: Oriented x3, Cooperative. Obese. HEENT: Atraumatic Neck: Supple Respiratory: Diminished Cardiovascular: Regular rate/rhythm, Edema Gastrointestinal: Soft and benign, Non-distended Musculoskeletal: No clubbing, No contractures Integumentary: No rashes, No cyanosis Neurological: Normal speech Laboratory Data (last 24 hrs) 12/18/21 05:15: Sodium 134 L, Potassium 4.1, BUN 58 H, Creatinine 1.35 H, Glucose 98, Magnesium 2.5 H 12/18/21 05:15: WBC 13.80 H, Hgb 8.7 L, Hct 27.8 L, Plt Count 284 Imagings Data: EXAM DESCRIPTION: RAD - Chest Single View - 12/18/2021 6:29 am CLINICAL HISTORY: Pneumonia COMPARISON: Portable chest 08/30/2021 TECHNIQUE: AP portable chest image was obtained 12/18/2021 6:29 am . FINDINGS: Left subclavian Port-A-Cath has been placed since the prior examination. Focal airspace opacification with air bronchogram formation seen in the mid upper left lung field. This is new from the August examination. Overall interstitial opacification is prominent and may be slightly increased from the comparison. The dense consolidation of the right upper lobe seen on the August study has cleared are almost entirely cleared. There is minimal lateral opacification and may be remnant from that pneumonia. Heart size is prominent, similar to comparison. Central vasculature prominent. No measurable pleural effusion and no pneumothorax. No acute bony abnormality seen. No acute aortic findings suspected. IMPRESSION: Left upper lung field pneumonia new from prior imaging. Complete or near complete clearing of the right upper lobe pneumonia seen on the 08/30/2021 study. Heart, vasculature and lung markings are all prominent. A component of mild failure or volume overload concurrent with the pneumonia cannot be excluded. Conclusions/Impression: CKD III -No NSAIDs Hyponatremia -Encourage nutrition Alkalosis -Continue Diamox HTN with CKD/ CHF -Continue Losartan 25mg BID with holding parameters SILVANA -Recommend CPAP Diastolic CHF, chronic -Reduce Bumex Daily -Daily weight -Continue Diamox Daily -Continue Spironolactone BID Mild malnutrition -Encourage nutrition Anemia in chronic illness Iron Deficiency -Monitor H&H -Start IV iron X8 doses Morbid Obesity Debility -PT as tolerated
[2021-12-22] MEDS: PIPER TAZO 3.375 GM in NA CHLORIDE 0.9% 100 ML IV SCH ×3 (01:03→16:28)
[2021-12-22] MEDS: BUMETANIDE 1 MG TABLET PO SCH (07:27)
[2021-12-22] MEDS: FLUCONAZOLE 100 MG TAB PO SCH (07:27)
[2021-12-22] MEDS: FERROUS SULFATE 325 MG TAB PO SCH (07:28)
[2021-12-22] MEDS: LINEZOLID 600 MG TAB PO SCH ×2 (07:28→19:27)
[2021-12-22] MEDS: NYSTATIN PWDR 100000 UNIT/GM TOP SCH ×2 (07:28→19:27)
[2021-12-22] MEDS: DOCUSATE NA 100 MG CAP PO SCH ×2 (07:30→19:26)
[2021-12-22] MEDS: LOSARTAN POTASSIUM 50 MG TABLET PO SCH ×2 (07:31→19:26)
[2021-12-22] MEDS: GABAPENTIN 400 MG CAP PO SCH (07:33)
[2021-12-22] MEDS: ZINC SULFATE 220 MG CAP PO SCH ×2 (07:33→19:26)
[2021-12-22] MEDS: VITAMIN D 5,000 UNIT CAP PO SCH (07:33)
[2021-12-22] MEDS: FAMOTIDINE 20 MG TAB PO SCH ×2 (07:33→19:27)
[2021-12-22] MEDS: JUVEN PACKET PO SCH ×2 (07:34→19:29)
[2021-12-22] MEDS: AMIODARONE HCL 200 MG TAB PO SCH ×2 (07:34→19:27)
[2021-12-22] MEDS: SERTRALINE HCL 50 MG TAB PO SCH (07:34)
[2021-12-22] MEDS: FLUTICASONE 110 MCG/PUFF 12 GM INH IH SCH ×2 (07:35→19:29)
[2021-12-22] MEDS: ACETAMINOPHEN 500 MG TAB PO PRN (07:53)
[2021-12-22] MEDS: SPIRONOLACTONE 25 MG TABLET PO SCH ×2 (09:07→16:20)
[2021-12-22] MEDS: acetaZOLAMIDE 250 MG TAB PO SCH (11:28)
--- NOTE | 2021-12-22 15:29 | R.PN ---
PROGRESS NOTES ENCOUNTER DATE AND TIME: 12/22/2021 15:23 (CDT) NAME ISAÍAS PORTER DATE OF : 1950 DATE OF ADMISSION: 12/17/2021 20:07 (CDT) Bronchiectasis, Chronic Bronchitis, COPDCHIEF COMPLAINT: COPD, chronic bronchitis SUBJECTIVE: Pt denied any depression. Pt denied any Shortness of Breath. WBC 14.4, Hgb 8.2, Plt 284, Na 134, [place] 1.76, prealbumin 22.4, glucose 103 to 121. COVID-19 is negati ve. Therapeutic exercises done with minimal assistance. Bed mobility done with standby assistance. She transferred to wheelchair with max to total assistance. She slid off the bed while being transfer red yesterday. She has no injuries. The maxi-lift was used to help her off the floor. VITAL SIGNS Temperature: 97.5 F SBP/DBP: 124/47 Pulse: 52 Resp: 15 MEDICATION ALLERGIES: No Known Drug Allergies (NKDA) ENVIRONMENTAL ALLERGIES: - Substance Allergies None Known - Other Allergies None Known NURSING: - Shower allowing shower PRECAUTIONS: - Fall Precaution SAFTY AND FALL ACTIVITIES OOB only with supervision THERAPIES: - Dietary and Nutrition Adequate Nutrition. Nutritional Education. Nutritional Supplements. Evaluate and Treat. - Occupational Therapy Cognitive Retraining. Patient needs Occupational Therapy for a daily minimum of 1.5 hours at least 5 out of 7 days, to improve Activities of Daily Living, including: Eating, Grooming, Bathing, Dressing, Toileting, Toilet Transfers, Community Reintegration, Higher functional activities, Adaptive Equipme nt, Splinting, Household Tasks, and Other activities as determined. Evaluate and Treat. Visual Percep tual Training. Patient/Family Education. Safety Awareness. Transfer Training. Adaptive Equipment. Ivan sehold Tasks. UE Strengthening. - Speech Therapy Cognitive Training. Expressive Language Skills. Memory Strategies. Patient needs Speech Therapy for a daily minimum of 1.5 hours at least 5 out of 7 days, to improve: Swallowing, Cognition, Language Ski lls, and Compensatory Strategies. Receptive Language Skills. Speech Intelligibility Training. Evaluat e and Treat. - Physical Therapy Patient needs Physical Therapy for a daily minimum of 1.5 hours at least 5 out of 7 days, to improve: Mobility, Strengthening, Transfers, Stretching, ROM, Endurance, Ability to manage stairs, Gait, and Balance. Mobility Training. Evaluate and Treat. Gait Training. Safety Awareness. Balance Training. Pa tient/Family Education. LE Strengthening. Medical Equipment Assessment and Evaluation. PHYSICAL EXAM - Gen Alert and awake Lying in bed No apparent distress Oriented to: person, time, and place - Skin No skin breakdown. Normacephalic - Eyes No abnormalities - Neck No abnormalities - CVS RRR - Chest No abnormalities - Abd Obese - Ext Moderate edema in both lower extremities. - MSK 4+/5 weakness in both lower extremities. - Neuro No focal deficits - Psych Mild depression. ASSESSMENT: Pt. is a 71 yo Right-handed female.On 12/03/2021 she was admitted to [facility] with diagnosi s Bronchiectasis, Chronic Bronchitis, COPD.Extreme obesity BMI 56.6Her impairment category is Pulmona ry Disorders 10 - Chronic Obstructive Pulmonary Disease (10.1).Pre-morbidly, Pt. was independent/mod -I in Locomotion, Safety Awareness, Social Cognition, Balance, and Transfers Control; and she had goo d Sphincter Control, Self-Care, Communication, and Endurance.Currently, she has deficits of Locomotio n, Safety Awareness, Social Cognition, Balance, Transfers Control, Sphincter Control, Self-Care, Comm unication, and Endurance.Pt. is now referred to [facility] for acute in-patien t rehabilitation in order to maximize patient's functional independence in activities of daily living , strength, ROM, and mobility.- Rehab Goal Patient has realistic goal of being discharged at assistance level 7-Ind to reside at Home with Fami ly/Relatives. MDM/PLAN: - Physical Therapy Gait dysfunction - to improve, our physical therapists will perform initial evaluation of pt's statu s upon admission and devise an individualized program for Gait Training, and Wheel Chair mobility Inability to transfer - to improve, our physical therapists will perform initial evaluation of pt's status upon admission and devise an individualized program for Bed mobility Need for home safety evaluation - to improve, our physical therapists will perform initial evaluatio n of pt's status upon admission and devise an individualized program for Home Evaluation Need in caregiver upon discharge - to improve, our physical therapists will perform initial evaluati on of pt's status upon admission and devise an individualized program for Caregiver Training New precaution - to improve, our physical therapists will perform initial evaluation of pt's status upon admission and devise an individualized program for Patient precaution education Poor balance - to improve, our physical therapists will perform initial evaluation of pt's status up on admission and devise an individualized program for Balance Training Poor endurance - to improve, our physical therapists will perform initial evaluation of pt's status upon admission and devise an individualized program for Endurance Training Weakness - to improve, our physical therapists will perform initial evaluation of pt's status upon a dmission and devise an individualized program for Aquatic Therapy, Neuromuscular Reeducation, and Str engthening Achieving independence - to improve, our physical therapists will perform initial evaluation of pt's status upon admission and devise an individualized program for Community Reintegration Activities - Occupational Therapy ADL deficits - to improve, our occupation therapists will perform initial evaluation of pt's status upon admission and devise an individualized program for Bathing, Bed mobility, Community Reintegratio n, Cooking, Dressing, Eating, Fine Motor Skills, Grooming, Homemaking, Kitchen Mobility, Laundry, Pat ient Education, Safety Awareness, Splinting - Positioning, Transfers(Toilet, Tub, Shower), and Wheel Chair Management Cognitive deficits - to improve, our occupation therapists will perform initial evaluation of pt's s tatus upon admission and devise an individualized program for Cognition - orientation Need for dialysis patient care technician - to improve, our occupation therapists will perform initial evaluation of pt's status upon admission and devise an individualized program for Caregiver Training Weakness - to improve, our occupation therapists will perform initial evaluation of pt's status upon admission and devise an individualized program for Aquatic Therapy, Balance, Endurance, UE ROM, and UE strengthening - Other See attached MAR (Medication Administration Record) - Diet Type Continue Regular - Diet - Liquid Texture Continue Regular - Tube Feed Continue N/A - Fall Precaution SAFTY AND FALL - Diet - Solid Texture Continue Regular - Shower allowing shower FUNCTIONAL STATUS: UPDATED AT WEEKLY TEAM CONFERENCE - Bladder Same accident frequency: 7-Ind - No accidents in the past 7 days - Bowel Same accident frequency: 7-Ind - No accidents in the past 7 days - Walking Same score based on distance walked: 0(N/A) - Wheelchair Same score based on distance traveled: 0(N/A) FUNCTIONAL STATUS: - Self-Care A. Eating Ind B. Grooming modA C. Bathing Dep D. Dressing - Upper modA E. Dressing - Lower maxA F. Toileting maxA - Sphincter Control G. Bladder control sup H. Bowel control sup - Transfers Control I. Bed/Chair/Wheelchair Dep J. Toilet maxA K. Tub/Shower Dep - Locomotion L. Walk/Wheelchair (B) Dep M. Stairs ADNO - Communication N. Comprehension (B) Vern O. Expression (B) Vern - Social Cognition P. Social Interaction Ind Q. Problem Solving sup R. Memory Vern - Endurance Poor - Balance Poor - Safety Awareness Fair QI SCORES: - Self-Care A. Eating 03-Partial/moderate assistance B. Oral hygiene 02-Substantial/maximal assistance C. Toileting hygiene 02-Substantial/maximal assistance E. Shower/bathe self 02-Substantial/maximal assistance F. Upper body dressing 02-Substantial/maximal assistance G. Lower body dressing 02-Substantial/maximal assistance H. Putting on/taking off footwear 88-Not attempted due to medical condition or safety concerns - Mobility A. Roll left and right 03-Partial/moderate assistance B. Sit to lying 03-Partial/moderate assistance C. Lying to sitting on side of bed 02-Substantial/maximal assistance D. Sit to stand 02-Substantial/maximal assistance E. Chair/[id number]-[id number] transfer 02-Substantial/maximal assistance F. Toilet transfer 02-Substantial/maximal assistance G. Car transfer 88-Not attempted due to medical condition or safety concerns I. Walk 10 feet 88-Not attempted due to medical condition or safety concerns J. Walk 50 feet with two turns 88-Not attempted due to medical condition or safety concerns K. Walk 150 feet 88-Not attempted due to medical condition or safety concerns L. Walking 10 feet on uneven surfaces 88-Not attempted due to medical condition or safety concerns M. 1 step (curb) 88-Not attempted due to medical condition or safety concerns N. 4 steps 88-Not attempted due to medical condition or safety concerns O. 12 steps 88-Not attempted due to medical condition or safety concerns P. Picking up object 88-Not attempted due to medical condition or safety concerns R. Wheel 50 feet with two turns 88-Not attempted due to medical condition or safety concerns S. Wheel 150 feet 88-Not attempted due to medical condition or safety concerns - Endurance Fair - Balance Poor - Safety Awareness Fair [facility]: Self-Care, Mobility, Endurance, Balance, and Safety Awareness SIGNATURE PANEL: (CDT)
[2021-12-22] MEDS: RIVAROXABAN 15 MG TABLET PO SCH (16:28)
[2021-12-22] MEDS ORDERED: EPOETIN ALFA-EPBX 4,000 UNIT/ML VIAL SQ ONE (17:27)
[2021-12-22] MEDS ORDERED: NA CHLORIDE 0.9% 250 ML ONE (18:17)
[2021-12-22] MEDS: SOD FERRIC GLUC COMPLX/SUCROSE 125 MG in NA CHLORIDE 0.9% 100 ML IV SCH (18:22)
[2021-12-22] MEDS ORDERED: EPOETIN ALFA-EPBX 10,000 UNIT/ML VIAL ONE (19:56)
--- NOTE | 2021-12-22 22:27 | PN ---
Date of Progress Note: 12/22/2021 Subjective: The patient seen at [facility]. The patient is alert, a wake, looks comfortable, lying in bed, watching some TV, has some oxygen on. The patient states that she has smoked a long time in the past and does not smoke now, but does have damage from that and se es a lung doctor and uses oxygen at home on a regular basis also. She is otherwise looking comfortab le. She is still having a lot of mobility issues. She is getting rehab and tried to participate wit h physical therapy to improve her condition. The patient is also getting antibiotics still for her c ellulitis. Her swelling in the legs is quite significant, but that seems to also be a chronic proble m. The patient is significantly obese as well that also is a chronic problem. Objective: Vital Signs: Reasonably stable. Blood pressure last was 118/43, pulse is 57-60. Cardiac: The patient has a regular heart rate. Currently not in atrial fibrillation, which she has a history of. O2 sats are about 91% on 2 L nasal cannula. Lungs: Clear to auscultation anteriorly with decreased breath sounds bilaterally. Abdomen: Soft. Extremities: With skin changes, some cellulitic changes and swelling. The patient is weak bilateral ly in arms and legs, legs more than arms. Laboratory Data: Reviewed. The patient's labs show sodium 139, potassium 3.8, chloride 103, bicarb 33, BUN 65, creatinine 1.76, uric acid 7.5, calcium 8.7, phosphorus 3.5, magnesium 2.2. Albumin 2.7. Hematology shows WBC count improved down to 10.7 from 13.8 four days ago and 14.4 two days ago. He moglobin 7.9, reasonably stable, but on the lower side compared to 8.7 on December 18 and 8.2 on December 20, platelet count 233. Creatinine is stable around 1.7. Assessment And Plan: The patient is an elderly female with significant mobility issues, cellulitis, on antibiotics, currently with elevated uric acid level with low hemoglobin. Creatinine reasonably s table around 1.7. 1.Chronic kidney disease/acute kidney injury. The patient clinically looks stable. Creatinine is r easonably stable. Avoid NSAIDs. Avoid nephrotoxins. We will continue to monitor electrolytes. Sod ium and potassium seem to be reasonable at this point. 2.Alkalosis. Continue on Diamox. Stable overall. 3.Hypertension. The patient's volume status is reasonable on losartan with holding parameters. His tory of chronic heart failure. Volume status seems reasonable. At this point, most of her breathing seems to be from her obstructive sleep apnea and chronic obstructive pulmonary disease. 4.Elevated uric acid. Start allopurinol 100 mg 1 time daily. 5.Anemia. The patient's hemoglobin is slowly drifting down at 7.9. Has gotten iron already. We wi ll go ahead and give a dose of Retacrit 10,000 units subcu once. Discussed the plan with the patient . /MURALI Voice ID: [id number] Report ID: [id number]
[2021-12-23] MEDS: PIPER TAZO 3.375 GM in NA CHLORIDE 0.9% 100 ML IV SCH ×3 (00:11→16:52)
[2021-12-23] MEDS: LINEZOLID 600 MG TAB PO SCH ×2 (07:35→19:03)
[2021-12-23] MEDS: FERROUS SULFATE 325 MG TAB PO SCH (07:35)
[2021-12-23] MEDS: NYSTATIN PWDR 100000 UNIT/GM TOP SCH ×2 (07:35→19:03)
[2021-12-23] MEDS: DOCUSATE NA 100 MG CAP PO SCH ×2 (07:36→19:04)
[2021-12-23] MEDS: BUMETANIDE 1 MG TABLET PO SCH (07:36)
[2021-12-23] MEDS: FLUCONAZOLE 100 MG TAB PO SCH (07:37)
[2021-12-23] MEDS: GABAPENTIN 400 MG CAP PO SCH (07:37)
[2021-12-23] MEDS: FAMOTIDINE 20 MG TAB PO SCH ×2 (07:37→19:04)
[2021-12-23] MEDS: SERTRALINE HCL 50 MG TAB PO SCH (07:37)
[2021-12-23] MEDS: ACETAMINOPHEN 500 MG TAB PO PRN (07:37)
[2021-12-23] MEDS: ZINC SULFATE 220 MG CAP PO SCH ×2 (07:39→19:04)
[2021-12-23] MEDS: allopurinoL 100 MG TAB PO SCH (07:39)
[2021-12-23] MEDS: VITAMIN D 5,000 UNIT CAP PO SCH (07:39)
[2021-12-23] MEDS: FLUTICASONE 110 MCG/PUFF 12 GM INH IH SCH ×2 (07:40→19:06)
[2021-12-23] MEDS: JUVEN PACKET PO SCH ×2 (07:41→19:06)
[2021-12-23] MEDS: LOSARTAN POTASSIUM 50 MG TABLET PO SCH ×2 (08:00→18:52)
[2021-12-23] MEDS: SPIRONOLACTONE 25 MG TABLET PO SCH ×2 (09:39→16:52)
[2021-12-23] MEDS: AMIODARONE HCL 200 MG TAB PO SCH ×2 (09:40→18:51)
[2021-12-23] MEDS: acetaZOLAMIDE 250 MG TAB PO SCH (12:15)
--- NOTE | 2021-12-23 13:46 | PN ---
Date of Progress Note: 12/23/2021 Subjective: The patient is seen in room 504 on rehab floor at [facility]. T he patient is alert, awake, comfortable. She is tolerating p.o. intake well. She states she does no t have any nausea, vomiting. Does not have any headache. Her blood pressure has been reasonable wit h systolic ranging from 118 to about 154. Last blood pressure 154/66. Her pulse has been on the low er side with readings running into 50s, last one at about 50. On my evaluation, the patient's heart rate is about 50 as well. Her O2 sats are about 99%. She is using about 3 L of nasal cannula. She states that she uses about 2 to 3 L at home as well. She denies any discomfort currently. She is ot herwise alert and is able to tell me that her heart doctor is Dr. Carrington. She states that she has had atrial fibrillation in the past and thus why she is on amiodarone. She has had this problem for 4 to 5 years. Objective: Lungs: Clear anteriorly. Abdomen: Soft. The patient is obese. Extremities: Do reveal chronic skin changes and edema. The patient has general weakness in upper an d lower extremities, more in the lower compared to the upper. Heart: Rhythm is regular, but rate is at about 50. Laboratory Data: From December 21, reviewed. WBC 10.7, hemoglobin 7.9, hematocrit 25.5, platelet cou nt of about 233. Hemoglobin count is relatively stable compared to 8.2 yesterday, 7.9 today. Chemis try shows sodium 139, potassium 3.8, chloride 103, bicarb is 33, BUN is 65, creatinine 1.76. The CBC and the BMP are from December 21, which is 2 days ago from today. Assessment And Plan: 1.Chronic kidney disease/acute kidney injury. The patient's kidney function seems to be improving. We will continue to monitor with BMP and CBC, again ordered for December 24, which is Friday tomorrow. The patient is clinically looking well. Avoid NSAIDs. Avoid nephrotoxins. Continue to monitor octavio ctrolytes. Sodium and potassium seem to be in reasonable range. We will recheck tomorrow. 2.Alkalosis, on Diamox. Stable overall. Continue to monitor. 3.Hypertension. The patient's blood pressure has been reasonable. Continue to monitor with adequat e balanced diet, salt restriction. 4.Elevated uric acid. The patient was started on allopurinol, tolerating that well to 1 dose today. 5.Anemia. Hemoglobin was at about 7.9. The patient did get a dose of Retacrit yesterday 10,000 uni ts. Has a CBC pending for tomorrow. 6.Bradycardia. Heart rate is around 50. The patient does have a history of atrial fibrillation and has been on amiodarone 200 mg daily, which can also cause heart rate to be on the lower side. I hav e discussed this with the patient's nurse. She has communicated with Dr. Augustin already. The [facility] ent's executive communications manager is Dr. Carrington. We will put a parameter on the amiodarone to not be given for he art rate below 55. The patient has already had her dose for today and amiodarone is a long-acting me dication, so missed in the system for sometime. Continue to monitor clinically with vitals. If Dr. Carrington agrees, amiodarone may need to be cut down and/or changed, perhaps cut down to 100 mg daily w hile heart rate is monitored. We would recommend considering Cardiology consult with Dr. Carrington, wh o is the patient's executive communications manager. /MURALI Voice ID: [id number] Report ID: [id number]
[2021-12-23] MEDS: RIVAROXABAN 15 MG TABLET PO SCH (16:52)
[2021-12-23] MEDS: SOD FERRIC GLUC COMPLX/SUCROSE 125 MG in NA CHLORIDE 0.9% 100 ML IV SCH (19:06)
[2021-12-23] MEDS: DOCUSATE NA/SENNA CONC 1 TAB PO PRN (19:13)
[2021-12-24] MEDS: PIPER TAZO 3.375 GM in NA CHLORIDE 0.9% 100 ML IV SCH ×3 (00:02→16:46)
[2021-12-24] MEDS: ACETAMINOPHEN 500 MG TAB PO PRN ×2 (04:08→09:24)
[2021-12-24 05:03] LABS: MPV 8.5 fL (7.6-11.3); RBC Red Blood Cell Count 3.08 M/uL (3.86-4.86)
[2021-12-24 05:28] LABS: Potassium 3.8 mmol/L (3.5-5.1); Uric Acid 8.4 mg/dL (2.6-6.0)
[2021-12-24] MEDS: FLUTICASONE 110 MCG/PUFF 12 GM INH IH SCH ×2 (08:00→20:00)
[2021-12-24] MEDS: AMIODARONE HCL 200 MG TAB PO SCH ×2 (08:00→20:36)
[2021-12-24] MEDS: JUVEN PACKET PO SCH ×3 (08:00→20:37)
[2021-12-24] MEDS: VITAMIN D 5,000 UNIT CAP PO SCH (09:06)
[2021-12-24] MEDS: SPIRONOLACTONE 25 MG TABLET PO SCH ×2 (09:06→16:45)
[2021-12-24] MEDS: BUMETANIDE 1 MG TABLET PO SCH (09:06)
[2021-12-24] MEDS: allopurinoL 100 MG TAB PO SCH (09:07)
[2021-12-24] MEDS: DOCUSATE NA 100 MG CAP PO SCH ×2 (09:07→20:36)
[2021-12-24] MEDS: LOSARTAN POTASSIUM 50 MG TABLET PO SCH ×2 (09:12→20:37)
[2021-12-24] MEDS: FLUCONAZOLE 100 MG TAB PO SCH ×2 (09:13→09:58)
[2021-12-24] MEDS: FERROUS SULFATE 325 MG TAB PO SCH (09:14)
[2021-12-24] MEDS: FAMOTIDINE 20 MG TAB PO SCH ×2 (09:16→20:36)
[2021-12-24] MEDS: GABAPENTIN 400 MG CAP PO SCH (09:16)
[2021-12-24] MEDS: ZINC SULFATE 220 MG CAP PO SCH ×2 (09:17→20:36)
[2021-12-24] MEDS: SERTRALINE HCL 50 MG TAB PO SCH (09:18)
[2021-12-24] MEDS: LINEZOLID 600 MG TAB PO SCH ×3 (09:22→20:36)
--- NOTE | 2021-12-24 10:29 | P.PN ---
Date of Service: 12/24/21 Vital Signs Temp Pulse Resp BP Pulse Ox 97.0 F 51 18 130/44 L 99 12/24/21 07:24 12/24/21 09:06 12/24/21 07:24 12/24/21 09:06 12/24/21 07:24 Medications Acetaminophen (Acetaminophen 500 Mg Tab) 500 mg PO Q4H PRN PRN Reason: Pain scale 2-4 (Mild) Last Admin: 12/24/21 09:24 Dose: 500 mg Documented by: Acetazolamide (Acetazolamide 250 Mg Tab) 500 mg PO Q24H [facility] Last Admin: 12/23/21 12:15 Dose: 500 mg Documented by: Albuterol Sulfate (Albuterol 2.5 Mg/3 Ml Neb Nishi) 2.5 mg IH [id number] PRN PRN Reason: SHORTNESS OF BREATH Allopurinol (Allopurinol 100 Mg Tab) 100 mg PO DAILY [facility] Last Admin: 12/24/21 09:07 Dose: 100 mg Documented by: Amiodarone HCl (Amiodarone Hcl 200 Mg Tab) 200 mg PO BID [facility] Last Admin: 12/24/21 08:00 Dose: Not Given Documented by: Bumetanide (Bumetanide 1 Mg Tablet) 1 mg PO DAILY [facility] Last Admin: 12/24/21 09:06 Dose: 1 mg Documented by: Cholecalciferol (Vitamin D 5,000 Unit Cap) 5,000 unit PO DAILY [facility] Last Admin: 12/24/21 09:06 Dose: 5,000 unit Documented by: Dextrose (D50w 25 Gm/50 Ml Syringe) 12.5 gm IV PRN PRN; Protocol PRN Reason: HYPOGLYCEMIA Docusate Sodium (Docusate Na 100 Mg Cap) 100 mg PO BID [facility] Last Admin: 12/24/21 09:07 Dose: 100 mg Documented by: Famotidine (Famotidine 20 Mg Tab) 20 mg PO BID [facility]; Protocol Last Admin: 12/24/21 09:16 Dose: 20 mg Documented by: Ferrous Sulfate (Ferrous Sulfate 325 Mg Tab) 325 mg PO DAILY [facility] Last Admin: 12/24/21 09:14 Dose: 325 mg Documented by: Gabapentin (Gabapentin 400 Mg Cap) 400 mg PO DAILY [facility] Last Admin: 12/24/21 09:16 Dose: 400 mg Documented by: Glucagon (Glucagon 1 Mg/Vial) 1 mg IM 1X PRN; Protocol PRN Reason: HYPOGLYCEMIA Home Med (Fluticasone 110 Mcg/Puff 12 Gm Inh) 110 ea IH BID [facility] Last Admin: 12/23/21 19:06 Dose: Not Given Documented by: Piperacillin Sod/Tazobactam (Sod 3.375 gm/ Sodium Chloride) 100 mls @ 25 mls/hr IV Q8HR [facility]; Protocol Last Admin: 12/24/21 06:49 Dose: 100 mls Documented by: Ferric Sodium Gluconate Complex 125 mg/ Sodium Chloride 110 mls @ 100 mls/hr IV Q24H [facility] Stop: 12/28/21 21:05 Last Admin: 12/23/21 19:06 Dose: 110 mls Documented by: L-Arginine/L-Glutamine/HMB (Chao Packet) 1 pkt PO BID [facility] Last Admin: 12/24/21 08:00 Dose: Not Given Documented by: Linezolid (Linezolid 600 Mg Tab) 600 mg PO BID [facility]; Protocol Stop: 12/27/21 20:01 Last Admin: 12/24/21 09:58 Dose: 600 mg Documented by: Losartan Potassium (Losartan Potassium 50 Mg Tablet) 25 mg PO BID [facility] Last Admin: 12/24/21 09:12 Dose: 25 mg Documented by: Nystatin (Nystatin Pwdr [id number] Unit/Gm) 1 appl TOP BID [facility] Last Admin: 12/23/21 19:03 Dose: 1 appl Documented by: Rivaroxaban (Rivaroxaban 15 Mg Tablet) 15 mg PO DAILY 5 PM [facility] Last Admin: 12/23/21 16:52 Dose: 15 mg Documented by: Senna/Docusate Sodium (Docusate Na/Senna Conc 1 Tab) 2 tab PO BEDTIME PRN PRN Reason: CONSTIPATION Last Admin: 12/23/21 19:13 Dose: 2 tab Documented by: Sertraline HCl (Sertraline Hcl 50 Mg Tab) 50 mg PO DAILY [facility] Last Admin: 12/24/21 09:18 Dose: 50 mg Documented by: Sodium Chloride (Flush Normal Saline 10 Ml) 10 ml IV BID [facility] Last Admin: 12/24/21 06:49 Dose: 10 ml Documented by: Spironolactone (Spironolactone 25 Mg Tablet) 25 mg PO BIDL [facility] Last Admin: 12/24/21 09:06 Dose: 25 mg Documented by: Zinc Sulfate (Zinc Sulfate 220 Mg Cap) 220 mg PO BID [facility] Last Admin: 12/24/21 09:17 Dose: 220 mg Documented by: Lab Results (last 24 hrs) 12/24/21 07:07: POC Glucose 110 12/24/21 04:24: Sodium 140, Potassium 3.8, Chloride 104, Carbon Dioxide 32, BUN 52 H, Creatinine 1.23, Estimated GFR 43 L, Glucose 114 H, Uric Acid 8.4 H, Calcium 8.7, NT-Pro-B Natriuret Pep 985 H 12/24/21 04:24: WBC 7.9 D, RBC 3.08 L, Hgb 7.6 L, Hct 25.0 L, MCV 81.1, MCH 24.8 L, MCHC 30.6 L, RDW 25.0 H, Plt Count 245, MPV 8.5, Neutrophils % 69.9, Lymphocytes % 13.0 L, Monocytes % 14.1 H, Eosinophils % 2.3, Basophils % 0.7, Absolute Neutrophils 5.5, Absolute Lymphocytes 1.0, Absolute Monocytes 1.1, Absolute Eosinophils 0.2, Absolute Basophils 0.1 12/24/21 04:13: SARS-CoV-2 Rap RNA(RT-PCR) Negative Assessment/ Plan: Nephrology No dyspnea. BROWN. No chest pain Improving appetite No acute events overnight Vitals, medications, blood work and imaging reviewed in the chart. General: Oriented x3, Cooperative. Obese. HEENT: Atraumatic Neck: Supple Respiratory: Diminished Cardiovascular: Regular rate/rhythm, Edema Gastrointestinal: Soft and benign, Non-distended Musculoskeletal: No clubbing, No contractures Integumentary: No rashes, No cyanosis Neurological: Normal speech Laboratory Data (last 24 hrs) 12/18/21 05:15: Sodium 134 L, Potassium 4.1, BUN 58 H, Creatinine 1.35 H, Glucose 98, Magnesium 2.5 H 12/18/21 05:15: WBC 13.80 H, Hgb 8.7 L, Hct 27.8 L, Plt Count 284 Imagings Data: EXAM DESCRIPTION: RAD - Chest Single View - 12/18/2021 6:29 am CLINICAL HISTORY: Pneumonia COMPARISON: Portable chest 08/30/2021 TECHNIQUE: AP portable chest image was obtained 12/18/2021 6:29 am . FINDINGS: Left subclavian Port-A-Cath has been placed since the prior exami nation. Focal airspace opacification with air bronchogram formation seen in the mid upper left lung field. This is new from the August examination. Overall interstitial opacification is prominent and may be slightly increased from the comparison. The dense consolidation of the right upper lobe seen on the August study has cleared are almost entirely cleared. There is minimal lateral opacification and may be remnant from that pneumonia. Heart size is prominent, similar to comparison. Central vasculature prominent. No measurable pleural effusion and no pneumothorax. No acute bony abnormality seen. No acute aortic findings suspected. IMPRESSION: Left upper lung field pneumonia new from prior imaging. Complete or near complete clearing of the right upper lobe pneumonia seen on the 08/30/2021 study. Heart, vasculature and lung markings are all prominent. A component of mild failure or volume overload concurrent with the pneumonia cannot be excluded. Conclusions/Impression: CKD III -No NSAIDs Hyponatremia -Encourage nutrition Alkalosis -Continue Diamox HTN with CKD/ CHF -Continue Losartan 25mg BID with holding parameters SILVANA -Recommend CPAP Diastolic CHF, chronic -Continue Bumex Daily -Daily weight -Continue Diamox Daily -Continue Spironolactone BID Mild malnutrition -Encourage nutrition Anemia in chronic illness Iron Deficiency -Monitor H&H -Continue IV iron X8 doses Morbid Obesity Debility -PT as tolerated
[2021-12-24] MEDS: NYSTATIN PWDR 100000 UNIT/GM TOP SCH ×2 (10:30→20:34)
[2021-12-24] MEDS: acetaZOLAMIDE 250 MG TAB PO SCH (12:06)
[2021-12-24] MEDS ORDERED: MAGNESIUM CITRATE 300 ML BOT PO SCH (16:00)
[2021-12-24] MEDS: RIVAROXABAN 15 MG TABLET PO SCH (16:46)
--- NOTE | 2021-12-24 17:21 | R.PN ---
PROGRESS NOTES ENCOUNTER DATE AND TIME: 12/24/2021 17:15 (CDT) NAME ISAÍAS PORTER DATE OF : 1950 DATE OF ADMISSION: 12/17/2021 20:07 (CDT) Bronchiectasis, Chronic Bronchitis, COPDCHIEF COMPLAINT: COPD, chronic bronchitis SUBJECTIVE: Pt denied any depression. Pt denied any Shortness of Breath. WBC 7.9, Hgb 7.6, Plt 245, Na 140, [employer] 1.23, uric acid 8.4, prealbumin 22.4, glucose 105 to 114. COVI D-19 on 12/24/21 is negative. Therapeutic exercises done with minimal assistance. Bed mobility done with standby assistance. VITAL SIGNS Temperature: 97.0 F SBP/DBP: 128/60 Pulse: 54 Resp: 15 MEDICATION ALLERGIES: No Known Drug Allergies (NKDA) ENVIRONMENTAL ALLERGIES: - Substance Allergies None Known - Other Allergies None Known NURSING: - Shower allowing shower PRECAUTIONS: - Fall Precaution SAFTY AND FALL ACTIVITIES OOB only with supervision THERAPIES: - Dietary and Nutrition Adequate Nutrition. Nutritional Education. Nutritional Supplements. Evaluate and Treat. - Occupational Therapy Cognitive Retraining. Patient needs Occupational Therapy for a daily minimum of 1.5 hours at least 5 out of 7 days, to improve Activities of Daily Living, including: Eating, Grooming, Bathing, Dressing, Toileting, Toilet Transfers, Community Reintegration, Higher functional activities, Adaptive Equipme nt, Splinting, Household Tasks, and Other activities as determined. Evaluate and Treat. Visual Percep tual Training. Patient/Family Education. Safety Awareness. Transfer Training. Adaptive Equipment. Ivan sehold Tasks. UE Strengthening. - Speech Therapy Cognitive Training. Expressive Language Skills. Memory Strategies. Patient needs Speech Therapy for a daily minimum of 1.5 hours at least 5 out of 7 days, to improve: Swallowing, Cognition, Language Ski lls, and Compensatory Strategies. Receptive Language Skills. Speech Intelligibility Training. Evaluat e and Treat. - Physical Therapy Patient needs Physical Therapy for a daily minimum of 1.5 hours at least 5 out of 7 days, to improve: Mobility, Strengthening, Transfers, Stretching, ROM, Endurance, Ability to manage stairs, Gait, and Balance. Mobility Training. Evaluate and Treat. Gait Training. Safety Awareness. Balance Training. Pa tient/Family Education. LE Strengthening. Medical Equipment Assessment and Evaluation. PHYSICAL EXAM - Gen Alert and awake Lying in bed No apparent distress Oriented to: person, time, and place - Skin No skin breakdown. Normacephalic - Eyes No abnormalities - Neck No abnormalities - CVS RRR - Chest No abnormalities - Abd Obese - Ext Moderate edema in both lower extremities. - MSK 4+/5 weakness in both lower extremities. - Neuro No focal deficits - Psych Mild depression. ASSESSMENT: Pt. is a 71 yo Right-handed female.On 12/03/2021 she was admitted to [facility] with diagnosi s Bronchiectasis, Chronic Bronchitis, COPD.Extreme obesity BMI 56.6Her impairment category is Pulmona ry Disorders 10 - Chronic Obstructive Pulmonary Disease (10.1).Pre-morbidly, Pt. was independent/mod -I in Locomotion, Safety Awareness, Social Cognition, Balance, and Transfers Control; and she had goo d Sphincter Control, Self-Care, Communication, and Endurance.Currently, she has deficits of Locomotio n, Safety Awareness, Social Cognition, Balance, Transfers Control, Sphincter Control, Self-Care, Comm unication, and Endurance.Pt. is now referred to [facility] for acute in-patien t rehabilitation in order to maximize patient's functional independence in activities of daily living , strength, ROM, and mobility.- Rehab Goal Patient has realistic goal of being discharged at assistance level 7-Ind to reside at Home with Fami ly/Relatives. MDM/PLAN: - Physical Therapy Gait dysfunction - to improve, our physical therapists will perform initial evaluation of pt's statu s upon admission and devise an individualized program for Gait Training, and Wheel Chair mobility Inability to transfer - to improve, our physical therapists will perform initial evaluation of pt's status upon admission and devise an individualized program for Bed mobility Need for home safety evaluation - to improve, our physical therapists will perform initial evaluatio n of pt's status upon admission and devise an individualized program for Home Evaluation Need in caregiver upon discharge - to improve, our physical therapists will perform initial evaluati on of pt's status upon admission and devise an individualized program for Caregiver Training New precaution - to improve, our physical therapists will perform initial evaluation of pt's status upon admission and devise an individualized program for Patient precaution education Poor balance - to improve, our physical therapists will perform initial evaluation of pt's status up on admission and devise an individualized program for Balance Training Poor endurance - to improve, our physical therapists will perform initial evaluation of pt's status upon admission and devise an individualized program for Endurance Training Weakness - to improve, our physical therapists will perform initial evaluation of pt's status upon a dmission and devise an individualized program for Aquatic Therapy, Neuromuscular Reeducation, and Str engthening Achieving independence - to improve, our physical therapists will perform initial evaluation of pt's status upon admission and devise an individualized program for Community Reintegration Activities - Occupational Therapy ADL deficits - to improve, our occupation therapists will perform initial evaluation of pt's status upon admission and devise an individualized program for Bathing, Bed mobility, Community Reintegratio n, Cooking, Dressing, Eating, Fine Motor Skills, Grooming, Homemaking, Kitchen Mobility, Laundry, Pat ient Education, Safety Awareness, Splinting - Positioning, Transfers(Toilet, Tub, Shower), and Wheel Chair Management Cognitive deficits - to improve, our occupation therapists will perform initial evaluation of pt's s tatus upon admission and devise an individualized program for Cognition - orientation Need for senior care manager - to improve, our occupation therapists will perform initial evaluation of pt's status upon admission and devise an individualized program for Caregiver Training Weakness - to improve, our occupation therapists will perform initial evaluation of pt's status upon admission and devise an individualized program for Aquatic Therapy, Balance, Endurance, UE ROM, and UE strengthening - Other See attached MAR (Medication Administration Record) - Diet Type Continue Regular - Diet - Liquid Texture Continue Regular - Tube Feed Continue N/A - Fall Precaution SAFTY AND FALL - Diet - Solid Texture Continue Regular - Shower allowing shower FUNCTIONAL STATUS: UPDATED AT WEEKLY TEAM CONFERENCE - Bladder Same accident frequency: 7-Ind - No accidents in the past 7 days - Bowel Same accident frequency: 7-Ind - No accidents in the past 7 days - Walking Same score based on distance walked: 0(N/A) - Wheelchair Same score based on distance traveled: 0(N/A) FUNCTIONAL STATUS: - Self-Care A. Eating Ind B. Grooming modA C. Bathing Dep D. Dressing - Upper modA E. Dressing - Lower maxA F. Toileting maxA - Sphincter Control G. Bladder control sup H. Bowel control sup - Transfers Control I. Bed/Chair/Wheelchair Dep J. Toilet maxA K. Tub/Shower Dep - Locomotion L. Walk/Wheelchair (B) Dep M. Stairs ADNO - Communication N. Comprehension (B) Vern O. Expression (B) Vern - Social Cognition P. Social Interaction Ind Q. Problem Solving sup R. Memory Vern - Endurance Poor - Balance Poor - Safety Awareness Fair QI SCORES: - Self-Care A. Eating 03-Partial/moderate assistance B. Oral hygiene 02-Substantial/maximal assistance C. Toileting hygiene 02-Substantial/maximal assistance E. Shower/bathe self 02-Substantial/maximal assistance F. Upper body dressing 02-Substantial/maximal assistance G. Lower body dressing 02-Substantial/maximal assistance H. Putting on/taking off footwear 88-Not attempted due to medical condition or safety concerns - Mobility A. Roll left and right 03-Partial/moderate assistance B. Sit to lying 03-Partial/moderate assistance C. Lying to sitting on side of bed 02-Substantial/maximal assistance D. Sit to stand 02-Substantial/maximal assistance E. Chair/ago-ea-gyozg transfer 02-Substantial/maximal assistance F. Toilet transfer 02-Substantial/maximal assistance G. Car transfer 88-Not attempted due to medical condition or safety concerns I. Walk 10 feet 88-Not attempted due to medical condition or safety concerns J. Walk 50 feet with two turns 88-Not attempted due to medical condition or safety concerns K. Walk 150 feet 88-Not attempted due to medical condition or safety concerns L. Walking 10 feet on uneven surfaces 88-Not attempted due to medical condition or safety concerns M. 1 step (curb) 88-Not attempted due to medical condition or safety concerns N. 4 steps 88-Not attempted due to medical condition or safety concerns O. 12 steps 88-Not attempted due to medical condition or safety concerns P. Picking up object 88-Not attempted due to medical condition or safety concerns R. Wheel 50 feet with two turns 88-Not attempted due to medical condition or safety concerns S. Wheel 150 feet 88-Not attempted due to medical condition or safety concerns - Endurance Fair - Balance Poor - Safety Awareness Fair [facility] DEFICITS: Self-Care, Mobility, Endurance, Balance, and Safety Awareness SIGNATURE PANEL: (CDT)
[2021-12-24] MEDS: SOD FERRIC GLUC COMPLX/SUCROSE 125 MG in NA CHLORIDE 0.9% 100 ML IV SCH (20:35)
[2021-12-24] MEDS: DOCUSATE NA/SENNA CONC 1 TAB PO PRN (20:36)
[2021-12-24] MEDS ORDERED: NA CHLORIDE 0.9% 250 ML ONE (21:04)
[2021-12-25] MEDS: PIPER TAZO 3.375 GM in NA CHLORIDE 0.9% 100 ML IV SCH ×4 (00:08→16:55)
[2021-12-25 04:41] LABS: Absolute Lymphocytes (CBC) 0.9 K/uL (0.7-4.9); Hematocrit 24.9 % (36.0-45.0); Lymphocytes % 10.7 % (15.3-44.8); MPV 8.4 fL (7.6-11.3); RBC Red Blood Cell Count 3.03 M/uL (3.86-4.86)
[2021-12-25 06:17] LABS: Arterial Blood Carboxyhemoglob 1.9 % (0-1.5); Blood Gas Oxyhemoglobin 92.8 % (94-97)
[2021-12-25] MEDS: FLUTICASONE 110 MCG/PUFF 12 GM INH IH SCH ×2 (08:00→20:00)
[2021-12-25] MEDS: AMIODARONE HCL 200 MG TAB PO SCH ×2 (08:00→20:00)
[2021-12-25] MEDS: JUVEN PACKET PO SCH ×2 (08:00→20:00)
[2021-12-25] MEDS: LOSARTAN POTASSIUM 50 MG TABLET PO SCH ×2 (08:56→20:00)
[2021-12-25] MEDS: ZINC SULFATE 220 MG CAP PO SCH ×2 (08:57→21:00)
[2021-12-25] MEDS: DOCUSATE NA 100 MG CAP PO SCH ×2 (08:57→21:00)
[2021-12-25] MEDS: BUMETANIDE 1 MG TABLET PO SCH (08:57)
[2021-12-25] MEDS: FAMOTIDINE 20 MG TAB PO SCH ×2 (08:57→21:00)
[2021-12-25] MEDS: NYSTATIN PWDR 100000 UNIT/GM TOP SCH ×2 (08:58→21:00)
[2021-12-25] MEDS: GABAPENTIN 400 MG CAP PO SCH (08:58)
[2021-12-25] MEDS: VITAMIN D 5,000 UNIT CAP PO SCH (08:58)
[2021-12-25] MEDS: allopurinoL 100 MG TAB PO SCH (08:58)
[2021-12-25] MEDS: SPIRONOLACTONE 25 MG TABLET PO SCH ×2 (08:58→16:54)
[2021-12-25] MEDS: SERTRALINE HCL 50 MG TAB PO SCH (08:58)
[2021-12-25] MEDS: LINEZOLID 600 MG TAB PO SCH ×2 (09:01→21:02)
[2021-12-25] MEDS: acetaZOLAMIDE 250 MG TAB PO SCH (11:59)
--- NOTE | 2021-12-25 13:06 | CON ---
Date of Consultation: 12/24/[address] The patient admitted to Dr. Augustin in the rehab unit. She has been in the hospital since December 17, 2021. I saw her on December 24, 2021. Reason For Consultation: Bradycardia in the setting of atrial fibrillation. History Of Present Illness: Ms. Siddiqi is 71. She is very well known to me from many years of hos pital visits and office visits. She has morbid obesity, actually history of COPD, atrial fibrillatio n, hypertension, peripheral arterial disease, and chronic diastolic congestive heart failure. She is in rehab now after being admitted to [facility] with cellulitis, sepsis. She was on a miodarone 400 b.i.d. and has been bradycardic. Her heart rate is 51. Amiodarone has been held. She remains in sinus sophia. No atrial fibrillation. No actually cardiac symptoms. Adequate blood pres sure. She is still hypercapnic. Her pO2 is 86, pCO2 is 77, pH is 7.24. She is anemic with hemoglob in is 7.6. Her last echocardiogram in the office showed normal ejection fraction with diastolic dysf unction. Past Medical History: As stated above. Allergies: NONE. Review of Systems: Negative. Social History: Negative. Family History: Negative. Medications: Presently include Xarelto, losartan, Bumex, Diamox, gabapentin, and Aldactone. Physical Examination: General: She was alert and oriented x3. Vital Signs: Heart rate is 51, blood pressure is adequate. Afebrile. HEENT: Negative. Neck: Supple with no bruit. Chest: Reveals some rales at the bases. No wheezing. Cardiac: Sinus bradycardia with S4 gallops. Abdomen: Obese. Extremities: Revealed chronic venous changes, but no edema. Diagnostic Data: As stated above. 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 I agree with holding the amiodarone. She is in sinus rhythm. She is on Xarelto. No need for any further cardiac workup in that regard. I w ill continue holding the amiodarone for now. If her heart rate goes up in atrial fibrillation, we wi ll go ahead and give her IV digoxin or IV metoprolol as needed. Her other problems including chronic diastolic congestive heart failure. She is followed by Nephrology for renal insufficiency. She is on Bumex, Diamox, Aldactone, and losartan. I agree with her present regimen. Her other problems inc lude morbid obesity, probable Pickwickian syndrome and hypercapnia. She is on Diamox for that. She also has chronic obstructive pulmonary disease, hypertension, peripheral arterial disease that are we ll controlled. I will be available for questions if the need arises. MARIELLE/MURALI Voice ID: [id number] Report ID: [id number]
[2021-12-25] MEDS: RIVAROXABAN 15 MG TABLET PO SCH (16:53)
--- NOTE | 2021-12-25 18:19 | R.PN ---
PROGRESS NOTES ENCOUNTER DATE AND TIME: 12/25/2021 18:14 (CDT) NAME ISAÍAS PORTER DATE OF : 1950 DATE OF ADMISSION: 12/17/2021 20:07 (CDT) Bronchiectasis, Chronic Bronchitis, COPDCHIEF COMPLAINT: COPD, chronic bronchitis SUBJECTIVE: Pt denied any depression. Pt denied any Shortness of Breath. WBC 7.9, Hgb 7.6, Plt 245, Na 140, Web Mobile Designer 1.23, uric acid 8.4, prealbumin 22.4, glucose 109 to 117. COVI D-19 on 12/24/21 is negative. Therapeutic exercises done with minimal assistance. Bed mobility done with standby assistance. ABG at 05:12 today: pH 7.24, pCO2 77.5, pO2 86.1. She was put on CPAP VITAL SIGNS Temperature: 97.0 F SBP/DBP: 123/56 Pulse: 51 Resp: 15 O2 sat 95% ibr FIO2 of 30%. MEDICATION ALLERGIES: No Known Drug Allergies (NKDA) ENVIRONMENTAL ALLERGIES: - Substance Allergies None Known - Other Allergies None Known NURSING: - Shower allowing shower PRECAUTIONS: - Fall Precaution SAFTY AND FALL ACTIVITIES OOB only with supervision THERAPIES: - Dietary and Nutrition Adequate Nutrition. Nutritional Education. Nutritional Supplements. Evaluate and Treat. - Occupational Therapy Cognitive Retraining. Patient needs Occupational Therapy for a daily minimum of 1.5 hours at least 5 out of 7 days, to improve Activities of Daily Living, including: Eating, Grooming, Bathing, Dressing, Toileting, Toilet Transfers, Community Reintegration, Higher functional activities, Adaptive Equipme nt, Splinting, Household Tasks, and Other activities as determined. Evaluate and Treat. Visual Percep tual Training. Patient/Family Education. Safety Awareness. Transfer Training. Adaptive Equipment. Ivan sehold Tasks. UE Strengthening. - Speech Therapy Cognitive Training. Expressive Language Skills. Memory Strategies. Patient needs Speech Therapy for a daily minimum of 1.5 hours at least 5 out of 7 days, to improve: Swallowing, Cognition, Language Ski lls, and Compensatory Strategies. Receptive Language Skills. Speech Intelligibility Training. Evaluat e and Treat. - Physical Therapy Patient needs Physical Therapy for a daily minimum of 1.5 hours at least 5 out of 7 days, to improve: Mobility, Strengthening, Transfers, Stretching, ROM, Endurance, Ability to manage stairs, Gait, and Balance. Mobility Training. Evaluate and Treat. Gait Training. Safety Awareness. Balance Training. Pa tient/Family Education. LE Strengthening. Medical Equipment Assessment and Evaluation. PHYSICAL EXAM - Gen Alert and awake Lying in bed No apparent distress Oriented to: person, time, and place - Skin No skin breakdown. Normacephalic - Eyes No abnormalities - Neck No abnormalities - CVS RRR - Chest No abnormalities - Abd Obese - Ext Moderate edema in both lower extremities. - MSK 4+/5 weakness in both lower extremities. - Neuro No focal deficits - Psych Mild depression. ASSESSMENT: Pt. is a 71 yo Right-handed female.On 12/03/2021 she was admitted to [facility] with diagnosi s Bronchiectasis, Chronic Bronchitis, COPD.Extreme obesity BMI 56.6Her impairment category is Pulmona ry Disorders 10 - Chronic Obstructive Pulmonary Disease (10.1).Pre-morbidly, Pt. was independent/mod -I in Locomotion, Safety Awareness, Social Cognition, Balance, and Transfers Control; and she had goo d Sphincter Control, Self-Care, Communication, and Endurance.Currently, she has deficits of Locomotio n, Safety Awareness, Social Cognition, Balance, Transfers Control, Sphincter Control, Self-Care, Comm unication, and Endurance.Pt. is now referred to [facility] for acute in-patien t rehabilitation in order to maximize patient's functional independence in activities of daily living , strength, ROM, and mobility.- Rehab Goal Patient has realistic goal of being discharged at assistance level 7-Ind to reside at Home with Fami ly/Relatives. MDM/PLAN: - Physical Therapy Gait dysfunction - to improve, our physical therapists will perform initial evaluation of pt's statu s upon admission and devise an individualized program for Gait Training, and Wheel Chair mobility Inability to transfer - to improve, our physical therapists will perform initial evaluation of pt's status upon admission and devise an individualized program for Bed mobility Need for home safety evaluation - to improve, our physical therapists will perform initial evaluatio n of pt's status upon admission and devise an individualized program for Home Evaluation Need in caregiver upon discharge - to improve, our physical therapists will perform initial evaluati on of pt's status upon admission and devise an individualized program for Caregiver Training New precaution - to improve, our physical therapists will perform initial evaluation of pt's status upon admission and devise an individualized program for Patient precaution education Poor balance - to improve, our physical therapists will perform initial evaluation of pt's status up on admission and devise an individualized program for Balance Training Poor endurance - to improve, our physical therapists will perform initial evaluation of pt's status upon admission and devise an individualized program for Endurance Training Weakness - to improve, our physical therapists will perform initial evaluation of pt's status upon a dmission and devise an individualized program for Aquatic Therapy, Neuromuscular Reeducation, and Str engthening Achieving independence - to improve, our physical therapists will perform initial evaluation of pt's status upon admission and devise an individualized program for Community Reintegration Activities - Occupational Therapy ADL deficits - to improve, our occupation therapists will perform initial evaluation of pt's status upon admission and devise an individualized program for Bathing, Bed mobility, Community Reintegratio n, Cooking, Dressing, Eating, Fine Motor Skills, Grooming, Homemaking, Kitchen Mobility, Laundry, Pat ient Education, Safety Awareness, Splinting - Positioning, Transfers(Toilet, Tub, Shower), and Wheel Chair Management Cognitive deficits - to improve, our occupation therapists will perform initial evaluation of pt's s tatus upon admission and devise an individualized program for Cognition - orientation Need for chiropractic care - to improve, our occupation therapists will perform initial evaluation of pt's status upon admission and devise an individualized program for Caregiver Training Weakness - to improve, our occupation therapists will perform initial evaluation of pt's status upon admission and devise an individualized program for Aquatic Therapy, Balance, Endurance, UE ROM, and UE strengthening - Other See attached MAR (Medication Administration Record) - Diet Type Continue Regular - Diet - Liquid Texture Continue Regular - Tube Feed Continue N/A - Fall Precaution SAFTY AND FALL - Diet - Solid Texture Continue Regular - Shower allowing shower FUNCTIONAL STATUS: UPDATED AT WEEKLY TEAM CONFERENCE - Bladder Same accident frequency: 7-Ind - No accidents in the past 7 days - Bowel Same accident frequency: 7-Ind - No accidents in the past 7 days - Walking Same score based on distance walked: 0(N/A) - Wheelchair Same score based on distance traveled: 0(N/A) FUNCTIONAL STATUS: - Self-Care A. Eating Ind B. Grooming modA C. Bathing Dep D. Dressing - Upper modA E. Dressing - Lower maxA F. Toileting maxA - Sphincter Control G. Bladder control sup H. Bowel control sup - Transfers Control I. Bed/Chair/Wheelchair Dep J. Toilet maxA K. Tub/Shower Dep - Locomotion L. Walk/Wheelchair (B) Dep M. Stairs ADNO - Communication N. Comprehension (B) Vern O. Expression (B) Vern - Social Cognition P. Social Interaction Ind Q. Problem Solving sup R. Memory Vern - Endurance Poor - Balance Poor - Safety Awareness Fair QI SCORES: - Self-Care A. Eating 03-Partial/moderate assistance B. Oral hygiene 02-Substantial/maximal assistance C. Toileting hygiene 02-Substantial/maximal assistance E. Shower/bathe self 02-Substantial/maximal assistance F. Upper body dressing 02-Substantial/maximal assistance G. Lower body dressing 02-Substantial/maximal assistance H. Putting on/taking off footwear 88-Not attempted due to medical condition or safety concerns - Mobility A. Roll left and right 03-Partial/moderate assistance B. Sit to lying 03-Partial/moderate assistance C. Lying to sitting on side of bed 02-Substantial/maximal assistance D. Sit to stand 02-Substantial/maximal assistance E. Chair/[id number] transfer 02-Substantial/maximal assistance F. Toilet transfer 02-Substantial/maximal assistance G. Car transfer 88-Not attempted due to medical condition or safety concerns I. Walk 10 feet 88-Not attempted due to medical condition or safety concerns J. Walk 50 feet with two turns 88-Not attempted due to medical condition or safety concerns K. Walk 150 feet 88-Not attempted due to medical condition or safety concerns L. Walking 10 feet on uneven surfaces 88-Not attempted due to medical condition or safety concerns M. 1 step (curb) 88-Not attempted due to medical condition or safety concerns N. 4 steps 88-Not attempted due to medical condition or safety concerns O. 12 steps 88-Not attempted due to medical condition or safety concerns P. Picking up object 88-Not attempted due to medical condition or safety concerns R. Wheel 50 feet with two turns 88-Not attempted due to medical condition or safety concerns S. Wheel 150 feet 88-Not attempted due to medical condition or safety concerns - Endurance Fair - Balance Poor - Safety Awareness Fair CURRENT FUNC. DEFICITS: Self-Care, Mobility, Endurance, Balance, and Safety Awareness SIGNATURE PANEL: (CDT)
--- NOTE | 2021-12-25 18:27 | RAD REPORT ---
EXAM DESCRIPTION: RAD - Chest Single View - 12/25/2021 5:58 am CLINICAL HISTORY: 71 years Female, AMS COMPARISON: Prior chest x-ray report from 12/18/2021. The image was not available for comparison. TECHNIQUE: Single portable x-ray view of the chest performed on 12/25/2021 at 5:51 AM FINDINGS: The lungs are well-expanded. There is moderate to marked diffuse bilateral airspace diseas e which may be due to edema or multifocal pneumonia. There is no evidence of a pneumothorax. The cardiac silhouette is prominent. The mediastinal contours are normal. No acute osseous abnormality is identified. No acute soft tissue abnormalities are seen. Lines and tubes: The left-sided central venous catheter tip terminates in the region of the superio r vena cava. Free air: None IMPRESSION: 1. Moderate to marked diffuse bilateral airspace disease which may be due to edema or multifocal pneumonia. 2. Prominence of the cardiac silhouette. 3. Left subclavian central venous catheter terminates in the region of the SVC. Electronically signed by: Tatum Schuster DO 12/25/2021 6:41 AM CDT Due to temporary technical issues with the PACS/Fluency reporting system, reports are being signed by the in house radiologists without review as a courtesy to insure prompt reporting. The interpreting radiologist is fully responsible for the content of the report.
[2021-12-25] MEDS: SOD FERRIC GLUC COMPLX/SUCROSE 125 MG in NA CHLORIDE 0.9% 100 ML IV SCH (21:00)
[2021-12-26] MEDS: PIPER TAZO 3.375 GM in NA CHLORIDE 0.9% 100 ML IV SCH ×3 (01:36→16:34)
[2021-12-26] MEDS: AMIODARONE HCL 200 MG TAB PO SCH ×2 (08:00→20:00)
[2021-12-26] MEDS: FLUTICASONE 110 MCG/PUFF 12 GM INH IH SCH ×2 (08:00→20:00)
[2021-12-26] MEDS: JUVEN PACKET PO SCH ×2 (08:00→20:00)
[2021-12-26] MEDS: SERTRALINE HCL 50 MG TAB PO SCH (08:23)
[2021-12-26] MEDS: LOSARTAN POTASSIUM 50 MG TABLET PO SCH ×2 (08:23→20:00)
[2021-12-26] MEDS: DOCUSATE NA 100 MG CAP PO SCH ×2 (08:23→21:16)
[2021-12-26] MEDS: BUMETANIDE 1 MG TABLET PO SCH (08:23)
[2021-12-26] MEDS: FAMOTIDINE 20 MG TAB PO SCH ×2 (08:24→21:12)
[2021-12-26] MEDS: SPIRONOLACTONE 25 MG TABLET PO SCH ×2 (08:24→16:34)
[2021-12-26] MEDS: GABAPENTIN 400 MG CAP PO SCH (08:24)
[2021-12-26] MEDS: VITAMIN D 5,000 UNIT CAP PO SCH (08:24)
[2021-12-26] MEDS: ZINC SULFATE 220 MG CAP PO SCH ×2 (08:24→21:13)
[2021-12-26] MEDS: allopurinoL 100 MG TAB PO SCH (08:24)
[2021-12-26] MEDS: LINEZOLID 600 MG TAB PO SCH ×2 (08:25→21:13)
[2021-12-26] MEDS: acetaZOLAMIDE 250 MG TAB PO SCH (12:05)
[2021-12-26] MEDS: NYSTATIN PWDR 100000 UNIT/GM TOP SCH ×2 (12:05→21:16)
[2021-12-26] MEDS: RIVAROXABAN 15 MG TABLET PO SCH (16:35)
--- NOTE | 2021-12-26 17:27 | R.PN ---
PROGRESS NOTES ENCOUNTER DATE AND TIME: 12/26/2021 17:22 (CDT) NAME ISAÍAS PORTER DATE OF : 1950 DATE OF ADMISSION: 12/17/2021 20:07 (CDT) Bronchiectasis, Chronic Bronchitis, COPDCHIEF COMPLAINT: COPD, chronic bronchitis SUBJECTIVE: Pt denied any depression. Pt denied any Shortness of Breath. WBC 7.9, Hgb 7.6, Plt 245, Na 140, Gang Pusher 1.23, uric acid 8.4, prealbumin 22.4, glucose 109 to 117. COVI D-19 on 12/24/21 is negative. Therapeutic exercises done with minimal assistance. Bed mobility done with standby assistance. O2 sat dropped to 72% on 2.5 L O2 with exercise. With rest O2 sat 100% with 2L via NC ABG at 05:12 today: pH 7.24, pCO2 77.5, pO2 86.1. She was put on CPAP VITAL SIGNS Temperature: 97.0 F SBP/DBP: 125/72 Pulse: 52 Resp: 15 MEDICATION ALLERGIES: No Known Drug Allergies (NKDA) ENVIRONMENTAL ALLERGIES: - Substance Allergies None Known - Other Allergies None Known NURSING: - Shower allowing shower PRECAUTIONS: - Fall Precaution SAFTY AND FALL ACTIVITIES OOB only with supervision THERAPIES: - Dietary and Nutrition Adequate Nutrition. Nutritional Education. Nutritional Supplements. Evaluate and Treat. - Occupational Therapy Cognitive Retraining. Patient needs Occupational Therapy for a daily minimum of 1.5 hours at least 5 out of 7 days, to improve Activities of Daily Living, including: Eating, Grooming, Bathing, Dressing, Toileting, Toilet Transfers, Community Reintegration, Higher functional activities, Adaptive Equipme nt, Splinting, Household Tasks, and Other activities as determined. Evaluate and Treat. Visual Percep tual Training. Patient/Family Education. Safety Awareness. Transfer Training. Adaptive Equipment. Ivan sehold Tasks. UE Strengthening. - Speech Therapy Cognitive Training. Expressive Language Skills. Memory Strategies. Patient needs Speech Therapy for a daily minimum of 1.5 hours at least 5 out of 7 days, to improve: Swallowing, Cognition, Language Ski lls, and Compensatory Strategies. Receptive Language Skills. Speech Intelligibility Training. Evaluat e and Treat. - Physical Therapy Patient needs Physical Therapy for a daily minimum of 1.5 hours at least 5 out of 7 days, to improve: Mobility, Strengthening, Transfers, Stretching, ROM, Endurance, Ability to manage stairs, Gait, and Balance. Mobility Training. Evaluate and Treat. Gait Training. Safety Awareness. Balance Training. Pa tient/Family Education. LE Strengthening. Medical Equipment Assessment and Evaluation. PHYSICAL EXAM - Gen Alert and awake Lying in bed No apparent distress Oriented to: person, time, and place - Skin No skin breakdown. Normacephalic - Eyes No abnormalities - Neck No abnormalities - CVS RRR - Chest No abnormalities - Abd Obese - Ext Moderate edema in both lower extremities. - MSK 4+/5 weakness in both lower extremities. - Neuro No focal deficits - Psych Mild depression. ASSESSMENT: Pt. is a 71 yo Right-handed female.On 12/03/2021 she was admitted to [facility] with diagnosi s Bronchiectasis, Chronic Bronchitis, COPD.Extreme obesity BMI 56.6Her impairment category is Pulmona ry Disorders 10 - Chronic Obstructive Pulmonary Disease (10.1).Pre-morbidly, Pt. was independent/mod -I in Locomotion, Safety Awareness, Social Cognition, Balance, and Transfers Control; and she had goo d Sphincter Control, Self-Care, Communication, and Endurance.Currently, she has deficits of Locomotio n, Safety Awareness, Social Cognition, Balance, Transfers Control, Sphincter Control, Self-Care, Comm unication, and Endurance.Pt. is now referred to [facility] for acute in-patien t rehabilitation in order to maximize patient's functional independence in activities of daily living , strength, ROM, and mobility.- Rehab Goal Patient has realistic goal of being discharged at assistance level 7-Ind to reside at Home with Fami ly/Relatives. MDM/PLAN: - Physical Therapy Gait dysfunction - to improve, our physical therapists will perform initial evaluation of pt's statu s upon admission and devise an individualized program for Gait Training, and Wheel Chair mobility Inability to transfer - to improve, our physical therapists will perform initial evaluation of pt's status upon admission and devise an individualized program for Bed mobility Need for home safety evaluation - to improve, our physical therapists will perform initial evaluatio n of pt's status upon admission and devise an individualized program for Home Evaluation Need in caregiver upon discharge - to improve, our physical therapists will perform initial evaluati on of pt's status upon admission and devise an individualized program for Caregiver Training New precaution - to improve, our physical therapists will perform initial evaluation of pt's status upon admission and devise an individualized program for Patient precaution education Poor balance - to improve, our physical therapists will perform initial evaluation of pt's status up on admission and devise an individualized program for Balance Training Poor endurance - to improve, our physical therapists will perform initial evaluation of pt's status upon admission and devise an individualized program for Endurance Training Weakness - to improve, our physical therapists will perform initial evaluation of pt's status upon a dmission and devise an individualized program for Aquatic Therapy, Neuromuscular Reeducation, and Str engthening Achieving independence - to improve, our physical therapists will perform initial evaluation of pt's status upon admission and devise an individualized program for Community Reintegration Activities - Occupational Therapy ADL deficits - to improve, our occupation therapists will perform initial evaluation of pt's status upon admission and devise an individualized program for Bathing, Bed mobility, Community Reintegratio n, Cooking, Dressing, Eating, Fine Motor Skills, Grooming, Homemaking, Kitchen Mobility, Laundry, Pat ient Education, Safety Awareness, Splinting - Positioning, Transfers(Toilet, Tub, Shower), and Wheel Chair Management Cognitive deficits - to improve, our occupation therapists will perform initial evaluation of pt's s tatus upon admission and devise an individualized program for Cognition - orientation Need for childcare center director - to improve, our occupation therapists will perform initial evaluation of pt's status upon admission and devise an individualized program for Caregiver Training Weakness - to improve, our occupation therapists will perform initial evaluation of pt's status upon admission and devise an individualized program for Aquatic Therapy, Balance, Endurance, UE ROM, and UE strengthening - Other See attached MAR (Medication Administration Record) - Diet Type Continue Regular - Diet - Liquid Texture Continue Regular - Tube Feed Continue N/A - Fall Precaution SAFTY AND FALL - Diet - Solid Texture Continue Regular - Shower allowing shower FUNCTIONAL STATUS: UPDATED AT WEEKLY TEAM CONFERENCE - Bladder Same accident frequency: 7-Ind - No accidents in the past 7 days - Bowel Same accident frequency: 7-Ind - No accidents in the past 7 days - Walking Same score based on distance walked: 0(N/A) - Wheelchair Same score based on distance traveled: 0(N/A) FUNCTIONAL STATUS: - Self-Care A. Eating Ind B. Grooming modA C. Bathing Dep D. Dressing - Upper modA E. Dressing - Lower maxA F. Toileting maxA - Sphincter Control G. Bladder control sup H. Bowel control sup - Transfers Control I. Bed/Chair/Wheelchair Dep J. Toilet maxA K. Tub/Shower Dep - Locomotion L. Walk/Wheelchair (B) Dep M. Stairs ADNO - Communication N. Comprehension (B) Vern O. Expression (B) Vern - Social Cognition P. Social Interaction Ind Q. Problem Solving sup R. Memory Vern - Endurance Poor - Balance Poor - Safety Awareness Fair QI SCORES: - Self-Care A. Eating 03-Partial/moderate assistance B. Oral hygiene 02-Substantial/maximal assistance C. Toileting hygiene 02-Substantial/maximal assistance E. Shower/bathe self 02-Substantial/maximal assistance F. Upper body dressing 02-Substantial/maximal assistance G. Lower body dressing 02-Substantial/maximal assistance H. Putting on/taking off footwear 88-Not attempted due to medical condition or safety concerns - Mobility A. Roll left and right 03-Partial/moderate assistance B. Sit to lying 03-Partial/moderate assistance C. Lying to sitting on side of bed 02-Substantial/maximal assistance D. Sit to stand 02-Substantial/maximal assistance E. Chair/[id number] transfer 02-Substantial/maximal assistance F. Toilet transfer 02-Substantial/maximal assistance G. Car transfer 88-Not attempted due to medical condition or safety concerns I. Walk 10 feet 88-Not attempted due to medical condition or safety concerns J. Walk 50 feet with two turns 88-Not attempted due to medical condition or safety concerns K. Walk 150 feet 88-Not attempted due to medical condition or safety concerns L. Walking 10 feet on uneven surfaces 88-Not attempted due to medical condition or safety concerns M. 1 step (curb) 88-Not attempted due to medical condition or safety concerns N. 4 steps 88-Not attempted due to medical condition or safety concerns O. 12 steps 88-Not attempted due to medical condition or safety concerns P. Picking up object 88-Not attempted due to medical condition or safety concerns R. Wheel 50 feet with two turns 88-Not attempted due to medical condition or safety concerns S. Wheel 150 feet 88-Not attempted due to medical condition or safety concerns - Endurance Fair - Balance Poor - Safety Awareness Fair CURRENT [facility]. DEFICITS: Self-Care, Mobility, Endurance, Balance, and Safety Awareness SIGNATURE PANEL: (CDT)
[2021-12-26] MEDS: SOD FERRIC GLUC COMPLX/SUCROSE 125 MG in NA CHLORIDE 0.9% 100 ML IV SCH (20:59)
[2021-12-26] MEDS: ENSURE HIGH PROTEIN 237 ML CAN PO SCH (21:13)
[2021-12-27] MEDS: PIPER TAZO 3.375 GM in NA CHLORIDE 0.9% 100 ML IV SCH ×3 (00:02→16:31)
[2021-12-27 04:48] LABS: Absolute Lymphocytes (CBC) 0.7 K/uL (0.7-4.9); Hematocrit 25.5 % (36.0-45.0); Lymphocytes % 9.8 % (15.3-44.8); MPV 8.2 fL (7.6-11.3); RBC Red Blood Cell Count 3.13 M/uL (3.86-4.86)
[2021-12-27 05:14] LABS: Albumin 2.8 g/dL (3.4-5.0); Magnesium 2.5 mg/dL (1.8-2.4); Potassium 3.5 mmol/L (3.5-5.1)
--- NOTE | 2021-12-27 07:53 | RAD REPORT ---
EXAM DESCRIPTION: Samara Single View12/27/2021 5:58 am CLINICAL HISTORY: Chest pain COMPARISON: December 25, 2021 FINDINGS: No significant change in extensive bilateral pulmonary opacities. Cardiomegaly persists. C entral venous line with its tip in the superior vena cava IMPRESSION: No significant change in extensive bilateral pulmonary opacities which represent pulmon cortes edema or pneumonia
[2021-12-27] MEDS: FLUTICASONE 110 MCG/PUFF 12 GM INH IH SCH ×2 (08:00→20:00)
[2021-12-27] MEDS: AMIODARONE HCL 200 MG TAB PO SCH ×2 (08:00→20:00)
[2021-12-27] MEDS: JUVEN PACKET PO SCH ×2 (08:00→20:00)
[2021-12-27] MEDS: LINEZOLID 600 MG TAB PO SCH ×2 (08:49→20:44)
[2021-12-27] MEDS: SPIRONOLACTONE 25 MG TABLET PO SCH ×2 (08:50→16:31)
[2021-12-27] MEDS: SERTRALINE HCL 50 MG TAB PO SCH (08:51)
[2021-12-27] MEDS: BUMETANIDE 1 MG TABLET PO SCH ×2 (08:51→16:34)
[2021-12-27] MEDS: GABAPENTIN 400 MG CAP PO SCH (08:51)
[2021-12-27] MEDS: VITAMIN D 5,000 UNIT CAP PO SCH (08:51)
[2021-12-27] MEDS: LOSARTAN POTASSIUM 50 MG TABLET PO SCH ×2 (08:51→20:42)
[2021-12-27] MEDS: FAMOTIDINE 20 MG TAB PO SCH ×2 (08:52→20:42)
[2021-12-27] MEDS: allopurinoL 100 MG TAB PO SCH (08:52)
[2021-12-27] MEDS: ZINC SULFATE 220 MG CAP PO SCH ×2 (08:52→20:42)
[2021-12-27] MEDS: DOCUSATE NA 100 MG CAP PO SCH ×2 (08:53→20:42)
[2021-12-27] MEDS ORDERED: POTASSIUM CL SA 10 MEQ TAB PO ONE (09:04)
[2021-12-27] MEDS: ENSURE HIGH PROTEIN 237 ML CAN PO SCH ×2 (09:39→20:00)
--- NOTE | 2021-12-27 10:26 | P.PN ---
Date of Service: 12/27/21 Vital Signs Temp Pulse Resp BP Pulse Ox 97.8 F 53 18 151/62 H 100 12/27/21 07:32 12/27/21 08:51 12/27/21 07:32 12/27/21 08:51 12/27/21 07:32 Medications Acetaminophen (Acetaminophen 500 Mg Tab) 500 mg PO Q4H PRN PRN Reason: Pain scale 2-4 (Mild) Last Admin: 12/24/21 09:24 Dose: 500 mg Documented by: Acetazolamide (Acetazolamide 250 Mg Tab) 500 mg PO Q24H [facility] Last Admin: 12/26/21 12:05 Dose: 500 mg Documented by: Albuterol Sulfate (Albuterol 2.5 Mg/3 Ml Neb Nishi) 2.5 mg IH [id number] PRN PRN Reason: SHORTNESS OF BREATH Allopurinol (Allopurinol 100 Mg Tab) 100 mg PO DAILY [facility] Last Admin: 12/27/21 08:52 Dose: 100 mg Documented by: Amiodarone HCl (Amiodarone Hcl 200 Mg Tab) 200 mg PO BID [facility] Last Admin: 12/27/21 08:00 Dose: Not Given Documented by: Bumetanide (Bumetanide 1 Mg Tablet) 1 mg PO BIDL [facility] Cholecalciferol (Vitamin D 5,000 Unit Cap) 5,000 unit PO DAILY [facility] Last Admin: 12/27/21 08:51 Dose: 5,000 unit Documented by: Dextrose (D50w 25 Gm/50 Ml Syringe) 12.5 gm IV PRN PRN; Protocol PRN Reason: HYPOGLYCEMIA Docusate Sodium (Docusate Na 100 Mg Cap) 100 mg PO BID [facility] Last Admin: 12/27/21 08:53 Dose: 100 mg Documented by: Famotidine (Famotidine 20 Mg Tab) 20 mg PO BID [facility]; Protocol Last Admin: 12/27/21 08:52 Dose: 20 mg Documented by: Gabapentin (Gabapentin 400 Mg Cap) 400 mg PO DAILY [facility] Last Admin: 12/27/21 08:51 Dose: 400 mg Documented by: Glucagon (Glucagon 1 Mg/Vial) 1 mg IM 1X PRN; Protocol PRN Reason: HYPOGLYCEMIA Home Med (Fluticasone 110 Mcg/Puff 12 Gm Inh) 110 ea IH BID [facility] Last Admin: 12/27/21 08:00 Dose: Not Given Documented by: Piperacillin Sod/Tazobactam (Sod 3.375 gm/ Sodium Chloride) 100 mls @ 25 mls/hr IV Q8HR [facility]; Protocol Last Admin: 12/27/21 08:49 Dose: 100 mls Documented by: Ferric Sodium Gluconate Complex 125 mg/ Sodium Chloride 110 mls @ 100 mls/hr IV Q24H [facility] Stop: 12/28/21 21:05 Last Admin: 12/26/21 20:59 Dose: 110 mls Documented by: L-Arginine/L-Glutamine/HMB (Chao Packet) 1 pkt PO BID [facility] Last Admin: 12/27/21 08:00 Dose: Not Given Documented by: Linezolid (Linezolid 600 Mg Tab) 600 mg PO BID [facility]; Protocol Stop: 12/27/21 20:01 Last Admin: 12/27/21 08:49 Dose: 600 mg Documented by: Losartan Potassium (Losartan Potassium 50 Mg Tablet) 25 mg PO BID [facility] Last Admin: 12/27/21 08:51 Dose: 25 mg Documented by: Nutritional Formula (Ensure High Protein 237 Ml Can) 237 ml PO BID [facility] Last Admin: 12/27/21 09:39 Dose: 237 ml Documented by: Nystatin (Nystatin Pwdr [id number] Unit/Gm) 1 appl TOP BID [facility] Last Admin: 12/26/21 21:16 Dose: 1 appl Documented by: Rivaroxaban (Rivaroxaban 15 Mg Tablet) 15 mg PO DAILY 5 PM [facility] Last Admin: 12/26/21 16:35 Dose: 15 mg Documented by: Senna/Docusate Sodium (Docusate Na/Senna Conc 1 Tab) 2 tab PO BEDTIME PRN PRN Reason: CONSTIPATION Last Admin: 12/24/21 20:36 Dose: 2 tab Documented by: Sertraline HCl (Sertraline Hcl 50 Mg Tab) 50 mg PO DAILY [facility] Last Admin: 12/27/21 08:51 Dose: 50 mg Documented by: Sodium Chloride (Flush Normal Saline 10 Ml) 10 ml IV BID [facility] Last Admin: 12/27/21 08:53 Dose: 10 ml Documented by: Spironolactone (Spironolactone 25 Mg Tablet) 50 mg PO BIDL [facility] Zinc Sulfate (Zinc Sulfate 220 Mg Cap) 220 mg PO BID [facility] Last Admin: 12/27/21 08:52 Dose: 220 mg Documented by: Lab Results (last 24 hrs) 12/27/21 04:05: Sodium 143, Potassium 3.5, Chloride 104, Carbon Dioxide 31, BUN 28 H D, Creatinine 0.87, Estimated GFR 64 L, Glucose 116 H, Calcium 8.7, Magnesium 2.5 H, Albumin 2.8 L 12/27/21 04:05: WBC 7.5, RBC 3.13 L, Hgb 7.8 L, Hct 25.5 L, MCV 81.6, MCH 25.0 L, MCHC 30.7 L, RDW 25.6 H, Plt Count 219, MPV 8.2, Neutrophils % 74.0 H, Lymphocytes % 9.8 L, Monocytes % 12.5 H, Eosinophils % 2.7, Basophils % 1.0, Absolute Neutrophils 5.6, Absolute Lymphocytes 0.7, Absolute Monocytes 0.9, A bsolute Eosinophils 0.2, Absolute Basophils 0.1 Assessment/ Plan: Nephrology No dyspnea. BROWN. No chest pain Improving appetite No acute events overnight Vitals, medications, blood work and imaging reviewed in the chart. General: Oriented x3, Cooperative. Obese. HEENT: Atraumatic Neck: Supple Respiratory: Diminished Cardiovascular: Regular rate/rhythm, Edema Gastrointestinal: Soft and benign, Non-distended Musculoskeletal: No clubbing, No contractures Integumentary: No rashes, No cyanosis Neurological: Normal speech Laboratory Data (last 24 hrs) 12/18/21 05:15: Sodium 134 L, Potassium 4.1, BUN 58 H, Creatinine 1.35 H, Glucose 98, Magnesium 2.5 H 12/18/21 05:15: WBC 13.80 H, Hgb 8.7 L, Hct 27.8 L, Plt Count 284 Imagings Data: EXAM DESCRIPTION: RAD - Chest Single View - 12/18/2021 6:29 am CLINICAL HISTORY: Pneumonia COMPARISON: Portable chest 08/30/2021 TECHNIQUE: AP portable chest image was obtained 12/18/2021 6:29 am . FINDINGS: Left subclavian Port-A-Cath has been placed since the prior examination. Focal airspace opacification with air bronchogram formation seen in the mid upper left lung field. This is new from the August examination. Overall interstitial opacification is prominent and may be slightly increased from the comparison. The dense consolidation of the right upper lobe seen on the August study has cleared are almost entirely cleared. There is minimal lateral opacification and may be remnant from that pneumonia. Heart size is prominent, similar to comparison. Central vasculature prominent. No measurable pleural effusion and no pneumothorax. No acute bony abnormality seen. No acute aortic findings suspected. IMPRESSION: Left upper lung field pneumonia new from prior imaging. Complete or near complete clearing of the right upper lobe pneumonia seen on the 08/30/2021 study. Heart, vasculature and lung markings are all prominent. A component of mild failure or volume overload concurrent with the pneumonia cannot be excluded. Conclusions/Impression: CKD III -No NSAIDs Hyponatremia -Encourage nutrition Hypokalemia -Replete potassium Alkalosis -Continue Diamox HTN with CKD/ CHF -Continue Losartan 25mg BID with holding parameters SILVANA -Continue CPAP Diastolic CHF, chronic -Increase Bumex BID -Daily weight -Continue Diamox Daily -Increase Spironolactone 50mg BID Mild malnutrition -Encourage nutrition Anemia in chronic illness Iron Deficiency sp IV iron -Monitor H&H Morbid Obesity Debility -PT as tolerated
[2021-12-27] MEDS: NYSTATIN PWDR 100000 UNIT/GM TOP SCH ×2 (11:12→20:42)
[2021-12-27] MEDS: acetaZOLAMIDE 250 MG TAB PO SCH (12:09)
[2021-12-27] MEDS ORDERED: BRESALTEC IH PRN (13:01)
[2021-12-27] MEDS ORDERED: ALBUTEROL INHALER 60 PUFF/8 GM IH PRN (13:03)
[2021-12-27] MEDS ORDERED: NA CHLORIDE 0.9% 250 ML IV SCH (16:00)
[2021-12-27 16:21] LABS: Prealbumin 20.3 mg/dL (20-40)
[2021-12-27] MEDS: RIVAROXABAN 15 MG TABLET PO SCH (16:33)
--- NOTE | 2021-12-27 17:34 | R.PN ---
PROGRESS NOTES ENCOUNTER DATE AND TIME: 12/27/2021 17:26 (CDT) NAME ISAÍAS PORTER DATE OF : 1950 DATE OF ADMISSION: 12/17/2021 20:07 (CDT) Bronchiectasis, Chronic Bronchitis, COPDCHIEF COMPLAINT: COPD, chronic bronchitis SUBJECTIVE: Pt denied any depression. Pt denied any Shortness of Breath. WBC 7.5, Hgb 7.8, Plt 245, Na 143, Rewinder Operator 0.87, uric acid 8.4, prealbumin 20.3, glucose 116. COVID-19 on 12/24/21 is negative. Therapeutic exercises done with minimal assistance. Bed mobility done with standby assistance. O2 sat dropped to 72% on 2.5 L O2 with exercise. With rest O2 sat 97% with 2.5 L via NC ABG at 05:12 today: pH 7.24, pCO2 77.5, pO2 86.1. She was put on CPAP VITAL SIGNS Temperature: 97.0 F SBP/DBP: 142/63 Pulse: 57 Resp: 16 MEDICATION ALLERGIES: No Known Drug Allergies (NKDA) ENVIRONMENTAL ALLERGIES: - Substance Allergies None Known - Other Allergies None Known NURSING: - Shower allowing shower PRECAUTIONS: - Fall Precaution SAFTY AND FALL ACTIVITIES OOB only with supervision THERAPIES: - Dietary and Nutrition Adequate Nutrition. Nutritional Education. Nutritional Supplements. Evaluate and Treat. - Occupational Therapy Cognitive Retraining. Patient needs Occupational Therapy for a daily minimum of 1.5 hours at least 5 out of 7 days, to improve Activities of Daily Living, including: Eating, Grooming, Bathing, Dressing, Toileting, Toilet Transfers, Community Reintegration, Higher functional activities, Adaptive Equipme nt, Splinting, Household Tasks, and Other activities as determined. Evaluate and Treat. Visual Percep tual Training. Patient/Family Education. Safety Awareness. Transfer Training. Adaptive Equipment. Ivan sehold Tasks. UE Strengthening. - Speech Therapy Cognitive Training. Expressive Language Skills. Memory Strategies. Patient needs Speech Therapy for a daily minimum of 1.5 hours at least 5 out of 7 days, to improve: Swallowing, Cognition, Language Ski lls, and Compensatory Strategies. Receptive Language Skills. Speech Intelligibility Training. Evaluat e and Treat. - Physical Therapy Patient needs Physical Therapy for a daily minimum of 1.5 hours at least 5 out of 7 days, to improve: Mobility, Strengthening, Transfers, Stretching, ROM, Endurance, Ability to manage stairs, Gait, and Balance. Mobility Training. Evaluate and Treat. Gait Training. Safety Awareness. Balance Training. Pa tient/Family Education. LE Strengthening. Medical Equipment Assessment and Evaluation. PHYSICAL EXAM - Gen Alert and awake Lying in bed No apparent distress Oriented to: person, time, and place - Skin No skin breakdown. Normacephalic - Eyes No abnormalities - Neck No abnormalities - CVS RRR - Chest No abnormalities - Abd Obese - Ext Moderate edema in both lower extremities. - MSK 4+/5 weakness in both lower extremities. - Neuro No focal deficits - Psych Mild depression. ASSESSMENT: Pt. is a 71 yo Right-handed female.On 12/03/2021 she was admitted to [facility] with diagnosi s Bronchiectasis, Chronic Bronchitis, COPD.Extreme obesity BMI 56.6Her impairment category is Pulmona ry Disorders 10 - Chronic Obstructive Pulmonary Disease (10.1).Pre-morbidly, Pt. was independent/mod -I in Locomotion, Safety Awareness, Social Cognition, Balance, and Transfers Control; and she had goo d Sphincter Control, Self-Care, Communication, and Endurance.Currently, she has deficits of Locomotio n, Safety Awareness, Social Cognition, Balance, Transfers Control, Sphincter Control, Self-Care, Comm unication, and Endurance.Pt. is now referred to [facility] for acute in-patien t rehabilitation in order to maximize patient's functional independence in activities of daily living , strength, ROM, and mobility.- Rehab Goal Patient has realistic goal of being discharged at assistance level 7-Ind to reside at Home with Fami ly/Relatives. MDM/PLAN: - Physical Therapy Gait dysfunction - to improve, our physical therapists will perform initial evaluation of pt's statu s upon admission and devise an individualized program for Gait Training, and Wheel Chair mobility Inability to transfer - to improve, our physical therapists will perform initial evaluation of pt's status upon admission and devise an individualized program for Bed mobility Need for home safety evaluation - to improve, our physical therapists will perform initial evaluatio n of pt's status upon admission and devise an individualized program for Home Evaluation Need in caregiver upon discharge - to improve, our physical therapists will perform initial evaluati on of pt's status upon admission and devise an individualized program for Caregiver Training New precaution - to improve, our physical therapists will perform initial evaluation of pt's status upon admission and devise an individualized program for Patient precaution education Poor balance - to improve, our physical therapists will perform initial evaluation of pt's status up on admission and devise an individualized program for Balance Training Poor endurance - to improve, our physical therapists will perform initial evaluation of pt's status upon admission and devise an individualized program for Endurance Training Weakness - to improve, our physical therapists will perform initial evaluation of pt's status upon a dmission and devise an individualized program for Aquatic Therapy, Neuromuscular Reeducation, and Str engthening Achieving independence - to improve, our physical therapists will perform initial evaluation of pt's status upon admission and devise an individualized program for Community Reintegration Activities - Occupational Therapy ADL deficits - to improve, our occupation therapists will perform initial evaluation of pt's status upon admission and devise an individualized program for Bathing, Bed mobility, Community Reintegratio n, Cooking, Dressing, Eating, Fine Motor Skills, Grooming, Homemaking, Kitchen Mobility, Laundry, Pat ient Education, Safety Awareness, Splinting - Positioning, Transfers(Toilet, Tub, Shower), and Wheel Chair Management Cognitive deficits - to improve, our occupation therapists will perform initial evaluation of pt's s tatus upon admission and devise an individualized program for Cognition - orientation Need for home care associate - to improve, our occupation therapists will perform initial evaluation of pt's status upon admission and devise an individualized program for Caregiver Training Weakness - to improve, our occupation therapists will perform initial evaluation of pt's status upon admission and devise an individualized program for Aquatic Therapy, Balance, Endurance, UE ROM, and UE strengthening - Other See attached MAR (Medication Administration Record) - Diet Type Continue Regular - Diet - Liquid Texture Continue Regular - Tube Feed Continue N/A - Fall Precaution SAFTY AND FALL - Diet - Solid Texture Continue Regular - Shower allowing shower FUNCTIONAL STATUS: UPDATED AT WEEKLY TEAM CONFERENCE - Bladder Same accident frequency: 7-Ind - No accidents in the past 7 days - Bowel Same accident frequency: 7-Ind - No accidents in the past 7 days - Walking Same score based on distance walked: 0(N/A) - Wheelchair Same score based on distance traveled: 0(N/A) FUNCTIONAL STATUS: - Self-Care A. Eating Ind B. Grooming modA C. Bathing Dep D. Dressing - Upper modA E. Dressing - Lower maxA F. Toileting maxA - Sphincter Control G. Bladder control sup H. Bowel control sup - Transfers Control I. Bed/Chair/Wheelchair Dep J. Toilet maxA K. Tub/Shower Dep - Locomotion L. Walk/Wheelchair (B) Dep M. Stairs ADNO - Communication N. Comprehension (B) Vern O. Expression (B) Vern - Social Cognition P. Social Interaction Ind Q. Problem Solving sup R. Memory Vern - Endurance Poor - Balance Poor - Safety Awareness Fair QI SCORES: - Self-Care A. Eating 03-Partial/moderate assistance B. Oral hygiene 02-Substantial/maximal assistance C. Toileting hygiene 02-Substantial/maximal assistance E. Shower/bathe self 02-Substantial/maximal assistance F. Upper body dressing 02-Substantial/maximal assistance G. Lower body dressing 02-Substantial/maximal assistance H. Putting on/taking off footwear 88-Not attempted due to medical condition or safety concerns - Mobility A. Roll left and right 03-Partial/moderate assistance B. Sit to lying 03-Partial/moderate assistance C. Lying to sitting on side of bed 02-Substantial/maximal assistance D. Sit to stand 02-Substantial/maximal assistance E. Chair/[id number] transfer 02-Substantial/maximal assistance F. Toilet transfer 02-Substantial/maximal assistance G. Car transfer 88-Not attempted due to medical condition or safety concerns I. Walk 10 feet 88-Not attempted due to medical condition or safety concerns J. Walk 50 feet with two turns 88-Not attempted due to medical condition or safety concerns K. Walk 150 feet 88-Not attempted due to medical condition or safety concerns L. Walking 10 feet on uneven surfaces 88-Not attempted due to medical condition or safety concerns M. 1 step (curb) 88-Not attempted due to medical condition or safety concerns N. 4 steps 88-Not attempted due to medical condition or safety concerns O. 12 steps 88-Not attempted due to medical condition or safety concerns P. Picking up object 88-Not attempted due to medical condition or safety concerns R. Wheel 50 feet with two turns 88-Not attempted due to medical condition or safety concerns S. Wheel 150 feet 88-Not attempted due to medical condition or safety concerns - Endurance Fair - Balance Poor - Safety Awareness Fair CURRENT [facility]. DEFICITS: Self-Care, Mobility, Endurance, Balance, and Safety Awareness SIGNATURE PANEL: (CDT)
[2021-12-27] MEDS: SOD FERRIC GLUC COMPLX/SUCROSE 125 MG in NA CHLORIDE 0.9% 100 ML IV SCH (20:44)
[2021-12-27 23:45] LABS: Hematocrit 27.5 % (36.0-45.0)
[2021-12-28] MEDS: PIPER TAZO 3.375 GM in NA CHLORIDE 0.9% 100 ML IV SCH ×2 (00:16→07:41)
[2021-12-28] MEDS ORDERED: POTASSIUM CL SA 10 MEQ TAB PO ONE (07:29)
[2021-12-28] MEDS: LOSARTAN POTASSIUM 50 MG TABLET PO SCH ×2 (07:39→19:41)
[2021-12-28] MEDS: VITAMIN D 5,000 UNIT CAP PO SCH (07:39)
[2021-12-28] MEDS: SERTRALINE HCL 50 MG TAB PO SCH (07:39)
[2021-12-28] MEDS: DOCUSATE NA 100 MG CAP PO SCH ×2 (07:39→19:40)
[2021-12-28] MEDS: allopurinoL 100 MG TAB PO SCH (07:39)
[2021-12-28] MEDS: SPIRONOLACTONE 25 MG TABLET PO SCH ×2 (07:40→16:56)
[2021-12-28] MEDS: BUMETANIDE 1 MG TABLET PO SCH ×2 (07:40→16:57)
[2021-12-28] MEDS: GABAPENTIN 400 MG CAP PO SCH (07:40)
[2021-12-28] MEDS: FAMOTIDINE 20 MG TAB PO SCH ×2 (07:41→19:43)
[2021-12-28] MEDS: ENSURE HIGH PROTEIN 237 ML CAN PO SCH ×3 (07:42→19:51)
[2021-12-28] MEDS: FLUTICASONE 110 MCG/PUFF 12 GM INH IH SCH ×2 (08:00→19:42)
[2021-12-28] MEDS: AMIODARONE HCL 200 MG TAB PO SCH ×2 (08:00→19:40)
[2021-12-28] MEDS: JUVEN PACKET PO SCH ×3 (08:00→19:52)
[2021-12-28] MEDS: ZINC SULFATE 220 MG CAP PO SCH ×2 (09:26→19:43)
[2021-12-28] MEDS: NYSTATIN PWDR 100000 UNIT/GM TOP SCH ×2 (09:26→19:42)
--- NOTE | 2021-12-28 09:42 | P.RH.PN ---
Estimated Length of Stay: 16 Expected Discharge Date: 01/02/22 Discharge Disposition Plan: Home Family Support: Yes Jail Goal: Mobility, Transfers, Self Care Vital Signs: Last Vital Signs Temp 96.8 F 12/28/21 07:09 Pulse 52 12/28/21 07:40 Resp 20 12/28/21 07:09 BP 138/100 H 12/28/21 07:40 Pulse Ox 98 12/28/21 07:09 Laboratory: Laboratory Last Values WBC 7.5 K/uL (4.3-10.9) 12/27/21 04:05 RBC 3.13 M/uL (3.86-4.86) L 12/27/21 04:05 Hgb 8.6 g/dL (12.0-15.0) L 12/27/21 23:13 Hct 27.5 % (36.0-45.0) L 12/27/21 23:13 MCV 81.6 fL (80-100) 12/27/21 04:05 MCH 25.0 pg (27.0-35.0) L 12/27/21 04:05 MCHC 30.7 g/dL (32.0-36.0) L 12/27/21 04:05 RDW 25.6 % (12.1-15.2) H 12/27/21 04:05 Plt Count 219 K/uL (152-406) 12/27/21 04:05 MPV 8.2 fL (7.6-11.3) 12/27/21 04:05 Plt Distribution Width Cancelled 12/22/21 Unknown Absolute Nucleated RBC Cancelled 12/22/21 Unknown Neutrophils % 74.0 % (41.7-73.7) H 12/27/21 04:05 Lymphocytes % 9.8 % (15.3-44.8) L 12/27/21 04:05 Monocytes % 12.5 % (3.3-12.3) H 12/27/21 04:05 Eosinophils % 2.7 % (0-4.4) 12/27/21 04:05 Basophils % 1.0 % (0-1.3) 12/27/21 04:05 Nucleated RBC % Cancelled 12/22/21 Unknown Absolute Neutrophils 5.6 K/uL (1.8-8.0) 12/27/21 04:05 Segmented Neutrophils 90 % (40-80) H 12/20/21 04:30 Absolute Lymphocytes 0.7 K/uL (0.7-4.9) 12/27/21 04:05 Lymphocytes 3 % (15-42) L 12/20/21 04:30 Monocytes 6 % (0-10) 12/20/21 04:30 Absolute Monocytes 0.9 K/uL (0.1-1.3) 12/27/21 04:05 Eosinophils 1 % (0-3) 12/20/21 04:30 Absolute Eosinophils 0.2 K/uL (0-0.5) 12/27/21 04:05 Absolute Basophils 0.1 K/uL (0-0.5) 12/27/21 04:05 Diff Path Review Cancelled 12/22/21 Unknown Platelet Estimate Adeq 12/20/21 04:30 Anisocytosis 2+ 12/20/21 04:30 Microcytosis 2+ 12/20/21 04:30 Morphology Comment Noted (NOT SEEN) 12/20/21 04:30 pH 7.24 (7.35-7.45) L 12/25/21 05:12 pCO2 77.5 mmHG (35-45) H 12/25/21 05:12 pO2 86.1 mmHG (75-100) 12/25/21 05:12 HCO3 31.7 mmol/L (22-28) H 12/25/21 05:12 Base Excess 4.6 mmol/L 12/25/21 05:12 Oxyhemoglobin 92.8 % (94-97) L 12/25/21 05:12 ABG O2 Sat (Measured) 96.0 % (92-98.5) 12/25/21 05:12 ABG Carboxyhemoglobin 1.9 % (0-1.5) H 12/25/21 05:12 ABG Methemoglobin 1.4 % (0-1.5) 12/25/21 05:12 Other Total Hgb 7.9 g/dl (12-18) L 12/25/21 05:12 Inspired O2 30.0 % 12/25/21 05:12 Sodium 143 mmol/L (136-145) 12/27/21 04:05 Potassium 3.5 mmol/L (3.5-5.1) 12/27/21 04:05 Chloride 104 mmol/L (98-107) 12/27/21 04:05 Carbon Dioxide 31 mmol/L (21-32) 12/27/21 04:05 BUN 28 mg/dL (7-18) H D 12/27/21 04:05 Creatinine 0.87 mg/dL (0.55-1.3) 12/27/21 04:05 Estimated GFR 64 mL/min (=/>90) L 12/27/21 04:05 Glucose 116 mg/dL (74-106) H 12/27/21 04:05 POC Glucose 122 mg/dL (65-120) H 12/25/21 18:17 Uric Acid 8.4 mg/dL (2.6-6.0) H 12/24/21 04:24 Calcium 8.7 mg/dL (8.5-10.1) 12/27/21 04:05 Phosphorus 3.5 mg/dL (2.5-4.9) 12/21/21 04:55 Magnesium 2.5 mg/dL (1.8-2.4) H 12/27/21 04:05 Iron 123.0 ug/dL (50-170) 12/28/21 04:40 TIBC 284 ug/dL (250-460) 12/28/21 04:40 Transferrin 203 mg/dL (200-360) 12/28/21 04:40 Transferrin % Sat 43.3 % (20.0-50.0) 12/28/21 04:40 Total Bilirubin 0.5 mg/dL (0.2-1.0) 12/21/21 04:55 AST 14 U/L (15-37) L 12/21/21 04:55 ALT 33 U/L (12-78) 12/21/21 04:55 Alkaline Phosphatase 55 U/L (45-117) 12/21/21 04:55 NT-Pro-B Natriuret Pep 985 pg/mL (<125) H 12/24/21 04:24 Serum Total Protein 6.4 g/dL (6.4-8.2) 12/21/21 04:55 Albumin 2.8 g/dL (3.4-5.0) L 12/27/21 04:05 Globulin 3.7 g/dL (2.3-3.5) H 12/21/21 04:55 Albumin/Globulin Ratio 0.7 (1.1-1.8) L 12/21/21 04:55 Prealbumin 20.3 mg/dL (20-40) 12/27/21 04:05 Vitamin B12 880 pg/mL (193-986) 12/21/21 04:55 Serum Folate 10.5 ng/mL (3.1-17.5) 12/21/21 04:55 SARS-CoV-2 Rap RNA(RT-PCR) Negative (NEGATIVE) 12/24/21 04:13 Smear Scan Ok (OK) 12/18/21 05:15 ABO/Rh A POSITIVE 12/27/21 13:50 Solid Phase Ab Screen Negative 12/27/21 13:50 Crossmatch See Detail 12/27/21 13:50 Weight: 360 lb Wound Present: No Closed Surgical Incision Present: No Negative Pressure Wound Therapy Present: No Physician Update: Her Hgb improved to 8.6. She is making very slow progress overall and is not participating well. May be discharged SNF. She is desaturating to the 86% while sitting up in bed. Her condition is guarded overall. The renal service is helping. She is on antibiotics and still has a bilateral lung fluid/pneumonia. Comment: redness on nose bridge from bipap mask; with duoderm Functional Improvement: Patient originally presented w/ good attitude, and work ethic toward therapy, however has been limited by medical issues. Patient continues to present w/ good attitude, and attempts/completes what she is physically capable of each session. Summary: Patient's care plan and fpc goals have been reviewed and revised as necessary. Please see the Rehabilitation Signature page for all necessary signatures.
[2021-12-28] MEDS: acetaZOLAMIDE 250 MG TAB PO SCH (12:24)
[2021-12-28] MEDS: RIVAROXABAN 15 MG TABLET PO SCH (16:56)
[2021-12-28] MEDS: SOD FERRIC GLUC COMPLX/SUCROSE 125 MG in NA CHLORIDE 0.9% 100 ML IV SCH (19:20)
--- NOTE | 2021-12-28 20:18 | P.PN ---
Date of Service: 12/28/21 Vital Signs Temp Pulse Resp BP Pulse Ox 96.6 F L 53 18 140/54 L 99 12/28/21 19:37 12/28/21 19:37 12/28/21 19:37 12/28/21 19:37 12/28/21 19:37 Medications Acetaminophen (Acetaminophen 500 Mg Tab) 500 mg PO Q4H PRN PRN Reason: Pain scale 2-4 (Mild) Last Admin: 12/24/21 09:24 Dose: 500 mg Documented by: Acetazolamide (Acetazolamide 250 Mg Tab) 500 mg PO Q24H [facility] Last Admin: 12/28/21 12:24 Dose: 500 mg Documented by: Acetazolamide Sodium (Acetazolamide 500 Mg Iv) 500 mg IV 1X ONE Stop: 12/28/21 20:08 Albuterol Sulfate (Albuterol 2.5 Mg/3 Ml Neb Nishi) 2.5 mg IH [id number] PRN PRN Reason: SHORTNESS OF BREATH Albuterol Sulfate (Albuterol Inhaler 60 Puff/8 Gm) 2 puff IH Q2H PRN PRN Reason: SHORTNESS OF BREATH Allopurinol (Allopurinol 100 Mg Tab) 100 mg PO DAILY [facility] Last Admin: 12/28/21 07:39 Dose: 100 mg Documented by: Amiodarone HCl (Amiodarone Hcl 200 Mg Tab) 200 mg PO BID [facility] Last Admin: 12/28/21 19:40 Dose: Not Given Documented by: Cholecalciferol (Vitamin D 5,000 Unit Cap) 5,000 unit PO DAILY [facility] Last Admin: 12/28/21 07:39 Dose: 5,000 unit Documented by: Dextrose (D50w 25 Gm/50 Ml Syringe) 12.5 gm IV PRN PRN; Protocol PRN Reason: HYPOGLYCEMIA Docusate Sodium (Docusate Na 100 Mg Cap) 100 mg PO BID [facility] Last Admin: 12/28/21 19:40 Dose: 100 mg Documented by: Furosemide (Furosemide 20 Mg/ 2ml Vial) 20 mg IV Q6H [facility] Gabapentin (Gabapentin 400 Mg Cap) 400 mg PO DAILY [facility] Last Admin: 12/28/21 07:40 Dose: 400 mg Documented by: Glucagon (Glucagon 1 Mg/Vial) 1 mg IM 1X PRN; Protocol PRN Reason: HYPOGLYCEMIA Home Med (Fluticasone 110 Mcg/Puff 12 Gm Inh) 110 ea IH BID [facility] Last Admin: 12/28/21 19:42 Dose: Not Given Documented by: Ferric Sodium Gluconate Complex 125 mg/ Sodium Chloride 110 mls @ 100 mls/hr IV Q24H [facility] Stop: 12/28/21 21:05 Last Admin: 12/28/21 19:20 Dose: 110 mls Documented by: Sodium Chloride (Sodium Chloride) 250 mls @ 0 mls/hr IV .Q0M [facility] Last Admin: 12/27/21 15:41 Dose: 250 mls Documented by: L-Arginine/L-Glutamine/HMB (Chao Packet) 1 pkt PO BID [facility] Last Admin: 12/28/21 19:52 Dose: Not Given Documented by: Losartan Potassium (Losartan Potassium 50 Mg Tablet) 25 mg PO BID [facility] Last Admin: 12/28/21 19:41 Dose: 25 mg Documented by: Nutritional Formula (Ensure High Protein 237 Ml Can) 237 ml PO BID [facility] Last Admin: 12/28/21 19:51 Dose: Not Given Documented by: Nystatin (Nystatin Pwdr [id number] Unit/Gm) 1 appl TOP BID [facility] Last Admin: 12/28/21 19:42 Dose: 1 appl Documented by: Rivaroxaban (Rivaroxaban 15 Mg Tablet) 15 mg PO DAILY 5 PM [facility] Last Admin: 12/28/21 16:56 Dose: 15 mg Documented by: Senna/Docusate Sodium (Docusate Na/Senna Conc 1 Tab) 2 tab PO BEDTIME PRN PRN Reason: CONSTIPATION Last Admin: 12/24/21 20:36 Dose: 2 tab Documented by: Sertraline HCl (Sertraline Hcl 50 Mg Tab) 50 mg PO DAILY [facility] Last Admin: 12/28/21 07:39 Dose: 50 mg Documented by: Sodium Chloride (Flush Normal Saline 10 Ml) 10 ml IV BID [facility] Last Admin: 12/28/21 19:42 Dose: 10 ml Documented by: Spironolactone (Spironolactone 25 Mg Tablet) 50 mg PO BIDL [facility] Last Admin: 12/28/21 16:56 Dose: 50 mg Documented by: Zinc Sulfate (Zinc Sulfate 220 Mg Cap) 220 mg PO BID [facility] Last Admin: 12/28/21 19:43 Dose: 220 mg Documented by: Lab Results (last 24 hrs) 12/28/21 04:40: Iron 123.0, TIBC 284, Transferrin 203, Transferrin % Sat 43.3 12/27/21 23:13: Hgb 8.6 L, Hct 27.5 L 12/27/21 23:00: Hgb Cancelled 12/27/21 13:50: ABO/Rh A POSITIVE, Solid Phase Ab Screen Negative, Crossmatch See Detail Assessment/ Plan: Nephrology Worsening dyspnea No chest pain No acute events overnight Vitals, medications, blood work and imaging reviewed in the chart. General: Oriented x3, Cooperative. Obese. HEENT: Atraumatic Neck: Supple Respiratory: Diminished Cardiovascular: Regular rate/rhythm, Edema Gastrointestinal: Soft and benign, Non-distended Musculoskeletal: No clubbing, No contractures Integumentary: No rashes, No cyanosis Neurological: Normal speech Laboratory Data (last 24 hrs) 12/18/21 05:15: Sodium 134 L, Potassium 4.1, BUN 58 H, Creatinine 1.35 H, Glucose 98, Magnesium 2.5 H 12/18/21 05:15: WBC 13.80 H, Hgb 8.7 L, Hct 27.8 L, Plt Count 284 Imagings Data: EXAM DESCRIPTION: RAD - Chest Single View - 12/18/2021 6:29 am CLINICAL HISTORY: Pneumonia COMPARISON: Portable chest 08/30/2021 TECHNIQUE: AP portable chest image was obtained 12/18/2021 6:29 am . FINDINGS: Left subclavian Port-A-Cath has been placed since the prior examination. Focal airspace opacification with air bronchogram formation seen in the mid upper left lung field. This is new from the August examination. Overall interstitial opacification is prominent and may be slightly increased from the comparison. The dense consolidation of the right upper lobe seen on the August study has cleared are almost entirely cleared. There is minimal lateral opacification and may be remnant from that pneumonia. Heart size is prominent, similar to comparison. Central vasculature prominent. No measurable pleural effusion and no pneumothorax. No acute bony abnormality seen. No acute aortic findings suspected. IMPRESSION: Left upper lung field pneumonia new from prior imaging. Complete or near complete clearing of the right upper lobe pneumonia seen on the 08/30/2021 study. Heart, vasculature and lung markings are all prominent. A component of mild failure or volume overload concurrent with the pneumonia cannot be excluded. Conclusions/Impression: CKD III -No NSAIDs Hyponatremia, resolved -Encourage nutrition Hypokalemia -Replete potassium prn Alkalosis -Continue Diamox HTN with CKD/ CHF -Continue Losartan 25mg BID with holding parameters SILVANA -Continue CPAP Diastolic CHF, chronic -Lasix IV q6h -Daily weight -Continue Diamox Daily; Extra dose of Diamox ordered -Continue Spironolactone 50mg BID Moderate malnutrition -Encourage nutrition Anemia in chronic illness Iron Deficiency sp IV iron -Monitor H&H -Retacrit X1 Morbid Obesity Debility -PT as tolerated Case reviewed with Dr. Augustin
[2021-12-28] MEDS ORDERED: ACETAZOLAMIDE 500 MG IV IV ONE (21:15)
[2021-12-28] MEDS ORDERED: FUROSEMIDE 20 MG/ 2ML VIAL ONE (21:56)
[2021-12-28] MEDS ORDERED: ACETAZOLAMIDE 500 MG IV ONE (22:01)
[2021-12-28] MEDS: FUROSEMIDE 20 MG/ 2ML VIAL IV SCH (22:26)
[2021-12-28] MEDS ORDERED: 0.9 % SODIUM CHLORIDE 20 ML ONE (22:46)
[2021-12-29] MEDS ORDERED: FUROSEMIDE 20 MG/ 2ML VIAL ONE (03:16)
[2021-12-29] MEDS: FUROSEMIDE 20 MG/ 2ML VIAL IV SCH ×4 (04:22→20:30)
[2021-12-29 05:36] LABS: Absolute Lymphocytes (CBC) 0.8 K/uL (0.7-4.9); Hematocrit 26.2 % (36.0-45.0); Lymphocytes % 11.9 % (15.3-44.8); RBC Red Blood Cell Count 3.19 M/uL (3.86-4.86)
[2021-12-29 07:46] LABS: Albumin 2.6 g/dL (3.4-5.0); Bilirubin Total 0.4 mg/dL (0.2-1.0); Potassium 3.3 mmol/L (3.5-5.1); Protein, Total 6.4 g/dL (6.4-8.2); Uric Acid 4.8 mg/dL (2.6-6.0)
[2021-12-29] MEDS: FLUTICASONE 110 MCG/PUFF 12 GM INH IH SCH ×2 (08:00→20:00)
[2021-12-29] MEDS: NYSTATIN PWDR 100000 UNIT/GM TOP SCH ×3 (08:00→20:31)
[2021-12-29] MEDS: ENSURE HIGH PROTEIN 237 ML CAN PO SCH ×2 (08:00→20:32)
[2021-12-29] MEDS: JUVEN PACKET PO SCH ×2 (08:00→20:00)
[2021-12-29] MEDS: AMIODARONE HCL 200 MG TAB PO SCH ×2 (08:00→20:31)
[2021-12-29] MEDS ORDERED: EPOETIN ALFA-EPBX 10,000 UNIT/ML VIAL SQ SCH (09:00)
[2021-12-29 09:09] LABS: Platelet Estimate ADEQ; White Blood Cell Scan OK (OK)
[2021-12-29 09:10] LABS: Anisocytosis 3+; Blood Morphology Comment NOTED (NOT SEEN); Platelets, Giant PRESENT
[2021-12-29] MEDS: ZINC SULFATE 220 MG CAP PO SCH ×2 (10:02→20:32)
[2021-12-29] MEDS: DOCUSATE NA 100 MG CAP PO SCH ×2 (10:02→20:31)
[2021-12-29] MEDS: SPIRONOLACTONE 25 MG TABLET PO SCH ×2 (10:02→17:05)
[2021-12-29] MEDS: LOSARTAN POTASSIUM 50 MG TABLET PO SCH ×2 (10:03→20:31)
[2021-12-29] MEDS: SERTRALINE HCL 50 MG TAB PO SCH (10:04)
[2021-12-29] MEDS: allopurinoL 100 MG TAB PO SCH (10:05)
[2021-12-29] MEDS: GABAPENTIN 400 MG CAP PO SCH (10:05)
[2021-12-29] MEDS: VITAMIN D 5,000 UNIT CAP PO SCH (10:05)
[2021-12-29] MEDS: acetaZOLAMIDE 250 MG TAB PO SCH (12:02)
[2021-12-29] MEDS: RIVAROXABAN 15 MG TABLET PO SCH (17:04)
--- NOTE | 2021-12-29 19:14 | PN ---
Date of Progress Note: 12/29/2021 Subjective: The patient was seen and examined. She is currently on BiPAP. She continues to have sh ortness of breath and currently she is on BiPAP. She denies any other problems. She remains on Lasi x 20 mg every 6 hours. Laboratory Data: Showing stable hemoglobin, hematocrit, and platelet count. Renal function is stabl e and potassium is noted to be 3.3. Current Medications: Include 1 time dose of Diamox and then Diamox has been ordered 500 mg every 24 hours, allopurinol, amiodarone, Lasix 20 mg every 6 hours, Chao, losartan 25 mg b.i.d., Xarelto, spi ronolactone 50 mg b.i.d. Impression: 1.Acute on chronic renal insufficiency, currently with improving renal function. 2.Chronic diastolic heart failure with acute exacerbation. The patient is currently being diuresed with Diamox and Lasix. Continue to monitor closely. 3.Chronic hypoxic respiratory failure. Continue BiPAP and wean down as tolerated. 4.Hypokalemia. Continue spironolactone and replete as needed. Plan: Overall the patient is doing okay, hemodynamically stable. Continue diuresis and follow up on labs closely. VV/MODL Voice ID: [id number] Report ID: [id number]
[2021-12-29 22:06] LABS: Arterial Blood Carboxyhemoglob 2.2 % (0-1.5); Blood Gas Oxyhemoglobin 92.8 % (94-97); Blood O2 Saturation 96.3 % (92-98.5)
[2021-12-30] MEDS: FUROSEMIDE 20 MG/ 2ML VIAL IV SCH ×4 (03:19→20:28)
[2021-12-30 06:24] LABS: Albumin 2.8 g/dL (3.4-5.0); Bilirubin Total 0.6 mg/dL (0.2-1.0); Potassium 3.2 mmol/L (3.5-5.1); Protein, Total 6.5 g/dL (6.4-8.2); Uric Acid 4.8 mg/dL (2.6-6.0)
[2021-12-30] MEDS: DOCUSATE NA 100 MG CAP PO SCH ×2 (07:18→18:27)
[2021-12-30] MEDS: NYSTATIN PWDR 100000 UNIT/GM TOP SCH ×2 (07:18→18:27)
[2021-12-30] MEDS: VITAMIN D 5,000 UNIT CAP PO SCH (07:18)
[2021-12-30] MEDS: allopurinoL 100 MG TAB PO SCH (07:19)
[2021-12-30] MEDS: GABAPENTIN 400 MG CAP PO SCH (07:19)
[2021-12-30] MEDS: ACETAMINOPHEN 500 MG TAB PO PRN (07:19)
[2021-12-30] MEDS: ZINC SULFATE 220 MG CAP PO SCH ×2 (07:19→18:27)
[2021-12-30] MEDS: ENSURE HIGH PROTEIN 237 ML CAN PO SCH ×2 (07:20→18:28)
[2021-12-30] MEDS: FLUTICASONE 110 MCG/PUFF 12 GM INH IH SCH ×2 (07:21→18:28)
[2021-12-30] MEDS: JUVEN PACKET PO SCH ×2 (07:22→18:28)
[2021-12-30] MEDS: SERTRALINE HCL 50 MG TAB PO SCH (07:23)
[2021-12-30] MEDS: LOSARTAN POTASSIUM 50 MG TABLET PO SCH ×2 (07:26→18:27)
[2021-12-30] MEDS: AMIODARONE HCL 200 MG TAB PO SCH ×2 (07:26→18:27)
[2021-12-30] MEDS: SPIRONOLACTONE 25 MG TABLET PO SCH ×2 (09:26→16:12)
[2021-12-30] MEDS: acetaZOLAMIDE 250 MG TAB PO SCH (11:26)
[2021-12-30] MEDS: RIVAROXABAN 15 MG TABLET PO SCH (16:12)
[2021-12-30] MEDS ORDERED: POTASSIUM CL SA 10 MEQ TAB PO ONE (20:25)
[2021-12-31] MEDS: FUROSEMIDE 20 MG/ 2ML VIAL IV SCH ×4 (03:01→19:50)
[2021-12-31 05:56] LABS: Albumin 2.7 g/dL (3.4-5.0); Bilirubin Total 0.5 mg/dL (0.2-1.0); Potassium 3.2 mmol/L (3.5-5.1); Protein, Total 6.5 g/dL (6.4-8.2); Uric Acid 5.1 mg/dL (2.6-6.0)
[2021-12-31] MEDS: FLUTICASONE 110 MCG/PUFF 12 GM INH IH SCH ×2 (08:00→19:46)
[2021-12-31] MEDS: JUVEN PACKET PO SCH ×2 (08:00→19:45)
[2021-12-31] MEDS: AMIODARONE HCL 200 MG TAB PO SCH ×3 (08:00→19:49)
[2021-12-31] MEDS: LOSARTAN POTASSIUM 50 MG TABLET PO SCH ×2 (08:00→19:49)
[2021-12-31] MEDS: ACETAMINOPHEN 500 MG TAB PO PRN (09:08)
[2021-12-31] MEDS: ENSURE HIGH PROTEIN 237 ML CAN PO SCH ×2 (09:10→19:55)
[2021-12-31] MEDS: GABAPENTIN 400 MG CAP PO SCH (09:11)
[2021-12-31] MEDS: allopurinoL 100 MG TAB PO SCH (09:11)
[2021-12-31] MEDS: SPIRONOLACTONE 25 MG TABLET PO SCH ×2 (09:11→17:01)
[2021-12-31] MEDS: SERTRALINE HCL 50 MG TAB PO SCH (09:12)
[2021-12-31] MEDS: ZINC SULFATE 220 MG CAP PO SCH ×2 (09:12→19:45)
[2021-12-31] MEDS: DOCUSATE NA 100 MG CAP PO SCH ×2 (09:12→19:44)
[2021-12-31] MEDS: VITAMIN D 5,000 UNIT CAP PO SCH (09:13)
[2021-12-31] MEDS: POTASSIUM CL SA 10 MEQ TAB PO SCH ×2 (09:13→19:44)
[2021-12-31] MEDS: NYSTATIN PWDR 100000 UNIT/GM TOP SCH ×2 (10:45→19:45)
[2021-12-31] MEDS: acetaZOLAMIDE 250 MG TAB PO SCH (12:25)
--- NOTE | 2021-12-31 14:26 | RAD REPORT ---
EXAM DESCRIPTION: Samara Single View12/31/2021 2:03 pm CLINICAL HISTORY: Chest pain COMPARISON: December 27, 2020 FINDINGS: Minimal improvement in moderate diffuse bilateral pulmonary opacities. Heart remains enlar ged. PICC line in place IMPRESSION: Minimal improvement moderate diffuse bilateral pulmonary opacities
[2021-12-31] MEDS: RIVAROXABAN 15 MG TABLET PO SCH (17:01)
--- NOTE | 2021-12-31 17:24 | P.PN ---
Date of Service: 12/31/21 Vital Signs Temp Pulse Resp BP Pulse Ox 97.0 F 53 18 125/57 L 98 12/31/21 07:10 12/31/21 17:01 12/31/21 07:10 12/31/21 17:01 12/31/21 07:10 Medications Acetaminophen (Acetaminophen 500 Mg Tab) 500 mg PO Q4H PRN PRN Reason: Pain scale 2-4 (Mild) Last Admin: 12/31/21 09:08 Dose: 500 mg Documented by: Acetazolamide (Acetazolamide 250 Mg Tab) 500 mg PO Q24H [facility] Last Admin: 12/31/21 12:25 Dose: 500 mg Documented by: Albuterol Sulfate (Albuterol 2.5 Mg/3 Ml Neb Nishi) 2.5 mg IH [id number] PRN PRN Reason: SHORTNESS OF BREATH Albuterol Sulfate (Albuterol Inhaler 60 Puff/8 Gm) 2 puff IH Q2H PRN PRN Reason: SHORTNESS OF BREATH Allopurinol (Allopurinol 100 Mg Tab) 100 mg PO DAILY [facility] Last Admin: 12/31/21 09:11 Dose: 100 mg Documented by: Amiodarone HCl (Amiodarone Hcl 200 Mg Tab) 200 mg PO BID [facility] Last Admin: 12/31/21 12:25 Dose: 200 mg Documented by: Cholecalciferol (Vitamin D 5,000 Unit Cap) 5,000 unit PO DAILY [facility] Last Admin: 12/31/21 09:13 Dose: 5,000 unit Documented by: Dextrose (D50w 25 Gm/50 Ml Syringe) 12.5 gm IV PRN PRN; Protocol PRN Reason: HYPOGLYCEMIA Docusate Sodium (Docusate Na 100 Mg Cap) 100 mg PO BID [facility] Last Admin: 12/31/21 09:12 Dose: 100 mg Documented by: Furosemide (Furosemide 20 Mg/ 2ml Vial) 20 mg IV Q6H [facility] Last Admin: 12/31/21 15:35 Dose: 20 mg Documented by: Gabapentin (Gabapentin 400 Mg Cap) 400 mg PO DAILY [facility] Last Admin: 12/31/21 09:11 Dose: 400 mg Documented by: Glucagon (Glucagon 1 Mg/Vial) 1 mg IM 1X PRN; Protocol PRN Reason: HYPOGLYCEMIA Home Med (Fluticasone 110 Mcg/Puff 12 Gm Inh) 110 ea IH BID [facility] Last Admin: 12/31/21 08:00 Dose: Not Given Documented by: Sodium Chloride (Sodium Chloride) 250 mls @ 0 mls/hr IV .Q0M [facility] Last Admin: 12/27/21 15:41 Dose: 250 mls Documented by: L-Arginine/L-Glutamine/HMB (Chao Packet) 1 pkt PO BID [facility] Last Admin: 12/31/21 08:00 Dose: Not Given Documented by: Losartan Potassium (Losartan Potassium 50 Mg Tablet) 25 mg PO BID [facility] Last Admin: 12/31/21 08:00 Dose: Not Given Documented by: Nutritional Formula (Ensure High Protein 237 Ml Can) 237 ml PO BID [facility] Last Admin: 12/31/21 09:10 Dose: 237 ml Documented by: Nystatin (Nystatin Pwdr [id number] Unit/Gm) 1 appl TOP BID [facility] Last Admin: 12/31/21 10:45 Dose: 1 appl Documented by: Potassium Chloride (Potassium Cl Sa 10 Meq Tab) 10 meq PO BID [facility] Last Admin: 12/31/21 09:13 Dose: 10 meq Documented by: Potassium Chloride (Potassium Cl Sa 10 Meq Tab) 20 meq PO 1X ONE Stop: 12/31/21 17:18 Rivaroxaban (Rivaroxaban 15 Mg Tablet) 15 mg PO DAILY 5 PM [facility] Last Admin: 12/31/21 17:01 Dose: 15 mg Documented by: Senna/Docusate Sodium (Docusate Na/Senna Conc 1 Tab) 2 tab PO BEDTIME PRN PRN Reason: CONSTIPATION Last Admin: 12/24/21 20:36 Dose: 2 tab Documented by: Sertraline HCl (Sertraline Hcl 50 Mg Tab) 50 mg PO DAILY [facility] Last Admin: 12/31/21 09:12 Dose: 50 mg Documented by: Sodium Chloride (Flush Normal Saline 10 Ml) 10 ml IV BID [facility] Last Admin: 12/31/21 09:13 Dose: 10 ml Documented by: Spironolactone (Spironolactone 25 Mg Tablet) 50 mg PO BIDL [facility] Last Admin: 12/31/21 17:01 Dose: 50 mg Documented by: Zinc Sulfate (Zinc Sulfate 220 Mg Cap) 220 mg PO BID [facility] Last Admin: 12/31/21 09:12 Dose: 220 mg Documented by: Lab Results (last 24 hrs) 12/31/21 05:05: SARS-CoV-2 Rap RNA(RT-PCR) Negative 12/31/21 05:00: Sodium 140, Potassium 3.2 L, Chloride 104, Carbon Dioxide 31, BUN 23 H, Creatinine 1.17, Estimated GFR 45 L, Glucose 109 H, Uric Acid 5.1, Calcium 8.2 L, Total Bilirubin 0.5, AST 22, ALT 32, Alkaline Phosphatase 74, NT-Pro-B Natriuret Pep 1061 H, Serum Total Protein 6.5, Albumin 2.7 L, Globulin 3.8 H, Albumin/Globulin Ratio 0.7 L Assessment/ Plan: Nephrology Improving dyspnea No chest pain No acute events overnight Vitals, medications, blood work and imaging reviewed in the chart. General: Oriented x3, Cooperative. Obese. HEENT: Atraumatic Neck: Supple Respiratory: Diminished Cardiovascular: Regular rate/rhythm, Edema Gastrointestinal: Soft and benign, Non-distended Musculoskeletal: No clubbing, No contractures Integumentary: No rashes, No cyanosis Neurological: Normal speech Laboratory Data (last 24 hrs) 12/18/21 05:15: Sodium 134 L, Potassium 4.1, BUN 58 H, Creatinine 1.35 H, Glucose 98, Magnesium 2.5 H 12/18/21 05:15: WBC 13.80 H, Hgb 8.7 L, Hct 27.8 L, Plt Count 284 Imagings Data: EXAM DESCRIPTION: RAD - Chest Single View - 12/18/2021 6:29 am CLINICAL HISTORY: Pneumonia COMPARISON: Portable chest 08/30/2021 TECHNIQUE: AP portable chest image was obtained 12/18/2021 6:29 am . FINDINGS: Left subclavian Port-A-Cath has been placed since the prior examination. Focal airspace opacification with air bronchogram formation seen in the mid upper left lung field. This is new from the August examination. Overall interstitial opacification is prominent and may be slightly increased from the comparison. The dense consolidation of the right upper lobe seen on the August study has cleared are almost entirely cleared. There is minimal lateral opacification and may be remnant from that pneumonia. Heart size is prominent, similar to comparison. Central vasculature prominent. No measurable pleural effusion and no pneumothorax. No acute bony abnormality seen. No acute aortic findings suspected. IMPRESSION: Left upper lung field pneumonia new from prior imaging. Complete or near complete clearing of the right upper lobe pneumonia seen on the 08/30/2021 study. Heart, vasculature and lung markings are all prominent. A component of mild failure or volume overload concurrent with the pneumonia cannot be excluded. Conclusions/Impression: CKD III -No NSAIDs Hyponatremia, resolved -Encourage nutrition Hypokalemia -Replete potassium Alkalosis -Continue Diamox HTN with CKD/ CHF -Continue Losartan 25mg BID with holding parameters SILVANA -Continue CPAP Diastolic CHF, chronic -Lasix IV q6h -Daily weight -Continue Diamox Daily -Continue Spironolactone 50mg BID Moderate malnutrition -Encourage nutrition Anemia in chronic illness Iron Deficiency sp IV iron -Monitor H&H -Retacrit prn Morbid Obesity Debility -PT as tolerated
[2021-12-31] MEDS ORDERED: POTASSIUM CL SA 10 MEQ TAB PO ONE (18:00)
--- NOTE | 2021-12-31 18:16 | R.PN ---
PROGRESS NOTES ENCOUNTER DATE AND TIME: 12/31/2021 18:10 (CDT) NAME ISAÍAS PORTER DATE OF : 1950 DATE OF ADMISSION: 12/17/2021 20:07 (CDT) Bronchiectasis, Chronic Bronchitis, COPDCHIEF COMPLAINT: COPD, chronic bronchitis SUBJECTIVE: Pt denied any depression. Pt denied any Shortness of Breath. WBC 6.9, Hgb 8.3, Plt 187, Na 140, Boiler/Chiller Technician 1.17, uric acid 5.1, prealbumin 20.3, glucose 109. COVID-19 on 12/24/21 is negative. Therapeutic exercises done with minimal assistance. Bed mobility done with standby assistance. O2 sat dropped to 72% on 2.5 L O2 with exercise. With rest O2 sat 97% with 2.5 L via NC ABG at 05:12 today: pH 7.24, pCO2 77.5, pO2 86.1. She was put on CPAP Chest x-ray done today shows minimal improvement in bilateral pulmonary opacities. VITAL SIGNS Temperature: 97.0 F SBP/DBP: 125/57 Pulse: 53 Resp: 16 MEDICATION ALLERGIES: No Known Drug Allergies (NKDA) ENVIRONMENTAL ALLERGIES: - Substance Allergies None Known - Other Allergies None Known NURSING: - Shower allowing shower PRECAUTIONS: - Fall Precaution SAFTY AND FALL ACTIVITIES OOB only with supervision THERAPIES: - Dietary and Nutrition Adequate Nutrition. Nutritional Education. Nutritional Supplements. Evaluate and Treat. - Occupational Therapy Cognitive Retraining. Patient needs Occupational Therapy for a daily minimum of 1.5 hours at least 5 out of 7 days, to improve Activities of Daily Living, including: Eating, Grooming, Bathing, Dressing, Toileting, Toilet Transfers, Community Reintegration, Higher functional activities, Adaptive Equipme nt, Splinting, Household Tasks, and Other activities as determined. Evaluate and Treat. Visual Percep tual Training. Patient/Family Education. Safety Awareness. Transfer Training. Adaptive Equipment. Ivan sehold Tasks. UE Strengthening. - Speech Therapy Cognitive Training. Expressive Language Skills. Memory Strategies. Patient needs Speech Therapy for a daily minimum of 1.5 hours at least 5 out of 7 days, to improve: Swallowing, Cognition, Language Ski lls, and Compensatory Strategies. Receptive Language Skills. Speech Intelligibility Training. Evaluat e and Treat. - Physical Therapy Patient needs Physical Therapy for a daily minimum of 1.5 hours at least 5 out of 7 days, to improve: Mobility, Strengthening, Transfers, Stretching, ROM, Endurance, Ability to manage stairs, Gait, and Balance. Mobility Training. Evaluate and Treat. Gait Training. Safety Awareness. Balance Training. Pa tient/Family Education. LE Strengthening. Medical Equipment Assessment and Evaluation. PHYSICAL EXAM - Gen Alert and awake Lying in bed No apparent distress Oriented to: person, time, and place - Skin No skin breakdown. Normacephalic - Eyes No abnormalities - Neck No abnormalities - CVS RRR - Chest No abnormalities - Abd Obese - Ext Moderate edema in both lower extremities. - MSK 4+/5 weakness in both lower extremities. - Neuro No focal deficits - Psych Mild depression. ASSESSMENT: Pt. is a 71 yo Right-handed female.On 12/03/[address] [facility] with diagnosi s Bronchiectasis, Chronic Bronchitis, COPD.Extreme obesity BMI 56.6Her impairment category is Pulmona ry Disorders 10 - Chronic Obstructive Pulmonary Disease (10.1).Pre-morbidly, Pt. was independent/mod -I in Locomotion, Safety Awareness, Social Cognition, Balance, and Transfers Control; and she had goo d Sphincter Control, Self-Care, Communication, and Endurance.Currently, she has deficits of Locomotio n, Safety Awareness, Social Cognition, Balance, Transfers Control, Sphincter Control, Self-Care, Comm unication, and Endurance.Pt. is now referred to [facility] for acute in-patien t rehabilitation in order to maximize patient's functional independence in activities of daily living , strength, ROM, and mobility.- Rehab Goal Patient has realistic goal of being discharged at assistance level 7-Ind to reside at Home with Fami ly/Relatives. MDM/PLAN: - Physical Therapy Gait dysfunction - to improve, our physical therapists will perform initial evaluation of pt's statu s upon admission and devise an individualized program for Gait Training, and Wheel Chair mobility Inability to transfer - to improve, our physical therapists will perform initial evaluation of pt's status upon admission and devise an individualized program for Bed mobility Need for home safety evaluation - to improve, our physical therapists will perform initial evaluatio n of pt's status upon admission and devise an individualized program for Home Evaluation Need in caregiver upon discharge - to improve, our physical therapists will perform initial evaluati on of pt's status upon admission and devise an individualized program for Caregiver Training New precaution - to improve, our physical therapists will perform initial evaluation of pt's status upon admission and devise an individualized program for Patient precaution education Poor balance - to improve, our physical therapists will perform initial evaluation of pt's status up on admission and devise an individualized program for Balance Training Poor endurance - to improve, our physical therapists will perform initial evaluation of pt's status upon admission and devise an individualized program for Endurance Training Weakness - to improve, our physical therapists will perform initial evaluation of pt's status upon a dmission and devise an individualized program for Aquatic Therapy, Neuromuscular Reeducation, and Str engthening Achieving independence - to improve, our physical therapists will perform initial evaluation of pt's status upon admission and devise an individualized program for Community Reintegration Activities - Occupational Therapy ADL deficits - to improve, our occupation therapists will perform initial evaluation of pt's status upon admission and devise an individualized program for Bathing, Bed mobility, Community Reintegratio n, Cooking, Dressing, Eating, Fine Motor Skills, Grooming, Homemaking, Kitchen Mobility, Laundry, Pat ient Education, Safety Awareness, Splinting - Positioning, Transfers(Toilet, Tub, Shower), and Wheel Chair Management Cognitive deficits - to improve, our occupation therapists will perform initial evaluation of pt's s tatus upon admission and devise an individualized program for Cognition - orientation Need for child care aide - to improve, our occupation therapists will perform initial evaluation of pt's status upon admission and devise an individualized program for Caregiver Training Weakness - to improve, our occupation therapists will perform initial evaluation of pt's status upon admission and devise an individualized program for Aquatic Therapy, Balance, Endurance, UE ROM, and UE strengthening - Other See attached MAR (Medication Administration Record) - Diet Type Continue Regular - Diet - Liquid Texture Continue Regular - Tube Feed Continue N/A - Fall Precaution SAFTY AND FALL - Diet - Solid Texture Continue Regular - Shower allowing shower FUNCTIONAL STATUS: UPDATED AT WEEKLY TEAM CONFERENCE - Bladder Same accident frequency: 7-Ind - No accidents in the past 7 days - Bowel Same accident frequency: 7-Ind - No accidents in the past 7 days - Walking Same score based on distance walked: 0(N/A) - Wheelchair Same score based on distance traveled: 0(N/A) FUNCTIONAL STATUS: - Self-Care A. Eating Ind B. Grooming modA C. Bathing Dep D. Dressing - Upper modA E. Dressing - Lower maxA F. Toileting maxA - Sphincter Control G. Bladder control sup H. Bowel control sup - Transfers Control I. Bed/Chair/Wheelchair Dep J. Toilet maxA K. Tub/Shower Dep - Locomotion L. Walk/Wheelchair (B) Dep M. Stairs ADNO - Communication N. Comprehension (B) Vern O. Expression (B) Vern - Social Cognition P. Social Interaction Ind Q. Problem Solving sup R. Memory Vern - Endurance Poor - Balance Poor - Safety Awareness Fair QI SCORES: - Self-Care A. Eating 03-Partial/moderate assistance B. Oral hygiene 02-Substantial/maximal assistance C. Toileting hygiene 02-Substantial/maximal assistance E. Shower/bathe self 02-Substantial/maximal assistance F. Upper body dressing 02-Substantial/maximal assistance G. Lower body dressing 02-Substantial/maximal assistance H. Putting on/taking off footwear 88-Not attempted due to medical condition or safety concerns - Mobility A. Roll left and right 03-Partial/moderate assistance B. Sit to lying 03-Partial/moderate assistance C. Lying to sitting on side of bed 02-Substantial/maximal assistance D. Sit to stand 02-Substantial/maximal assistance E. Chair/[id number] transfer 02-Substantial/maximal assistance F. Toilet transfer 02-Substantial/maximal assistance G. Car transfer 88-Not attempted due to medical condition or safety concerns I. Walk 10 feet 88-Not attempted due to medical condition or safety concerns J. Walk 50 feet with two turns 88-Not attempted due to medical condition or safety concerns K. Walk 150 feet 88-Not attempted due to medical condition or safety concerns L. Walking 10 feet on uneven surfaces 88-Not attempted due to medical condition or safety concerns M. 1 step (curb) 88-Not attempted due to medical condition or safety concerns N. 4 steps 88-Not attempted due to medical condition or safety concerns O. 12 steps 88-Not attempted due to medical condition or safety concerns P. Picking up object 88-Not attempted due to medical condition or safety concerns R. Wheel 50 feet with two turns 88-Not attempted due to medical condition or safety concerns S. Wheel 150 feet 88-Not attempted due to medical condition or safety concerns - Endurance Fair - Balance Poor - Safety Awareness Fair CURRENT [facility]. DEFICITS: Self-Care, Mobility, Endurance, Balance, and Safety Awareness SIGNATURE PANEL: (CDT)
[2022-01-01] MEDS: FUROSEMIDE 20 MG/ 2ML VIAL IV SCH ×4 (03:02→19:44)
[2022-01-01] MEDS: LOSARTAN POTASSIUM 50 MG TABLET PO SCH ×2 (08:00→19:43)
[2022-01-01] MEDS: JUVEN PACKET PO SCH ×2 (08:00→19:44)
[2022-01-01] MEDS: ENSURE HIGH PROTEIN 237 ML CAN PO SCH ×2 (08:00→19:43)
[2022-01-01] MEDS: FLUTICASONE 110 MCG/PUFF 12 GM INH IH SCH ×2 (08:00→19:43)
[2022-01-01] MEDS: VITAMIN D 5,000 UNIT CAP PO SCH (08:47)
[2022-01-01] MEDS: allopurinoL 100 MG TAB PO SCH (08:47)
[2022-01-01] MEDS: ZINC SULFATE 220 MG CAP PO SCH ×2 (08:47→19:45)
[2022-01-01] MEDS: SERTRALINE HCL 50 MG TAB PO SCH (08:47)
[2022-01-01] MEDS: DOCUSATE NA 100 MG CAP PO SCH ×2 (08:47→19:43)
[2022-01-01] MEDS: GABAPENTIN 400 MG CAP PO SCH (08:47)
[2022-01-01] MEDS: ACETAMINOPHEN 500 MG TAB PO PRN (08:48)
[2022-01-01] MEDS: AMIODARONE HCL 200 MG TAB PO SCH ×2 (08:49→19:43)
[2022-01-01] MEDS: POTASSIUM CL SA 10 MEQ TAB PO SCH ×2 (08:49→19:43)
[2022-01-01] MEDS: SPIRONOLACTONE 25 MG TABLET PO SCH ×2 (08:49→17:31)
[2022-01-01] MEDS: acetaZOLAMIDE 250 MG TAB PO SCH (12:21)
[2022-01-01] MEDS: NYSTATIN PWDR 100000 UNIT/GM TOP SCH ×2 (12:54→19:43)
[2022-01-01] MEDS: RIVAROXABAN 15 MG TABLET PO SCH (17:30)
--- NOTE | 2022-01-01 17:37 | R.PN ---
PROGRESS NOTES ENCOUNTER DATE AND TIME: 01/01/2022 17:30 (CDT) NAME ISAÍAS PORTER DATE OF : 1950 DATE OF ADMISSION: 12/17/2021 20:07 (CDT) Bronchiectasis, Chronic Bronchitis, COPDCHIEF COMPLAINT: COPD, chronic bronchitis SUBJECTIVE: Pt denied any depression. Pt denied any Shortness of Breath. WBC 6.9, Hgb 8.3, Plt 187, Na 140, K 3.2, Order Department Supervisor 1.17, uric acid 5.1, prealbumin 20.3, glucose 109. COVI D-19 on 12/24/21 is negative. Therapeutic exercises done with minimal assistance. Bed mobility done with standby assistance. O2 sat 95% on 2.5 L O2 via NC. ABG at 05:12 today: pH 7.24, pCO2 77.5, pO2 86.1. She was put on CPAP Chest x-ray done today shows minimal improvement in bilateral pulmonary opacities. VITAL SIGNS Temperature: 97.3 F SBP/DBP: 131/60 Pulse: 65 Resp: 16 MEDICATION ALLERGIES: No Known Drug Allergies (NKDA) ENVIRONMENTAL ALLERGIES: - Substance Allergies None Known - Other Allergies None Known NURSING: - Shower allowing shower PRECAUTIONS: - Fall Precaution SAFTY AND FALL ACTIVITIES OOB only with supervision THERAPIES: - Dietary and Nutrition Adequate Nutrition. Nutritional Education. Nutritional Supplements. Evaluate and Treat. - Occupational Therapy Cognitive Retraining. Patient needs Occupational Therapy for a daily minimum of 1.5 hours at least 5 out of 7 days, to improve Activities of Daily Living, including: Eating, Grooming, Bathing, Dressing, Toileting, Toilet Transfers, Community Reintegration, Higher functional activities, Adaptive Equipme nt, Splinting, Household Tasks, and Other activities as determined. Evaluate and Treat. Visual Percep tual Training. Patient/Family Education. Safety Awareness. Transfer Training. Adaptive Equipment. Ivan sehold Tasks. UE Strengthening. - Speech Therapy Cognitive Training. Expressive Language Skills. Memory Strategies. Patient needs Speech Therapy for a daily minimum of 1.5 hours at least 5 out of 7 days, to improve: Swallowing, Cognition, Language Ski lls, and Compensatory Strategies. Receptive Language Skills. Speech Intelligibility Training. Evaluat e and Treat. - Physical Therapy Patient needs Physical Therapy for a daily minimum of 1.5 hours at least 5 out of 7 days, to improve: Mobility, Strengthening, Transfers, Stretching, ROM, Endurance, Ability to manage stairs, Gait, and Balance. Mobility Training. Evaluate and Treat. Gait Training. Safety Awareness. Balance Training. Pa tient/Family Education. LE Strengthening. Medical Equipment Assessment and Evaluation. PHYSICAL EXAM - Gen Alert and awake Lying in bed No apparent distress Oriented to: person, time, and place - Skin No skin breakdown. Normacephalic - Eyes No abnormalities - Neck No abnormalities - CVS RRR - Chest No abnormalities - Abd Obese - Ext Moderate edema in both lower extremities. - MSK 4+/5 weakness in both lower extremities. - Neuro No focal deficits - Psych Mild depression. ASSESSMENT: Pt. is a 71 yo Right-handed female.On 12/03/[address] to [facility] with diagnosi s Bronchiectasis, Chronic Bronchitis, COPD.Extreme obesity BMI 56.6Her impairment category is Pulmona ry Disorders 10 - Chronic Obstructive Pulmonary Disease (10.1).Pre-morbidly, Pt. was independent/mod -I in Locomotion, Safety Awareness, Social Cognition, Balance, and Transfers Control; and she had goo d Sphincter Control, Self-Care, Communication, and Endurance.Currently, she has deficits of Locomotio n, Safety Awareness, Social Cognition, Balance, Transfers Control, Sphincter Control, Self-Care, Comm unication, and Endurance.Pt. is now referred to [facility] for acute in-patien t rehabilitation in order to maximize patient's functional independence in activities of daily living , strength, ROM, and mobility.- Rehab Goal Patient has realistic goal of being discharged at assistance level 7-Ind to reside at Home with Fami ly/Relatives. MDM/PLAN: - Physical Therapy Gait dysfunction - to improve, our physical therapists will perform initial evaluation of pt's statu s upon admission and devise an individualized program for Gait Training, and Wheel Chair mobility Inability to transfer - to improve, our physical therapists will perform initial evaluation of pt's status upon admission and devise an individualized program for Bed mobility Need for home safety evaluation - to improve, our physical therapists will perform initial evaluatio n of pt's status upon admission and devise an individualized program for Home Evaluation Need in caregiver upon discharge - to improve, our physical therapists will perform initial evaluati on of pt's status upon admission and devise an individualized program for Caregiver Training New precaution - to improve, our physical therapists will perform initial evaluation of pt's status upon admission and devise an individualized program for Patient precaution education Poor balance - to improve, our physical therapists will perform initial evaluation of pt's status up on admission and devise an individualized program for Balance Training Poor endurance - to improve, our physical therapists will perform initial evaluation of pt's status upon admission and devise an individualized program for Endurance Training Weakness - to improve, our physical therapists will perform initial evaluation of pt's status upon a dmission and devise an individualized program for Aquatic Therapy, Neuromuscular Reeducation, and Str engthening Achieving independence - to improve, our physical therapists will perform initial evaluation of pt's status upon admission and devise an individualized program for Community Reintegration Activities - Occupational Therapy ADL deficits - to improve, our occupation therapists will perform initial evaluation of pt's status upon admission and devise an individualized program for Bathing, Bed mobility, Community Reintegratio n, Cooking, Dressing, Eating, Fine Motor Skills, Grooming, Homemaking, Kitchen Mobility, Laundry, Pat ient Education, Safety Awareness, Splinting - Positioning, Transfers(Toilet, Tub, Shower), and Wheel Chair Management Cognitive deficits - to improve, our occupation therapists will perform initial evaluation of pt's s tatus upon admission and devise an individualized program for Cognition - orientation Need for field care advocate - to improve, our occupation therapists will perform initial evaluation of pt's status upon admission and devise an individualized program for Caregiver Training Weakness - to improve, our occupation therapists will perform initial evaluation of pt's status upon admission and devise an individualized program for Aquatic Therapy, Balance, Endurance, UE ROM, and UE strengthening - Other See attached MAR (Medication Administration Record) - Diet Type Continue Regular - Diet - Liquid Texture Continue Regular - Tube Feed Continue N/A - Fall Precaution SAFTY AND FALL - Diet - Solid Texture Continue Regular - Shower allowing shower FUNCTIONAL STATUS: UPDATED AT WEEKLY TEAM CONFERENCE - Bladder Same accident frequency: 7-Ind - No accidents in the past 7 days - Bowel Same accident frequency: 7-Ind - No accidents in the past 7 days - Walking Same score based on distance walked: 0(N/A) - Wheelchair Same score based on distance traveled: 0(N/A) FUNCTIONAL STATUS: - Self-Care A. Eating Ind B. Grooming modA C. Bathing Dep D. Dressing - Upper modA E. Dressing - Lower maxA F. Toileting maxA - Sphincter Control G. Bladder control sup H. Bowel control sup - Transfers Control I. Bed/Chair/Wheelchair Dep J. Toilet maxA K. Tub/Shower Dep - Locomotion L. Walk/Wheelchair (B) Dep M. Stairs ADNO - Communication N. Comprehension (B) Vern O. Expression (B) Vern - Social Cognition P. Social Interaction Ind Q. Problem Solving sup R. Memory Vern - Endurance Poor - Balance Poor - Safety Awareness Fair QI SCORES: - Self-Care A. Eating 03-Partial/moderate assistance B. Oral hygiene 02-Substantial/maximal assistance C. Toileting hygiene 02-Substantial/maximal assistance E. Shower/bathe self 02-Substantial/maximal assistance F. Upper body dressing 02-Substantial/maximal assistance G. Lower body dressing 02-Substantial/maximal assistance H. Putting on/taking off footwear 88-Not attempted due to medical condition or safety concerns - Mobility A. Roll left and right 03-Partial/moderate assistance B. Sit to lying 03-Partial/moderate assistance C. Lying to sitting on side of bed 02-Substantial/maximal assistance D. Sit to stand 02-Substantial/maximal assistance E. Chair/[id number] transfer 02-Substantial/maximal assistance F. Toilet transfer 02-Substantial/maximal assistance G. Car transfer 88-Not attempted due to medical condition or safety concerns I. Walk 10 feet 88-Not attempted due to medical condition or safety concerns J. Walk 50 feet with two turns 88-Not attempted due to medical condition or safety concerns K. Walk 150 feet 88-Not attempted due to medical condition or safety concerns L. Walking 10 feet on uneven surfaces 88-Not attempted due to medical condition or safety concerns M. 1 step (curb) 88-Not attempted due to medical condition or safety concerns N. 4 steps 88-Not attempted due to medical condition or safety concerns O. 12 steps 88-Not attempted due to medical condition or safety concerns P. Picking up object 88-Not attempted due to medical condition or safety concerns R. Wheel 50 feet with two turns 88-Not attempted due to medical condition or safety concerns S. Wheel 150 feet 88-Not attempted due to medical condition or safety concerns - Endurance Fair - Balance Poor - Safety Awareness Fair CURRENT [facility]. DEFICITS: Self-Care, Mobility, Endurance, Balance, and Safety Awareness SIGNATURE PANEL: (CDT)
[2022-01-01] MEDS ORDERED: POTASSIUM CL SA 10 MEQ TAB PO ONE (18:00)
--- NOTE | 2022-01-01 21:01 | P.PN ---
Date of Service: 01/01/22 Vital Signs Temp Pulse Resp BP Pulse Ox 97.5 F 59 18 111/51 L 100 01/01/22 20:00 01/01/22 20:00 01/01/22 20:00 01/01/22 20:00 01/01/22 20:00 Medications Acetaminophen (Acetaminophen 500 Mg Tab) 500 mg PO Q4H PRN PRN Reason: Pain scale 2-4 (Mild) Last Admin: 01/01/22 08:48 Dose: 500 mg Documented by: Acetazolamide (Acetazolamide 250 Mg Tab) 500 mg PO Q24H [facility] Last Admin: 01/01/22 12:21 Dose: 500 mg Documented by: Albuterol Sulfate (Albuterol 2.5 Mg/3 Ml Neb Nishi) 2.5 mg IH [id number] PRN PRN Reason: SHORTNESS OF BREATH Albuterol Sulfate (Albuterol Inhaler 60 Puff/8 Gm) 2 puff IH Q2H PRN PRN Reason: SHORTNESS OF BREATH Allopurinol (Allopurinol 100 Mg Tab) 100 mg PO DAILY [facility] Last Admin: 01/01/22 08:47 Dose: 100 mg Documented by: Amiodarone HCl (Amiodarone Hcl 200 Mg Tab) 200 mg PO BID [facility] Last Admin: 01/01/22 19:43 Dose: 200 mg Documented by: Cholecalciferol (Vitamin D 5,000 Unit Cap) 5,000 unit PO DAILY [facility] Last Admin: 01/01/22 08:47 Dose: 5,000 unit Documented by: Dextrose (D50w 25 Gm/50 Ml Syringe) 12.5 gm IV PRN PRN; Protocol PRN Reason: HYPOGLYCEMIA Docusate Sodium (Docusate Na 100 Mg Cap) 100 mg PO BID [facility] Last Admin: 01/01/22 19:43 Dose: 100 mg Documented by: Furosemide (Furosemide 20 Mg/ 2ml Vial) 20 mg IV Q6H [facility] Last Admin: 01/01/22 19:44 Dose: 20 mg Documented by: Gabapentin (Gabapentin 400 Mg Cap) 400 mg PO DAILY [facility] Last Admin: 01/01/22 08:47 Dose: 400 mg Documented by: Glucagon (Glucagon 1 Mg/Vial) 1 mg IM 1X PRN; Protocol PRN Reason: HYPOGLYCEMIA Home Med (Fluticasone 110 Mcg/Puff 12 Gm Inh) 110 ea IH BID [facility] Last Admin: 01/01/22 19:43 Dose: Not Given Documented by: Sodium Chloride (Sodium Chloride) 250 mls @ 0 mls/hr IV .Q0M [facility] Last Admin: 12/27/21 15:41 Dose: 250 mls Documented by: L-Arginine/L-Glutamine/HMB (Chao Packet) 1 pkt PO BID [facility] Last Admin: 01/01/22 19:44 Dose: Not Given Documented by: Losartan Potassium (Losartan Potassium 50 Mg Tablet) 25 mg PO BID [facility] Last Admin: 01/01/22 19:43 Dose: Not Given Documented by: Nutritional Formula (Ensure High Protein 237 Ml Can) 237 ml PO BID [facility] Last Admin: 01/01/22 19:43 Dose: Not Given Documented by: Nystatin (Nystatin Pwdr [id number] Unit/Gm) 1 appl TOP BID [facility] Last Admin: 01/01/22 19:43 Dose: 1 appl Documented by: Potassium Chloride (Potassium Cl Sa 10 Meq Tab) 10 meq PO BID [facility] Last Admin: 01/01/22 19:43 Dose: 10 meq Documented by: Rivaroxaban (Rivaroxaban 15 Mg Tablet) 15 mg PO DAILY 5 PM [facility] Last Admin: 01/01/22 17:30 Dose: 15 mg Documented by: Senna/Docusate Sodium (Docusate Na/Senna Conc 1 Tab) 2 tab PO BEDTIME PRN PRN Reason: CONSTIPATION Last Admin: 12/24/21 20:36 Dose: 2 tab Documented by: Sertraline HCl (Sertraline Hcl 50 Mg Tab) 50 mg PO DAILY [facility] Last Admin: 01/01/22 08:47 Dose: 50 mg Documented by: Sodium Chloride (Flush Normal Saline 10 Ml) 10 ml IV BID [facility] Last Admin: 01/01/22 19:44 Dose: 10 ml Documented by: Spironolactone (Spironolactone 25 Mg Tablet) 50 mg PO BIDL [facility] Last Admin: 01/01/22 17:31 Dose: 50 mg Documented by: Zinc Sulfate (Zinc Sulfate 220 Mg Cap) 220 mg PO BID [facility] Last Admin: 01/01/22 19:45 Dose: Not Given Documented by: Assessment/ Plan: Nephrology Improving dyspnea No chest pain No acute events overnight Vitals, medications, blood work and imaging reviewed in the chart. General: Oriented x3, Cooperative. Obese. HEENT: Atraumatic Neck: Supple Respiratory: Diminished Cardiovascular: Regular rate/rhythm, Edema Gastrointestinal: Soft and benign, Non-distended Musculoskeletal: No clubbing, No contractures Integumentary: No rashes, No cyanosis Neurological: Normal speech Laboratory Data (last 24 hrs) 12/18/21 05:15: Sodium 134 L, Potassium 4.1, BUN 58 H, Creatinine 1.35 H, Glucose 98, Magnesium 2.5 H 12/18/21 05:15: WBC 13.80 H, Hgb 8.7 L, Hct 27.8 L, Plt Count 284 Imagings Data: EXAM DESCRIPTION: RAD - Chest Single View - 12/18/2021 6:29 am CLINICAL HISTORY: Pneumonia COMPARISON: Portable chest 08/30/2021 TECHNIQUE: AP portable chest image was obtained 12/18/2021 6:29 am . FINDINGS: Left subclavian Port-A-Cath has been placed since the prior examination. Focal airspace opacification with air bronchogram formation seen in the mid upper left lung field. This is new from the August examination. Overall interstitial opacification is prominent and may be slightly increased from the comparison. The dense consolidation of the right upper lobe seen on the August study has cleared are almost entirely cleared. There is minimal lateral opacification and may be remnant from that pneumonia. Heart size is prominent, similar to comparison. Central vasculature prominent. No measurable pleural effusion and no pneumothorax. No acute bony abnormality seen. No acute aortic findings suspected. IMPRESSION: Left upper lung field pneumonia new from prior imaging. Complete or near complete clearing of the right upper lobe pneumonia seen on the 08/30/2021 study. Heart, vasculature and lung markings are all prominent. A component of mild failure or volume overload concurrent with the pneumonia cannot be excluded. Conclusions/Impression: CKD III -No NSAIDs Hyponatremia, resolved -Encourage nutrition Hypokalemia -Replete potassium Alkalosis -Continue Diamox HTN with CKD/ CHF -Continue Losartan 25mg BID with holding parameters SILVANA -Continue CPAP Diastolic CHF, chronic -Lasix IV q6h -Daily weight -Continue Diamox Daily -Continue Spironolactone 50mg BID Moderate malnutrition -Encourage nutrition Anemia in chronic illness Iron Deficiency sp IV iron -Monitor H&H -Retacrit prn Morbid Obesity Debility -PT as tolerated
[2022-01-02] MEDS: FUROSEMIDE 20 MG/ 2ML VIAL IV SCH ×4 (03:02→20:20)
[2022-01-02 04:26] LABS: Absolute Lymphocytes (CBC) 1.1 K/uL (0.7-4.9); Hematocrit 28.2 % (36.0-45.0); Lymphocytes % 15.9 % (15.3-44.8); MPV 7.9 fL (7.6-11.3); RBC Red Blood Cell Count 3.35 M/uL (3.86-4.86)
[2022-01-02 04:39] LABS: Albumin 2.8 g/dL (3.4-5.0); Bilirubin Total 0.5 mg/dL (0.2-1.0); Magnesium 2.1 mg/dL (1.8-2.4); Phosphorus 2.4 mg/dL (2.5-4.9); Potassium 3.8 mmol/L (3.5-5.1); Protein, Total 6.6 g/dL (6.4-8.2); Uric Acid 5.9 mg/dL (2.6-6.0)
[2022-01-02] MEDS: ENSURE HIGH PROTEIN 237 ML CAN PO SCH ×2 (08:00→19:46)
[2022-01-02] MEDS: JUVEN PACKET PO SCH ×2 (08:00→19:46)
[2022-01-02] MEDS: FLUTICASONE 110 MCG/PUFF 12 GM INH IH SCH ×2 (08:00→19:46)
[2022-01-02] MEDS: SPIRONOLACTONE 25 MG TABLET PO SCH ×2 (08:21→17:50)
[2022-01-02] MEDS: POTASSIUM CL SA 10 MEQ TAB PO SCH ×2 (08:21→19:46)
[2022-01-02] MEDS: LOSARTAN POTASSIUM 50 MG TABLET PO SCH ×2 (08:23→20:20)
[2022-01-02] MEDS: GABAPENTIN 400 MG CAP PO SCH (08:23)
[2022-01-02] MEDS: DOCUSATE NA 100 MG CAP PO SCH ×2 (08:23→19:45)
[2022-01-02] MEDS: SERTRALINE HCL 50 MG TAB PO SCH (08:24)
[2022-01-02] MEDS: VITAMIN D 5,000 UNIT CAP PO SCH (08:24)
[2022-01-02] MEDS: ACETAMINOPHEN 500 MG TAB PO PRN (08:24)
[2022-01-02] MEDS: allopurinoL 100 MG TAB PO SCH (08:24)
[2022-01-02] MEDS: ZINC SULFATE 220 MG CAP PO SCH ×2 (08:25→19:45)
[2022-01-02] MEDS: AMIODARONE HCL 200 MG TAB PO SCH ×2 (08:25→19:46)
[2022-01-02] MEDS: NYSTATIN PWDR 100000 UNIT/GM TOP SCH ×2 (11:43→19:46)
[2022-01-02] MEDS: acetaZOLAMIDE 250 MG TAB PO SCH (12:23)
[2022-01-02] MEDS: RIVAROXABAN 15 MG TABLET PO SCH (17:50)
--- NOTE | 2022-01-02 17:56 | R.PN ---
PROGRESS NOTES ENCOUNTER DATE AND TIME: 01/02/2022 17:49 (CDT) NAME ISAÍAS PORTER DATE OF : 1950 DATE OF ADMISSION: 12/17/2021 20:07 (CDT) Bronchiectasis, Chronic Bronchitis, COPDCHIEF COMPLAINT: COPD, chronic bronchitis SUBJECTIVE: Pt denied any depression. Pt denied any Shortness of Breath. 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 COVI D-19 on 12/24/21 is negative. Therapeutic exercises done with minimal assistance. Bed mobility done with standby assistance. O2 sat 95% on 2.5 L O2 via NC. She had a BM in bed today and was rolled to be cleaned. She did supine to sit and sit to supine with standby assistance. VITAL SIGNS Temperature: 97.4 F SBP/DBP: 137/70 Pulse: 56 Resp: 16 MEDICATION ALLERGIES: No Known Drug Allergies (NKDA) ENVIRONMENTAL ALLERGIES: - Substance Allergies None Known - Other Allergies None Known NURSING: - Shower allowing shower PRECAUTIONS: - Fall Precaution SAFTY AND FALL ACTIVITIES OOB only with supervision THERAPIES: - Dietary and Nutrition Adequate Nutrition. Nutritional Education. Nutritional Supplements. Evaluate and Treat. - Occupational Therapy Cognitive Retraining. Patient needs Occupational Therapy for a daily minimum of 1.5 hours at least 5 out of 7 days, to improve Activities of Daily Living, including: Eating, Grooming, Bathing, Dressing, Toileting, Toilet Transfers, Community Reintegration, Higher functional activities, Adaptive Equipme nt, Splinting, Household Tasks, and Other activities as determined. Evaluate and Treat. Visual Percep tual Training. Patient/Family Education. Safety Awareness. Transfer Training. Adaptive Equipment. Ivan sehold Tasks. UE Strengthening. - Speech Therapy Cognitive Training. Expressive Language Skills. Memory Strategies. Patient needs Speech Therapy for a daily minimum of 1.5 hours at least 5 out of 7 days, to improve: Swallowing, Cognition, Language Ski lls, and Compensatory Strategies. Receptive Language Skills. Speech Intelligibility Training. Evaluat e and Treat. - Physical Therapy Patient needs Physical Therapy for a daily minimum of 1.5 hours at least 5 out of 7 days, to improve: Mobility, Strengthening, Transfers, Stretching, ROM, Endurance, Ability to manage stairs, Gait, and Balance. Mobility Training. Evaluate and Treat. Gait Training. Safety Awareness. Balance Training. Pa tient/Family Education. LE Strengthening. Medical Equipment Assessment and Evaluation. PHYSICAL EXAM - Gen Alert and awake Lying in bed No apparent distress Oriented to: person, time, and place - Skin No skin breakdown. Normacephalic - Eyes No abnormalities - Neck No abnormalities - CVS RRR - Chest No abnormalities - Abd Obese - Ext Moderate edema in both lower extremities. - MSK 4+/5 weakness in both lower extremities. - Neuro No focal deficits - Psych Mild depression. ASSESSMENT: Pt. is a 71 yo Right-handed female.On 12/03/2021 she was admitted to [facility] with diagnosi s Bronchiectasis, Chronic Bronchitis, COPD.Extreme obesity BMI 56.6Her impairment category is Pulmona ry Disorders 10 - Chronic Obstructive Pulmonary Disease (10.1).Pre-morbidly, Pt. was independent/mod -I in Locomotion, Safety Awareness, Social Cognition, Balance, and Transfers Control; and she had goo d Sphincter Control, Self-Care, Communication, and Endurance.Currently, she has deficits of Locomotio n, Safety Awareness, Social Cognition, Balance, Transfers Control, Sphincter Control, Self-Care, Comm unication, and Endurance.Pt. is now referred to [facility] for acute in-patien t rehabilitation in order to maximize patient's functional independence in activities of daily living , strength, ROM, and mobility.- Rehab Goal Patient has realistic goal of being discharged at assistance level 7-Ind to reside at Home with Fami ly/Relatives. MDM/PLAN: - Physical Therapy Gait dysfunction - to improve, our physical therapists will perform initial evaluation of pt's statu s upon admission and devise an individualized program for Gait Training, and Wheel Chair mobility Inability to transfer - to improve, our physical therapists will perform initial evaluation of pt's status upon admission and devise an individualized program for Bed mobility Need for home safety evaluation - to improve, our physical therapists will perform initial evaluatio n of pt's status upon admission and devise an individualized program for Home Evaluation Need in caregiver upon discharge - to improve, our physical therapists will perform initial evaluati on of pt's status upon admission and devise an individualized program for Caregiver Training New precaution - to improve, our physical therapists will perform initial evaluation of pt's status upon admission and devise an individualized program for Patient precaution education Poor balance - to improve, our physical therapists will perform initial evaluation of pt's status up on admission and devise an individualized program for Balance Training Poor endurance - to improve, our physical therapists will perform initial evaluation of pt's status upon admission and devise an individualized program for Endurance Training Weakness - to improve, our physical therapists will perform initial evaluation of pt's status upon a dmission and devise an individualized program for Aquatic Therapy, Neuromuscular Reeducation, and Str engthening Achieving independence - to improve, our physical therapists will perform initial evaluation of pt's status upon admission and devise an individualized program for Community Reintegration Activities - Occupational Therapy ADL deficits - to improve, our occupation therapists will perform initial evaluation of pt's status upon admission and devise an individualized program for Bathing, Bed mobility, Community Reintegratio n, Cooking, Dressing, Eating, Fine Motor Skills, Grooming, Homemaking, Kitchen Mobility, Laundry, Pat ient Education, Safety Awareness, Splinting - Positioning, Transfers(Toilet, Tub, Shower), and Wheel Chair Management Cognitive deficits - to improve, our occupation therapists will perform initial evaluation of pt's s tatus upon admission and devise an individualized program for Cognition - orientation Need for wound care specialist - to improve, our occupation therapists will perform initial evaluation of pt's status upon admission and devise an individualized program for Caregiver Training Weakness - to improve, our occupation therapists will perform initial evaluation of pt's status upon admission and devise an individualized program for Aquatic Therapy, Balance, Endurance, UE ROM, and UE strengthening - Other See attached MAR (Medication Administration Record) - Diet Type Continue Regular - Diet - Liquid Texture Continue Regular - Tube Feed Continue N/A - Fall Precaution SAFTY AND FALL - Diet - Solid Texture Continue Regular - Shower allowing shower FUNCTIONAL STATUS: UPDATED AT WEEKLY TEAM CONFERENCE - Bladder Same accident frequency: 7-Ind - No accidents in the past 7 days - Bowel Same accident frequency: 7-Ind - No accidents in the past 7 days - Walking Same score based on distance walked: 0(N/A) - Wheelchair Same score based on distance traveled: 0(N/A) FUNCTIONAL STATUS: - Self-Care A. Eating Ind B. Grooming modA C. Bathing Dep D. Dressing - Upper modA E. Dressing - Lower maxA F. Toileting maxA - Sphincter Control G. Bladder control sup H. Bowel control sup - Transfers Control I. Bed/Chair/Wheelchair Dep J. Toilet maxA K. Tub/Shower Dep - Locomotion L. Walk/Wheelchair (B) Dep M. Stairs ADNO - Communication N. Comprehension (B) Vern O. Expression (B) Vern - Social Cognition P. Social Interaction Ind Q. Problem Solving sup R. Memory Vern - Endurance Poor - Balance Poor - Safety Awareness Fair QI SCORES: - Self-Care A. Eating 03-Partial/moderate assistance B. Oral hygiene 02-Substantial/maximal assistance C. Toileting hygiene 02-Substantial/maximal assistance E. Shower/bathe self 02-Substantial/maximal assistance F. Upper body dressing 02-Substantial/maximal assistance G. Lower body dressing 02-Substantial/maximal assistance H. Putting on/taking off footwear 88-Not attempted due to medical condition or safety concerns - Mobility A. Roll left and right 03-Partial/moderate assistance B. Sit to lying 03-Partial/moderate assistance C. Lying to sitting on side of bed 02-Substantial/maximal assistance D. Sit to stand 02-Substantial/maximal assistance E. Chair/[id number] transfer 02-Substantial/maximal assistance F. Toilet transfer 02-Substantial/maximal assistance G. Car transfer 88-Not attempted due to medical condition or safety concerns I. Walk 10 feet 88-Not attempted due to medical condition or safety concerns J. Walk 50 feet with two turns 88-Not attempted due to medical condition or safety concerns K. Walk 150 feet 88-Not attempted due to medical condition or safety concerns L. Walking 10 feet on uneven surfaces 88-Not attempted due to medical condition or safety concerns M. 1 step (curb) 88-Not attempted due to medical condition or safety concerns N. 4 steps 88-Not attempted due to medical condition or safety concerns O. 12 steps 88-Not attempted due to medical condition or safety concerns P. Picking up object 88-Not attempted due to medical condition or safety concerns R. Wheel 50 feet with two turns 88-Not attempted due to medical condition or safety concerns S. Wheel 150 feet 88-Not attempted due to medical condition or safety concerns - Endurance Fair - Balance Poor - Safety Awareness Fair CURRENT FUNC. DEFICITS: Self-Care, Mobility, Endurance, Balance, and Safety Awareness SIGNATURE PANEL: (CDT)
--- NOTE | 2022-01-02 19:20 | P.PN ---
Date of Service: 01/02/22 Vital Signs Temp Pulse Resp BP Pulse Ox 97.4 F 57 18 121/55 L 99 01/02/22 07:31 01/02/22 17:50 01/02/22 07:31 01/02/22 17:50 01/02/22 07:31 Medications Acetaminophen (Acetaminophen 500 Mg Tab) 500 mg PO Q4H PRN PRN Reason: Pain scale 2-4 (Mild) Last Admin: 01/02/22 08:24 Dose: 500 mg Documented by: Acetazolamide (Acetazolamide 250 Mg Tab) 500 mg PO Q24H [facility] Last Admin: 01/02/22 12:23 Dose: 500 mg Documented by: Albuterol Sulfate (Albuterol 2.5 Mg/3 Ml Neb Nishi) 2.5 mg IH [id number] PRN PRN Reason: SHORTNESS OF BREATH Albuterol Sulfate (Albuterol Inhaler 60 Puff/8 Gm) 2 puff IH Q2H PRN PRN Reason: SHORTNESS OF BREATH Allopurinol (Allopurinol 100 Mg Tab) 100 mg PO DAILY [facility] Last Admin: 01/02/22 08:24 Dose: 100 mg Documented by: Amiodarone HCl (Amiodarone Hcl 200 Mg Tab) 200 mg PO BID [facility] Last Admin: 01/02/22 08:25 Dose: 200 mg Documented by: Bumetanide (Bumetanide 1 Mg Tablet) 2 mg PO BIDL [facility] Cholecalciferol (Vitamin D 5,000 Unit Cap) 5,000 unit PO DAILY [facility] Last Admin: 01/02/22 08:24 Dose: 5,000 unit Documented by: Dextrose (D50w 25 Gm/50 Ml Syringe) 12.5 gm IV PRN PRN; Protocol PRN Reason: HYPOGLYCEMIA Docusate Sodium (Docusate Na 100 Mg Cap) 100 mg PO BID [facility] Last Admin: 01/02/22 08:23 Dose: 100 mg Documented by: Furosemide (Furosemide 20 Mg/ 2ml Vial) 20 mg IV Q6H [facility] Stop: 01/03/22 06:15 Last Admin: 01/02/22 16:39 Dose: 20 mg Documented by: Gabapentin (Gabapentin 400 Mg Cap) 400 mg PO DAILY [facility] Last Admin: 01/02/22 08:23 Dose: 400 mg Documented by: Glucagon (Glucagon 1 Mg/Vial) 1 mg IM 1X PRN; Protocol PRN Reason: HYPOGLYCEMIA Home Med (Fluticasone 110 Mcg/Puff 12 Gm Inh) 110 ea IH BID [facility] Last Admin: 01/02/22 08:00 Dose: Not Given Documented by: Sodium Chloride (Sodium Chloride) 250 mls @ 0 mls/hr IV .Q0M [facility] Last Admin: 12/27/21 15:41 Dose: 250 mls Documented by: L-Arginine/L-Glutamine/HMB (Chao Packet) 1 pkt PO BID [facility] Last Admin: 01/02/22 08:00 Dose: Not Given Documented by: Losartan Potassium (Losartan Potassium 50 Mg Tablet) 25 mg PO BEDTIME [facility] Nutritional Formula (Ensure High Protein 237 Ml Can) 237 ml PO BID [facility] Last Admin: 01/02/22 08:00 Dose: Not Given Documented by: Nystatin (Nystatin Pwdr [id number] Unit/Gm) 1 appl TOP BID [facility] Last Admin: 01/02/22 11:43 Dose: 1 appl Documented by: Potassium Chloride (Potassium Cl Sa 10 Meq Tab) 10 meq PO BID [facility] Last Admin: 01/02/22 08:21 Dose: 10 meq Documented by: Rivaroxaban (Rivaroxaban 15 Mg Tablet) 15 mg PO DAILY 5 PM [facility] Last Admin: 01/02/22 17:50 Dose: 15 mg Documented by: Senna/Docusate Sodium (Docusate Na/Senna Conc 1 Tab) 2 tab PO BEDTIME PRN PRN Reason: CONSTIPATION Last Admin: 12/24/21 20:36 Dose: 2 tab Documented by: Sertraline HCl (Sertraline Hcl 50 Mg Tab) 50 mg PO DAILY [facility] Last Admin: 01/02/22 08:24 Dose: 50 mg Documented by: Sodium Chloride (Flush Normal Saline 10 Ml) 10 ml IV BID [facility] Last Admin: 01/02/22 08:25 Dose: 10 ml Documented by: Spironolactone (Spironolactone 25 Mg Tablet) 50 mg PO BIDL [facility] Last Admin: 01/02/22 17:50 Dose: 50 mg Documented by: Zinc Sulfate (Zinc Sulfate 220 Mg Cap) 220 mg PO BID [facility] Last Admin: 01/02/22 08:25 Dose: 220 mg Documented by: Lab Results (last 24 hrs) 01/02/22 04:05: Sodium 140, Potassium 3.8, Chloride 103, Carbon Dioxide 32, BUN 24 H, Creatinine 1.06, Estimated GFR 51 L, Glucose 120 H, Uric Acid 5.9, Calcium 8.3 L, Phosphorus 2.4 L, Magnesium 2.1, Total Bilirubin 0.5, AST 26, ALT 34, Alkaline Phosphatase 73, NT-Pro-B Natriuret Pep 737 H, Serum Total Protein 6.6, Albumin 2.8 L, Globulin 3.8 H, Albumin/Globulin Ratio 0.7 L 01/02/22 04:05: WBC 7.2, RBC 3.35 L, Hgb 8.8 L, Hct 28.2 L, MCV 84.2, MCH 26.3 L, MCHC 31.3 L, RDW 27.7 H, Plt Count 156, MPV 7.9, Neutrophils % 69.3, Lymphocytes % 15.9, Monocytes % 10.0, Eosinophils % 3.8, Basophils % 1.0, Absolute Neutrophils 5.0, Absolute Lymphocytes 1.1, Absolute Monocytes 0.7, Absolute Eosinophils 0.3, Absolute Basophils 0.1 Assessment/ Plan: Nephrology Improving dyspnea No chest pain No acute events overnight Vitals, medications, blood work and imaging reviewed in the chart. General: Oriented x3, Cooperative. Obese. HEENT: Atraumatic Neck: Supple Respiratory: Diminished Cardiovascular: Regular rate/rhythm, Edema Gastrointestinal: Soft and benign, Non-distended Musculoskeletal: No clubbing, No contractures Integumentary: No rashes, No cyanosis Neurological: Normal speech Laboratory Data (last 24 hrs) 12/18/21 05:15: Sodium 134 L, Potassium 4.1, BUN 58 H, Creatinine 1.35 H, Glucose 98, Magnesium 2.5 H 12/18/21 05:15: WBC 13.80 H, Hgb 8.7 L, Hct 27.8 L, Plt Count 284 Imagings Data: EXAM DESCRIPTION: RAD - Chest Single View - 12/18/2021 6:29 am CLINICAL HISTORY: Pneumonia COMPARISON: Portable chest 08/30/2021 TECHNIQUE: AP portable chest image was obtained 12/18/2021 6:29 am . FINDINGS: Left subclavian Port-A-Cath has been placed since the prior examination. Focal airspace opacification with air bronchogram formation seen in the mid upper left lung field. This is new from the August examination. Overall interstitial opacification is prominent and may be slightly increased from the comparison. The dense consolidation of the right upper lobe seen on the August study has cleared are almost entirely cleared. There is minimal lateral opacification and may be remnant from that pneumonia. Heart size is prominent, similar to comparison. Central vasculature prominent. No measurable pleural effusion and no pneumothorax. No acute bony abnormality seen. No acute aortic findings suspected. IMPRESSION: Left upper lung field pneumonia new from prior imaging. Complete or near complete clearing of the right upper lobe pneumonia seen on the 08/30/2021 study. Heart, vasculature and lung markings are all prominent. A component of mild failure or volume overload concurrent with the pneumonia cannot be excluded. Conclusions/Impression: CKD III -No NSAIDs Hyponatremia, resolved -Encourage nutrition Hypokalemia -Replete potassium Alkalosis -Continue Diamox HTN with CKD/ CHF -Continue Losartan 25mg qHS with holding parameters SILVANA -Continue CPAP qHS Diastolic CHF, chronic -Bumex 2mg BID -Daily weight -Continue Diamox Daily -Continue Spironolactone 50mg BID Moderate malnutrition -Encourage nutrition Anemia in chronic illness Iron Deficiency sp IV iron -Monitor H&H -Retacrit prn Morbid Obesity Debility -PT as tolerated
[2022-01-03] MEDS: FUROSEMIDE 20 MG/ 2ML VIAL IV SCH (03:03)
[2022-01-03 04:43] LABS: Absolute Lymphocytes (CBC) 1.1 K/uL (0.7-4.9); Hematocrit 28.5 % (36.0-45.0); Lymphocytes % 17.7 % (15.3-44.8); MPV 8.7 fL (7.6-11.3); RBC Red Blood Cell Count 3.36 M/uL (3.86-4.86)
[2022-01-03 04:58] LABS: Albumin 2.9 g/dL (3.4-5.0); Magnesium 2.1 mg/dL (1.8-2.4); Potassium 3.7 mmol/L (3.5-5.1); Prealbumin 21.4 mg/dL (20-40)
[2022-01-03] MEDS: FUROSEMIDE 20 MG TABLET PO SCH ×2 (07:00→16:49)
[2022-01-03] MEDS: FLUTICASONE 110 MCG/PUFF 12 GM INH IH SCH ×2 (08:00→20:00)
[2022-01-03] MEDS: ENSURE HIGH PROTEIN 237 ML CAN PO SCH ×2 (08:00→20:00)
[2022-01-03] MEDS: JUVEN PACKET PO SCH ×2 (08:00→20:00)
[2022-01-03] MEDS: NYSTATIN PWDR 100000 UNIT/GM TOP SCH ×2 (08:00→21:00)
[2022-01-03] MEDS: AMIODARONE HCL 200 MG TAB PO SCH ×2 (08:00→21:00)
[2022-01-03] MEDS: VITAMIN D 5,000 UNIT CAP PO SCH (08:30)
[2022-01-03] MEDS: POTASSIUM CL SA 10 MEQ TAB PO SCH ×2 (08:30→21:00)
[2022-01-03] MEDS: allopurinoL 100 MG TAB PO SCH (08:30)
[2022-01-03] MEDS: DOCUSATE NA 100 MG CAP PO SCH ×2 (08:30→21:00)
[2022-01-03] MEDS: GABAPENTIN 400 MG CAP PO SCH (08:30)
[2022-01-03] MEDS: ZINC SULFATE 220 MG CAP PO SCH ×2 (08:30→21:00)
[2022-01-03] MEDS: SERTRALINE HCL 50 MG TAB PO SCH (08:31)
[2022-01-03] MEDS: BUMETANIDE 1 MG TABLET PO SCH ×2 (08:31→16:48)
[2022-01-03] MEDS: SPIRONOLACTONE 25 MG TABLET PO SCH ×2 (08:31→16:49)
--- NOTE | 2022-01-03 10:49 | P.PN ---
Date of Service: 01/03/22 Vital Signs Temp Pulse Resp BP Pulse Ox 97.2 F 56 18 117/49 L 100 01/03/22 07:27 01/03/22 08:31 01/03/22 07:27 01/03/22 08:31 01/03/22 07:27 Medications Acetaminophen (Acetaminophen 500 Mg Tab) 500 mg PO Q4H PRN PRN Reason: Pain scale 2-4 (Mild) Last Admin: 01/02/22 08:24 Dose: 500 mg Documented by: Acetazolamide (Acetazolamide 250 Mg Tab) 500 mg PO Q24H [facility] Last Admin: 01/02/22 12:23 Dose: 500 mg Documented by: Albuterol Sulfate (Albuterol 2.5 Mg/3 Ml Neb Nishi) 2.5 mg IH [id number] PRN PRN Reason: SHORTNESS OF BREATH Albuterol Sulfate (Albuterol Inhaler 60 Puff/8 Gm) 2 puff IH Q2H PRN PRN Reason: SHORTNESS OF BREATH Allopurinol (Allopurinol 100 Mg Tab) 100 mg PO DAILY [facility] Last Admin: 01/03/22 08:30 Dose: 100 mg Documented by: Amiodarone HCl (Amiodarone Hcl 200 Mg Tab) 200 mg PO BID [facility] Last Admin: 01/03/22 08:00 Dose: Not Given Documented by: Bumetanide (Bumetanide 1 Mg Tablet) 2 mg PO BIDL [facility] Last Admin: 01/03/22 08:31 Dose: 2 mg Documented by: Cholecalciferol (Vitamin D 5,000 Unit Cap) 5,000 unit PO DAILY [facility] Last Admin: 01/03/22 08:30 Dose: 5,000 unit Documented by: Dextrose (D50w 25 Gm/50 Ml Syringe) 12.5 gm IV PRN PRN; Protocol PRN Reason: HYPOGLYCEMIA Docusate Sodium (Docusate Na 100 Mg Cap) 100 mg PO BID [facility] Last Admin: 01/03/22 08:30 Dose: 100 mg Documented by: Furosemide (Furosemide 20 Mg Tablet) 20 mg PO BID@0700,1700 [facility] Last Admin: 01/03/22 07:00 Dose: 20 mg Documented by: Gabapentin (Gabapentin 400 Mg Cap) 400 mg PO DAILY [facility] Last Admin: 01/03/22 08:30 Dose: 400 mg Documented by: Glucagon (Glucagon 1 Mg/Vial) 1 mg IM 1X PRN; Protocol PRN Reason: HYPOGLYCEMIA Home Med (Fluticasone 110 Mcg/Puff 12 Gm Inh) 110 ea IH BID [facility] Last Admin: 01/03/22 08:00 Dose: Not Given Documented by: Sodium Chloride (Sodium Chloride) 250 mls @ 0 mls/hr IV .Q0M [facility] Last Admin: 12/27/21 15:41 Dose: 250 mls Documented by: L-Arginine/L-Glutamine/HMB (Chao Packet) 1 pkt PO BID [facility] Last Admin: 01/03/22 08:00 Dose: Not Given Documented by: Losartan Potassium (Losartan Potassium 50 Mg Tablet) 25 mg PO BEDTIME [facility] Last Admin: 01/02/22 20:20 Dose: 25 mg Documented by: Nutritional Formula (Ensure High Protein 237 Ml Can) 237 ml PO BID [facility] Last Admin: 01/03/22 08:00 Dose: Not Given Documented by: Nystatin (Nystatin Pwdr [id number] Unit/Gm) 1 appl TOP BID [facility] Last Admin: 01/03/22 08:00 Dose: 1 appl Documented by: Potassium Chloride (Potassium Cl Sa 10 Meq Tab) 10 meq PO BID [facility] Last Admin: 01/03/22 08:30 Dose: 10 meq Documented by: Rivaroxaban (Rivaroxaban 15 Mg Tablet) 15 mg PO DAILY 5 PM [facility] Last Admin: 01/02/22 17:50 Dose: 15 mg Documented by: Senna/Docusate Sodium (Docusate Na/Senna Conc 1 Tab) 2 tab PO BEDTIME PRN PRN Reason: CONSTIPATION Last Admin: 12/24/21 20:36 Dose: 2 tab Documented by: Sertraline HCl (Sertraline Hcl 50 Mg Tab) 50 mg PO DAILY [facility] Last Admin: 01/03/22 08:31 Dose: 50 mg Documented by: Sodium Chloride (Flush Normal Saline 10 Ml) 10 ml IV BID [facility] Last Admin: 01/03/22 08:00 Dose: 10 ml Documented by: Spironolactone (Spironolactone 25 Mg Tablet) 50 mg PO BIDL [facility] Last Admin: 01/03/22 08:31 Dose: 50 mg Documented by: Zinc Sulfate (Zinc Sulfate 220 Mg Cap) 220 mg PO BID [facility] Last Admin: 01/03/22 08:30 Dose: 220 mg Documented by: Lab Results (last 24 hrs) 01/03/22 03:30: Sodium 139, Potassium 3.7, Chloride 103, Carbon Dioxide 32, BUN 27 H, Creatinine 1.24, Estimated GFR 43 L, Glucose 117 H, Calcium 8.5, Magnesium 2.1, Albumin 2.9 L, Prealbumin 21.4 01/03/22 03:30: WBC 6.1 D, RBC 3.36 L, Hgb 8.8 L, Hct 28.5 L, MCV 84.7, MCH 26.3 L, MCHC 31.0 L, RDW 29.0 H, Plt Count 165, MPV 8.7 D, Neutrophils % 65.4, Lymphocytes % 17.7, Monocytes % 12.1, Eosinophils % 4.1, Basophils % 0.7, Absolute Neutrophils 4.0, Absolute Lymphocytes 1.1, Absolute Monocytes 0.7, Absolute Eosinophils 0.3, Absolute Basophils 0.0 Assessment/ Plan: Nephrology Improving dyspnea No chest pain No acute events overnight Vitals, medications, blood work and imaging reviewed in the chart. General: Oriented x3, Cooperative. Obese. HEENT: Atraumatic Neck: Supple Respiratory: Diminished Cardiovascular: Regular rate/rhythm, Edema Gastrointestinal: Soft and benign, Non-distended Musculoskeletal: No clubbing, No contractures Integumentary: No rashes, No cyanosis Neurological: Normal speech Laboratory Data (last 24 hrs) 12/18/21 05:15: Sodium 134 L, Potassium 4.1, BUN 58 H, Creatinine 1.35 H, Glucose 98, Magnesium 2.5 H 12/18/21 05:15: WBC 13.80 H, Hgb 8.7 L, Hct 27.8 L, Plt Count 284 Imagings Data: EXAM DESCRIPTION: RAD - Chest Single View - 12/18/2021 6:29 am CLINICAL HISTORY: Pneumonia COMPARISON: Portable chest 08/30/2021 TECHNIQUE: AP portable chest image was obtained 12/18/2021 6:29 am . FINDINGS: Left subclavian Port-A-Cath has been placed since the prior examination. Focal airspace opacification with air bronchogram formation seen in the mid upper left lung field. This is new from the August examination. Overall interstitial opacification is prominent and may be slightly increased from the comparison. The dense consolidation of the right upper lobe seen on the August study has cleared are almost entirely cleared. There is minimal lateral opacification and may be remnant from that pneumonia. Heart size is prominent, similar to comparison. Central vasculature prominent. No measurable pleural effusion and no pneumothorax. No acute bony abnormality seen. No acute aortic findings suspected. IMPRESSION: Left upper lung field pneumonia new from prior imaging. Complete or near complete clearing of the right upper lobe pneumonia seen on the 08/30/2021 study. Heart, vasculature and lung markings are all prominent. A component of mild failure or volume overload concurrent with the pneumonia cannot be excluded. Conclusions/Impression: CKD III -No NSAIDs Hyponatremia, resolved -Encourage nutrition Hypokalemia -Replete potassium Alkalosis -Continue Diamox HTN with CKD/ CHF -Continue Losartan 25mg qHS with holding parameters SILVANA -Continue CPAP qHS Diastolic CHF, chronic -Bumex 2mg BID -Daily weight -Continue Diamox Daily -Continue Spironolactone 50mg BID Moderate malnutrition -Encourage nutrition Anemia in chronic illness Iron Deficiency sp IV iron -Monitor H&H -Retacrit prn Morbid Obesity Debility -PT as tolerated
[2022-01-03] MEDS: acetaZOLAMIDE 250 MG TAB PO SCH (12:06)
[2022-01-03] MEDS: RIVAROXABAN 15 MG TABLET PO SCH (16:48)
[2022-01-03] MEDS ORDERED: FUROSEMIDE 20 MG TABLET PO SCH (17:00)
--- NOTE | 2022-01-03 17:12 | R.PN ---
PROGRESS NOTES ENCOUNTER DATE AND TIME: 01/03/2022 16:36 (CDT) NAME ISAÍAS PORTER DATE OF : 1950 DATE OF ADMISSION: 12/17/2021 20:07 (CDT) Bronchiectasis, Chronic Bronchitis, COPDCHIEF COMPLAINT: COPD, chronic bronchitis SUBJECTIVE: Pt denied any depression. Pt denied any Shortness of Breath. Therapeutic exercises done with minimal assistance. Bed mobility done with standby assistance. O2 sat 95% on 2.5 L O2 via NC. She had a BM in bed today and was rolled to be cleaned. She did supine to sit and sit to supine with standby assistance. Repeat ABG pH 7.35, pCO2 53.8, pO2 83.3, K 3.7, Cloth Classer 1.24, prealbumin 21.4. WBC 6.1, Hgb 8.8, Sat on the side of the bed 15' unsupported. VITAL SIGNS Temperature: 97.2 F SBP/DBP: 144/62 Pulse: 56 Resp: 16 MEDICATION ALLERGIES: No Known Drug Allergies (NKDA) ENVIRONMENTAL ALLERGIES: - Substance Allergies None Known - Other Allergies None Known NURSING: - Shower allowing shower PRECAUTIONS: - Fall Precaution SAFTY AND FALL ACTIVITIES OOB only with supervision THERAPIES: - Dietary and Nutrition Adequate Nutrition. Nutritional Education. Nutritional Supplements. Evaluate and Treat. - Occupational Therapy Cognitive Retraining. Patient needs Occupational Therapy for a daily minimum of 1.5 hours at least 5 out of 7 days, to improve Activities of Daily Living, including: Eating, Grooming, Bathing, Dressing, Toileting, Toilet Transfers, Community Reintegration, Higher functional activities, Adaptive Equipme nt, Splinting, Household Tasks, and Other activities as determined. Evaluate and Treat. Visual Percep tual Training. Patient/Family Education. Safety Awareness. Transfer Training. Adaptive Equipment. Ivan sehold Tasks. UE Strengthening. - Speech Therapy Cognitive Training. Expressive Language Skills. Memory Strategies. Patient needs Speech Therapy for a daily minimum of 1.5 hours at least 5 out of 7 days, to improve: Swallowing, Cognition, Language Ski lls, and Compensatory Strategies. Receptive Language Skills. Speech Intelligibility Training. Evaluat e and Treat. - Physical Therapy Patient needs Physical Therapy for a daily minimum of 1.5 hours at least 5 out of 7 days, to improve: Mobility, Strengthening, Transfers, Stretching, ROM, Endurance, Ability to manage stairs, Gait, and Balance. Mobility Training. Evaluate and Treat. Gait Training. Safety Awareness. Balance Training. Pa tient/Family Education. LE Strengthening. Medical Equipment Assessment and Evaluation. PHYSICAL EXAM - Gen Alert and awake Lying in bed No apparent distress Oriented to: person, time, and place - Skin No skin breakdown. Normacephalic - Eyes No abnormalities - Neck No abnormalities - CVS RRR - Chest No abnormalities - Abd Obese - Ext Moderate edema in both lower extremities. - MSK 4+/5 weakness in both lower extremities. - Neuro No focal deficits - Psych Mild depression. ASSESSMENT: Pt. is a 71 yo Right-handed female.On 12/03/2021 she was admitted to [facility] with diagnosi s Bronchiectasis, Chronic Bronchitis, COPD.Extreme obesity BMI 56.6Her impairment category is Pulmona ry Disorders 10 - Chronic Obstructive Pulmonary Disease (10.1).Pre-morbidly, Pt. was independent/mod -I in Locomotion, Safety Awareness, Social Cognition, Balance, and Transfers Control; and she had goo d Sphincter Control, Self-Care, Communication, and Endurance.Currently, she has deficits of Locomotio n, Safety Awareness, Social Cognition, Balance, Transfers Control, Sphincter Control, Self-Care, Comm unication, and Endurance.Pt. is now referred to [facility] for acute in-patien t rehabilitation in order to maximize patient's functional independence in activities of daily living , strength, ROM, and mobility.- Rehab Goal Patient has realistic goal of being discharged at assistance level 7-Ind to reside at Home with Fami ly/Relatives. MDM/PLAN: - Physical Therapy Gait dysfunction - to improve, our physical therapists will perform initial evaluation of pt's statu s upon admission and devise an individualized program for Gait Training, and Wheel Chair mobility Inability to transfer - to improve, our physical therapists will perform initial evaluation of pt's status upon admission and devise an individualized program for Bed mobility Need for home safety evaluation - to improve, our physical therapists will perform initial evaluatio n of pt's status upon admission and devise an individualized program for Home Evaluation Need in caregiver upon discharge - to improve, our physical therapists will perform initial evaluati on of pt's status upon admission and devise an individualized program for Caregiver Training New precaution - to improve, our physical therapists will perform initial evaluation of pt's status upon admission and devise an individualized program for Patient precaution education Poor balance - to improve, our physical therapists will perform initial evaluation of pt's status up on admission and devise an individualized program for Balance Training Poor endurance - to improve, our physical therapists will perform initial evaluation of pt's status upon admission and devise an individualized program for Endurance Training Weakness - to improve, our physical therapists will perform initial evaluation of pt's status upon a dmission and devise an individualized program for Aquatic Therapy, Neuromuscular Reeducation, and Str engthening Achieving independence - to improve, our physical therapists will perform initial evaluation of pt's status upon admission and devise an individualized program for Community Reintegration Activities - Occupational Therapy ADL deficits - to improve, our occupation therapists will perform initial evaluation of pt's status upon admission and devise an individualized program for Bathing, Bed mobility, Community Reintegratio n, Cooking, Dressing, Eating, Fine Motor Skills, Grooming, Homemaking, Kitchen Mobility, Laundry, Pat ient Education, Safety Awareness, Splinting - Positioning, Transfers(Toilet, Tub, Shower), and Wheel Chair Management Cognitive deficits - to improve, our occupation therapists will perform initial evaluation of pt's s tatus upon admission and devise an individualized program for Cognition - orientation Need for home care aide - to improve, our occupation therapists will perform initial evaluation of pt's status upon admission and devise an individualized program for Caregiver Training Weakness - to improve, our occupation therapists will perform initial evaluation of pt's status upon admission and devise an individualized program for Aquatic Therapy, Balance, Endurance, UE ROM, and UE strengthening - Other See attached MAR (Medication Administration Record) - Diet Type Continue Regular - Diet - Liquid Texture Continue Regular - Tube Feed Continue N/A - Fall Precaution SAFTY AND FALL - Diet - Solid Texture Continue Regular - Shower allowing shower FUNCTIONAL STATUS: UPDATED AT WEEKLY TEAM CONFERENCE - Bladder Same accident frequency: 7-Ind - No accidents in the past 7 days - Bowel Same accident frequency: 7-Ind - No accidents in the past 7 days - Walking Same score based on distance walked: 0(N/A) - Wheelchair Same score based on distance traveled: 0(N/A) FUNCTIONAL STATUS: - Self-Care A. Eating Ind B. Grooming modA C. Bathing Dep D. Dressing - Upper modA E. Dressing - Lower maxA F. Toileting maxA - Sphincter Control G. Bladder control sup H. Bowel control sup - Transfers Control I. Bed/Chair/Wheelchair Dep J. Toilet maxA K. Tub/Shower Dep - Locomotion L. Walk/Wheelchair (B) Dep M. Stairs ADNO - Communication N. Comprehension (B) Vern O. Expression (B) Vern - Social Cognition P. Social Interaction Ind Q. Problem Solving sup R. Memory Vern - Endurance Poor - Balance Poor - Safety Awareness Fair QI SCORES: - Self-Care A. Eating 03-Partial/moderate assistance B. Oral hygiene 02-Substantial/maximal assistance C. Toileting hygiene 02-Substantial/maximal assistance E. Shower/bathe self 02-Substantial/maximal assistance F. Upper body dressing 02-Substantial/maximal assistance G. Lower body dressing 02-Substantial/maximal assistance H. Putting on/taking off footwear 88-Not attempted due to medical condition or safety concerns - Mobility A. Roll left and right 03-Partial/moderate assistance B. Sit to lying 03-Partial/moderate assistance C. Lying to sitting on side of bed 02-Substantial/maximal assistance D. Sit to stand 02-Substantial/maximal assistance E. Chair/ddp-my-danvq transfer 02-Substantial/maximal assistance F. Toilet transfer 02-Substantial/maximal assistance G. Car transfer 88-Not attempted due to medical condition or safety concerns I. Walk 10 feet 88-Not attempted due to medical condition or safety concerns J. Walk 50 feet with two turns 88-Not attempted due to medical condition or safety concerns K. Walk 150 feet 88-Not attempted due to medical condition or safety concerns L. Walking 10 feet on uneven surfaces 88-Not attempted due to medical condition or safety concerns M. 1 step (curb) 88-Not attempted due to medical condition or safety concerns N. 4 steps 88-Not attempted due to medical condition or safety concerns O. 12 steps 88-Not attempted due to medical condition or safety concerns P. Picking up object 88-Not attempted due to medical condition or safety concerns R. Wheel 50 feet with two turns 88-Not attempted due to medical condition or safety concerns S. Wheel 150 feet 88-Not attempted due to medical condition or safety concerns - Endurance Fair - Balance Poor - Safety Awareness Fair CURRENT [facility]. DEFICITS: Self-Care, Mobility, Endurance, Balance, and Safety Awareness SIGNATURE PANEL: (CDT)
[2022-01-03] MEDS: LOSARTAN POTASSIUM 50 MG TABLET PO SCH ×2 (20:59→21:00)
[2022-01-04] MEDS: FUROSEMIDE 20 MG TABLET PO SCH ×2 (06:29→17:25)
[2022-01-04] MEDS: VITAMIN D 5,000 UNIT CAP PO SCH (07:42)
[2022-01-04] MEDS: allopurinoL 100 MG TAB PO SCH (07:42)
[2022-01-04] MEDS: DOCUSATE NA 100 MG CAP PO SCH ×2 (07:42→19:20)
[2022-01-04] MEDS: BUMETANIDE 1 MG TABLET PO SCH ×2 (07:42→17:26)
[2022-01-04] MEDS: GABAPENTIN 400 MG CAP PO SCH (07:43)
[2022-01-04] MEDS: AMIODARONE HCL 200 MG TAB PO SCH ×2 (07:43→19:22)
[2022-01-04] MEDS: ZINC SULFATE 220 MG CAP PO SCH ×2 (07:43→19:20)
[2022-01-04] MEDS: SPIRONOLACTONE 25 MG TABLET PO SCH ×2 (07:43→17:25)
[2022-01-04] MEDS: SERTRALINE HCL 50 MG TAB PO SCH (07:43)
[2022-01-04] MEDS: POTASSIUM CL SA 10 MEQ TAB PO SCH ×2 (07:45→19:20)
[2022-01-04] MEDS: FLUTICASONE 110 MCG/PUFF 12 GM INH IH SCH ×2 (08:00→19:21)
[2022-01-04] MEDS: JUVEN PACKET PO SCH ×2 (08:00→19:21)
[2022-01-04] MEDS: ENSURE HIGH PROTEIN 237 ML CAN PO SCH ×2 (08:00→19:21)
--- NOTE | 2022-01-04 08:57 | RAD REPORT ---
EXAM DESCRIPTION: RAD - Chest Single View - 01/04/2022 4:51 am CLINICAL HISTORY: Repeat CXR Chest pain. COMPARISON: Chest Single View dated 12/31/2021; Chest Single View dated 12/27/2021; Chest Single View d ated 12/25/2021; Chest Single View dated 12/18/2021 FINDINGS: Portable technique limits examination quality. Bilateral pulmonary opacities show little overall change since 12/31/2021. The heart is mildly enlarg ed. Left-sided venous catheter tip in the SVC. IMPRESSION: Stable chest since 12/31/2021.
--- NOTE | 2022-01-04 09:52 | P.RH.PN ---
Expected Discharge Date: 01/11/22 Discharge Disposition Plan: [facility] Facility Family Support: Yes [employer] Goal: Mobility, Transfers, Self Care Vital Signs: Last Vital Signs Temp 97.1 F 01/04/22 07:46 Pulse 58 01/04/22 07:46 Resp 16 01/04/22 07:46 BP 128/49 L 01/04/22 07:46 Pulse Ox 98 01/04/22 07:46 Laboratory: Laboratory Last Values WBC 6.1 K/uL (4.3-10.9) D 01/03/22 03:30 RBC 3.36 M/uL (3.86-4.86) L 01/03/22 03:30 Hgb 8.8 g/dL (12.0-15.0) L 01/03/22 03:30 Hct 28.5 % (36.0-45.0) L 01/03/22 03:30 MCV 84.7 fL (80-100) 01/03/22 03:30 MCH 26.3 pg (27.0-35.0) L 01/03/22 03:30 MCHC 31.0 g/dL (32.0-36.0) L 01/03/22 03:30 RDW 29.0 % (12.1-15.2) H 01/03/22 03:30 Plt Count 165 K/uL (152-406) 01/03/22 03:30 MPV 8.7 fL (7.6-11.3) D 01/03/22 03:30 Plt Distribution Width Cancelled 12/22/21 Unknown Absolute Nucleated RBC Cancelled 12/22/21 Unknown Neutrophils % 65.4 % (41.7-73.7) 01/03/22 03:30 Lymphocytes % 17.7 % (15.3-44.8) 01/03/22 03:30 Monocytes % 12.1 % (3.3-12.3) 01/03/22 03:30 Eosinophils % 4.1 % (0-4.4) 01/03/22 03:30 Basophils % 0.7 % (0-1.3) 01/03/22 03:30 Nucleated RBC % Cancelled 12/22/21 Unknown Absolute Neutrophils 4.0 K/uL (1.8-8.0) 01/03/22 03:30 Segmented Neutrophils 90 % (40-80) H 12/20/21 04:30 Absolute Lymphocytes 1.1 K/uL (0.7-4.9) 01/03/22 03:30 Lymphocytes 3 % (15-42) L 12/20/21 04:30 Monocytes 6 % (0-10) 12/20/21 04:30 Absolute Monocytes 0.7 K/uL (0.1-1.3) 01/03/22 03:30 Eosinophils 1 % (0-3) 12/20/21 04:30 Absolute Eosinophils 0.3 K/uL (0-0.5) 01/03/22 03:30 Absolute Basophils 0.0 K/uL (0-0.5) 01/03/22 03:30 Diff Path Review Cancelled 12/22/21 Unknown Platelet Estimate Adeq 12/29/21 05:02 Giant Platelets Present 12/29/21 05:02 Anisocytosis 3+ 12/29/21 05:02 Microcytosis 1+ 12/29/21 05:02 Morphology Comment Noted (NOT SEEN) 12/29/21 05:02 pH 7.35 (7.35-7.45) 12/29/21 21:28 pCO2 53.8 mmHG (35-45) H 12/29/21 21:28 pO2 83.3 mmHG (75-100) 12/29/21 21:28 HCO3 29.1 mmol/L (22-28) H 12/29/21 21:28 Base Excess 3.9 mmol/L 12/29/21 21:28 Oxyhemoglobin 92.8 % (94-97) L 12/29/21 21: ABG O2 Sat (Measured) 96.3 % (92-98.5) 12/29/21 21:28 ABG Carboxyhemoglobin 2.2 % (0-1.5) H 12/29/21 21:28 ABG Methemoglobin 1.4 % (0-1.5) 12/29/21 21: Other Total Hgb 9.0 g/dl (12-18) L 12/29/21 21:28 Inspired O2 30.0 % 12/29/21 21:28 Sodium 139 mmol/L (136-145) 01/03/22 03:30 Potassium 3.7 mmol/L (3.5-5.1) 01/03/22 03:30 Chloride 103 mmol/L (98-107) 01/03/22 03:30 Carbon Dioxide 32 mmol/L (21-32) 01/03/22 03:30 BUN 27 mg/dL (7-18) H 01/03/22 03:30 Creatinine 1.24 mg/dL (0.55-1.3) 01/03/22 03:30 Estimated GFR 43 mL/min (=/>90) L 01/03/22 03:30 Glucose 117 mg/dL (74-106) H 01/03/22 03:30 POC Glucose 82 mg/dL (65-120) 12/29/21 17:03 Lactic Acid 0.8 mmol/L (0.4-2.0) 12/29/21 05:02 Uric Acid 5.9 mg/dL (2.6-6.0) 01/02/22 04:05 Calcium 8.5 mg/dL (8.5-10.1) 01/03/22 03:30 Phosphorus 2.4 mg/dL (2.5-4.9) L 01/02/22 04:05 Magnesium 2.1 mg/dL (1.8-2.4) 01/03/22 03:30 Iron 123.0 ug/dL (50-170) 12/28/21 04:40 TIBC 284 ug/dL (250-460) 12/28/21 04:40 Transferrin 203 mg/dL (200-360) 12/28/21 04:40 Transferrin % Sat 43.3 % (20.0-50.0) 12/28/21 04:40 Total Bilirubin 0.5 mg/dL (0.2-1.0) 01/02/22 04:05 AST 26 U/L (15-37) 01/02/22 04:05 ALT 34 U/L (12-78) 01/02/22 04:05 Alkaline Phosphatase 73 U/L (45-117) 01/02/22 04:05 NT-Pro-B Natriuret Pep 737 pg/mL (<125) H 01/02/22 04:05 Serum Total Protein 6.6 g/dL (6.4-8.2) 01/02/22 04:05 Albumin 2.9 g/dL (3.4-5.0) L 01/03/22 03:30 Globulin 3.8 g/dL (2.3-3.5) H 01/02/22 04:05 Albumin/Globulin Ratio 0.7 (1.1-1.8) L 01/02/22 04:05 Prealbumin 21.4 mg/dL (20-40) 01/03/22 03:30 Vitamin B12 880 pg/mL (193-986) 12/21/21 04:55 Serum Folate 10.5 ng/mL (3.1-17.5) 12/21/21 04:55 Procalcitonin < 0.05 ng/mL (<0.050) 12/29/21 05:02 SARS-CoV-2 Rap RNA(RT-PCR) Negative (NEGATIVE) 12/31/21 05:05 Smear Scan Ok (OK) 12/29/21 05:02 ABO/Rh A POSITIVE 12/27/21 13:50 Solid Phase Ab Screen Negative 12/27/21 13:50 Crossmatch See Detail 12/27/21 13:50 Weight: 360 lb Wound Present: No Closed Surgical Incision Present: No Negative Pressure Wound Therapy Present: No Physician Update: Bed mobility is SBA, sit to stand is dependent with the MADI lift. Wheelchair is less than 20'. Sponge baths, moderate assistance for bathing, dependent with toileting. Grooming setup. She may go to skilled next week. She is improving medically and should no need any IV medication. Comment: redness on nose bridge from bipap mask; with duoderm Functional Improvement: Patient has experienced set-backs during stay here, due to medical issues. Patient presents w/ good attitude, and has shown improvement over the past two days. Summary: Patient's care plan and prison goals have been reviewed and revised as necessary. Please see the Rehabilitation Signature page for all necessary signatures.
[2022-01-04] MEDS: NYSTATIN PWDR 100000 UNIT/GM TOP SCH ×2 (10:15→19:21)
[2022-01-04] MEDS: acetaZOLAMIDE 250 MG TAB PO SCH (12:24)
[2022-01-04] MEDS: RIVAROXABAN 15 MG TABLET PO SCH (17:24)
[2022-01-04] MEDS: DOCUSATE NA/SENNA CONC 1 TAB PO PRN (19:20)
[2022-01-04] MEDS: LOSARTAN POTASSIUM 50 MG TABLET PO SCH (19:22)
--- NOTE | 2022-01-04 22:32 | P.PN ---
Date of Service: 01/04/22 Vital Signs Temp Pulse Resp BP Pulse Ox 98.2 F 63 18 116/45 L 98 01/04/22 20:44 01/04/22 20:44 01/04/22 20:44 01/04/22 20:44 01/04/22 20:44 Medications Acetaminophen (Acetaminophen 500 Mg Tab) 500 mg PO Q4H PRN PRN Reason: Pain scale 2-4 (Mild) Last Admin: 01/02/22 08:24 Dose: 500 mg Documented by: Acetazolamide (Acetazolamide 250 Mg Tab) 500 mg PO Q24H [facility] Last Admin: 01/04/22 12:24 Dose: 500 mg Documented by: Albuterol Sulfate (Albuterol 2.5 Mg/3 Ml Neb Nishi) 2.5 mg IH [id number] PRN PRN Reason: SHORTNESS OF BREATH Albuterol Sulfate (Albuterol Inhaler 60 Puff/8 Gm) 2 puff IH Q2H PRN PRN Reason: SHORTNESS OF BREATH Allopurinol (Allopurinol 100 Mg Tab) 100 mg PO DAILY [facility] Last Admin: 01/04/22 07:42 Dose: 100 mg Documented by: Amiodarone HCl (Amiodarone Hcl 200 Mg Tab) 200 mg PO BID [facility] Last Admin: 01/04/22 19:22 Dose: 200 mg Documented by: Bumetanide (Bumetanide 1 Mg Tablet) 2 mg PO BIDL [facility] Last Admin: 01/04/22 17:26 Dose: 2 mg Documented by: Cholecalciferol (Vitamin D 5,000 Unit Cap) 5,000 unit PO DAILY [facility] Last Admin: 01/04/22 07:42 Dose: 5,000 unit Documented by: Dextrose (D50w 25 Gm/50 Ml Syringe) 12.5 gm IV PRN PRN; Protocol PRN Reason: HYPOGLYCEMIA Docusate Sodium (Docusate Na 100 Mg Cap) 100 mg PO BID [facility] Last Admin: 01/04/22 19:20 Dose: 100 mg Documented by: Furosemide (Furosemide 20 Mg Tablet) 20 mg PO BID@0700,1700 [facility] Last Admin: 01/04/22 17:25 Dose: 20 mg Documented by: Gabapentin (Gabapentin 400 Mg Cap) 400 mg PO DAILY [facility] Last Admin: 01/04/22 07:43 Dose: 400 mg Documented by: Glucagon (Glucagon 1 Mg/Vial) 1 mg IM 1X PRN; Protocol PRN Reason: HYPOGLYCEMIA Home Med (Fluticasone 110 Mcg/Puff 12 Gm Inh) 110 ea IH BID [facility] Last Admin: 01/04/22 19:21 Dose: Not Given Documented by: Sodium Chloride (Sodium Chloride) 250 mls @ 0 mls/hr IV .Q0M [facility] Last Admin: 12/27/21 15:41 Dose: 250 mls Documented by: L-Arginine/L-Glutamine/HMB (Chao Packet) 1 pkt PO BID [facility] Last Admin: 01/04/22 19:21 Dose: Not Given Documented by: Losartan Potassium (Losartan Potassium 50 Mg Tablet) 25 mg PO BEDTIME [facility] Last Admin: 01/04/22 19:22 Dose: Not Given Documented by: Nutritional Formula (Ensure High Protein 237 Ml Can) 237 ml PO BID [facility] Last Admin: 01/04/22 19:21 Dose: Not Given Documented by: Nystatin (Nystatin Pwdr [id number] Unit/Gm) 1 appl TOP BID [facility] Last Admin: 01/04/22 19:21 Dose: 1 appl Documented by: Potassium Chloride (Potassium Cl Sa 10 Meq Tab) 10 meq PO BID [facility] Last Admin: 01/04/22 19:20 Dose: 10 meq Documented by: Rivaroxaban (Rivaroxaban 15 Mg Tablet) 15 mg PO DAILY 5 PM [facility] Last Admin: 01/04/22 17:24 Dose: 15 mg Documented by: Senna/Docusate Sodium (Docusate Na/Senna Conc 1 Tab) 2 tab PO BEDTIME PRN PRN Reason: CONSTIPATION Last Admin: 01/04/22 19:20 Dose: 2 tab Documented by: Sertraline HCl (Sertraline Hcl 50 Mg Tab) 50 mg PO DAILY [facility] Last Admin: 01/04/22 07:43 Dose: 50 mg Documented by: Sodium Chloride (Flush Normal Saline 10 Ml) 10 ml IV BID [facility] Last Admin: 01/04/22 19:21 Dose: 10 ml Documented by: Spironolactone (Spironolactone 25 Mg Tablet) 50 mg PO BIDL [facility] Last Admin: 01/04/22 17:25 Dose: 50 mg Documented by: Zinc Sulfate (Zinc Sulfate 220 Mg Cap) 220 mg PO BID [facility] Last Admin: 01/04/22 19:20 Dose: 220 mg Documented by: Assessment/ Plan: Nephrology Improving dyspnea No chest pain No acute events overnight Vitals, medications, blood work and imaging reviewed in the chart. General: Oriented x3, Cooperative. Obese. HEENT: Atraumatic Neck: Supple Respiratory: Diminished Cardiovascular: Regular rate/rhythm, Edema Gastrointestinal: Soft and benign, Non-distended Musculoskeletal: No clubbing, No contractures Integumentary: No rashes, No cyanosis Neurological: Normal speech Laboratory Data (last 24 hrs) 12/18/21 05:15: Sodium 134 L, Potassium 4.1, BUN 58 H, Creatinine 1.35 H, Glucose 98, Magnesium 2.5 H 12/18/21 05:15: WBC 13.80 H, Hgb 8.7 L, Hct 27.8 L, Plt Count 284 Imagings Data: EXAM DESCRIPTION: RAD - Chest Single View - 12/18/2021 6:29 am CLINICAL HISTORY: Pneumonia COMPARISON: Portable chest 08/30/2021 TECHNIQUE: AP portable chest image was obtained 12/18/2021 6:29 am . FINDINGS: Left subclavian Port-A-Cath has been placed since the prior examination. Focal airspace opacification with air bronchogram formation seen in the mid upper left lung field. This is new from the August examination. Overall interstitial opacification is prominent and may be slightly increased from the comparison. The dense consolidation of the right upper lobe seen on the August study has cleared are almost entirely cleared. There is minimal lateral opacification and may be remnant from that pneumonia. Heart size is prominent, similar to comparison. Central vasculature prominent. No measurable pleural effusion and no pneumothorax. No acute bony abnormality seen. No acute aortic findings suspected. IMPRESSION: Left upper lung field pneumonia new from prior imaging. Complete or near complete clearing of the right upper lobe pneumonia seen on the 08/30/2021 study. Heart, vasculature and lung markings are all prominent. A component of mild fa ilure or volume overload concurrent with the pneumonia cannot be excluded. Conclusions/Impression: CKD III -No NSAIDs Hyponatremia, resolved -Encourage nutrition Hypokalemia -Replete potassium Alkalosis -Continue Diamox HTN with CKD/ CHF -Continue Losartan 25mg qHS with holding parameters SILVANA -Continue CPAP qHS Diastolic CHF, chronic -Bumex 2mg BID -Daily weight -Continue Diamox Daily -Continue Spironolactone 50mg BID Moderate malnutrition -Encourage nutrition Anemia in chronic illness Iron Deficiency sp IV iron -Monitor H&H -Retacrit prn Morbid Obesity Debility -PT as tolerated
[2022-01-05] MEDS: FUROSEMIDE 20 MG TABLET PO SCH (06:51)
[2022-01-05] MEDS: FLUTICASONE 110 MCG/PUFF 12 GM INH IH SCH ×2 (08:00→19:24)
[2022-01-05] MEDS: JUVEN PACKET PO SCH ×2 (08:00→19:24)
[2022-01-05] MEDS: ENSURE HIGH PROTEIN 237 ML CAN PO SCH ×2 (08:00→19:24)
[2022-01-05] MEDS: GABAPENTIN 400 MG CAP PO SCH (08:07)
[2022-01-05] MEDS: SPIRONOLACTONE 25 MG TABLET PO SCH ×2 (08:07→17:14)
[2022-01-05] MEDS: POTASSIUM CL SA 10 MEQ TAB PO SCH ×2 (08:07→19:27)
[2022-01-05] MEDS: VITAMIN D 5,000 UNIT CAP PO SCH (08:07)
[2022-01-05] MEDS: DOCUSATE NA 100 MG CAP PO SCH ×2 (08:08→19:27)
[2022-01-05] MEDS: ZINC SULFATE 220 MG CAP PO SCH ×2 (08:08→19:27)
[2022-01-05] MEDS: SERTRALINE HCL 50 MG TAB PO SCH (08:08)
[2022-01-05] MEDS: allopurinoL 100 MG TAB PO SCH (08:08)
[2022-01-05] MEDS: BUMETANIDE 1 MG TABLET PO SCH ×2 (08:09→17:15)
[2022-01-05] MEDS: AMIODARONE HCL 200 MG TAB PO SCH (08:09)
[2022-01-05] MEDS: NYSTATIN PWDR 100000 UNIT/GM TOP SCH ×2 (08:09→19:26)
--- NOTE | 2022-01-05 09:24 | P.PN ---
Date of Service: 01/05/22 Vital Signs Temp Pulse Resp BP Pulse Ox 97.3 F 56 18 111/40 L 99 01/05/22 07:05 01/05/22 08:09 01/05/22 07:05 01/05/22 08:09 01/05/22 07:05 Medications Acetaminophen (Acetaminophen 500 Mg Tab) 500 mg PO Q4H PRN PRN Reason: Pain scale 2-4 (Mild) Last Admin: 01/02/22 08:24 Dose: 500 mg Documented by: Acetazolamide (Acetazolamide 250 Mg Tab) 500 mg PO Q24H [facility] Last Admin: 01/04/22 12:24 Dose: 500 mg Documented by: Albuterol Sulfate (Albuterol 2.5 Mg/3 Ml Neb Nishi) 2.5 mg IH [id number] PRN PRN Reason: SHORTNESS OF BREATH Albuterol Sulfate (Albuterol Inhaler 60 Puff/8 Gm) 2 puff IH Q2H PRN PRN Reason: SHORTNESS OF BREATH Allopurinol (Allopurinol 100 Mg Tab) 100 mg PO DAILY [facility] Last Admin: 01/05/22 08:08 Dose: 100 mg Documented by: Amiodarone HCl (Amiodarone Hcl 200 Mg Tab) 200 mg PO DAILY [facility] Bumetanide (Bumetanide 1 Mg Tablet) 2 mg PO BIDL [facility] Last Admin: 01/05/22 08:09 Dose: 2 mg Documented by: Cholecalciferol (Vitamin D 5,000 Unit Cap) 5,000 unit PO DAILY [facility] Last Admin: 01/05/22 08:07 Dose: 5,000 unit Documented by: Dextrose (D50w 25 Gm/50 Ml Syringe) 12.5 gm IV PRN PRN; Protocol PRN Reason: HYPOGLYCEMIA Docusate Sodium (Docusate Na 100 Mg Cap) 100 mg PO BID [facility] Last Admin: 01/05/22 08:08 Dose: 100 mg Documented by: Furosemide (Furosemide 20 Mg Tablet) 20 mg PO BID@0700,1700 [facility] Last Admin: 01/05/22 06:51 Dose: 20 mg Documented by: Gabapentin (Gabapentin 400 Mg Cap) 400 mg PO DAILY [facility] Last Admin: 01/05/22 08:07 Dose: 400 mg Documented by: Glucagon (Glucagon 1 Mg/Vial) 1 mg IM 1X PRN; Protocol PRN Reason: HYPOGLYCEMIA Home Med (Fluticasone 110 Mcg/Puff 12 Gm Inh) 110 ea IH BID [facility] Last Admin: 01/05/22 08:00 Dose: Not Given Documented by: Sodium Chloride (Sodium Chloride) 250 mls @ 0 mls/hr IV .Q0M [facility] Last Admin: 12/27/21 15:41 Dose: 250 mls Documented by: L-Arginine/L-Glutamine/HMB (Chao Packet) 1 pkt PO BID [facility] Last Admin: 01/05/22 08:00 Dose: Not Given Documented by: Nutritional Formula (Ensure High Protein 237 Ml Can) 237 ml PO BID [facility] Last Admin: 01/05/22 08:00 Dose: Not Given Documented by: Nystatin (Nystatin Pwdr [id number] Unit/Gm) 1 appl TOP BID [facility] Last Admin: 01/05/22 08:09 Dose: 1 appl Documented by: Potassium Chloride (Potassium Cl Sa 10 Meq Tab) 10 meq PO BID [facility] Last Admin: 01/05/22 08:07 Dose: 10 meq Documented by: Rivaroxaban (Rivaroxaban 15 Mg Tablet) 15 mg PO DAILY 5 PM [facility] Last Admin: 01/04/22 17:24 Dose: 15 mg Documented by: Senna/Docusate Sodium (Docusate Na/Senna Conc 1 Tab) 2 tab PO BEDTIME PRN PRN Reason: CONSTIPATION Last Admin: 01/04/22 19:20 Dose: 2 tab Documented by: Sertraline HCl (Sertraline Hcl 50 Mg Tab) 50 mg PO DAILY [facility] Last Admin: 01/05/22 08:08 Dose: 50 mg Documented by: Sodium Chloride (Flush Normal Saline 10 Ml) 10 ml IV BID [facility] Last Admin: 01/05/22 08:08 Dose: 10 ml Documented by: Spironolactone (Spironolactone 25 Mg Tablet) 50 mg PO BIDL [facility] Last Admin: 01/05/22 08:07 Dose: 50 mg Documented by: Zinc Sulfate (Zinc Sulfate 220 Mg Cap) 220 mg PO BID [facility] Last Admin: 01/05/22 08:08 Dose: 220 mg Documented by: Assessment/ Plan: Nephrology Improving dyspnea No chest pain Slowly getting stronger No acute events overnight Vitals, medications, blood work and imaging reviewed in the chart. General: Oriented x3, Cooperative. Obese. HEENT: Atraumatic Neck: Supple Respiratory: Diminished Cardiovascular: Regular rate/rhythm, Edema Gastrointestinal: Soft and benign, Non-distended Musculoskeletal: No clubbing, No contractures Integumentary: No rashes, No cyanosis Neurological: Normal speech Laboratory Data (last 24 hrs) 12/18/21 05:15: Sodium 134 L, Potassium 4.1, BUN 58 H, Creatinine 1.35 H, Glucose 98, Magnesium 2.5 H 12/18/21 05:15: WBC 13.80 H, Hgb 8.7 L, Hct 27.8 L, Plt Count 284 Imagings Data: EXAM DESCRIPTION: RAD - Chest Single View - 12/18/2021 6:29 am CLINICAL HISTORY: Pneumonia COMPARISON: Portable chest 08/30/2021 TECHNIQUE: AP portable chest image was obtained 12/18/2021 6:29 am . FINDINGS: Left subclavian Port-A-Cath has been placed since the prior examination. Focal airspace opacification with air bronchogram formation seen in the mid upper left lung field. This is new from the August examination. Overall interstitial opacification is prominent and may be slightly increased from the comparison. The dense consolidation of the right upper lobe seen on the August study has cleared are almost entirely cleared. There is minimal lateral opacification and may be remnant from that pneumonia. Heart size is prominent, similar to comparison. Central vasculature prominent. No measurable pleural effusion and no pneumothorax. No acute bony abnormality seen. No acute aortic findings suspected. IMPRESSION: Left upper lung field pneumonia new from prior imaging. Complete or near complete clearing of the right upper lobe pneumonia seen on the 08/30/2021 study. Heart, vasculature and lung markings are all prominent. A component of mild failure or volume overload concurrent with the pneumonia cannot be excluded. Conclusions/Impression: CKD III -No NSAIDs Hyponatremia, resolved -Encourage nutrition Hypokalemia -Replete potassium Alkalosis -Continue Diamox HTN with CKD/ CHF -Discontinue Losartan Bradycardia -Reduce Amiodarone 200mg daily SILVANA -Continue CPAP qHS Diastolic CHF, chronic -Bumex 2mg BID -Daily weight -Continue Diamox Daily -Continue Spironolactone 50mg BID Moderate malnutrition -Encourage nutrition Anemia in chronic illness Iron Deficiency sp IV iron -Monitor H&H -Retacrit prn Morbid Obesity Debility -PT as tolerated
[2022-01-05] MEDS: FAMOTIDINE 20 MG TAB PO SCH (10:27)
[2022-01-05] MEDS: acetaZOLAMIDE 250 MG TAB PO SCH (12:00)
--- NOTE | 2022-01-05 16:37 | R.PN ---
PROGRESS NOTES ENCOUNTER DATE AND TIME: 01/05/2022 16:34 (CDT) NAME ISAÍAS PORTER DATE OF : 1950 DATE OF ADMISSION: 12/17/2021 20:07 (CDT) Bronchiectasis, Chronic Bronchitis, COPDCHIEF COMPLAINT: COPD, chronic bronchitis SUBJECTIVE: Pt denied any depression. Pt denied any Shortness of Breath. Therapeutic exercises done with minimal assistance. Bed mobility done with standby assistance. O2 sat 95% on 2.5 L O2 via NC. Repeat ABG pH 7.35, pCO2 53.8, pO2 83.3, K 3.7, Line Person 1.24, prealbumin 21.4. WBC 6.1, Hgb 8.8, Sat on the side of the bed 15' unsupported. VITAL SIGNS Temperature: 97.3 F SBP/DBP: 113/42 Pulse: 59 Resp: 18 MEDICATION ALLERGIES: No Known Drug Allergies (NKDA) ENVIRONMENTAL ALLERGIES: - Substance Allergies None Known - Other Allergies None Known NURSING: - Shower allowing shower PRECAUTIONS: - Fall Precaution SAFTY AND FALL ACTIVITIES OOB only with supervision THERAPIES: - Dietary and Nutrition Adequate Nutrition. Nutritional Education. Nutritional Supplements. Evaluate and Treat. - Occupational Therapy Cognitive Retraining. Patient needs Occupational Therapy for a daily minimum of 1.5 hours at least 5 out of 7 days, to improve Activities of Daily Living, including: Eating, Grooming, Bathing, Dressing, Toileting, Toilet Transfers, Community Reintegration, Higher functional activities, Adaptive Equipme nt, Splinting, Household Tasks, and Other activities as determined. Evaluate and Treat. Visual Percep tual Training. Patient/Family Education. Safety Awareness. Transfer Training. Adaptive Equipment. Ivan sehold Tasks. UE Strengthening. - Speech Therapy Cognitive Training. Expressive Language Skills. Memory Strategies. Patient needs Speech Therapy for a daily minimum of 1.5 hours at least 5 out of 7 days, to improve: Swallowing, Cognition, Language Ski lls, and Compensatory Strategies. Receptive Language Skills. Speech Intelligibility Training. Evaluat e and Treat. - Physical Therapy Patient needs Physical Therapy for a daily minimum of 1.5 hours at least 5 out of 7 days, to improve: Mobility, Strengthening, Transfers, Stretching, ROM, Endurance, Ability to manage stairs, Gait, and Balance. Mobility Training. Evaluate and Treat. Gait Training. Safety Awareness. Balance Training. Pa phuong/Family Education. LE Strengthening. Medical Equipment Assessment and Evaluation. PHYSICAL EXAM - Gen Alert and awake Lying in bed No apparent distress Oriented to: person, time, and place - Skin No skin breakdown. Normacephalic - Eyes No abnormalities - Neck No abnormalities - CVS RRR - Chest No abnormalities - Abd Obese - Ext Moderate edema in both lower extremities. - MSK 4+/5 weakness in both lower extremities. - Neuro No focal deficits - Psych Mild depression. ASSESSMENT: Pt. is a 71 yo Right-handed female.On 12/03/2021 she was admitted to [facility] with diagnosi s Bronchiectasis, Chronic Bronchitis, COPD.Extreme obesity BMI 56.6Her impairment category is Pulmona ry Disorders 10 - Chronic Obstructive Pulmonary Disease (10.1).Pre-morbidly, Pt. was independent/mod -I in Locomotion, Safety Awareness, Social Cognition, Balance, and Transfers Control; and she had goo d Sphincter Control, Self-Care, Communication, and Endurance.Currently, she has deficits of Locomotio n, Safety Awareness, Social Cognition, Balance, Transfers Control, Sphincter Control, Self-Care, Comm unication, and Endurance.Pt. is now referred to [facility] for acute in-patien t rehabilitation in order to maximize patient's functional independence in activities of daily living , strength, ROM, and mobility.- Rehab Goal Patient has realistic goal of being discharged at assistance level 7-Ind to reside at Home with Fami ly/Relatives. MDM/PLAN: - Physical Therapy Gait dysfunction - to improve, our physical therapists will perform initial evaluation of pt's statu s upon admission and devise an individualized program for Gait Training, and Wheel Chair mobility Inability to transfer - to improve, our physical therapists will perform initial evaluation of pt's status upon admission and devise an individualized program for Bed mobility Need for home safety evaluation - to improve, our physical therapists will perform initial evaluatio n of pt's status upon admission and devise an individualized program for Home Evaluation Need in caregiver upon discharge - to improve, our physical therapists will perform initial evaluati on of pt's status upon admission and devise an individualized program for Caregiver Training New precaution - to improve, our physical therapists will perform initial evaluation of pt's status upon admission and devise an individualized program for Patient precaution education Poor balance - to improve, our physical therapists will perform initial evaluation of pt's status up on admission and devise an individualized program for Balance Training Poor endurance - to improve, our physical therapists will perform initial evaluation of pt's status upon admission and devise an individualized program for Endurance Training Weakness - to improve, our physical therapists will perform initial evaluation of pt's status upon a dmission and devise an individualized program for Aquatic Therapy, Neuromuscular Reeducation, and Str engthening Achieving independence - to improve, our physical therapists will perform initial evaluation of pt's status upon admission and devise an individualized program for Community Reintegration Activities - Occupational Therapy ADL deficits - to improve, our occupation therapists will perform initial evaluation of pt's status upon admission and devise an individualized program for Bathing, Bed mobility, Community Reintegratio n, Cooking, Dressing, Eating, Fine Motor Skills, Grooming, Homemaking, Kitchen Mobility, Laundry, Pat ient Education, Safety Awareness, Splinting - Positioning, Transfers(Toilet, Tub, Shower), and Wheel Chair Management Cognitive deficits - to improve, our occupation therapists will perform initial evaluation of pt's s tatus upon admission and devise an individualized program for Cognition - orientation Need for vision care associate - to improve, our occupation therapists will perform initial evaluation of pt's status upon admission and devise an individualized program for Caregiver Training Weakness - to improve, our occupation therapists will perform initial evaluation of pt's status upon admission and devise an individualized program for Aquatic Therapy, Balance, Endurance, UE ROM, and UE strengthening - Other See attached MAR (Medication Administration Record) - Diet Type Continue Regular - Diet - Liquid Texture Continue Regular - Tube Feed Continue N/A - Fall Precaution SAFTY AND FALL - Diet - Solid Texture Continue Regular - Shower allowing shower FUNCTIONAL STATUS: UPDATED AT WEEKLY TEAM CONFERENCE - Bladder Same accident frequency: 7-Ind - No accidents in the past 7 days - Bowel Same accident frequency: 7-Ind - No accidents in the past 7 days - Walking Same score based on distance walked: 0(N/A) - Wheelchair Same score based on distance traveled: 0(N/A) FUNCTIONAL STATUS: - Self-Care A. Eating Ind B. Grooming modA C. Bathing Dep D. Dressing - Upper modA E. Dressing - Lower maxA F. Toileting maxA - Sphincter Control G. Bladder control sup H. Bowel control sup - Transfers Control I. Bed/Chair/Wheelchair Dep J. Toilet maxA K. Tub/Shower Dep - Locomotion L. Walk/Wheelchair (B) Dep M. Stairs ADNO - Communication N. Comprehension (B) Vern O. Expression (B) Vern - Social Cognition P. Social Interaction Ind Q. Problem Solving sup R. Memory Vern - Endurance Poor - Balance Poor - Safety Awareness Fair QI SCORES: - Self-Care A. Eating 03-Partial/moderate assistance B. Oral hygiene 02-Substantial/maximal assistance C. Toileting hygiene 02-Substantial/maximal assistance E. Shower/bathe self 02-Substantial/maximal assistance F. Upper body dressing 02-Substantial/maximal assistance G. Lower body dressing 02-Substantial/maximal assistance H. Putting on/taking off footwear 88-Not attempted due to medical condition or safety concerns - Mobility A. Roll left and right 03-Partial/moderate assistance B. Sit to lying 03-Partial/moderate assistance C. Lying to sitting on side of bed 02-Substantial/maximal assistance D. Sit to stand 02-Substantial/maximal assistance E. Chair/[id number] transfer 02-Substantial/maximal assistance F. Toilet transfer 02-Substantial/maximal assistance G. Car transfer 88-Not attempted due to medical condition or safety concerns I. Walk 10 feet 88-Not attempted due to medical condition or safety concerns J. Walk 50 feet with two turns 88-Not attempted due to medical condition or safety concerns K. Walk 150 feet 88-Not attempted due to medical condition or safety concerns L. Walking 10 feet on uneven surfaces 88-Not attempted due to medical condition or safety concerns M. 1 step (curb) 88-Not attempted due to medical condition or safety concerns N. 4 steps 88-Not attempted due to medical condition or safety concerns O. 12 steps 88-Not attempted due to medical condition or safety concerns P. Picking up object 88-Not attempted due to medical condition or safety concerns R. Wheel 50 feet with two turns 88-Not attempted due to medical condition or safety concerns S. Wheel 150 feet 88-Not attempted due to medical condition or safety concerns - Endurance Fair - Balance Poor - Safety Awareness Fair CURRENT FUNC. DEFICITS: Self-Care, Mobility, Endurance, Balance, and Safety Awareness SIGNATURE PANEL: (T)
[2022-01-05] MEDS: RIVAROXABAN 15 MG TABLET PO SCH (17:14)
[2022-01-05] MEDS: ACETAMINOPHEN 500 MG TAB PO PRN (22:07)
[2022-01-06] MEDS: FLUTICASONE 110 MCG/PUFF 12 GM INH IH SCH ×2 (08:00→19:45)
[2022-01-06] MEDS: JUVEN PACKET PO SCH ×2 (08:00→19:45)
[2022-01-06] MEDS: ENSURE HIGH PROTEIN 237 ML CAN PO SCH ×2 (08:00→19:44)
[2022-01-06] MEDS: POTASSIUM CL SA 10 MEQ TAB PO SCH ×2 (08:29→19:44)
[2022-01-06] MEDS: ZINC SULFATE 220 MG CAP PO SCH ×2 (08:29→19:44)
[2022-01-06] MEDS: DOCUSATE NA 100 MG CAP PO SCH ×2 (08:29→19:44)
[2022-01-06] MEDS: FAMOTIDINE 20 MG TAB PO SCH ×2 (08:29→23:35)
[2022-01-06] MEDS: VITAMIN D 5,000 UNIT CAP PO SCH (08:29)
[2022-01-06] MEDS: GABAPENTIN 400 MG CAP PO SCH (08:29)
[2022-01-06] MEDS: BUMETANIDE 1 MG TABLET PO SCH ×2 (08:30→16:52)
[2022-01-06] MEDS: SPIRONOLACTONE 25 MG TABLET PO SCH ×2 (08:30→16:51)
[2022-01-06] MEDS: NYSTATIN PWDR 100000 UNIT/GM TOP SCH ×2 (08:31→19:49)
[2022-01-06] MEDS: SERTRALINE HCL 50 MG TAB PO SCH (08:31)
[2022-01-06] MEDS: AMIODARONE HCL 200 MG TAB PO SCH (08:31)
[2022-01-06] MEDS: allopurinoL 100 MG TAB PO SCH (08:31)
[2022-01-06] MEDS: acetaZOLAMIDE 250 MG TAB PO SCH (11:36)
[2022-01-06] MEDS: RIVAROXABAN 15 MG TABLET PO SCH (16:51)
[2022-01-07 05:26] LABS: Absolute Lymphocytes (CBC) 1.2 K/uL (0.7-4.9); Hematocrit 30.9 % (36.0-45.0); Lymphocytes % 20.2 % (15.3-44.8); MPV 8.6 fL (7.6-11.3); RBC Red Blood Cell Count 3.71 M/uL (3.86-4.86)
[2022-01-07] MEDS: ENSURE HIGH PROTEIN 237 ML CAN PO SCH ×2 (07:42→19:34)
[2022-01-07] MEDS: FLUTICASONE 110 MCG/PUFF 12 GM INH IH SCH ×2 (07:42→19:34)
[2022-01-07] MEDS: JUVEN PACKET PO SCH ×2 (07:42→19:34)
[2022-01-07] MEDS: SPIRONOLACTONE 25 MG TABLET PO SCH ×2 (07:53→17:11)
[2022-01-07] MEDS: POTASSIUM CL SA 10 MEQ TAB PO SCH ×2 (07:54→19:33)
[2022-01-07] MEDS: BUMETANIDE 1 MG TABLET PO SCH ×2 (07:54→17:10)
[2022-01-07] MEDS: DOCUSATE NA 100 MG CAP PO SCH ×2 (07:54→19:33)
[2022-01-07] MEDS: GABAPENTIN 400 MG CAP PO SCH (07:55)
[2022-01-07] MEDS: SERTRALINE HCL 50 MG TAB PO SCH (07:55)
[2022-01-07] MEDS: allopurinoL 100 MG TAB PO SCH (07:55)
[2022-01-07] MEDS: VITAMIN D 5,000 UNIT CAP PO SCH (07:55)
[2022-01-07] MEDS: AMIODARONE HCL 200 MG TAB PO SCH (07:55)
[2022-01-07] MEDS: ZINC SULFATE 220 MG CAP PO SCH ×2 (07:55→19:33)
[2022-01-07] MEDS: FAMOTIDINE 20 MG TAB PO SCH (07:55)
[2022-01-07] MEDS: NYSTATIN PWDR 100000 UNIT/GM TOP SCH ×2 (09:27→19:33)
--- NOTE | 2022-01-07 11:55 | P.PN ---
Date of Service: 01/07/22 Vital Signs Temp Pulse Resp BP Pulse Ox 97.2 F 60 18 119/60 100 01/07/22 07:10 01/07/22 07:54 01/07/22 07:10 01/07/22 07:54 01/07/22 07:10 Medications Acetaminophen (Acetaminophen 500 Mg Tab) 500 mg PO Q4H PRN PRN Reason: Pain scale 2-4 (Mild) Last Admin: 01/05/22 22:07 Dose: 500 mg Documented by: Acetazolamide (Acetazolamide 250 Mg Tab) 500 mg PO Q24H [facility] Last Admin: 01/06/22 11:36 Dose: 500 mg Documented by: Albuterol Sulfate (Albuterol 2.5 Mg/3 Ml Neb Nishi) 2.5 mg IH [id number] PRN PRN Reason: SHORTNESS OF BREATH Albuterol Sulfate (Albuterol Inhaler 60 Puff/8 Gm) 2 puff IH Q2H PRN PRN Reason: SHORTNESS OF BREATH Allopurinol (Allopurinol 100 Mg Tab) 100 mg PO DAILY [facility] Last Admin: 01/07/22 07:55 Dose: 100 mg Documented by: Amiodarone HCl (Amiodarone Hcl 200 Mg Tab) 200 mg PO DAILY [facility] Last Admin: 01/07/22 07:55 Dose: 200 mg Documented by: Bumetanide (Bumetanide 1 Mg Tablet) 2 mg PO BIDL [facility] Last Admin: 01/07/22 07:54 Dose: 2 mg Documented by: Cholecalciferol (Vitamin D 5,000 Unit Cap) 5,000 unit PO DAILY [facility] Last Admin: 01/07/22 07:55 Dose: 5,000 unit Documented by: Dextrose (D50w 25 Gm/50 Ml Syringe) 12.5 gm IV PRN PRN; Protocol PRN Reason: HYPOGLYCEMIA Docusate Sodium (Docusate Na 100 Mg Cap) 100 mg PO BID [facility] Last Admin: 01/07/22 07:54 Dose: 100 mg Documented by: Famotidine (Famotidine 20 Mg Tab) 20 mg PO DAILY [facility]; Protocol Last Admin: 01/07/22 07:55 Dose: 20 mg Documented by: Gabapentin (Gabapentin 400 Mg Cap) 400 mg PO DAILY [facility] Last Admin: 01/07/22 07:55 Dose: 400 mg Documented by: Glucagon (Glucagon 1 Mg/Vial) 1 mg IM 1X PRN; Protocol PRN Reason: HYPOGLYCEMIA Home Med (Fluticasone 110 Mcg/Puff 12 Gm Inh) 110 ea IH BID [facility] Last Admin: 01/07/22 07:42 Dose: Not Given Documented by: Sodium Chloride (Sodium Chloride) 250 mls @ 0 mls/hr IV .Q0M [facility] Last Admin: 12/27/21 15:41 Dose: 250 mls Documented by: L-Arginine/L-Glutamine/HMB (Chao Packet) 1 pkt PO BID [facility] Last Admin: 01/07/22 07:42 Dose: Not Given Documented by: Nutritional Formula (Ensure High Protein 237 Ml Can) 237 ml PO BID [facility] Last Admin: 01/07/22 07:42 Dose: Not Given Documented by: Nystatin (Nystatin Pwdr [id number] Unit/Gm) 1 appl TOP BID [facility] Last Admin: 01/07/22 09:27 Dose: 1 appl Documented by: Potassium Chloride (Potassium Cl Sa 10 Meq Tab) 10 meq PO BID [facility] Last Admin: 01/07/22 07:54 Dose: 10 meq Documented by: Rivaroxaban (Rivaroxaban 15 Mg Tablet) 15 mg PO DAILY 5 PM [facility] Last Admin: 01/06/22 16:51 Dose: 15 mg Documented by: Senna/Docusate Sodium (Docusate Na/Senna Conc 1 Tab) 2 tab PO BEDTIME PRN PRN Reason: CONSTIPATION Last Admin: 01/04/22 19:20 Dose: 2 tab Documented by: Sertraline HCl (Sertraline Hcl 50 Mg Tab) 50 mg PO DAILY [facility] Last Admin: 01/07/22 07:55 Dose: 50 mg Documented by: Spironolactone (Spironolactone 25 Mg Tablet) 50 mg PO BIDL [facility] Last Admin: 01/07/22 07:53 Dose: 50 mg Documented by: Zinc Sulfate (Zinc Sulfate 220 Mg Cap) 220 mg PO BID [facility] Last Admin: 01/07/22 07:55 Dose: 220 mg Documented by: Lab Results (last 24 hrs) 01/07/22 05:06: Sodium 137, Potassium 4.0, Chloride 98, Carbon Dioxide 35 H, BUN 27 H, Creatinine 1.39 H, Estimated GFR 37 L, Glucose 132 H, Calcium 8.6 01/07/22 05:06: WBC 5.9, RBC 3.71 L, Hgb 9.9 L, Hct 30.9 L, MCV 83.3, MCH 26.6 L, MCHC 32.0, RDW 27.7 H, Plt Count 198, MPV 8.6, Neutrophils % 57.3, Lymphocytes % 20.2, Monocytes % 17.4 H, Eosinophils % 4.2, Basophils % 0.9, Absolute Neutrophils 3.4, Absolute Lymphocytes 1.2, Absolute Monocytes 1.0, Absolute Eosinophils 0.2, Absolute Basophils 0.1 Assessment/ Plan: Nephrology Improving dyspnea +Appetite No chest pain No acute events overnight Vitals, medications, blood work and imaging reviewed in the chart. General: Oriented x3, Cooperative. Obese. HEENT: Atraumatic Neck: Supple Respiratory: Diminished Cardiovascular: Regular rate/rhythm, Edema Gastrointestinal: Soft and benign, Non-distended Musculoskeletal: No clubbing, No contractures Integumentary: No rashes, No cyanosis Neurological: Normal speech Laboratory Data (last 24 hrs) 12/18/21 05:15: Sodium 134 L, Potassium 4.1, BUN 58 H, Creatinine 1.35 H, Glucose 98, Magnesium 2.5 H 12/18/21 05:15: WBC 13.80 H, Hgb 8.7 L, Hct 27.8 L, Plt Count 284 Imagings Data: EXAM DESCRIPTION: RAD - Chest Single View - 12/18/2021 6:29 am CLINICAL HISTORY: Pneumonia COMPARISON: Portable chest 08/30/2021 TECHNIQUE: AP portable chest image was obtained 12/18/2021 6:29 am . FINDINGS: Left subclavian Port-A-Cath has been placed since the prior examination. Focal airspace opacification with air bronchogram formation seen in the mid upper left lung field. This is new from the August examination. Overall interstitial opacification is prominent and may be slightly increased from the comparison. The dense consolidation of the right upper lobe seen on the August study has cleared are almost entirely cleared. There is minimal lateral opacification and may be remnant from that pneumonia. Heart size is prominent, similar to comparison. Central vasculature prominent. No measurable pleural effusion and no pneumothorax. No acute bony abnormality seen. No acute aortic findings suspected. IMPRESSION: Left upper lung field pneumonia new from prior imaging. Complete or near complete clearing of the right upper lobe pneumonia seen on the 08/30/2021 study. Heart, vasculature and lung markings are all prominent. A component of mild failure or volume overload concurrent with the pneumonia cannot be excluded. Conclusions/Impression: CKD III -No NSAIDs Hyponatremia, resolved -Encourage nutrition Hypokalemia -Replete potassium Alkalosis -Continue Diamox HTN with CKD/ CHF -Monitor BP Bradycardia -Continue Amiodarone 200mg daily SILVANA -Continue CPAP qHS Diastolic CHF, chronic -Bumex 2mg BID -Daily weight -Continue Diamox Daily -Continue Spironolactone 50mg BID Moderate malnutrition -Encourage nutrition Anemia in chronic illness Iron Deficiency sp IV iron -Monitor H&H -Retacrit prn Morbid Obesity Debility -PT as tolerated
[2022-01-07] MEDS: acetaZOLAMIDE 250 MG TAB PO SCH (12:29)
[2022-01-07] MEDS: RIVAROXABAN 15 MG TABLET PO SCH (17:10)
--- NOTE | 2022-01-07 17:47 | R.PN ---
PROGRESS NOTES ENCOUNTER DATE AND TIME: 01/07/2022 17:38 (CDT) NAME ISAÍAS PORTER DATE OF : 1950 DATE OF ADMISSION: 12/17/2021 20:07 (CDT) Bronchiectasis, Chronic Bronchitis, COPDCHIEF COMPLAINT: COPD, chronic bronchitis SUBJECTIVE: Pt denied any depression. Pt denied any Shortness of Breath. Therapeutic exercises done with minimal assistance. Bed mobility done with standby assistance. Bed tr ansfers done with max assistance. O2 sat 95% on 2.5 L O2 via NC. Repeat ABG pH 7.35, pCO2 53.8, pO2 83.3, K 4.0, Rn First Assist 1.39, prealbumin 21.4. WBC 5.9, Hgb 9.9. Sat on the side of the bed 15' unsupported. Decreased spironolactone to 25 mg bid from 50 mg bid. VITAL SIGNS Temperature: 97.2 F SBP/DBP: 119/49 Pulse: 62 Resp: 18 MEDICATION ALLERGIES: No Known Drug Allergies (NKDA) ENVIRONMENTAL ALLERGIES: - Substance Allergies None Known - Other Allergies None Known NURSING: - Shower allowing shower PRECAUTIONS: - Fall Precaution SAFTY AND FALL ACTIVITIES OOB only with supervision THERAPIES: - Dietary and Nutrition Adequate Nutrition. Nutritional Education. Nutritional Supplements. Evaluate and Treat. - Occupational Therapy Cognitive Retraining. Patient needs Occupational Therapy for a daily minimum of 1.5 hours at least 5 out of 7 days, to improve Activities of Daily Living, including: Eating, Grooming, Bathing, Dressing, Toileting, Toilet Transfers, Community Reintegration, Higher functional activities, Adaptive Equipme nt, Splinting, Household Tasks, and Other activities as determined. Evaluate and Treat. Visual Percep tual Training. Patient/Family Education. Safety Awareness. Transfer Training. Adaptive Equipment. Ivan sehold Tasks. UE Strengthening. - Speech Therapy Cognitive Training. Expressive Language Skills. Memory Strategies. Patient needs Speech Therapy for a daily minimum of 1.5 hours at least 5 out of 7 days, to improve: Swallowing, Cognition, Language Ski lls, and Compensatory Strategies. Receptive Language Skills. Speech Intelligibility Training. Evaluat e and Treat. - Physical Therapy Patient needs Physical Therapy for a daily minimum of 1.5 hours at least 5 out of 7 days, to improve: Mobility, Strengthening, Transfers, Stretching, ROM, Endurance, Ability to manage stairs, Gait, and Balance. Mobility Training. Evaluate and Treat. Gait Training. Safety Awareness. Balance Training. Pa tient/Family Education. LE Strengthening. Medical Equipment Assessment and Evaluation. PHYSICAL EXAM - Gen Alert and awake Lying in bed No apparent distress Oriented to: person, time, and place - Skin No skin breakdown. Normacephalic - Eyes No abnormalities - Neck No abnormalities - CVS RRR - Chest No abnormalities - Abd Obese - Ext Moderate edema in both lower extremities. - MSK 4+/5 weakness in both lower extremities. - Neuro No focal deficits - Psych Mild depression. ASSESSMENT: Pt. is a 71 yo Right-handed female.On 12/03/2021 she was admitted to [facility] with diagnosi s Bronchiectasis, Chronic Bronchitis, COPD.Extreme obesity BMI 56.6Her impairment category is Pulmona ry Disorders 10 - Chronic Obstructive Pulmonary Disease (10.1).Pre-morbidly, Pt. was independent/mod -I in Locomotion, Safety Awareness, Social Cognition, Balance, and Transfers Control; and she had goo d Sphincter Control, Self-Care, Communication, and Endurance.Currently, she has deficits of Locomotio n, Safety Awareness, Social Cognition, Balance, Transfers Control, Sphincter Control, Self-Care, Comm unication, and Endurance.Pt. is now referred to [facility] for acute in-patien t rehabilitation in order to maximize patient's functional independence in activities of daily living , strength, ROM, and mobility.- Rehab Goal Patient has realistic goal of being discharged at assistance level 7-Ind to reside at Home with Fami ly/Relatives. MDM/PLAN: - Physical Therapy Gait dysfunction - to improve, our physical therapists will perform initial evaluation of pt's statu s upon admission and devise an individualized program for Gait Training, and Wheel Chair mobility Inability to transfer - to improve, our physical therapists will perform initial evaluation of pt's status upon admission and devise an individualized program for Bed mobility Need for home safety evaluation - to improve, our physical therapists will perform initial evaluatio n of pt's status upon admission and devise an individualized program for Home Evaluation Need in caregiver upon discharge - to improve, our physical therapists will perform initial evaluati on of pt's status upon admission and devise an individualized program for Caregiver Training New precaution - to improve, our physical therapists will perform initial evaluation of pt's status upon admission and devise an individualized program for Patient precaution education Poor balance - to improve, our physical therapists will perform initial evaluation of pt's status up on admission and devise an individualized program for Balance Training Poor endurance - to improve, our physical therapists will perform initial evaluation of pt's status upon admission and devise an individualized program for Endurance Training Weakness - to improve, our physical therapists will perform initial evaluation of pt's status upon a dmission and devise an individualized program for Aquatic Therapy, Neuromuscular Reeducation, and Str engthening Achieving independence - to improve, our physical therapists will perform initial evaluation of pt's status upon admission and devise an individualized program for Community Reintegration Activities - Occupational Therapy ADL deficits - to improve, our occupation therapists will perform initial evaluation of pt's status upon admission and devise an individualized program for Bathing, Bed mobility, Community Reintegratio n, Cooking, Dressing, Eating, Fine Motor Skills, Grooming, Homemaking, Kitchen Mobility, Laundry, Pat ient Education, Safety Awareness, Splinting - Positioning, Transfers(Toilet, Tub, Shower), and Wheel Chair Management Cognitive deficits - to improve, our occupation therapists will perform initial evaluation of pt's s tatus upon admission and devise an individualized program for Cognition - orientation Need for childcare center administrator - to improve, our occupation therapists will perform initial evaluation of pt's status upon admission and devise an individualized program for Caregiver Training Weakness - to improve, our occupation therapists will perform initial evaluation of pt's status upon admission and devise an individualized program for Aquatic Therapy, Balance, Endurance, UE ROM, and UE strengthening - Other See attached MAR (Medication Administration Record) - Diet Type Continue Regular - Diet - Liquid Texture Continue Regular - Tube Feed Continue N/A - Fall Precaution SAFTY AND FALL - Diet - Solid Texture Continue Regular - Shower allowing shower FUNCTIONAL STATUS: UPDATED AT WEEKLY TEAM CONFERENCE - Bladder Same accident frequency: 7-Ind - No accidents in the past 7 days - Bowel Same accident frequency: 7-Ind - No accidents in the past 7 days - Walking Same score based on distance walked: 0(N/A) - Wheelchair Same score based on distance traveled: 0(N/A) FUNCTIONAL STATUS: - Self-Care A. Eating Ind B. Grooming modA C. Bathing Dep D. Dressing - Upper modA E. Dressing - Lower maxA F. Toileting maxA - Sphincter Control G. Bladder control sup H. Bowel control sup - Transfers Control I. Bed/Chair/Wheelchair Dep J. Toilet maxA K. Tub/Shower Dep - Locomotion L. Walk/Wheelchair (B) Dep M. Stairs ADNO - Communication N. Comprehension (B) Vern O. Expression (B) Vern - Social Cognition P. Social Interaction Ind Q. Problem Solving sup R. Memory Vern - Endurance Poor - Balance Poor - Safety Awareness Fair QI SCORES: - Self-Care A. Eating 03-Partial/moderate assistance B. Oral hygiene 02-Substantial/maximal assistance C. Toileting hygiene 02-Substantial/maximal assistance E. Shower/bathe self 02-Substantial/maximal assistance F. Upper body dressing 02-Substantial/maximal assistance G. Lower body dressing 02-Substantial/maximal assistance H. Putting on/taking off footwear 88-Not attempted due to medical condition or safety concerns - Mobility A. Roll left and right 03-Partial/moderate assistance B. Sit to lying 03-Partial/moderate assistance C. Lying to sitting on side of bed 02-Substantial/maximal assistance D. Sit to stand 02-Substantial/maximal assistance E. Chair/[id number] transfer 02-Substantial/maximal assistance F. Toilet transfer 02-Substantial/maximal assistance G. Car transfer 88-Not attempted due to medical condition or safety concerns I. Walk 10 feet 88-Not attempted due to medical condition or safety concerns J. Walk 50 feet with two turns 88-Not attempted due to medical condition or safety concerns K. Walk 150 feet 88-Not attempted due to medical condition or safety concerns L. Walking 10 feet on uneven surfaces 88-Not attempted due to medical condition or safety concerns M. 1 step (curb) 88-Not attempted due to medical condition or safety concerns N. 4 steps 88-Not attempted due to medical condition or safety concerns O. 12 steps 88-Not attempted due to medical condition or safety concerns P. Picking up object 88-Not attempted due to medical condition or safety concerns R. Wheel 50 feet with two turns 88-Not attempted due to medical condition or safety concerns S. Wheel 150 feet 88-Not attempted due to medical condition or safety concerns - Endurance Fair - Balance Poor - Safety Awareness Fair CURRENT FUNC. DEFICITS: Self-Care, Mobility, Endurance, Balance, and Safety Awareness SIGNATURE PANEL: (CDT)
[2022-01-08] MEDS: FLUTICASONE 110 MCG/PUFF 12 GM INH IH SCH ×2 (08:00→20:00)
[2022-01-08] MEDS: JUVEN PACKET PO SCH ×2 (08:00→20:00)
[2022-01-08] MEDS: NYSTATIN PWDR 100000 UNIT/GM TOP SCH ×2 (08:00→20:04)
[2022-01-08] MEDS: ENSURE HIGH PROTEIN 237 ML CAN PO SCH ×2 (08:00→20:00)
[2022-01-08] MEDS: SPIRONOLACTONE 25 MG TABLET PO SCH ×2 (08:32→17:10)
[2022-01-08] MEDS: DOCUSATE NA 100 MG CAP PO SCH ×2 (08:33→20:04)
[2022-01-08] MEDS: GABAPENTIN 400 MG CAP PO SCH (08:33)
[2022-01-08] MEDS: BUMETANIDE 1 MG TABLET PO SCH ×2 (08:33→17:11)
[2022-01-08] MEDS: VITAMIN D 5,000 UNIT CAP PO SCH (08:33)
[2022-01-08] MEDS: ZINC SULFATE 220 MG CAP PO SCH ×2 (08:33→20:04)
[2022-01-08] MEDS: allopurinoL 100 MG TAB PO SCH (08:33)
[2022-01-08] MEDS: AMIODARONE HCL 200 MG TAB PO SCH (08:34)
[2022-01-08] MEDS: SERTRALINE HCL 50 MG TAB PO SCH (08:34)
[2022-01-08] MEDS: FAMOTIDINE 20 MG TAB PO SCH (08:34)
[2022-01-08] MEDS: POTASSIUM CL SA 10 MEQ TAB PO SCH ×2 (08:34→20:04)
[2022-01-08] MEDS: acetaZOLAMIDE 250 MG TAB PO SCH (13:35)
[2022-01-08] MEDS: RIVAROXABAN 15 MG TABLET PO SCH (17:11)
--- NOTE | 2022-01-08 18:19 | R.PN ---
PROGRESS NOTES ENCOUNTER DATE AND TIME: 01/08/2022 18:15 (CDT) NAME ISAÍAS PORTER DATE OF : 1950 DATE OF ADMISSION: 12/17/2021 20:07 (CDT) Bronchiectasis, Chronic Bronchitis, COPDCHIEF COMPLAINT: COPD, chronic bronchitis SUBJECTIVE: Pt denied any depression. Pt denied any Shortness of Breath. Therapeutic exercises done with minimal assistance. Bed mobility done with standby assistance. Bed tr ansfers done with max assistance. O2 sat 95% on 2.5 L O2 via NC. Repeat ABG pH 7.35, pCO2 53.8, pO2 83.3, K 4.0, Balance Wheel Screw Hole Driller 1.39, prealbumin 21.4. WBC 5.9, Hgb 9.9. Sat on the side of the bed 15' unsupported. Decreased spironolactone to 25 mg bid from 50 mg bid. Did standing marching X 10 with rolling walker. VITAL SIGNS Temperature: 97.0 F SBP/DBP: 136/65 Pulse: 62 Resp: 18 MEDICATION ALLERGIES: No Known Drug Allergies (NKDA) ENVIRONMENTAL ALLERGIES: - Substance Allergies None Known - Other Allergies None Known NURSING: - Shower allowing shower PRECAUTIONS: - Fall Precaution SAFTY AND FALL ACTIVITIES OOB only with supervision THERAPIES: - Dietary and Nutrition Adequate Nutrition. Nutritional Education. Nutritional Supplements. Evaluate and Treat. - Occupational Therapy Cognitive Retraining. Patient needs Occupational Therapy for a daily minimum of 1.5 hours at least 5 out of 7 days, to improve Activities of Daily Living, including: Eating, Grooming, Bathing, Dressing, Toileting, Toilet Transfers, Community Reintegration, Higher functional activities, Adaptive Equipme nt, Splinting, Household Tasks, and Other activities as determined. Evaluate and Treat. Visual Percep tual Training. Patient/Family Education. Safety Awareness. Transfer Training. Adaptive Equipment. Ivan sehold Tasks. UE Strengthening. - Speech Therapy Cognitive Training. Expressive Language Skills. Memory Strategies. Patient needs Speech Therapy for a daily minimum of 1.5 hours at least 5 out of 7 days, to improve: Swallowing, Cognition, Language Ski lls, and Compensatory Strategies. Receptive Language Skills. Speech Intelligibility Training. Evaluat e and Treat. - Physical Therapy Patient needs Physical Therapy for a daily minimum of 1.5 hours at least 5 out of 7 days, to improve: Mobility, Strengthening, Transfers, Stretching, ROM, Endurance, Ability to manage stairs, Gait, and Balance. Mobility Training. Evaluate and Treat. Gait Training. Safety Awareness. Balance Training. Pa tient/Family Education. LE Strengthening. Medical Equipment Assessment and Evaluation. PHYSICAL EXAM - Gen Alert and awake Lying in bed No apparent distress Oriented to: person, time, and place - Skin No skin breakdown. Normacephalic - Eyes No abnormalities - Neck No abnormalities - CVS RRR - Chest No abnormalities - Abd Obese - Ext Moderate edema in both lower extremities. - MSK 4+/5 weakness in both lower extremities. - Neuro No focal deficits - Psych Mild depression. ASSESSMENT: Pt. is a 71 yo Right-handed female.On 12/03/2021 she was admitted to [facility] with diagnosi s Bronchiectasis, Chronic Bronchitis, COPD.Extreme obesity BMI 56.6Her impairment category is Pulmona ry Disorders 10 - Chronic Obstructive Pulmonary Disease (10.1).Pre-morbidly, Pt. was independent/mod -I in Locomotion, Safety Awareness, Social Cognition, Balance, and Transfers Control; and she had goo d Sphincter Control, Self-Care, Communication, and Endurance.Currently, she has deficits of Locomotio n, Safety Awareness, Social Cognition, Balance, Transfers Control, Sphincter Control, Self-Care, Comm unication, and Endurance.Pt. is now referred to [facility] for acute in-patien t rehabilitation in order to maximize patient's functional independence in activities of daily living , strength, ROM, and mobility.- Rehab Goal Patient has realistic goal of being discharged at assistance level 7-Ind to reside at Home with Fami ly/Relatives. MDM/PLAN: - Physical Therapy Gait dysfunction - to improve, our physical therapists will perform initial evaluation of pt's statu s upon admission and devise an individualized program for Gait Training, and Wheel Chair mobility Inability to transfer - to improve, our physical therapists will perform initial evaluation of pt's status upon admission and devise an individualized program for Bed mobility Need for home safety evaluation - to improve, our physical therapists will perform initial evaluatio n of pt's status upon admission and devise an individualized program for Home Evaluation Need in caregiver upon discharge - to improve, our physical therapists will perform initial evaluati on of pt's status upon admission and devise an individualized program for Caregiver Training New precaution - to improve, our physical therapists will perform initial evaluation of pt's status upon admission and devise an individualized program for Patient precaution education Poor balance - to improve, our physical therapists will perform initial evaluation of pt's status up on admission and devise an individualized program for Balance Training Poor endurance - to improve, our physical therapists will perform initial evaluation of pt's status upon admission and devise an individualized program for Endurance Training Weakness - to improve, our physical therapists will perform initial evaluation of pt's status upon a dmission and devise an individualized program for Aquatic Therapy, Neuromuscular Reeducation, and Str engthening Achieving independence - to improve, our physical therapists will perform initial evaluation of pt's status upon admission and devise an individualized program for Community Reintegration Activities - Occupational Therapy ADL deficits - to improve, our occupation therapists will perform initial evaluation of pt's status upon admission and devise an individualized program for Bathing, Bed mobility, Community Reintegratio n, Cooking, Dressing, Eating, Fine Motor Skills, Grooming, Homemaking, Kitchen Mobility, Laundry, Pat ient Education, Safety Awareness, Splinting - Positioning, Transfers(Toilet, Tub, Shower), and Wheel Chair Management Cognitive deficits - to improve, our occupation therapists will perform initial evaluation of pt's s tatus upon admission and devise an individualized program for Cognition - orientation Need for health care manager - to improve, our occupation therapists will perform initial evaluation of pt's status upon admission and devise an individualized program for Caregiver Training Weakness - to improve, our occupation therapists will perform initial evaluation of pt's status upon admission and devise an individualized program for Aquatic Therapy, Balance, Endurance, UE ROM, and UE strengthening - Other See attached MAR (Medication Administration Record) - Diet Type Continue Regular - Diet - Liquid Texture Continue Regular - Tube Feed Continue N/A - Fall Precaution SAFTY AND FALL - Diet - Solid Texture Continue Regular - Shower allowing shower FUNCTIONAL STATUS: UPDATED AT WEEKLY TEAM CONFERENCE - Bladder Same accident frequency: 7-Ind - No accidents in the past 7 days - Bowel Same accident frequency: 7-Ind - No accidents in the past 7 days - Walking Same score based on distance walked: 0(N/A) - Wheelchair Same score based on distance traveled: 0(N/A) FUNCTIONAL STATUS: - Self-Care A. Eating Ind B. Grooming modA C. Bathing Dep D. Dressing - Upper modA E. Dressing - Lower maxA F. Toileting maxA - Sphincter Control G. Bladder control sup H. Bowel control sup - Transfers Control I. Bed/Chair/Wheelchair Dep J. Toilet maxA K. Tub/Shower Dep - Locomotion L. Walk/Wheelchair (B) Dep M. Stairs ADNO - Communication N. Comprehension (B) Vern O. Expression (B) Vern - Social Cognition P. Social Interaction Ind Q. Problem Solving sup R. Memory Vern - Endurance Poor - Balance Poor - Safety Awareness Fair QI SCORES: - Self-Care A. Eating 03-Partial/moderate assistance B. Oral hygiene 02-Substantial/maximal assistance C. Toileting hygiene 02-Substantial/maximal assistance E. Shower/bathe self 02-Substantial/maximal assistance F. Upper body dressing 02-Substantial/maximal assistance G. Lower body dressing 02-Substantial/maximal assistance H. Putting on/taking off footwear 88-Not attempted due to medical condition or safety concerns - Mobility A. Roll left and right 03-Partial/moderate assistance B. Sit to lying 03-Partial/moderate assistance C. Lying to sitting on side of bed 02-Substantial/maximal assistance D. Sit to stand 02-Substantial/maximal assistance E. Chair/[id number] transfer 02-Substantial/maximal assistance F. Toilet transfer 02-Substantial/maximal assistance G. Car transfer 88-Not attempted due to medical condition or safety concerns I. Walk 10 feet 88-Not attempted due to medical condition or safety concerns J. Walk 50 feet with two turns 88-Not attempted due to medical condition or safety concerns K. Walk 150 feet 88-Not attempted due to medical condition or safety concerns L. Walking 10 feet on uneven surfaces 88-Not attempted due to medical condition or safety concerns M. 1 step (curb) 88-Not attempted due to medical condition or safety concerns N. 4 steps 88-Not attempted due to medical condition or safety concerns O. 12 steps 88-Not attempted due to medical condition or safety concerns P. Picking up object 88-Not attempted due to medical condition or safety concerns R. Wheel 50 feet with two turns 88-Not attempted due to medical condition or safety concerns S. Wheel 150 feet 88-Not attempted due to medical condition or safety concerns - Endurance Fair - Balance Poor - Safety Awareness Fair [facility]RENT [facility]. DEFICITS: Self-Care, Mobility, Endurance, Balance, and Safety Awareness SIGNATURE PANEL: (CDT)
--- NOTE | 2022-01-08 20:01 | P.PN ---
Date of Service: 01/08/22 Vital Signs Temp Pulse Resp BP Pulse Ox 97.0 F 62 18 136/65 100 01/08/22 07:37 01/08/22 17:11 01/08/22 07:37 01/08/22 17:11 01/08/22 07:37 Medications Acetaminophen (Acetaminophen 500 Mg Tab) 500 mg PO Q4H PRN PRN Reason: Pain scale 2-4 (Mild) Last Admin: 01/05/22 22:07 Dose: 500 mg Documented by: Acetazolamide (Acetazolamide 250 Mg Tab) 250 mg PO Q24H [facility] Last Admin: 01/08/22 13:35 Dose: 250 mg Documented by: Albuterol Sulfate (Albuterol 2.5 Mg/3 Ml Neb Nishi) 2.5 mg IH [id number] PRN PRN Reason: SHORTNESS OF BREATH Albuterol Sulfate (Albuterol Inhaler 60 Puff/8 Gm) 2 puff IH Q2H PRN PRN Reason: SHORTNESS OF BREATH Allopurinol (Allopurinol 100 Mg Tab) 100 mg PO DAILY [facility] Last Admin: 01/08/22 08:33 Dose: 100 mg Documented by: Amiodarone HCl (Amiodarone Hcl 200 Mg Tab) 200 mg PO DAILY [facility] Last Admin: 01/08/22 08:34 Dose: 200 mg Documented by: Bumetanide (Bumetanide 1 Mg Tablet) 2 mg PO BIDL [facility] Last Admin: 01/08/22 17:11 Dose: 2 mg Documented by: Cholecalciferol (Vitamin D 5,000 Unit Cap) 5,000 unit PO DAILY [facility] Last Admin: 01/08/22 08:33 Dose: 5,000 unit Documented by: Dextrose (D50w 25 Gm/50 Ml Syringe) 12.5 gm IV PRN PRN; Protocol PRN Reason: HYPOGLYCEMIA Docusate Sodium (Docusate Na 100 Mg Cap) 100 mg PO BID [facility] Last Admin: 01/08/22 08:33 Dose: 100 mg Documented by: Famotidine (Famotidine 20 Mg Tab) 20 mg PO DAILY [facility]; Protocol Last Admin: 01/08/22 08:34 Dose: 20 mg Documented by: Gabapentin (Gabapentin 400 Mg Cap) 400 mg PO DAILY [facility] Last Admin: 01/08/22 08:33 Dose: 400 mg Documented by: Glucagon (Glucagon 1 Mg/Vial) 1 mg IM 1X PRN; Protocol PRN Reason: HYPOGLYCEMIA Home Med (Fluticasone 110 Mcg/Puff 12 Gm Inh) 110 ea IH BID [facility] Last Admin: 01/08/22 08:00 Dose: Not Given Documented by: Sodium Chloride (Sodium Chloride) 250 mls @ 0 mls/hr IV .Q0M [facility] Last Admin: 12/27/21 15:41 Dose: 250 mls Documented by: L-Arginine/L-Glutamine/HMB (Chao Packet) 1 pkt PO BID [facility] Last Admin: 01/08/22 08:00 Dose: Not Given Documented by: Nutritional Formula (Ensure High Protein 237 Ml Can) 237 ml PO BID [facility] Last Admin: 01/08/22 08:00 Dose: Not Given Documented by: Nystatin (Nystatin Pwdr [id number] Unit/Gm) 1 appl TOP BID [facility] Last Admin: 01/08/22 08:00 Dose: 1 appl Documented by: Potassium Chloride (Potassium Cl Sa 10 Meq Tab) 10 meq PO BID [facility] Last Admin: 01/08/22 08:34 Dose: 10 meq Documented by: Rivaroxaban (Rivaroxaban 15 Mg Tablet) 15 mg PO DAILY 5 PM [facility] Last Admin: 01/08/22 17:11 Dose: 15 mg Documented by: Senna/Docusate Sodium (Docusate Na/Senna Conc 1 Tab) 2 tab PO BEDTIME PRN PRN Reason: CONSTIPATION Last Admin: 01/04/22 19:20 Dose: 2 tab Documented by: Sertraline HCl (Sertraline Hcl 50 Mg Tab) 50 mg PO DAILY [facility] Last Admin: 01/08/22 08:34 Dose: 50 mg Documented by: Spironolactone (Spironolactone 25 Mg Tablet) 25 mg PO BIDL [facility] Last Admin: 01/08/22 17:10 Dose: 25 mg Documented by: Zinc Sulfate (Zinc Sulfate 220 Mg Cap) 220 mg PO BID [facility] Last Admin: 01/08/22 08:33 Dose: 220 mg Documented by: Assessment/ Plan: Nephrology No dyspnea. BROWN. No chest pain Slowly improving weakness No acute events overnight Vitals, medications, blood work and imaging reviewed in the chart. General: Oriented x3, Cooperative. Obese. HEENT: Atraumatic Neck: Supple Respiratory: Diminished Cardiovascular: Regular rate/rhythm, Edema Gastrointestinal: Soft and benign, Non-distended Musculoskeletal: No clubbing, No contractures Integumentary: No rashes, No cyanosis Neurological: Normal speech Laboratory Data (last 24 hrs) 12/18/21 05:15: Sodium 134 L, Potassium 4.1, BUN 58 H, Creatinine 1.35 H, Glucose 98, Magnesium 2.5 H 12/18/21 05:15: WBC 13.80 H, Hgb 8.7 L, Hct 27.8 L, Plt Count 284 Imagings Data: EXAM DESCRIPTION: RAD - Chest Single View - 12/18/2021 6:29 am CLINICAL HISTORY: Pneumonia COMPARISON: Portable chest 08/30/2021 TECHNIQUE: AP portable chest image was obtained 12/18/2021 6:29 am . FINDINGS: Left subclavian Port-A-Cath has been placed since the prior examination. Focal airspace opacification with air bronchogram formation seen in the mid upper left lung field. This is new from the August examination. Overall interstitial opacification is prominent and may be slightly increased from the comparison. The dense consolidation of the right upper lobe seen on the August study has cleared are almost entirely cleared. There is minimal lateral opacification and may be remnant from that pneumonia. Heart size is prominent, similar to comparison. Central vasculature prominent. No measurable pleural effusion and no pneumothorax. No acute bony abnormality seen. No acute aortic findings suspected. IMPRESSION: Left upper lung field pneumonia new from prior imaging. Complete or near complete clearing of the right upper lobe pneumonia seen on the 08/30/2021 study. Heart, vasculature and lung markings are all prominent. A component of mild failure or volume overload concurrent with the pneumonia cannot be excluded. Conclusions/Impression: CKD III -No NSAIDs Hyponatremia, resolved -Encourage nutrition Hypokalemia -Replete potassium Alkalosis -Continue Diamox HTN with CKD/ CHF -Monitor BP Bradycardia -Continue Amiodarone 200mg daily SILVANA -Continue CPAP qHS Diastolic CHF, chronic -Bumex 2mg BID -Daily weight -Continue Diamox Daily -Continue Spironolactone 50mg BID Moderate malnutrition -Encourage nutrition Anemia in chronic illness Iron Deficiency sp IV iron -Monitor H&H -Retacrit prn Morbid Obesity Debility -PT as tolerated
[2022-01-08] MEDS: DOCUSATE NA/SENNA CONC 1 TAB PO PRN (20:48)
[2022-01-09] MEDS: JUVEN PACKET PO SCH ×2 (08:00→20:00)
[2022-01-09] MEDS: FLUTICASONE 110 MCG/PUFF 12 GM INH IH SCH ×2 (08:00→20:00)
[2022-01-09] MEDS: ENSURE HIGH PROTEIN 237 ML CAN PO SCH (08:00)
[2022-01-09] MEDS: FAMOTIDINE 20 MG TAB PO SCH (08:27)
[2022-01-09] MEDS: VITAMIN D 5,000 UNIT CAP PO SCH (08:27)
[2022-01-09] MEDS: DOCUSATE NA 100 MG CAP PO SCH ×2 (08:27→20:37)
[2022-01-09] MEDS: POTASSIUM CL SA 10 MEQ TAB PO SCH ×2 (08:27→20:37)
[2022-01-09] MEDS: AMIODARONE HCL 200 MG TAB PO SCH (08:27)
[2022-01-09] MEDS: allopurinoL 100 MG TAB PO SCH (08:27)
[2022-01-09] MEDS: ZINC SULFATE 220 MG CAP PO SCH ×2 (08:27→20:37)
[2022-01-09] MEDS: SERTRALINE HCL 50 MG TAB PO SCH (08:27)
[2022-01-09] MEDS: BUMETANIDE 1 MG TABLET PO SCH ×2 (08:28→17:17)
[2022-01-09] MEDS: GABAPENTIN 400 MG CAP PO SCH (08:28)
[2022-01-09] MEDS: SPIRONOLACTONE 25 MG TABLET PO SCH ×2 (08:28→17:18)
[2022-01-09] MEDS: NYSTATIN PWDR 100000 UNIT/GM TOP SCH ×2 (10:41→20:37)
[2022-01-09] MEDS: acetaZOLAMIDE 250 MG TAB PO SCH (11:42)
[2022-01-09] MEDS: BISACODYL 10 MG RECTAL SUPP PR PRN (14:46)
[2022-01-09] MEDS: ACETAMINOPHEN 500 MG TAB PO PRN ×2 (14:50→20:40)
[2022-01-09] MEDS: RIVAROXABAN 15 MG TABLET PO SCH (17:18)
--- NOTE | 2022-01-09 18:21 | R.PN ---
PROGRESS NOTES ENCOUNTER DATE AND TIME: 01/09/2022 18:17 (CDT) NAME ISAÍAS PORTER DATE OF : 1950 DATE OF ADMISSION: 12/17/2021 20:07 (CDT) Bronchiectasis, Chronic Bronchitis, COPDCHIEF COMPLAINT: COPD, chronic bronchitis SUBJECTIVE: Pt denied any depression. Pt denied any Shortness of Breath. Therapeutic exercises done with minimal assistance. Bed mobility done with standby assistance. Bed tr ansfers done with max assistance. O2 sat 95% on 2.5 L O2 via NC. Repeat ABG pH 7.35, pCO2 53.8, pO2 83.3, K 4.0, Network Controller 1.39, prealbumin 21.4. WBC 5.9, Hgb 9.9. Decreased spironolactone to 25 mg bid from 50 mg bid. Self-propelled wheelchair 250' with contact guard assistance. She used O2 2.5L via NC. VITAL SIGNS Temperature: 97.0 F SBP/DBP: 129/56 Pulse: 65 Resp: 18 MEDICATION ALLERGIES: No Known Drug Allergies (NKDA) ENVIRONMENTAL ALLERGIES: - Substance Allergies None Known - Other Allergies None Known NURSING: - Shower allowing shower PRECAUTIONS: - Fall Precaution SAFTY AND FALL ACTIVITIES OOB only with supervision THERAPIES: - Dietary and Nutrition Adequate Nutrition. Nutritional Education. Nutritional Supplements. Evaluate and Treat. - Occupational Therapy Cognitive Retraining. Patient needs Occupational Therapy for a daily minimum of 1.5 hours at least 5 out of 7 days, to improve Activities of Daily Living, including: Eating, Grooming, Bathing, Dressing, Toileting, Toilet Transfers, Community Reintegration, Higher functional activities, Adaptive Equipme nt, Splinting, Household Tasks, and Other activities as determined. Evaluate and Treat. Visual Percep tual Training. Patient/Family Education. Safety Awareness. Transfer Training. Adaptive Equipment. Ivan sehold Tasks. UE Strengthening. - Speech Therapy Cognitive Training. Expressive Language Skills. Memory Strategies. Patient needs Speech Therapy for a daily minimum of 1.5 hours at least 5 out of 7 days, to improve: Swallowing, Cognition, Language Ski lls, and Compensatory Strategies. Receptive Language Skills. Speech Intelligibility Training. Evaluat e and Treat. - Physical Therapy Patient needs Physical Therapy for a daily minimum of 1.5 hours at least 5 out of 7 days, to improve: Mobility, Strengthening, Transfers, Stretching, ROM, Endurance, Ability to manage stairs, Gait, and Balance. Mobility Training. Evaluate and Treat. Gait Training. Safety Awareness. Balance Training. Pa tient/Family Education. LE Strengthening. Medical Equipment Assessment and Evaluation. PHYSICAL EXAM - Gen Alert and awake Lying in bed No apparent distress Oriented to: person, time, and place - Skin No skin breakdown. Normacephalic - Eyes No abnormalities - Neck No abnormalities - CVS RRR - Chest No abnormalities - Abd Obese - Ext Moderate edema in both lower extremities. - MSK 4+/5 weakness in both lower extremities. - Neuro No focal deficits - Psych Mild depression. ASSESSMENT: Pt. is a 71 yo Right-handed female.On 12/03/2021 she was admitted to [facility] with diagnosi s Bronchiectasis, Chronic Bronchitis, COPD.Extreme obesity BMI 56.6Her impairment category is Pulmona ry Disorders 10 - Chronic Obstructive Pulmonary Disease (10.1).Pre-morbidly, Pt. was independent/mod -I in Locomotion, Safety Awareness, Social Cognition, Balance, and Transfers Control; and she had goo d Sphincter Control, Self-Care, Communication, and Endurance.Currently, she has deficits of Locomotio n, Safety Awareness, Social Cognition, Balance, Transfers Control, Sphincter Control, Self-Care, Comm unication, and Endurance.Pt. is now referred to [facility] for acute in-patien t rehabilitation in order to maximize patient's functional independence in activities of daily living , strength, ROM, and mobility.- Rehab Goal Patient has realistic goal of being discharged at assistance level 7-Ind to reside at Home with Fami ly/Relatives. MDM/PLAN: - Physical Therapy Gait dysfunction - to improve, our physical therapists will perform initial evaluation of pt's statu s upon admission and devise an individualized program for Gait Training, and Wheel Chair mobility Inability to transfer - to improve, our physical therapists will perform initial evaluation of pt's status upon admission and devise an individualized program for Bed mobility Need for home safety evaluation - to improve, our physical therapists will perform initial evaluatio n of pt's status upon admission and devise an individualized program for Home Evaluation Need in caregiver upon discharge - to improve, our physical therapists will perform initial evaluati on of pt's status upon admission and devise an individualized program for Caregiver Training New precaution - to improve, our physical therapists will perform initial evaluation of pt's status upon admission and devise an individualized program for Patient precaution education Poor balance - to improve, our physical therapists will perform initial evaluation of pt's status up on admission and devise an individualized program for Balance Training Poor endurance - to improve, our physical therapists will perform initial evaluation of pt's status upon admission and devise an individualized program for Endurance Training Weakness - to improve, our physical therapists will perform initial evaluation of pt's status upon a dmission and devise an individualized program for Aquatic Therapy, Neuromuscular Reeducation, and Str engthening Achieving independence - to improve, our physical therapists will perform initial evaluation of pt's status upon admission and devise an individualized program for Community Reintegration Activities - Occupational Therapy ADL deficits - to improve, our occupation therapists will perform initial evaluation of pt's status upon admission and devise an individualized program for Bathing, Bed mobility, Community Reintegratio n, Cooking, Dressing, Eating, Fine Motor Skills, Grooming, Homemaking, Kitchen Mobility, Laundry, Pat ient Education, Safety Awareness, Splinting - Positioning, Transfers(Toilet, Tub, Shower), and Wheel Chair Management Cognitive deficits - to improve, our occupation therapists will perform initial evaluation of pt's s tatus upon admission and devise an individualized program for Cognition - orientation Need for patient care secretary - to improve, our occupation therapists will perform initial evaluation of pt's status upon admission and devise an individualized program for Caregiver Training Weakness - to improve, our occupation therapists will perform initial evaluation of pt's status upon admission and devise an individualized program for Aquatic Therapy, Balance, Endurance, UE ROM, and UE strengthening - Other See attached MAR (Medication Administration Record) - Diet Type Continue Regular - Diet - Liquid Texture Continue Regular - Tube Feed Continue N/A - Fall Precaution SAFTY AND FALL - Diet - Solid Texture Continue Regular - Shower allowing shower FUNCTIONAL STATUS: UPDATED AT WEEKLY TEAM CONFERENCE - Bladder Same accident frequency: 7-Ind - No accidents in the past 7 days - Bowel Same accident frequency: 7-Ind - No accidents in the past 7 days - Walking Same score based on distance walked: 0(N/A) - Wheelchair Same score based on distance traveled: 0(N/A) FUNCTIONAL STATUS: - Self-Care A. Eating Ind B. Grooming modA C. Bathing Dep D. Dressing - Upper modA E. Dressing - Lower maxA F. Toileting maxA - Sphincter Control G. Bladder control sup H. Bowel control sup - Transfers Control I. Bed/Chair/Wheelchair Dep J. Toilet maxA K. Tub/Shower Dep - Locomotion L. Walk/Wheelchair (B) Dep M. Stairs ADNO - Communication N. Comprehension (B) Vern O. Expression (B) Vern - Social Cognition P. Social Interaction Ind Q. Problem Solving sup R. Memory Vern - Endurance Poor - Balance Poor - Safety Awareness Fair QI SCORES: - Self-Care A. Eating 03-Partial/moderate assistance B. Oral hygiene 02-Substantial/maximal assistance C. Toileting hygiene 02-Substantial/maximal assistance E. Shower/bathe self 02-Substantial/maximal assistance F. Upper body dressing 02-Substantial/maximal assistance G. Lower body dressing 02-Substantial/maximal assistance H. Putting on/taking off footwear 88-Not attempted due to medical condition or safety concerns - Mobility A. Roll left and right 03-Partial/moderate assistance B. Sit to lying 03-Partial/moderate assistance C. Lying to sitting on side of bed 02-Substantial/maximal assistance D. Sit to stand 02-Substantial/maximal assistance E. Chair/[id number] transfer 02-Substantial/maximal assistance F. Toilet transfer 02-Substantial/maximal assistance G. Car transfer 88-Not attempted due to medical condition or safety concerns I. Walk 10 feet 88-Not attempted due to medical condition or safety concerns J. Walk 50 feet with two turns 88-Not attempted due to medical condition or safety concerns K. Walk 150 feet 88-Not attempted due to medical condition or safety concerns L. Walking 10 feet on uneven surfaces 88-Not attempted due to medical condition or safety concerns M. 1 step (curb) 88-Not attempted due to medical condition or safety concerns N. 4 steps 88-Not attempted due to medical condition or safety concerns O. 12 steps 88-Not attempted due to medical condition or safety concerns P. Picking up object 88-Not attempted due to medical condition or safety concerns R. Wheel 50 feet with two turns 88-Not attempted due to medical condition or safety concerns S. Wheel 150 feet 88-Not attempted due to medical condition or safety concerns - Endurance Fair - Balance Poor - Safety Awareness Fair [facility] DEFICITS: Self-Care, Mobility, Endurance, Balance, and Safety Awareness SIGNATURE PANEL: (CDT)
--- NOTE | 2022-01-09 21:19 | P.PN ---
Date of Service: 01/09/22 Vital Signs Temp Pulse Resp BP Pulse Ox 96.4 F L 65 16 129/56 L 100 01/09/22 08:13 01/09/22 17:18 01/09/22 08:13 01/09/22 17:18 01/09/22 08:13 Medications Acetaminophen (Acetaminophen 500 Mg Tab) 500 mg PO Q4H PRN PRN Reason: Pain scale 2-4 (Mild) Last Admin: 01/09/22 20:40 Dose: 500 mg Documented by: Acetazolamide (Acetazolamide 250 Mg Tab) 250 mg PO Q24H [facility] Last Admin: 01/09/22 11:42 Dose: 250 mg Documented by: Albuterol Sulfate (Albuterol 2.5 Mg/3 Ml Neb Nishi) 2.5 mg IH Q6BCGIV PRN PRN Reason: SHORTNESS OF BREATH Albuterol Sulfate (Albuterol Inhaler 60 Puff/8 Gm) 2 puff IH Q2H PRN PRN Reason: SHORTNESS OF BREATH Allopurinol (Allopurinol 100 Mg Tab) 100 mg PO DAILY [facility] Last Admin: 01/09/22 08:27 Dose: 100 mg Documented by: Amiodarone HCl (Amiodarone Hcl 200 Mg Tab) 200 mg PO DAILY [facility] Last Admin: 01/09/22 08:27 Dose: 200 mg Documented by: Bisacodyl (Bisacodyl 10 Mg Rectal Supp) 10 mg MN DAILY PRN PRN Reason: CONSTIPATION Last Admin: 01/09/22 14:46 Dose: 10 mg Documented by: Bumetanide (Bumetanide 1 Mg Tablet) 2 mg PO BIDL [facility] Last Admin: 01/09/22 17:17 Dose: 2 mg Documented by: Cholecalciferol (Vitamin D 5,000 Unit Cap) 5,000 unit PO DAILY [facility] Last Admin: 01/09/22 08:27 Dose: 5,000 unit Documented by: Dextrose (D50w 25 Gm/50 Ml Syringe) 12.5 gm IV PRN PRN; Protocol PRN Reason: HYPOGLYCEMIA Docusate Sodium (Docusate Na 100 Mg Cap) 100 mg PO BID [facility] Last Admin: 01/09/22 20:37 Dose: 100 mg Documented by: Famotidine (Famotidine 20 Mg Tab) 20 mg PO DAILY [facility]; Protocol Last Admin: 01/09/22 08:27 Dose: 20 mg Documented by: Gabapentin (Gabapentin 400 Mg Cap) 400 mg PO DAILY [facility] Last Admin: 01/09/22 08:28 Dose: 400 mg Documented by: Glucagon (Glucagon 1 Mg/Vial) 1 mg IM 1X PRN; Protocol PRN Reason: HYPOGLYCEMIA Home Med (Fluticasone 110 Mcg/Puff 12 Gm Inh) 110 ea IH BID [facility] Last Admin: 01/09/22 20:00 Dose: Not Given Documented by: Sodium Chloride (Sodium Chloride) 250 mls @ 0 mls/hr IV .Q0M [facility] Last Admin: 12/27/21 15:41 Dose: 250 mls Documented by: L-Arginine/L-Glutamine/HMB (Chao Packet) 1 pkt PO BID [facility] Last Admin: 01/09/22 20:00 Dose: Not Given Documented by: Nystatin (Nystatin Pwdr [id number] Unit/Gm) 1 appl TOP BID [facility] Last Admin: 01/09/22 20:37 Dose: 1 appl Documented by: Potassium Chloride (Potassium Cl Sa 10 Meq Tab) 10 meq PO BID [facility] Last Admin: 01/09/22 20:37 Dose: 10 meq Documented by: Rivaroxaban (Rivaroxaban 15 Mg Tablet) 15 mg PO DAILY 5 PM [facility] Last Admin: 01/09/22 17:18 Dose: 15 mg Documented by: Senna/Docusate Sodium (Docusate Na/Senna Conc 1 Tab) 2 tab PO BEDTIME PRN PRN Reason: CONSTIPATION Last Admin: 01/08/22 20:48 Dose: 2 tab Documented by: Sertraline HCl (Sertraline Hcl 50 Mg Tab) 50 mg PO DAILY [facility] Last Admin: 01/09/22 08:27 Dose: 50 mg Documented by: Spironolactone (Spironolactone 25 Mg Tablet) 25 mg PO BIDL [facility] Last Admin: 01/09/22 17:18 Dose: 25 mg Documented by: Zinc Sulfate (Zinc Sulfate 220 Mg Cap) 220 mg PO BID [facility] Last Admin: 01/09/22 20:37 Dose: 220 mg Documented by: Lab Results (last 24 hrs) 01/09/22 15:45: SARS-CoV-2 Rap RNA(RT-PCR) Negative Assessment/ Plan: Nephrology No dyspnea. BROWN. No chest pain Slowly improving weakness No acute events overnight Vitals, medications, blood work and imaging reviewed in the chart. General: Oriented x3, Cooperative. Obese. HEENT: Atraumatic Neck: Supple Respiratory: Diminished Cardiovascular: Regular rate/rhythm, Edema Gastrointestinal: Soft and benign, Non-distended Musculoskeletal: No clubbing, No contractures Integumentary: No rashes, No cyanosis Neurological: Normal speech Laboratory Data (last 24 hrs) 12/18/21 05:15: Sodium 134 L, Potassium 4.1, BUN 58 H, Creatinine 1.35 H, Glucose 98, Magnesium 2.5 H 12/18/21 05:15: WBC 13.80 H, Hgb 8.7 L, Hct 27.8 L, Plt Count 284 Imagings Data: EXAM DESCRIPTION: RAD - Chest Single View - 12/18/2021 6:29 am CLINICAL HISTORY: Pneumonia COMPARISON: Portable chest 08/30/2021 TECHNIQUE: AP portable chest image was obtained 12/18/2021 6:29 am . FINDINGS: Left subclavian Port-A-Cath has been placed since the prior examination. Focal airspace opacification with air bronchogram formation seen in the mid upper left lung field. This is new from the August examination. Overall interstitial opacification is prominent and may be slightly increased from the comparison. The dense consolidation of the right upper lobe seen on the August study has cleared are almost entirely cleared. There is minimal lateral opacification and may be remnant from that pneumonia. Heart size is prominent, similar to comparison. Central vasculature prominent. No measurable pleural effusion and no pneumothorax. No acute bony abnormality seen. No acute aortic findings suspected. IMPRESSION: Left upper lung field pneumonia new from prior imaging. Complete or near complete clearing of the right upper lobe pneumonia seen on the 08/30/2021 study. Heart, vasculature and lung markings are all prominent. A component of mild failure or volume overload concurrent with the pneumonia cannot be excluded. Conclusions/Impression: CKD III -No NSAIDs Hyponatremia, resolved -Encourage nutrition Hypokalemia -Replete potassium Alkalosis -Continue Diamox HTN with CKD/ CHF -Monitor BP Bradycardia -Continue Amiodarone 200mg daily SILVANA -Continue CPAP qHS Diastolic CHF, chronic -Bumex 2mg BID -Daily weight -Continue Diamox Daily -Continue Spironolactone 50mg BID Moderate malnutrition -Encourage nutrition Anemia in chronic illness Iron Deficiency sp IV iron -Monitor H&H -Retacrit prn Morbid Obesity Debility -PT as tolerated
[2022-01-10 04:54] LABS: Absolute Lymphocytes (CBC) 1.3 K/uL (0.7-4.9); Hematocrit 30.4 % (36.0-45.0); Lymphocytes % 16.2 % (15.3-44.8); MPV 8.9 fL (7.6-11.3); RBC Red Blood Cell Count 3.62 M/uL (3.86-4.86)
[2022-01-10 05:10] LABS: Albumin 3.1 g/dL (3.4-5.0); Magnesium 2.6 mg/dL (1.8-2.4); Potassium 3.8 mmol/L (3.5-5.1); Prealbumin 18.9 mg/dL (20-40)
[2022-01-10 06:32] LABS: Anisocytosis 3+; Blood Morphology Comment NOTED (NOT SEEN); Platelet Estimate ADEQ; White Blood Cell Scan OK (OK)
[2022-01-10] MEDS: ZINC SULFATE 220 MG CAP PO SCH ×2 (07:44→19:31)
[2022-01-10] MEDS: SPIRONOLACTONE 25 MG TABLET PO SCH ×2 (07:44→17:24)
[2022-01-10] MEDS: allopurinoL 100 MG TAB PO SCH (07:44)
[2022-01-10] MEDS: AMIODARONE HCL 200 MG TAB PO SCH (07:45)
[2022-01-10] MEDS: SERTRALINE HCL 50 MG TAB PO SCH (07:45)
[2022-01-10] MEDS: GABAPENTIN 400 MG CAP PO SCH (07:46)
[2022-01-10] MEDS: BUMETANIDE 1 MG TABLET PO SCH ×2 (07:46→17:25)
[2022-01-10] MEDS: POTASSIUM CL SA 10 MEQ TAB PO SCH ×2 (07:46→19:31)
[2022-01-10] MEDS: VITAMIN D 5,000 UNIT CAP PO SCH (07:46)
[2022-01-10] MEDS: FAMOTIDINE 20 MG TAB PO SCH (07:47)
[2022-01-10] MEDS: DOCUSATE NA 100 MG CAP PO SCH ×2 (07:47→19:31)
[2022-01-10] MEDS: FLUTICASONE 110 MCG/PUFF 12 GM INH IH SCH ×2 (08:00→19:31)
[2022-01-10] MEDS: JUVEN PACKET PO SCH ×2 (08:00→19:31)
--- NOTE | 2022-01-10 09:49 | P.RH.PN ---
Estimated Length of Stay: 27 Expected Discharge Date: 01/15/22 Discharge Disposition Plan: Home Family Support: Yes Senior Living Goal: Mobility, Transfers, Self Care Vital Signs: Last Vital Signs Temp 99.1 F 01/10/22 07:35 Pulse 62 01/10/22 07:46 Resp 18 01/10/22 07:35 BP 121/56 L 01/10/22 07:46 Pulse Ox 100 01/10/22 07:35 Laboratory: Laboratory Last Values WBC 8.1 K/uL (4.3-10.9) D 01/10/22 04:03 RBC 3.62 M/uL (3.86-4.86) L 01/10/22 04:03 Hgb 9.7 g/dL (12.0-15.0) L 01/10/22 04:03 Hct 30.4 % (36.0-45.0) L 01/10/22 04:03 MCV 84.0 fL (80-100) 01/10/22 04:03 MCH 26.9 pg (27.0-35.0) L 01/10/22 04:03 MCHC 32.0 g/dL (32.0-36.0) 01/10/22 04:03 RDW 27.2 % (12.1-15.2) H 01/10/22 04:03 Plt Count 215 K/uL (152-406) 01/10/22 04:03 MPV 8.9 fL (7.6-11.3) 01/10/22 04:03 Plt Distribution Width Cancelled 12/22/21 Unknown Absolute Nucleated RBC Cancelled 12/22/21 Unknown Neutrophils % 62.9 % (41.7-73.7) 01/10/22 04:03 Lymphocytes % 16.2 % (15.3-44.8) 01/10/22 04:03 Monocytes % 18.0 % (3.3-12.3) H 01/10/22 04:03 Eosinophils % 2.3 % (0-4.4) 01/10/22 04:03 Basophils % 0.6 % (0-1.3) 01/10/22 04:03 Nucleated RBC % Cancelled 12/22/21 Unknown Absolute Neutrophils 5.1 K/uL (1.8-8.0) 01/10/22 04:03 Segmented Neutrophils 90 % (40-80) H 12/20/21 04:30 Absolute Lymphocytes 1.3 K/uL (0.7-4.9) 01/10/22 04:03 Lymphocytes 3 % (15-42) L 12/20/21 04:30 Monocytes 6 % (0-10) 12/20/21 04:30 Absolute Monocytes 1.5 K/uL (0.1-1.3) H 01/10/22 04:03 Eosinophils 1 % (0-3) 12/20/21 04:30 Absolute Eosinophils 0.2 K/uL (0-0.5) 01/10/22 04:03 Absolute Basophils 0.1 K/uL (0-0.5) 01/10/22 04:03 Diff Path Review Cancelled 12/22/21 Unknown Platelet Estimate Adeq 01/10/22 04:03 Giant Platelets Present 12/29/21 05:02 Anisocytosis 3+ 01/10/22 04:03 Microcytosis 1+ 01/10/22 04:03 Morphology Comment Noted (NOT SEEN) 01/10/22 04:03 pH 7.35 (7.35-7.45) 12/29/21 21:28 pCO2 53.8 mmHG (35-45) H 12/29/21 21:28 pO2 83.3 mmHG (75-100) 12/29/21 21:28 HCO3 29.1 mmol/L (22-28) H 12/29/21 21:28 Base Excess 3.9 mmol/L 12/29/21 21:28 Oxyhemoglobin 92.8 % (94-97) L 12/29/21 21: ABG O2 Sat (Measured) 96.3 % (92-98.5) 12/29/21 21:28 ABG Carboxyhemoglobin 2.2 % (0-1.5) H 12/29/21 21:28 ABG Methemoglobin 1.4 % (0-1.5) 12/29/21 21: Other Total Hgb 9.0 g/dl (12-18) L 12/29/21 21:28 Inspired O2 30.0 % 12/29/21 21:28 Sodium 135 mmol/L (136-145) L 01/10/22 04:03 Potassium 3.8 mmol/L (3.5-5.1) 01/10/22 04:03 Chloride 96 mmol/L (98-107) L 01/10/22 04:03 Carbon Dioxide 32 mmol/L (21-32) 01/10/22 04:03 BUN 40 mg/dL (7-18) H 01/10/22 04:03 Creatinine 1.68 mg/dL (0.55-1.3) H 01/10/22 04:03 Estimated GFR 30 mL/min (=/>90) L 01/10/22 04:03 Glucose 122 mg/dL (74-106) H 01/10/22 04:03 POC Glucose 82 mg/dL (65-120) 12/29/21 17:03 Lactic Acid 0.8 mmol/L (0.4-2.0) 12/29/21 05:02 Uric Acid 5.9 mg/dL (2.6-6.0) 01/02/22 04:05 Calcium 8.5 mg/dL (8.5-10.1) 01/10/22 04:03 Phosphorus 2.4 mg/dL (2.5-4.9) L 01/02/22 04:05 Magnesium 2.6 mg/dL (1.8-2.4) H D 01/10/22 04:03 Iron 123.0 ug/dL (50-170) 12/28/21 04:40 TIBC 284 ug/dL (250-460) 12/28/21 04:40 Transferrin 203 mg/dL (200-360) 12/28/21 04:40 Transferrin % Sat 43.3 % (20.0-50.0) 12/28/21 04:40 Total Bilirubin 0.5 mg/dL (0.2-1.0) 01/02/22 04:05 AST 26 U/L (15-37) 01/02/22 04:05 ALT 34 U/L (12-78) 01/02/22 04:05 Alkaline Phosphatase 73 U/L (45-117) 01/02/22 04:05 NT-Pro-B Natriuret Pep 737 pg/mL (<125) H 01/02/22 04:05 Serum Total Protein 6.6 g/dL (6.4-8.2) 01/02/22 04:05 Albumin 3.1 g/dL (3.4-5.0) L 01/10/22 04:03 Globulin 3.8 g/dL (2.3-3.5) H 01/02/22 04:05 Albumin/Globulin Ratio 0.7 (1.1-1.8) L 01/02/22 04:05 Prealbumin 18.9 mg/dL (20-40) L 01/10/22 04:03 Vitamin B12 880 pg/mL (193-986) 12/21/21 04:55 Serum Folate 10.5 ng/mL (3.1-17.5) 12/21/21 04:55 Procalcitonin < 0.05 ng/mL (<0.050) 12/29/21 05:02 SARS-CoV-2 Rap RNA(RT-PCR) Negative (NEGATIVE) 01/09/22 15:45 Smear Scan Ok (OK) 01/10/22 04:03 ABO/Rh A POSITIVE 12/27/21 13:50 Solid Phase Ab Screen Negative 12/27/21 13:50 Crossmatch See Detail 12/27/21 13:50 Weight: 360 lb Wound Present: No Closed Surgical Incision Present: No Negative Pressure Wound Therapy Present: No Physician Update: She was denied SNF transfer last week and that is on review. Asked for 76 mor days. MADI lift for sit to stand transfer. She was able to stand without assistance but fatigue. Took 3 steps with contact guard. Comment: redness on nose bridge from bipap mask; with duoderm Functional Improvement: Patient has experienced set-backs during stay here, due to medical issues. Patient presents w/ good attitude, and has shown improvement over the past two days. Summary: Patient's care plan and [facility] goals have been reviewed and revised as necessary. Please see the Rehabilitation Signature page for all necessary signatures.
[2022-01-10] MEDS: NYSTATIN PWDR 100000 UNIT/GM TOP SCH ×2 (09:50→19:31)
--- NOTE | 2022-01-10 11:47 | RAD REPORT ---
EXAM DESCRIPTION: RAD - Chest Single View - 01/10/2022 11:35 am CLINICAL HISTORY: pulmonary edema. COMPARISON: Portable 01/04/2022 examination TECHNIQUE: AP portable chest image was obtained 01/10/2022 11:35 am . FINDINGS: Lung volumes are low. Large body habitus and under penetrated portable technique further l imit the examination. Patient has extensive interstitial and patchy alveolar opacities present. Right lung field findings a re not substantially different from comparison. Central left lung field findings are more prominent t godoy the prior study and focal infiltrate or asymmetric pulmonary edema are possible. Left-sided Port- A-Cath has been removed since the prior study. Trachea remains in the midline. Heart and vasculature are normal. No measurable pleural effusion and no pneumothorax. No acute bony abnormality seen. No acute aortic findings suspected. IMPRESSION: Exam has significant limitation. His central left lung field opacities are more prominen t than the prior study could be an asymmetric pulmonary edema pattern for focal pneumonia. These can be monitored as clinical findings warrant. Chronic right lung field parenchymal findings not substantially different from the comparison.
[2022-01-10] MEDS: acetaZOLAMIDE 250 MG TAB PO SCH (12:15)
[2022-01-10] MEDS: RIVAROXABAN 15 MG TABLET PO SCH (17:24)
--- NOTE | 2022-01-10 21:05 | P.PN ---
Date of Service: 01/10/22 Vital Signs Temp Pulse Resp BP Pulse Ox 96.9 F 72 18 120/54 L 97 01/10/22 19:45 01/10/22 19:45 01/10/22 19:45 01/10/22 19:45 01/10/22 19:45 Medications Acetaminophen (Acetaminophen 500 Mg Tab) 500 mg PO Q4H PRN PRN Reason: Pain scale 2-4 (Mild) Last Admin: 01/09/22 20:40 Dose: 500 mg Documented by: Acetazolamide (Acetazolamide 250 Mg Tab) 250 mg PO Q24H [facility] Last Admin: 01/10/22 12:15 Dose: 250 mg Documented by: Albuterol Sulfate (Albuterol 2.5 Mg/3 Ml Neb Nishi) 2.5 mg IH [id number] PRN PRN Reason: SHORTNESS OF BREATH Albuterol Sulfate (Albuterol Inhaler 60 Puff/8 Gm) 2 puff IH Q2H PRN PRN Reason: SHORTNESS OF BREATH Allopurinol (Allopurinol 100 Mg Tab) 100 mg PO DAILY [facility] Last Admin: 01/10/22 07:44 Dose: 100 mg Documented by: Amiodarone HCl (Amiodarone Hcl 200 Mg Tab) 200 mg PO DAILY [facility] Last Admin: 01/10/22 07:45 Dose: 200 mg Documented by: Bisacodyl (Bisacodyl 10 Mg Rectal Supp) 10 mg [place] DAILY PRN PRN Reason: CONSTIPATION Last Admin: 01/09/22 14:46 Dose: 10 mg Documented by: Bumetanide (Bumetanide 1 Mg Tablet) 2 mg PO BIDL [facility] Last Admin: 01/10/22 17:25 Dose: 2 mg Documented by: Cholecalciferol (Vitamin D 5,000 Unit Cap) 5,000 unit PO DAILY [facility] Last Admin: 01/10/22 07:46 Dose: 5,000 unit Documented by: Dextrose (D50w 25 Gm/50 Ml Syringe) 12.5 gm IV PRN PRN; Protocol PRN Reason: HYPOGLYCEMIA Docusate Sodium (Docusate Na 100 Mg Cap) 100 mg PO BID [facility] Last Admin: 01/10/22 19:31 Dose: 100 mg Documented by: Famotidine (Famotidine 20 Mg Tab) 20 mg PO DAILY [facility]; Protocol Last Admin: 01/10/22 07:47 Dose: 20 mg Documented by: Gabapentin (Gabapentin 400 Mg Cap) 400 mg PO DAILY [facility] Last Admin: 01/10/22 07:46 Dose: 400 mg Documented by: Glucagon (Glucagon 1 Mg/Vial) 1 mg IM 1X PRN; Protocol PRN Reason: HYPOGLYCEMIA Home Med (Fluticasone 110 Mcg/Puff 12 Gm Inh) 110 ea IH BID [facility] Last Admin: 01/10/22 19:31 Dose: Not Given Documented by: Sodium Chloride (Sodium Chloride) 250 mls @ 0 mls/hr IV .Q0M [facility] Last Admin: 12/27/21 15:41 Dose: 250 mls Documented by: L-Arginine/L-Glutamine/HMB (Chao Packet) 1 pkt PO BID [facility] Last Admin: 01/10/22 19:31 Dose: Not Given Documented by: Nystatin (Nystatin Pwdr [id number] Unit/Gm) 1 appl TOP BID [facility] Last Admin: 01/10/22 19:31 Dose: 1 appl Documented by: Potassium Chloride (Potassium Cl Sa 10 Meq Tab) 10 meq PO BID [facility] Last Admin: 01/10/22 19:31 Dose: 10 meq Documented by: Rivaroxaban (Rivaroxaban 15 Mg Tablet) 15 mg PO DAILY 5 PM [facility] Last Admin: 01/10/22 17:24 Dose: 15 mg Documented by: Senna/Docusate Sodium (Docusate Na/Senna Conc 1 Tab) 2 tab PO BEDTIME PRN PRN Reason: CONSTIPATION Last Admin: 01/08/22 20:48 Dose: 2 tab Documented by: Sertraline HCl (Sertraline Hcl 50 Mg Tab) 50 mg PO DAILY [facility] Last Admin: 01/10/22 07:45 Dose: 50 mg Documented by: Spironolactone (Spironolactone 25 Mg Tablet) 12.5 mg PO BIDL [facility] Last Admin: 01/10/22 17:24 Dose: 12.5 mg Documented by: Zinc Sulfate (Zinc Sulfate 220 Mg Cap) 220 mg PO BID [facility] Last Admin: 01/10/22 19:31 Dose: 220 mg Documented by: Lab Results (last 24 hrs) 01/10/22 04:03: Sodium 135 L, Potassium 3.8, Chloride 96 L, Carbon Dioxide 32, BUN 40 H, Creatinine 1.68 H, Estimated GFR 30 L, Glucose 122 H, Calcium 8.5, Magnesium 2.6 H D, Albumin 3.1 L, Prealbumin 18.9 L 01/10/22 04:03: WBC 8.1 D, RBC 3.62 L, Hgb 9.7 L, Hct 30.4 L, MCV 84.0, MCH 26.9 L, MCHC 32.0, RDW 27.2 H, Plt Count 215, MPV 8.9, Neutrophils % 62.9, Lymphocytes % 16.2, Monocytes % 18.0 H, Eosinophils % 2.3, Basophils % 0.6, Absolute Neutrophils 5.1, Absolute Lymphocytes 1.3, Absolute Monocytes 1.5 H, Absolute Eosinophils 0.2, Absolute Basophils 0.1, Platelet Estimate Adeq, Anisocytosis 3+, Microcytosis 1+, Morphology Comment Noted, Smear Scan Ok Assessment/ Plan: Nephrology No dyspnea. BROWN. No chest pain Reports decreasing urine output No acute events overnight Vitals, medications, blood work and imaging reviewed in the chart. General: Oriented x3, Cooperative. Obese. HEENT: Atraumatic Neck: Supple Respiratory: Normal respiratory effort Cardiovascular: Regular rate/rhythm, Edema Gastrointestinal: Soft and benign, Non-distended Musculoskeletal: No clubbing, No contractures Integumentary: No rashes, No cyanosis Neurological: Normal speech Laboratory Data (last 24 hrs) 12/18/21 05:15: Sodium 134 L, Potassium 4.1, BUN 58 H, Creatinine 1.35 H, Glucose 98, Magnesium 2.5 H 12/18/21 05:15: WBC 13.80 H, Hgb 8.7 L, Hct 27.8 L, Plt Count 284 Imagings Data: EXAM DESCRIPTION: RAD - Chest Single View - 12/18/2021 6:29 am CLINICAL HISTORY: Pneumonia COMPARISON: Portable chest 08/30/2021 TECHNIQUE: AP portable chest image was obtained 12/18/2021 6:29 am . FINDINGS: Left subclavian Port-A-Cath has been placed since the prior examination. Focal airspace opacification with air bronchogram formation seen in the mid upper left lung field. This is new from the August examination. Overall interstitial opacification is prominent and may be slightly increased from the comparison. The dense consolidation of the right upper lobe seen on the August study has cleared are almost entirely cleared. There is minimal lateral opacification and may be remnant from that pneumonia. Heart size is prominent, similar to comparison. Central vasculature prominent. No measurable pleural effusion and no pneumothorax. No acute bony abnormality seen. No acute aortic findings suspected. IMPRESSION: Left upper lung field pneumonia new from prior imaging. Complete or near complete clearing of the right upper lobe pneumonia seen on the 08/30/2021 study. Heart, vasculature and lung markings are all prominent. A component of mild failure or volume overload concurrent with the pneumonia cannot be excluded. Conclusions/Impression: CKD III -No NSAIDs Hyponatremia, resolved -Encourage nutrition Hypokalemia -Replete potassium -May need to increase potassium with reduction in spironolactone Alkalosis -Continue Diamox HTN with CKD/ CHF -Monitor BP Bradycardia -Continue Amiodarone 200mg daily SILVANA -Continue CPAP qHS Diastolic CHF, chronic -Bumex 2mg BID -Daily weight -Continue Diamox Daily -Agree with reducing spironolactone Moderate malnutrition -Encourage nutrition Anemia in chronic illness Iron Deficiency sp IV iron -Monitor H&H -Retacrit prn Morbid Obesity Debility -PT as tolerated
[2022-01-11] MEDS: SPIRONOLACTONE 25 MG TABLET PO SCH ×2 (07:59→17:36)
[2022-01-11] MEDS: GABAPENTIN 400 MG CAP PO SCH (08:00)
[2022-01-11] MEDS: JUVEN PACKET PO SCH ×2 (08:00→20:00)
[2022-01-11] MEDS: FLUTICASONE 110 MCG/PUFF 12 GM INH IH SCH ×2 (08:00→20:00)
[2022-01-11] MEDS: SERTRALINE HCL 50 MG TAB PO SCH (08:00)
[2022-01-11] MEDS: DOCUSATE NA 100 MG CAP PO SCH ×2 (08:00→19:39)
[2022-01-11] MEDS: allopurinoL 100 MG TAB PO SCH (08:01)
[2022-01-11] MEDS: BUMETANIDE 1 MG TABLET PO SCH ×2 (08:01→17:35)
[2022-01-11] MEDS: ZINC SULFATE 220 MG CAP PO SCH ×2 (08:01→19:40)
[2022-01-11] MEDS: FAMOTIDINE 20 MG TAB PO SCH (08:01)
[2022-01-11] MEDS: POTASSIUM CL SA 10 MEQ TAB PO SCH ×2 (08:01→19:39)
[2022-01-11] MEDS: VITAMIN D 5,000 UNIT CAP PO SCH (08:02)
[2022-01-11] MEDS: AMIODARONE HCL 200 MG TAB PO SCH (08:02)
[2022-01-11] MEDS: NYSTATIN PWDR 100000 UNIT/GM TOP SCH ×2 (10:28→19:39)
[2022-01-11] MEDS: acetaZOLAMIDE 250 MG TAB PO SCH (12:35)
[2022-01-11] MEDS: RIVAROXABAN 15 MG TABLET PO SCH (17:35)
--- NOTE | 2022-01-12 06:06 | P.PN ---
Date of Service: 01/11/22 Vital Signs Temp Pulse Resp BP Pulse Ox 96.7 F L 62 18 109/54 L 97 01/11/22 20:00 01/11/22 20:00 01/11/22 20:00 01/11/22 20:00 01/11/22 20:00 Medications Acetaminophen (Acetaminophen 500 Mg Tab) 500 mg PO Q4H PRN PRN Reason: Pain scale 2-4 (Mild) Last Admin: 01/09/22 20:40 Dose: 500 mg Documented by: Acetazolamide (Acetazolamide 250 Mg Tab) 250 mg PO Q24H [facility] Last Admin: 01/11/22 12:35 Dose: 250 mg Documented by: Albuterol Sulfate (Albuterol 2.5 Mg/3 Ml Neb Nishi) 2.5 mg IH [id number] PRN PRN Reason: SHORTNESS OF BREATH Albuterol Sulfate (Albuterol Inhaler 60 Puff/8 Gm) 2 puff IH Q2H PRN PRN Reason: SHORTNESS OF BREATH Allopurinol (Allopurinol 100 Mg Tab) 100 mg PO DAILY [facility] Last Admin: 01/11/22 08:01 Dose: 100 mg Documented by: Amiodarone HCl (Amiodarone Hcl 200 Mg Tab) 200 mg PO DAILY [facility] Last Admin: 01/11/22 08:02 Dose: 200 mg Documented by: Bisacodyl (Bisacodyl 10 Mg Rectal Supp) 10 mg [place] DAILY PRN PRN Reason: CONSTIPATION Last Admin: 01/09/22 14:46 Dose: 10 mg Documented by: Bumetanide (Bumetanide 1 Mg Tablet) 2 mg PO BIDL [facility] Last Admin: 01/11/22 17:35 Dose: 2 mg Documented by: Cholecalciferol (Vitamin D 5,000 Unit Cap) 5,000 unit PO DAILY [facility] Last Admin: 01/11/22 08:02 Dose: 5,000 unit Documented by: Dextrose (D50w 25 Gm/50 Ml Syringe) 12.5 gm IV PRN PRN; Protocol PRN Reason: HYPOGLYCEMIA Docusate Sodium (Docusate Na 100 Mg Cap) 100 mg PO BID [facility] Last Admin: 01/11/22 19:39 Dose: 100 mg Documented by: Famotidine (Famotidine 20 Mg Tab) 20 mg PO DAILY [facility]; Protocol Last Admin: 01/11/22 08:01 Dose: 20 mg Documented by: Gabapentin (Gabapentin 400 Mg Cap) 400 mg PO DAILY [facility] Last Admin: 01/11/22 08:00 Dose: 400 mg Documented by: Glucagon (Glucagon 1 Mg/Vial) 1 mg IM 1X PRN; Protocol PRN Reason: HYPOGLYCEMIA Home Med (Fluticasone 110 Mcg/Puff 12 Gm Inh) 110 ea IH BID [facility] Last Admin: 01/11/22 20:00 Dose: Not Given Documented by: Sodium Chloride (Sodium Chloride) 250 mls @ 0 mls/hr IV .Q0M [facility] Last Admin: 12/27/21 15:41 Dose: 250 mls Documented by: L-Arginine/L-Glutamine/HMB (Chao Packet) 1 pkt PO BID [facility] Last Admin: 01/11/22 20:00 Dose: Not Given Documented by: Nystatin (Nystatin Pwdr [id number] Unit/Gm) 1 appl TOP BID [facility] Last Admin: 01/11/22 19:39 Dose: 1 appl Documented by: Potassium Chloride (Potassium Cl Sa 10 Meq Tab) 10 meq PO BID [facility] Last Admin: 01/11/22 19:39 Dose: 10 meq Documented by: Rivaroxaban (Rivaroxaban 15 Mg Tablet) 15 mg PO DAILY 5 PM [facility] Last Admin: 01/11/22 17:35 Dose: 15 mg Documented by: Senna/Docusate Sodium (Docusate Na/Senna Conc 1 Tab) 2 tab PO BEDTIME PRN PRN Reason: CONSTIPATION Last Admin: 01/08/22 20:48 Dose: 2 tab Documented by: Sertraline HCl (Sertraline Hcl 50 Mg Tab) 50 mg PO DAILY [facility] Last Admin: 01/11/22 08:00 Dose: 50 mg Documented by: Spironolactone (Spironolactone 25 Mg Tablet) 12.5 mg PO BIDL [facility] Last Admin: 01/11/22 17:36 Dose: 12.5 mg Documented by: Zinc Sulfate (Zinc Sulfate 220 Mg Cap) 220 mg PO BID [facility] Last Admin: 01/11/22 19:40 Dose: 220 mg Documented by: Assessment/ Plan: Nephrology No dyspnea. BROWN. No chest pain No acute events overnight Vitals, medications, blood work and imaging reviewed in the chart. General: Oriented x3, Cooperative. Obese. HEENT: Atraumatic Neck: Supple Respiratory: Normal respiratory effort Cardiovascular: Regular rate/rhythm, Edema Gastrointestinal: Soft and benign, Non-distended Musculoskeletal: No clubbing, No contractures Integumentary: No rashes, No cyanosis Neurological: Normal speech Laboratory Data (last 24 hrs) 12/18/21 05:15: Sodium 134 L, Potassium 4.1, BUN 58 H, Creatinine 1.35 H, Glucose 98, Magnesium 2.5 H 12/18/21 05:15: WBC 13.80 H, Hgb 8.7 L, Hct 27.8 L, Plt Count 284 Imagings Data: EXAM DESCRIPTION: RAD - Chest Single View - 12/18/2021 6:29 am CLINICAL HISTORY: Pneumonia COMPARISON: Portable chest 08/30/2021 TECHNIQUE: AP portable chest image was obtained 12/18/2021 6:29 am . FINDINGS: Left subclavian Port-A-Cath has been placed since the prior examination. Focal airspace opacification with air bronchogram formation seen in the mid upper left lung field. This is new from the August examination. Overall interstitial opacification is prominent and may be slightly increased from the comparison. The dense consolidation of the right upper lobe seen on the August study has cleared are almost entirely cleared. There is minimal lateral opacification and may be remnant from that pneumonia. Heart size is prominent, similar to comparison. Central vasculature prominent. No measurable pleural effusion and no pneumothorax. No acute bony abnormality seen. No acute aortic findings suspected. IMPRESSION: Left upper lung field pneumonia new from prior imaging. Complete or near complete clearing of the right upper lobe pneumonia seen on the 08/30/2021 study. Heart, vasculature and lung markings are all prominent. A component of mild failure or volume overload concurrent with the pneumonia cannot be excluded. Conclusions/Impression: CKD III -No NSAIDs Hyponatremia, resolved -Encourage nutrition Hypokalemia -Replete potassium Alkalosis -Continue Diamox HTN with CKD/ CHF -Monitor BP Bradycardia -Continue Amiodarone 200mg daily SILVANA -Continue CPAP qHS Diastolic CHF, chronic -Bumex 2mg BID -Continue spironolactone -Daily weight -Continue Diamox Daily Moderate malnutrition -Encourage nutrition Anemia in chronic illness Iron Deficiency sp IV iron -Monitor H&H -Retacrit prn Morbid Obesity Debility -PT as tolerated
[2022-01-12] MEDS: FLUTICASONE 110 MCG/PUFF 12 GM INH IH SCH ×2 (08:00→20:00)
[2022-01-12] MEDS: NYSTATIN PWDR 100000 UNIT/GM TOP SCH ×2 (08:00→20:54)
[2022-01-12] MEDS: JUVEN PACKET PO SCH ×2 (08:00→20:00)
[2022-01-12] MEDS: BUMETANIDE 1 MG TABLET PO SCH ×2 (09:17→16:59)
[2022-01-12] MEDS: DOCUSATE NA 100 MG CAP PO SCH ×2 (09:17→20:53)
[2022-01-12] MEDS: POTASSIUM CL SA 10 MEQ TAB PO SCH ×2 (09:17→20:53)
[2022-01-12] MEDS: allopurinoL 100 MG TAB PO SCH (09:17)
[2022-01-12] MEDS: SPIRONOLACTONE 25 MG TABLET PO SCH ×2 (09:18→16:59)
[2022-01-12] MEDS: ZINC SULFATE 220 MG CAP PO SCH ×2 (09:18→20:53)
[2022-01-12] MEDS: FAMOTIDINE 20 MG TAB PO SCH (09:18)
[2022-01-12] MEDS: GABAPENTIN 400 MG CAP PO SCH (09:19)
[2022-01-12] MEDS: VITAMIN D 5,000 UNIT CAP PO SCH (09:19)
[2022-01-12] MEDS: SERTRALINE HCL 50 MG TAB PO SCH (09:19)
[2022-01-12] MEDS: AMIODARONE HCL 200 MG TAB PO SCH (09:19)
[2022-01-12] MEDS: acetaZOLAMIDE 250 MG TAB PO SCH (12:15)
[2022-01-12] MEDS: RIVAROXABAN 15 MG TABLET PO SCH (16:58)
[2022-01-12] MEDS: BISACODYL 10 MG RECTAL SUPP PR PRN (17:01)
[2022-01-13] MEDS: JUVEN PACKET PO SCH ×2 (08:00→19:44)
[2022-01-13] MEDS: FLUTICASONE 110 MCG/PUFF 12 GM INH IH SCH ×2 (08:00→19:44)
[2022-01-13] MEDS: NYSTATIN PWDR 100000 UNIT/GM TOP SCH (08:00)
[2022-01-13] MEDS: FAMOTIDINE 20 MG TAB PO SCH (09:55)
[2022-01-13] MEDS: BUMETANIDE 1 MG TABLET PO SCH ×2 (09:55→16:55)
[2022-01-13] MEDS: GABAPENTIN 400 MG CAP PO SCH (09:56)
[2022-01-13] MEDS: VITAMIN D 5,000 UNIT CAP PO SCH (09:56)
[2022-01-13] MEDS: POTASSIUM CL SA 10 MEQ TAB PO SCH ×2 (09:56→19:43)
[2022-01-13] MEDS: DOCUSATE NA 100 MG CAP PO SCH ×2 (09:56→19:43)
[2022-01-13] MEDS: AMIODARONE HCL 200 MG TAB PO SCH (09:56)
[2022-01-13] MEDS: SPIRONOLACTONE 25 MG TABLET PO SCH ×2 (09:56→16:54)
[2022-01-13] MEDS: SERTRALINE HCL 50 MG TAB PO SCH (09:56)
[2022-01-13] MEDS: ZINC SULFATE 220 MG CAP PO SCH ×2 (09:56→19:43)
[2022-01-13] MEDS: allopurinoL 100 MG TAB PO SCH (09:57)
[2022-01-13] MEDS: acetaZOLAMIDE 250 MG TAB PO SCH (11:43)
[2022-01-13] MEDS: RIVAROXABAN 15 MG TABLET PO SCH (16:55)
[2022-01-14] MEDS: SPIRONOLACTONE 25 MG TABLET PO SCH ×2 (07:30→17:16)
[2022-01-14] MEDS: ZINC SULFATE 220 MG CAP PO SCH ×2 (07:31→20:05)
[2022-01-14] MEDS: VITAMIN D 5,000 UNIT CAP PO SCH (07:31)
[2022-01-14] MEDS: POTASSIUM CL SA 10 MEQ TAB PO SCH ×2 (07:31→20:05)
[2022-01-14] MEDS: BUMETANIDE 1 MG TABLET PO SCH ×2 (07:31→17:15)
[2022-01-14] MEDS: AMIODARONE HCL 200 MG TAB PO SCH (07:32)
[2022-01-14] MEDS: allopurinoL 100 MG TAB PO SCH (07:32)
[2022-01-14] MEDS: GABAPENTIN 400 MG CAP PO SCH (07:32)
[2022-01-14] MEDS: DOCUSATE NA 100 MG CAP PO SCH ×2 (07:32→20:00)
[2022-01-14] MEDS: FAMOTIDINE 20 MG TAB PO SCH (07:32)
[2022-01-14] MEDS: SERTRALINE HCL 50 MG TAB PO SCH (07:32)
[2022-01-14] MEDS: JUVEN PACKET PO SCH ×2 (08:00→20:00)
[2022-01-14] MEDS: FLUTICASONE 110 MCG/PUFF 12 GM INH IH SCH ×2 (08:00→20:00)
[2022-01-14] MEDS: NYSTATIN PWDR 100000 UNIT/GM TOP SCH ×2 (11:41→20:05)
[2022-01-14] MEDS: acetaZOLAMIDE 250 MG TAB PO SCH (12:17)
--- NOTE | 2022-01-14 16:36 | RAD REPORT ---
EXAM DESCRIPTION: RAD - Chest Single View - 01/14/2022 4:06 pm CLINICAL HISTORY: Comparison from the latest xray that was done Chest pain. COMPARISON: Chest Single View dated 01/10/2022; Chest Single View dated 01/04/2022; Chest Single View d ated 12/31/2021; Chest Single View dated 12/27/2021 FINDINGS: Portable technique limits examination quality. Moderate bilateral pulmonary opacities are seen, mildly improved since comparative study. Bilateral p ulmonary edema and pneumonia remain the most likely etiologies. The heart is mildly enlarged in size.
[2022-01-14] MEDS: RIVAROXABAN 15 MG TABLET PO SCH (17:16)
--- NOTE | 2022-01-14 17:21 | R.PN ---
PROGRESS NOTES ENCOUNTER DATE AND TIME: 01/14/2022 17:14 (CDT) NAME ISAÍAS PORTER DATE OF : 1950 DATE OF ADMISSION: 12/17/2021 20:07 (CDT) Bronchiectasis, Chronic Bronchitis, COPDCHIEF COMPLAINT: COPD, chronic bronchitis SUBJECTIVE: Pt denied any depression. Pt denied any Shortness of Breath. Therapeutic exercises done with minimal assistance. Bed mobility done with standby assistance. Bed tr ansfers done with max assistance. O2 sat 95% on 2.5 L O2 via NC. Na 135, K 3.8, 3D Animator 1.68, prealbumin 18.9. WBC 8.1, Hgb 9.7. Decreased spironolactone to 25 mg bid from 50 mg bid. Self-propelled wheelchair 100'total with contact guard assistance. She used O2 2.5L via NC. Chest x-ray today shows mildly improved bilateral moderate pulmonary opacities compared to 01/10/2022 VITAL SIGNS Temperature: 98.6 F SBP/DBP: 116/61 Pulse: 77 Resp: 16 MEDICATION ALLERGIES: No Known Drug Allergies (NKDA) ENVIRONMENTAL ALLERGIES: - Substance Allergies None Known - Other Allergies None Known NURSING: - Shower allowing shower PRECAUTIONS: - Fall Precaution SAFTY AND FALL ACTIVITIES OOB only with supervision THERAPIES: - Dietary and Nutrition Adequate Nutrition. Nutritional Education. Nutritional Supplements. Evaluate and Treat. - Occupational Therapy Cognitive Retraining. Patient needs Occupational Therapy for a daily minimum of 1.5 hours at least 5 out of 7 days, to improve Activities of Daily Living, including: Eating, Grooming, Bathing, Dressing, Toileting, Toilet Transfers, Community Reintegration, Higher functional activities, Adaptive Equipme nt, Splinting, Household Tasks, and Other activities as determined. Evaluate and Treat. Visual Percep tual Training. Patient/Family Education. Safety Awareness. Transfer Training. Adaptive Equipment. Ivan sehold Tasks. UE Strengthening. - Speech Therapy Cognitive Training. Expressive Language Skills. Memory Strategies. Patient needs Speech Therapy for a daily minimum of 1.5 hours at least 5 out of 7 days, to improve: Swallowing, Cognition, Language Ski lls, and Compensatory Strategies. Receptive Language Skills. Speech Intelligibility Training. Evaluat e and Treat. - Physical Therapy Patient needs Physical Therapy for a daily minimum of 1.5 hours at least 5 out of 7 days, to improve: Mobility, Strengthening, Transfers, Stretching, ROM, Endurance, Ability to manage stairs, Gait, and Balance. Mobility Training. Evaluate and Treat. Gait Training. Safety Awareness. Balance Training. Pa tient/Family Education. LE Strengthening. Medical Equipment Assessment and Evaluation. PHYSICAL EXAM - Gen Alert and awake Lying in bed No apparent distress Oriented to: person, time, and place - Skin No skin breakdown. Normacephalic - Eyes No abnormalities - Neck No abnormalities - CVS RRR - Chest No abnormalities - Abd Obese - Ext Moderate edema in both lower extremities. - MSK 4+/5 weakness in both lower extremities. - Neuro No focal deficits - Psych Mild depression. ASSESSMENT: Pt. is a 71 yo Right-handed female.On 12/03/2021 she was admitted to [facility] with diagnosi s Bronchiectasis, Chronic Bronchitis, COPD.Extreme obesity BMI 56.6Her impairment category is Pulmona ry Disorders 10 - Chronic Obstructive Pulmonary Disease (10.1).Pre-morbidly, Pt. was independent/mod -I in Locomotion, Safety Awareness, Social Cognition, Balance, and Transfers Control; and she had goo d Sphincter Control, Self-Care, Communication, and Endurance.Currently, she has deficits of Locomotio n, Safety Awareness, Social Cognition, Balance, Transfers Control, Sphincter Control, Self-Care, Comm unication, and Endurance.Pt. is now referred to [facility] for acute in-patien t rehabilitation in order to maximize patient's functional independence in activities of daily living , strength, ROM, and mobility.- Rehab Goal Patient has realistic goal of being discharged at assistance level 7-Ind to reside at Home with Fami ly/Relatives. MDM/PLAN: - Physical Therapy Gait dysfunction - to improve, our physical therapists will perform initial evaluation of pt's statu s upon admission and devise an individualized program for Gait Training, and Wheel Chair mobility Inability to transfer - to improve, our physical therapists will perform initial evaluation of pt's status upon admission and devise an individualized program for Bed mobility Need for home safety evaluation - to improve, our physical therapists will perform initial evaluatio n of pt's status upon admission and devise an individualized program for Home Evaluation Need in caregiver upon discharge - to improve, our physical therapists will perform initial evaluati on of pt's status upon admission and devise an individualized program for Caregiver Training New precaution - to improve, our physical therapists will perform initial evaluation of pt's status upon admission and devise an individualized program for Patient precaution education Poor balance - to improve, our physical therapists will perform initial evaluation of pt's status up on admission and devise an individualized program for Balance Training Poor endurance - to improve, our physical therapists will perform initial evaluation of pt's status upon admission and devise an individualized program for Endurance Training Weakness - to improve, our physical therapists will perform initial evaluation of pt's status upon a dmission and devise an individualized program for Aquatic Therapy, Neuromuscular Reeducation, and Str engthening Achieving independence - to improve, our physical therapists will perform initial evaluation of pt's status upon admission and devise an individualized program for Community Reintegration Activities - Occupational Therapy ADL deficits - to improve, our occupation therapists will perform initial evaluation of pt's status upon admission and devise an individualized program for Bathing, Bed mobility, Community Reintegratio n, Cooking, Dressing, Eating, Fine Motor Skills, Grooming, Homemaking, Kitchen Mobility, Laundry, Pat ient Education, Safety Awareness, Splinting - Positioning, Transfers(Toilet, Tub, Shower), and Wheel Chair Management Cognitive deficits - to improve, our occupation therapists will perform initial evaluation of pt's s tatus upon admission and devise an individualized program for Cognition - orientation Need for director of primary care - to improve, our occupation therapists will perform initial evaluation of pt's status upon admission and devise an individualized program for Caregiver Training Weakness - to improve, our occupation therapists will perform initial evaluation of pt's status upon admission and devise an individualized program for Aquatic Therapy, Balance, Endurance, UE ROM, and UE strengthening - Other See attached MAR (Medication Administration Record) - Diet Type Continue Regular - Diet - Liquid Texture Continue Regular - Tube Feed Continue N/A - Fall Precaution SAFTY AND FALL - Diet - Solid Texture Continue Regular - Shower allowing shower FUNCTIONAL STATUS: UPDATED AT WEEKLY TEAM CONFERENCE - Bladder Same accident frequency: 7-Ind - No accidents in the past 7 days - Bowel Same accident frequency: 7-Ind - No accidents in the past 7 days - Walking Same score based on distance walked: 0(N/A) - Wheelchair Same score based on distance traveled: 0(N/A) FUNCTIONAL STATUS: - Self-Care A. Eating Ind B. Grooming modA C. Bathing Dep D. Dressing - Upper modA E. Dressing - Lower maxA F. Toileting maxA - Sphincter Control G. Bladder control sup H. Bowel control sup - Transfers Control I. Bed/Chair/Wheelchair Dep J. Toilet maxA K. Tub/Shower Dep - Locomotion L. Walk/Wheelchair (B) Dep M. Stairs ADNO - Communication N. Comprehension (B) Vern O. Expression (B) Vern - Social Cognition P. Social Interaction Ind Q. Problem Solving sup R. Memory Vern - Endurance Poor - Balance Poor - Safety Awareness Fair QI SCORES: - Self-Care A. Eating 03-Partial/moderate assistance B. Oral hygiene 02-Substantial/maximal assistance C. Toileting hygiene 02-Substantial/maximal assistance E. Shower/bathe self 02-Substantial/maximal assistance F. Upper body dressing 02-Substantial/maximal assistance G. Lower body dressing 02-Substantial/maximal assistance H. Putting on/taking off footwear 88-Not attempted due to medical condition or safety concerns - Mobility A. Roll left and right 03-Partial/moderate assistance B. Sit to lying 03-Partial/moderate assistance C. Lying to sitting on side of bed 02-Substantial/maximal assistance D. Sit to stand 02-Substantial/maximal assistance E. Chair/[id number] transfer 02-Substantial/maximal assistance F. Toilet transfer 02-Substantial/maximal assistance G. Car transfer 88-Not attempted due to medical condition or safety concerns I. Walk 10 feet 88-Not attempted due to medical condition or safety concerns J. Walk 50 feet with two turns 88-Not attempted due to medical condition or safety concerns K. Walk 150 feet 88-Not attempted due to medical condition or safety concerns L. Walking 10 feet on uneven surfaces 88-Not attempted due to medical condition or safety concerns M. 1 step (curb) 88-Not attempted due to medical condition or safety concerns N. 4 steps 88-Not attempted due to medical condition or safety concerns O. 12 steps 88-Not attempted due to medical condition or safety concerns P. Picking up object 88-Not attempted due to medical condition or safety concerns R. Wheel 50 feet with two turns 88-Not attempted due to medical condition or safety concerns S. Wheel 150 feet 88-Not attempted due to medical condition or safety concerns - Endurance Fair - Balance Poor - Safety Awareness Fair CURRENT FORMERLY [facility], 1928–1983. DEFICITS: Self-Care, Mobility, Endurance, Balance, and Safety Awareness SIGNATURE PANEL: (CDT)
[2022-01-14] MEDS: ACETAMINOPHEN 500 MG TAB PO PRN (20:10)
--- NOTE | 2022-01-14 20:29 | P.PN ---
Date of Service: 01/14/22 Vital Signs Temp Pulse Resp BP Pulse Ox 96.8 F 64 15 111/55 L 95 01/14/22 20:12 01/14/22 20:12 01/14/22 20:12 01/14/22 20:12 01/14/22 20:12 Medications Acetaminophen (Acetaminophen 500 Mg Tab) 500 mg PO Q4H PRN PRN Reason: Pain scale 2-4 (Mild) Last Admin: 01/14/22 20:10 Dose: 500 mg Documented by: Acetazolamide (Acetazolamide 250 Mg Tab) 250 mg PO Q24H [facility] Last Admin: 01/14/22 12:17 Dose: 250 mg Documented by: Albuterol Sulfate (Albuterol 2.5 Mg/3 Ml Neb Nishi) 2.5 mg IH [id number] PRN PRN Reason: SHORTNESS OF BREATH Albuterol Sulfate (Albuterol Inhaler 60 Puff/8 Gm) 2 puff IH Q2H PRN PRN Reason: SHORTNESS OF BREATH Allopurinol (Allopurinol 100 Mg Tab) 100 mg PO DAILY [facility] Last Admin: 01/14/22 07:32 Dose: 100 mg Documented by: Amiodarone HCl (Amiodarone Hcl 200 Mg Tab) 200 mg PO DAILY [facility] Last Admin: 01/14/22 07:32 Dose: 200 mg Documented by: Bisacodyl (Bisacodyl 10 Mg Rectal Supp) 10 mg SD DAILY PRN PRN Reason: CONSTIPATION Last Admin: 01/12/22 17:01 Dose: 10 mg Documented by: Bumetanide (Bumetanide 1 Mg Tablet) 2 mg PO BIDL [facility] Last Admin: 01/14/22 17:15 Dose: 2 mg Documented by: Cholecalciferol (Vitamin D 5,000 Unit Cap) 5,000 unit PO DAILY [facility] Last Admin: 01/14/22 07:31 Dose: 5,000 unit Documented by: Dextrose (D50w 25 Gm/50 Ml Syringe) 12.5 gm IV PRN PRN; Protocol PRN Reason: HYPOGLYCEMIA Docusate Sodium (Docusate Na 100 Mg Cap) 100 mg PO BID [facility] Last Admin: 01/14/22 20:00 Dose: Not Given Documented by: Famotidine (Famotidine 20 Mg Tab) 20 mg PO DAILY [facility]; Protocol Last Admin: 01/14/22 07:32 Dose: 20 mg Documented by: Gabapentin (Gabapentin 400 Mg Cap) 400 mg PO DAILY [facility] Last Admin: 01/14/22 07:32 Dose: 400 mg Documented by: Glucagon (Glucagon 1 Mg/Vial) 1 mg IM 1X PRN; Protocol PRN Reason: HYPOGLYCEMIA Home Med (Fluticasone 110 Mcg/Puff 12 Gm Inh) 110 ea IH BID [facility] Last Admin: 01/14/22 20:00 Dose: Not Given Documented by: Sodium Chloride (Sodium Chloride) 250 mls @ 0 mls/hr IV .Q0M [facility] Last Admin: 12/27/21 15:41 Dose: 250 mls Documented by: L-Arginine/L-Glutamine/HMB (Chao Packet) 1 pkt PO BID [facility] Last Admin: 01/14/22 20:00 Dose: Not Given Documented by: Nystatin (Nystatin Pwdr [id number] Unit/Gm) 1 appl TOP BID [facility] Last Admin: 01/14/22 20:05 Dose: 1 appl Documented by: Potassium Chloride (Potassium Cl Sa 10 Meq Tab) 10 meq PO BID [facility] Last Admin: 01/14/22 20:05 Dose: 10 meq Documented by: Rivaroxaban (Rivaroxaban 15 Mg Tablet) 15 mg PO DAILY 5 PM [facility] Last Admin: 01/14/22 17:16 Dose: 15 mg Documented by: Senna/Docusate Sodium (Docusate Na/Senna Conc 1 Tab) 2 tab PO BEDTIME PRN PRN Reason: CONSTIPATION Last Admin: 01/08/22 20:48 Dose: 2 tab Documented by: Sertraline HCl (Sertraline Hcl 50 Mg Tab) 50 mg PO DAILY [facility] Last Admin: 01/14/22 07:32 Dose: 50 mg Documented by: Spironolactone (Spironolactone 25 Mg Tablet) 12.5 mg PO BIDL [facility] Last Admin: 01/14/22 17:16 Dose: 12.5 mg Documented by: Zinc Sulfate (Zinc Sulfate 220 Mg Cap) 220 mg PO BID [facility] Last Admin: 01/14/22 20:05 Dose: 220 mg Documented by: Assessment/ Plan: Nephrology No dyspnea. BROWN. No chest pain Weakness and fatigue No acute events overnight Vitals, medications, blood work and imaging reviewed in the chart. General: Oriented x3, Cooperative. Obese. HEENT: Atraumatic Neck: Supple Respiratory: Normal respiratory effort Cardiovascular: Regular rate/rhythm, Edema Gastrointestinal: Soft and benign, Non-distended Musculoskeletal: No clubbing, No contractures Integumentary: No rashes, No cyanosis Neurological: Normal speech Laboratory Data (last 24 hrs) 12/18/21 05:15: Sodium 134 L, Potassium 4.1, BUN 58 H, Creatinine 1.35 H, Glucose 98, Magnesium 2.5 H 12/18/21 05:15: WBC 13.80 H, Hgb 8.7 L, Hct 27.8 L, Plt Count 284 Imagings Data: EXAM DESCRIPTION: RAD - Chest Single View - 12/18/2021 6:29 am CLINICAL HISTORY: Pneumonia COMPARISON: Portable chest 08/30/2021 TECHNIQUE: AP portable chest image was obtained 12/18/2021 6:29 am . FINDINGS: Left subclavian Port-A-Cath has been placed since the prior examination. Focal airspace opacification with air bronchogram formation seen in the mid upper left lung field. This is new from the August examination. Overall interstitial opacification is prominent and may be slightly increased from the comparison. The dense consolidation of the right upper lobe seen on the August study has cleared are almost entirely cleared. There is minimal lateral opacification and may be remnant from that pneumonia. Heart size is prominent, similar to comparison. Central vasculature prominent. No measurable pleural effusion and no pneumothorax. No acute bony abnormality seen. No acute aortic findings suspected. IMPRESSION: Left upper lung field pneumonia new from prior imaging. Complete or near complete clearing of the right upper lobe pneumonia seen on the 08/30/2021 study. Heart, vasculature and lung markings are all prominent. A component of mild failure or volume overload concurrent with the pneumonia cannot be excluded. Conclusions/Impression: CKD III -No NSAIDs Hyponatremia, resolved -Encourage nutrition Hypokalemia -Replete potassium Alkalosis -Continue Diamox HTN with CKD/ CHF -Monitor BP Bradycardia -Continue Amiodarone 200mg daily SILVANA -Continue CPAP qHS Diastolic CHF, chronic -Bumex 2mg BID -Continue spironolactone -Daily weight -Continue Diamox Daily Moderate malnutrition -Encourage nutrition Anemia in chronic illness Iron Deficiency sp IV iron -Monitor H&H -Retacrit prn Morbid Obesity Debility -PT as tolerated
[2022-01-14 20:44] VITALS: O2SAT 98
[2022-01-15 05:48] LABS: Absolute Lymphocytes (CBC) 1.3 K/uL (0.7-4.9); Hematocrit 30.5 % (36.0-45.0); Lymphocytes % 8.9 % (15.3-44.8); MPV 8.8 fL (7.6-11.3); RBC Red Blood Cell Count 3.67 M/uL (3.86-4.86)
[2022-01-15 06:13] LABS: Albumin 2.6 g/dL (3.4-5.0); Bilirubin Direct 0.2 mg/dL (0-0.2); Bilirubin Total 0.4 mg/dL (0.2-1.0); Magnesium 2.5 mg/dL (1.8-2.4); Phosphorus 3.7 mg/dL (2.5-4.9); Potassium 3.4 mmol/L (3.5-5.1); Uric Acid 8.6 mg/dL (2.6-6.0)
[2022-01-15 07:13] VITALS: TEMP 98.8
[2022-01-15] MEDS: AMIODARONE HCL 200 MG TAB PO SCH (07:46)
[2022-01-15] MEDS: POTASSIUM CL SA 10 MEQ TAB PO SCH (07:46)
[2022-01-15] MEDS: SERTRALINE HCL 50 MG TAB PO SCH (07:47)
[2022-01-15] MEDS: GABAPENTIN 400 MG CAP PO SCH (07:47)
[2022-01-15] MEDS: allopurinoL 100 MG TAB PO SCH (07:47)
[2022-01-15] MEDS: FAMOTIDINE 20 MG TAB PO SCH (07:47)
[2022-01-15] MEDS: SPIRONOLACTONE 25 MG TABLET PO SCH (07:48)
[2022-01-15] MEDS: ZINC SULFATE 220 MG CAP PO SCH (07:48)
[2022-01-15] MEDS: VITAMIN D 5,000 UNIT CAP PO SCH (07:48)
[2022-01-15] MEDS: BUMETANIDE 1 MG TABLET PO SCH (07:48)
[2022-01-15] MEDS: FLUTICASONE 110 MCG/PUFF 12 GM INH IH SCH (08:00)
[2022-01-15] MEDS: JUVEN PACKET PO SCH (08:00)
[2022-01-15] MEDS: DOCUSATE NA 100 MG CAP PO SCH (08:00)
[2022-01-15] MEDS: NYSTATIN PWDR 100000 UNIT/GM TOP SCH (09:20)
[2022-01-15] MEDS: ACETAMINOPHEN 500 MG TAB PO PRN (11:37)
[2022-01-15] MEDS: acetaZOLAMIDE 250 MG TAB PO SCH (12:27)
[2022-01-15 12:29] VITALS: BP 127/52
[2022-01-15] MEDS ORDERED: POTASSIUM CL SA 10 MEQ TAB PO ONE (13:26)
--- NOTE | 2022-01-15 17:59 | R.PN ---
PROGRESS NOTES ENCOUNTER DATE AND TIME: 01/15/2022 17:48 (CDT) NAME ISAÍAS PORTER DATE OF : 1950 DATE OF ADMISSION: 12/17/2021 20:07 (CDT) Bronchiectasis, Chronic Bronchitis, COPDCHIEF COMPLAINT: COPD, chronic bronchitis SUBJECTIVE: Pt denied any depression. Pt denied any Shortness of Breath. Therapeutic exercises done with minimal assistance. Bed mobility done with standby assistance. Bed tr ansfers done with max assistance. O2 sat 95% on 2.5 L O2 via NC. Na 135, K 3.4, Blood Bank Technician increased to 2.09 from 1.68, 4 days ago, prealbumin 18.9. WBC increased to 14.2 fr om 8.1, 4 days ago, Hgb 9.5. Chest x-ray today shows mildly improved bilateral moderate pulmonary opacities compared to 01/10/2022 COVID-19 test is negative x 4 including today. Sit to stand done with mod to max assistance VITAL SIGNS Temperature: 98.8 F SBP/DBP: 127/52 Pulse: 65 Resp: 16 MEDICATION ALLERGIES: No Known Drug Allergies (NKDA) ENVIRONMENTAL ALLERGIES: - Substance Allergies None Known - Other Allergies None Known NURSING: - Shower allowing shower PRECAUTIONS: - Fall Precaution SAFTY AND FALL ACTIVITIES OOB only with supervision THERAPIES: - Dietary and Nutrition Adequate Nutrition. Nutritional Education. Nutritional Supplements. Evaluate and Treat. - Occupational Therapy Cognitive Retraining. Patient needs Occupational Therapy for a daily minimum of 1.5 hours at least 5 out of 7 days, to improve Activities of Daily Living, including: Eating, Grooming, Bathing, Dressing, Toileting, Toilet Transfers, Community Reintegration, Higher functional activities, Adaptive Equipme nt, Splinting, Household Tasks, and Other activities as determined. Evaluate and Treat. Visual Percep tual Training. Patient/Family Education. Safety Awareness. Transfer Training. Adaptive Equipment. Ivan sehold Tasks. UE Strengthening. - Speech Therapy Cognitive Training. Expressive Language Skills. Memory Strategies. Patient needs Speech Therapy for a daily minimum of 1.5 hours at least 5 out of 7 days, to improve: Swallowing, Cognition, Language Ski lls, and Compensatory Strategies. Receptive Language Skills. Speech Intelligibility Training. Evaluat e and Treat. - Physical Therapy Patient needs Physical Therapy for a daily minimum of 1.5 hours at least 5 out of 7 days, to improve: Mobility, Strengthening, Transfers, Stretching, ROM, Endurance, Ability to manage stairs, Gait, and Balance. Mobility Training. Evaluate and Treat. Gait Training. Safety Awareness. Balance Training. Pa tient/Family Education. LE Strengthening. Medical Equipment Assessment and Evaluation. PHYSICAL EXAM - Gen Alert and awake Lying in bed No apparent distress Oriented to: person, time, and place - Skin No skin breakdown. Normacephalic - Eyes No abnormalities - Neck No abnormalities - CVS RRR - Chest No abnormalities - Abd Obese - Ext Moderate edema in both lower extremities. - MSK 4+/5 weakness in both lower extremities. - Neuro No focal deficits - Psych Mild depression. ASSESSMENT: Pt. is a 71 yo Right-handed female.On 12/03/2021 she was admitted to [facility] with diagnosi s Bronchiectasis, Chronic Bronchitis, COPD.Extreme obesity BMI 56.6Her impairment category is Pulmona ry Disorders 10 - Chronic Obstructive Pulmonary Disease (10.1).Pre-morbidly, Pt. was independent/mod -I in Locomotion, Safety Awareness, Social Cognition, Balance, and Transfers Control; and she had goo d Sphincter Control, Self-Care, Communication, and Endurance.Currently, she has deficits of Locomotio n, Safety Awareness, Social Cognition, Balance, Transfers Control, Sphincter Control, Self-Care, Comm unication, and Endurance.Pt. is now referred to [facility] for acute in-patien t rehabilitation in order to maximize patient's functional independence in activities of daily living , strength, ROM, and mobility.- Rehab Goal Patient has realistic goal of being discharged at assistance level 7-Ind to reside at Home with Fami ly/Relatives. MDM/PLAN: - Physical Therapy Gait dysfunction - to improve, our physical therapists will perform initial evaluation of pt's statu s upon admission and devise an individualized program for Gait Training, and Wheel Chair mobility Inability to transfer - to improve, our physical therapists will perform initial evaluation of pt's status upon admission and devise an individualized program for Bed mobility Need for home safety evaluation - to improve, our physical therapists will perform initial evaluatio n of pt's status upon admission and devise an individualized program for Home Evaluation Need in caregiver upon discharge - to improve, our physical therapists will perform initial evaluati on of pt's status upon admission and devise an individualized program for Caregiver Training New precaution - to improve, our physical therapists will perform initial evaluation of pt's status upon admission and devise an individualized program for Patient precaution education Poor balance - to improve, our physical therapists will perform initial evaluation of pt's status up on admission and devise an individualized program for Balance Training Poor endurance - to improve, our physical therapists will perform initial evaluation of pt's status upon admission and devise an individualized program for Endurance Training Weakness - to improve, our physical therapists will perform initial evaluation of pt's status upon a dmission and devise an individualized program for Aquatic Therapy, Neuromuscular Reeducation, and Str engthening Achieving independence - to improve, our physical therapists will perform initial evaluation of pt's status upon admission and devise an individualized program for Community Reintegration Activities - Occupational Therapy ADL deficits - to improve, our occupation therapists will perform initial evaluation of pt's status upon admission and devise an individualized program for Bathing, Bed mobility, Community Reintegratio n, Cooking, Dressing, Eating, Fine Motor Skills, Grooming, Homemaking, Kitchen Mobility, Laundry, Pat ient Education, Safety Awareness, Splinting - Positioning, Transfers(Toilet, Tub, Shower), and Wheel Chair Management Cognitive deficits - to improve, our occupation therapists will perform initial evaluation of pt's s tatus upon admission and devise an individualized program for Cognition - orientation Need for multi care technician - to improve, our occupation therapists will perform initial evaluation of pt's status upon admission and devise an individualized program for Caregiver Training Weakness - to improve, our occupation therapists will perform initial evaluation of pt's status upon admission and devise an individualized program for Aquatic Therapy, Balance, Endurance, UE ROM, and UE strengthening - Other See attached MAR (Medication Administration Record) - Diet Type Continue Regular - Diet - Liquid Texture Continue Regular - Tube Feed Continue N/A - Fall Precaution SAFTY AND FALL - Diet - Solid Texture Continue Regular - Shower allowing shower FUNCTIONAL STATUS: UPDATED AT WEEKLY TEAM CONFERENCE - Bladder Same accident frequency: 7-Ind - No accidents in the past 7 days - Bowel Same accident frequency: 7-Ind - No accidents in the past 7 days - Walking Same score based on distance walked: 0(N/A) - Wheelchair Same score based on distance traveled: 0(N/A) FUNCTIONAL STATUS: - Self-Care A. Eating Ind B. Grooming modA C. Bathing Dep D. Dressing - Upper modA E. Dressing - Lower maxA F. Toileting maxA - Sphincter Control G. Bladder control sup H. Bowel control sup - Transfers Control I. Bed/Chair/Wheelchair Dep J. Toilet maxA K. Tub/Shower Dep - Locomotion L. Walk/Wheelchair (B) Dep M. Stairs ADNO - Communication N. Comprehension (B) Vern O. Expression (B) Vern - Social Cognition P. Social Interaction Ind Q. Problem Solving sup R. Memory Vern - Endurance Poor - Balance Poor - Safety Awareness Fair QI SCORES: - Self-Care A. Eating 03-Partial/moderate assistance B. Oral hygiene 02-Substantial/maximal assistance C. Toileting hygiene 02-Substantial/maximal assistance E. Shower/bathe self 02-Substantial/maximal assistance F. Upper body dressing 02-Substantial/maximal assistance G. Lower body dressing 02-Substantial/maximal assistance H. Putting on/taking off footwear 88-Not attempted due to medical condition or safety concerns - Mobility A. Roll left and right 03-Partial/moderate assistance B. Sit to lying 03-Partial/moderate assistance C. Lying to sitting on side of bed 02-Substantial/maximal assistance D. Sit to stand 02-Substantial/maximal assistance E. Chair/[id number] transfer 02-Substantial/maximal assistance F. Toilet transfer 02-Substantial/maximal assistance G. Car transfer 88-Not attempted due to medical condition or safety concerns I. Walk 10 feet 88-Not attempted due to medical condition or safety concerns J. Walk 50 feet with two turns 88-Not attempted due to medical condition or safety concerns K. Walk 150 feet 88-Not attempted due to medical condition or safety concerns L. Walking 10 feet on uneven surfaces 88-Not attempted due to medical condition or safety concerns M. 1 step (curb) 88-Not attempted due to medical condition or safety concerns N. 4 steps 88-Not attempted due to medical condition or safety concerns O. 12 steps 88-Not attempted due to medical condition or safety concerns P. Picking up object 88-Not attempted due to medical condition or safety concerns R. Wheel 50 feet with two turns 88-Not attempted due to medical condition or safety concerns S. Wheel 150 feet 88-Not attempted due to medical condition or safety concerns - Endurance Fair - Balance Poor - Safety Awareness Fair CURRENT REPLACED BY [facility]. DEFICITS: Self-Care, Mobility, Endurance, Balance, and Safety Awareness SIGNATURE PANEL: (CDT)
== END 2022-01-15 14:20 | DRG 948 ==
LOC: 5TH 20:07
PROVIDERS: ADMIT Psychiatry & Neurology Neurology with Special Qualifications in Child Neurology; ATTEND Psychiatry & Neurology Neurology with Special Qualifications in Child Neurology
DX: R53.81 Other malaise (principal); I13.0 Hypertensive heart and chronic kidney disease with heart failure and stage 1 through stage 4 chronic kidney disease, or unspecified chronic kidney disease; I50.32 Chronic diastolic (congestive) heart failure; E87.1 Hypo-osmolality and hyponatremia; E87.3 Alkalosis; E44.0 Moderate protein-calorie malnutrition; Z68.43 Body mass index [BMI] 50.0-59.9, adult; N17.9 Acute kidney failure, unspecified; J96.11 Chronic respiratory failure with hypoxia; N18.30 Chronic kidney disease, stage 3 unspecified; E87.6 Hypokalemia; R00.1 Bradycardia, unspecified; G47.33 Obstructive sleep apnea (adult) (pediatric); D63.8 Anemia in other chronic diseases classified elsewhere; E66.01 Morbid (severe) obesity due to excess calories; D50.9 Iron deficiency anemia, unspecified; J44.9 Chronic obstructive pulmonary disease, unspecified; I48.91 Unspecified atrial fibrillation; T46.2X5A Adverse effect of other antidysrhythmic drugs, initial encounter; I73.9 Peripheral vascular disease, unspecified; Z20.822 Contact with and (suspected) exposure to COVID-19
CPT/HCPCS: 36415; 71045; 80048; 80053; 80076; 82040; 82607; 82746; 82805; 82947; 83540; 83605; 83735; 83880; 84100; 84134; 84145; 84466; 84550; 85014; 85018; 85025; 86850; 86900; 86901; 90471; 90732; 94010; 94640; 94660; 94760; 97110; 97112; 97116; 97161; 97165; 97530; 97542; J1120; J1940; J2543; J2916; J7050; P9016; Q2035; Q5106; U0003

== ENCOUNTER 2022-04-22 07:40 | Emergency (ER) | payer OTHER ==
--- OUTSIDE RECORDS SUMMARY | 2022-04-22 07:42 | XMS REPORT | Continuity of Care Document ---
:1950 Author Organization [facility] t Address [address] [place] [address] Support Name Relationship Address Phone CHARLOTTE Mcduffie [address] Unavailable [place] [phone] MD YARIEL [facility] [address] [facility] [phone] [place] [phone] JURGEN VILLANUEVA MD E Admitting Provider [address] [place] [address] [place] [phone] MD TERRY Emergency Provider 2536 [email or web address] [address] MD ALEJANDRA MAIRA Admitting Provider [address] [place] [phone] MD JENNIFER Emergency Provider [address] [facility] [address] [address] [place], [place] [phone] PHYSICIAN Primary Care Physician Unavailable Unavailab naman FAM MD Emergency Provider [address] [phone] [place], [place] [phone] MD ANA Emergency Provider [address] [facility] [place], [place] [phone] MD Robe TYSON. Primary Care Physician [address] [place] [address] TE 3 [place] [phone] MD JESICA Emergency Provider [address] [place], [place] [phone] Care Team Providers Name Role Phone Mathew BAH Primary Care Physician Unavailable DIANNE HANSEN Attending Clinician Unavailable IHDE_G Attending Clinician Unavailable TYRONE Attending Clinician Unavailable FELICITA, ASLAM Admitting Clinician Unavailable DIANNE HANSEN Admitting Clinician Unavailable IHDE_G Admitting Clinician Unavailable TYRONE Admitting Clinician Unavailable Payers Payer Name Policy Type Policy Number Effective Date Expiration Date Zane cassidy UNITED MEDICARE HMO [id number] 2020 00:00:00 [facility] [id number] 2021 [facility] 00:00:00 (MEDICARE REPLACEMENT/ADVANTA GE - HMO) Problems This patient has no known problems. Allergies, Adverse Reactions, Alerts Allergy Allergy Status Severity Reaction(s) Onset Inactive Treating Comm ents Source Name Type Date Date Clinician BUMETANI Allergy Active High [facility] CLINDAMY Allergy Active Med Other [facility] VANCOMYC Allergy Active Med [facility] [place] [facility] Medications This patient has no known medications. Vital Signs Vital Name Observation Time Observation Value Comments Source HEIGHT 2022-03-19 21:53:00 170.2 cm WEIGHT 2022-03-19 21:53:00 171.051 kg HEIGHT 2022-03-19 21:53:00 170.2 cm WEIGHT 2022-03-19 21:53:00 171.051 kg Procedures This patient has no known procedures. Encounters Start End Encounter Admission Attending Care Care Encounter Source Date/Time Date/Time Type Type Clinicians Facility Department ID 2022-03-19 2022-03-22 Inpatient ER UBALDO HANSEN [facility] [id number] [facility] 21:28:00 16:50:00 Med 2021-12-12 2021-12-12 Outpatient IHDE_G [facility] [id number] [place] 03:09:00 03:09:00 [id number] 2021-09-17 2021-09-26 Inpatient UBALDO HANSEN [facility] [id number] [place] 00:00:00 00:00:[address] Results Test Description Test Time Test Comments Results Result Sour e Comments TISSUE EXAM Surgical Pathology 6 Report 16:20:38 Case: [id number] Authorizing Provider: Se Whitmore Collected: 03/21/2022 04:37 PM MD Zeny Ordering Location: [address] Med/Surg Received: 03/22/2022 08:04 AM Pathologist: Gabby Andrew MD Specimen: Gallbladder, Gallbladder THIS ADDENDUM IS ISSUED TO REPORT THE RESULTS OF INTRADEPARTMENTAL CONSULTATION AND FINAL DIAGNOSIS:GALLBLADDER, LAPAROSCOPIC CHOLECYSTECTOMY: - FOCAL HIGH GRADE DYSPLASIA IN A BACKGROUND OF EXTENSIVE LOW GRADE DYSPLASIA INVOLVING BILIARY EPITHELIUM - ACUTE ON CHRONIC CHOLECYSTITIS WITH ULCERATION AND INTESTINAL METAPLASIA - CHOLELITHIASIS - CHOLESTEROLOSIS - CYSTIC DUCT MARGIN, UNREMARKABLE - BENIGN CYSTIC LYMPH NODE , REACTIVEDrs. Dave Ariza and Dameon Sequeira have reviewed selected slides from the case and agree with the above diagnosis Addendum electronically signed by Gabby Andrew MD on 04/03/2022 at 4:20 PMGALLBLADDER,LAPAROSC OPIC CHOLECYSTECTOMY: - EXTENSIVE LOW GRADE DYSPLASIA (SEE COMMENT) - ACUTE ON CHRONIC CHOLECYSTITIS WITH INTESTINAL METAPLASIA - CHOLELITHIASIS - CHOLESTEROLOSIS - CYSTIC DUCT MARGIN, UNREMARKABLE - BENIGN CYSTIC LYMPH NODE , REACTIVE Signing Pathologist Direct Phone Line: [phone] ally signed by Gabby Andrew MD on 03/29/2022 at 1:23 PMSelected slides have been submitted for intradepartmental consultation; an addendum report will [id number] cholecystitis A. Gallbladder.Received in formalin labeled with the patient's information and labeled "gallbladder" is a distended gallbladder with cystic duct at the margin measuring 9 x 5 x 3 cm. The specimen has been surgically disrupted. There is a linear incision into the gallbladder. The serosa is hemorrhagic and congested. The specimen is opened further to reveal multiple choleliths ranging from 0.8 to 3 cm in greatest dimension. These are nassar-green to nassar-yellow. There are also a few blood clots in the lumen. The mucosa of the gallbladder is hemorrhagic,Cholestero losis is also identified. The wall thickness measures up to 0.5 cm. Janitor sections including the cystic duct margin are submitted in cassettes A1 and A2. There is also a cystic lymph node measuring 0.8 x 0.8 x 0.3 cm. It is trisected and submitted along with the cystic duct margin in cassette A1. The wall of the gallbladder is submitted in A2. BH/ewThe gallbladder wall is entirely submitted in cassette labeled A3 to A22. BH/plPERFORMED RAD, CHEST, 1 2022-02-28 Reason for VIEW, NON DEPT 3 exam:->super 13:48:00 obesity, for [facility] surgeryShould this [facility] the bedside?->Yes ISAÍAS Morales : 1950 Sex: F FINAL REPORT Exam: RAD, CHEST, 1 VIEW, NON DEPTDate: 03/21/2022 1:44 PM Indication:super obesity, for surgeryComparison: Outside hospital chest x-ray 03/19/2022 FINDINGS: Lines/Tubes/Devices: None Lungs/pleura:Lungs are well inflated. Prominent/indistinct vascularity. Left perihilar haziness. 6 mm dense nodule projecting over right midlung. No pleural effusion. No pneumothorax. Heart/Mediastinum:Magn ified by portable technique. Aortic atherosclerosis. Bones/Soft Tissues: No acute osseous abnormality. Upper abdomen: Unremarkable. IMPRESSION:Prominent/ indistinct pulmonary vasculature, fluid overload/interstitial edema.Left perihilar haziness may represent edema and/or infectious process in the appropriate clinical setting.6 mm dense nodule projecting over right midlung likely calcified granuloma. Signed: Jean Paul Garvey MDReport Verified Date/Time: 03/21/2022 13:48:15 Reading Location: [facility] Radiology Reading Room TIC FUNCTION PANEL 2022-03-21 02:45:56 Test Item Value Reference Range Interpretation Comme nts TOTAL PROTEIN (BEAKER) (test code = 5.6 gm/dL 6.0-8.5 L Specimen slightly hemolyzed 770) ALBUMIN (BEAKER) (test code = 1145) 2.9 g/dL 3.5-5.0 L Specimen slightly hemolyzed BILIRUBIN TOTAL (BEAKER) (test code = 0.5 mg/dL 0.1-1.2 Specimen slightly hemolyzed 377) BILIRUBIN DIRECT (BEAKER) (test code 0.2 mg/dL 0.0-0.4 Specimen slightly hemolyzed = 706) ALKALINE PHOSPHATASE (BEAKER) (test 47 U/L 30-115 code = 346) AST (SGOT) (BEAKER) (test code = 353) 23 U/L 5-40 Specimen slightly hemolyzed ALT (SGPT) (BEAKER) (test code = 347) 16 U/L 5-50 Specimen slightly hemolyzed Credit Risk Analytics Manager ID - [id number] ID - [id number] ID - [id number] ID - [id number] ID - [id number] ID - [id number] ID - [id number] 2022-03-21 02:30:47 Test Item Value Reference Range Interpretation Comments LIPASE (BEAKER) (test code = 749) 15 U/L 6-51 Credit Risk Analytics Manager ID - [id number] ID - [id number] ID - [id number] ID - [id number] W/PLT COUNT & AUTO [id number] 02:07:59 Test Item Value Reference Range Interpretation Comments WHITE BLOOD CELL COUNT (BEAKER) 8.0 K/ L 4.0-10.0 (test code = 775) RED BLOOD CELL COUNT (BEAKER) 2.85 M/ L 4.00-5.00 L (test code = 761) HEMOGLOBIN (BEAKER) (test code = 8.2 GM/DL 12.0-15.5 L 410) HEMATOCRIT (BEAKER) (test code = 27.3 % 36.0-46.0 L 411) MEAN CORPUSCULAR VOLUME (BEAKER) 95.8 fL 82.0-99.0 (test code = 753) MEAN CORPUSCULAR HEMOGLOBIN 28.8 pg 27.0-33.0 (BEAKER) (test code = 751) MEAN CORPUSCULAR HEMOGLOBIN CONC 30.0 GM/DL 32.0-36.0 L (BEAKER) (test code = 752) RED CELL DISTRIBUTION WIDTH 17.3 % 12.0-15.0 H (BEAKER) (test code = 412) PLATELET COUNT (BEAKER) (test 213 K/CU MM 150-430 code = 756) MEAN PLATELET VOLUME (BEAKER) 10.3 fL 6.0-11.5 (test code = 754) NUCLEATED RED BLOOD CELLS 0 /100 WBC 0-0 (BEAKER) (test code = 413) NEUTROPHILS RELATIVE PERCENT 69 % (BEAKER) (test code = 429) LYMPHOCYTES RELATIVE PERCENT 16 % (BEAKER) (test code = 430) MONOCYTES RELATIVE PERCENT 11 % (BEAKER) (test code = 431) EOSINOPHILS RELATIVE PERCENT 3 % (BEAKER) (test code = 432) BASOPHILS RELATIVE PERCENT 1 % (BEAKER) (test code = 437) NEUTROPHILS ABSOLUTE COUNT 5.50 K/ L 1.80-8.00 (BEAKER) (test code = 670) LYMPHOCYTES ABSOLUTE COUNT 1.28 K/ L 1.48-4.50 L (BEAKER) (test code = 414) MONOCYTES ABSOLUTE COUNT (BEAKER) 0.91 K/ L 0.00-1.30 (test code = 415) EOSINOPHILS ABSOLUTE COUNT 0.21 K/ L 0.00-0.50 (BEAKER) (test code = 416) BASOPHILS ABSOLUTE COUNT (BEAKER) 0.05 K/ L 0.00-0.20 (test code = 417) IMMATURE GRANULOCYTES-RELATIVE 1 % 0-0 H PERCENT (BEAKER) (test code = 2801) HEPATOBILIARY [id number] 20:54:00Unlisted Reason for Exam - Click Yes and Enter Reason Below->No [facility] : 1950 Sex: FFINAL REPORT PROCEDURE: HEPATOBILIARY SCAN with morphine sulfate CPT CODE: 99329 INDICATION: Cholelithiasis PROTOCOL: 6.0 mCi of Tc-99m mebrofenin wasinjected intravenously. Images of the upper abdomen were obtained for approximately 105 minutes after tracer injection. 4 mg of morphine sulfate was then injected intravenously. Imaging was continued for an additional 30 minutes. A booster dose of 2.0 mCi of Tc-99m mebrofenin was administered at approximately two hours after initial injection. FINDINGS: Initial tracer uptake into the liver is physiological. Subsequent tracer clearance from the liver is mildly delayed. There is good visualization of the extrahepatic biliary duct. Tracer appears appropriately in the small bowel. The gallbladder is not seen after morphine administration. IMPRESSION: Cholecystitis. Signed: Herman Floyd MDReport Verified Date/Time: 03/20/2022 20:54:14 HROMBIN [id number] 06:31:25 Test Item Value Reference Range Interpretation Comments PROTIME (BEAKER) 11.4 seconds 9.3-12.0 Final Infor mation (test code = 759) (Auto Outp ut) INR (BEAKER) (test 1.04 See_Comment Final Inf ormation code = 370) (Auto Output) [Automated mess age] The system [employer] generated this result transmitted ref erence range: <=5.90. The reference range was not used to int erpret this result as normal/abnormal . RECOMMENDED COUMADIN/WARFARIN INR THERAPY RANGESSTANDARD DOSE: 2.0 - 3.0 Includes: PROPHYLAXIS forvenous thrombosis, systemic embolization; TREATMENT for venous thrombosis and/or pulmonary embolus.HIGH RISK: Target INR is 2.5-3.5 for patients with mechanical heart valves.URINALYSIS W/ REFLEX URINE CULTURE 2022-03-20 02:31:20 Test Item Value Reference Range Interpretation Comments COLOR (BEAKER) (test code = Yellow 470) CLARITY (BEAKER) (test code = Slightly Cloudy 469) SPECIFIC GRAVITY UA (BEAKER) 1.025 1.001-1.035 (test code = 468) PH UA (BEAKER) (test code = 5.5 5.0-8.0 467) PROTEIN UA (BEAKER) (test 30 mg/dL Negative A code = 464) GLUCOSE UA (BEAKER) (test Negative Negative code = 365) KETONES UA (BEAKER) (test Negative Negative code = 371) BILIRUBIN UA (BEAKER) (test Negative Negative code = 462) BLOOD UA (BEAKER) (test code Large Negative A = 461) NITRITE UA (BEAKER) (test Positive Negative A code = 465) LEUKOCYTE ESTERASE UA Small Negative A (BEAKER) (test code = 466) UROBILINOGEN UA (BEAKER) 0.2 mg/dL 0.2-1.0 (test code = 463) BACTERIA (BEAKER) (test code Few = 517) RBC UA-MANUAL (BEAKER) (test 50-100 /HPF code = 1659) WBC UA-MANUAL (BEAKER) (test 20-50 /HPF code = 1661) SQUAMOUS EPITHELIAL MANUAL <5 /HPF (BEAKER) (test code = 1663) SOURCE(BEAKER) (test code = 2795) PROTHROMBIN [id number] 02:23:20 Test Item Value Reference Range Interpretation Comments PROTIME (BEAKER) 11.4 seconds 9.3-12.0 Final Infor mation (test code = 759) (Auto Outp ut) INR (BEAKER) (test 1.04 See_Comment Final Inf ormation code = 370) (Auto Output) [Automated mess age] The system [employer] generated this result transmitted ref erence range: <=5.90. The reference range was not used to int erpret this result as normal/abnormal . RECOMMENDED COUMADIN/WARFARIN INR THERAPY RANGESSTANDARD DOSE: 2.0 - 3.0 Includes: PROPHYLAXIS forvenous thrombosis, systemic embolization; TREATMENT for venous thrombosis and/or pulmonary embolus.HIGH RISK: Target INR is 2.5-3.5 for patients with mechanical heart valves.[id number] 01:56:54 Test Item Value Reference Range Interpretation Comments LIPASE (BEAKER) (test code = 749) 17 U/L 6-51 Credit Risk Analytics Manager ID - LITOOperator ID - LITOOperator ID - LITOOperator ID - LITOHEPATIC FUNCTION [id number] 01:56:18 Test Item Value Reference Range Interpretation Comments TOTAL PROTEIN (BEAKER) (test code = 5.9 gm/dL 6.0-8.5 L 770) ALBUMIN (BEAKER) (test code = 1145) 3.1 g/dL 3.5-5.0 L BILIRUBIN TOTAL (BEAKER) (test code 0.5 mg/dL 0.1-1.2 = 377) BILIRUBIN DIRECT (BEAKER) (test 0.3 mg/dL 0.0-0.4 code = 706) ALKALINE PHOSPHATASE (BEAKER) (test 48 U/L 30-115 code = 346) AST (SGOT) (BEAKER) (test code = 19 U/L 5-40 353) ALT (SGPT) (BEAKER) (test code = 16 U/L 5-50 347) Credit Risk Analytics Manager ID - LITOOperator ID - LITOOperator ID - LITOOperator ID - LITOOperator ID - LITOOperator ID - LITOOperator ID - LITOLIPID [id number] 01:55:57 Test Item Value Reference Range Interpretation Comments TRIGLYCERIDES (BEAKER) (test code = 147 mg/dL 540) CHOLESTEROL (BEAKER) (test code = 143 mg/dL 631) HDL CHOLESTEROL (BEAKER) (test code 42 mg/dL = 976) LDL CHOLESTEROL CALCULATED (BEAKER) 72 mg/dL (test code = 633) Triglyceride Reference Range: Low Risk <150 Borderline 150-199 High Risk 200-499 Very High Risk >=500Cholesterol Reference Range: Low Risk <200 Borderline 200-239 High Risk >240HDL Cholesterol Reference Range: Low Risk >=60 High Risk <40LDL Cholesterol Reference Range: Optimal <100 Near Optimal 100-129 Borderline 130-159 High 160-189 Very High >=190 Credit Risk Analytics Manager ID - LITOOperator ID - LITOOperator ID - LITOCBC W/PLT COUNT & AUTO [id number] 01:44:36 Test Item Value Reference Range Interpretation Comments WHITE BLOOD CELL COUNT (BEAKER) 10.9 K/ L 4.0-10.0 H (test code = 775) RED BLOOD CELL COUNT (BEAKER) 3.01 M/ L 4.00-5.00 L (test code = 761) HEMOGLOBIN (BEAKER) (test code = 8.5 GM/DL 12.0-15.5 L 410) HEMATOCRIT (BEAKER) (test code = 28.3 % 36.0-46.0 L 411) MEAN CORPUSCULAR VOLUME (BEAKER) 94.0 fL 82.0-99.0 (test code = 753) MEAN CORPUSCULAR HEMOGLOBIN 28.2 pg 27.0-33.0 (BEAKER) (test code = 751) MEAN CORPUSCULAR HEMOGLOBIN CONC 30.0 GM/DL 32.0-36.0 L (BEAKER) (test code = 752) RED CELL DISTRIBUTION WIDTH 17.2 % 12.0-15.0 H (BEAKER) (test code = 412) PLATELET COUNT (BEAKER) (test 236 K/CU MM 150-430 code = 756) MEAN PLATELET VOLUME (BEAKER) 10.4 fL 6.0-11.5 (test code = 754) NUCLEATED RED BLOOD CELLS 0 /100 WBC 0-0 (BEAKER) (test code = 413) NEUTROPHILS RELATIVE PERCENT 77 % (BEAKER) (test code = 429) LYMPHOCYTES RELATIVE PERCENT 12 % (BEAKER) (test code = 430) MONOCYTES RELATIVE PERCENT 10 % (BEAKER) (test code = 431) EOSINOPHILS RELATIVE PERCENT 1 % (BEAKER) (test code = 432) BASOPHILS RELATIVE PERCENT 0 % (BEAKER) (test code = 437) NEUTROPHILS ABSOLUTE COUNT 8.36 K/ L 1.80-8.00 H (BEAKER) (test code = 670) LYMPHOCYTES ABSOLUTE COUNT 1.26 K/ L 1.48-4.50 L (BEAKER) (test code = 414) MONOCYTES ABSOLUTE COUNT (BEAKER) 1.07 K/ L 0.00-1.30 (test code = 415) EOSINOPHILS ABSOLUTE COUNT 0.11 K/ L 0.00-0.50 (BEAKER) (test code = 416) BASOPHILS ABSOLUTE COUNT (BEAKER) 0.04 K/ L 0.00-0.20 (test code = 417) IMMATURE GRANULOCYTES-RELATIVE 1 % 0-0 H PERCENT (BEAKER) (test code = 5151)
--- NOTE | 2022-04-22 08:05 | EDPHYS ---
Physician Documentation [facility] Name: Chrissie Siddiqi Age: 72 yrs Sex: Female : 1950 Arrival Date: 04/22/2022 Time: 07:51 Bed 3 Private MD: ED Physician Rito Merrill HPI: 04/22 07:58 This 72 yrs old Female presents to ER via Unassigned with complaints of iram Shortness Of Breath - Low O2. 07:58 The patient has shortness of breath at rest. Onset: The symptoms/episode began/occurred iram last night. Duration: The symptoms are continuous, and are steadily getting worse. The patient's shortness of breath is aggravated by chf. Associated signs and symptoms: Pertinent positives: on vent sats low, not maintaining. Severity of symptoms: At their worst the symptoms were mild in the emergency department the symptoms are unchanged. The patient has not experienced similar symptoms in the past. Historical: - Allergies: 09:57 Clindamycin; vg1 09:57 Decongestants; vg1 09:57 Vancomycin; vg1 09:57 Bometanide; vg1 - Home Meds: 09:57 Albuterol Inhl [Active]; Amiodarone Oral [Active]; Pepcid Oral [Active]; gabapentin vg1 oral [Active]; Lasix Oral [Active]; Prednisolone Oral [Active]; Synthroid Oral [Active]; Zoloft Oral [Active]; - Immunization history:: Client reports receiving the 2nd dose of the Covid vaccine. - Family history:: not pertinent. - Social history:: Smoking status: Patient/guardian denies using tobacco. ROS: 08:00 Unable to obtain ROS due to patient is on ventilator. iram Exam: 08:00 Cardiovascular: Rate: normal, actual rate is 98 bpm, Rhythm: regular, Pulses: Pulses iram are 4+ in . JVD: is not appreciated. 08:00 Respiratory: on vent, sedated, sats 100%. 08:01 Abdomen/GI: Bowel sounds: normal, Palpation: soft, in all quadrants, Liver: no iram appreciated palpable abnormalities, Hernia: not appreciated. 08:01 Neuro: seizure activity, is not displayed by the patient, sedated, on vent. 10:07 ECG was reviewed by the Attending Physician. iram Vital Signs: 07:53 BP 141 / 100; Pulse 107; Resp 17; Weight 180 kg; vg1 08:00 Pulse Ox 100% on ETT vent; vg1 08:09 Temp 96.5(R); vg1 09:00 BP 142 / 98; Pulse 115; Resp 12; Pulse Ox 97% on ETT vent; vg1 09:05 BP 146 / 81; Pulse 123; Resp 15; Pulse Ox 95% on ETT vent; vg1 09:15 BP 151 / 96; Pulse 109; Resp 14; Pulse Ox 95% on ETT vent; vg1 09:30 BP 131 / 64; Pulse 123; Resp 20; Pulse Ox 97% on ETT vent; vg1 MDM: 07:57 Patient medically screened. iram 08:57 Differential diagnosis: Anemia Bronchitis CHF exacerbation, Pneumothorax pulmonary iram edema, Pulmonary Embolism reactive airway disease. Antibiotic administration: DONE PRIOR. Differential Diagnosis altered mental status, sepsis. The patient's Wells Deep Vein Thrombosis Score was calculated as follows: Heart Rate >100 BPM (1.5 Pts) Total Score: 0-2 Pts- Low Risk. The patient's pulmonary embolism risk score was calculated as follows: Total Score: 0-2 points. This patient was found to be at low risk for a pulmonary embolism by using the Well's assessment criteria. Immunization status: Pneumococcal vaccine: Influenza vaccine: Data reviewed: vital signs, nurses notes, lab test result(s), EKG, radiologic studies, plain films. 09:29 Data interpreted: mechanical integrity specialist: rate is 107 beats/min, rhythm is atrial flutter, iram Pulse oximetry: on room air is 100 %. Arterial blood gas: pH: 7.338, PO2: 106, PCO2: 76, HCO3: 39.7. Test interpretation: by ED physician or midlevel provider: ECG, plain radiologic studies. Counseling: I had a detailed discussion with the patient and/or guardian regarding: the historical points, exam findings, and any diagnostic results supporting the discharge/admit diagnosis, lab results, radiology results, the need to transfer to another facility, for higher level of care, [facility] does not immediately have the required specialist. 04/22 07:58 Order name: Basic Metabolic Panel; Complete Time: 09: iram 04/22 07:58 Order name: CBC with Diff; Complete Time: : iram 04/22 07:58 Order name: LFT's; Complete [facility]: [facility] 04/22 07:58 Order name: Magnesium; Complete Time: 09:25 [facility] 04/22 07:58 Order name: NT PRO-BNP; Complete Time: : [facility] 04/22 07:58 Order name: PT-INR; Complete Time: 09:25 [facility] 04/22 07:58 Order name: Troponin HS; Complete Time: 09:25 [facility] 04/22 07:58 Order name: XRAY Chest (1 view); Complete Time: : [facility] 04/22 07:58 Order name: Cardiac monitoring; Complete Time: 08: [facility] 04/22 07:58 Order name: Type And Screen; Complete Time: : [facility] 04/22 07:58 Order name: ABG; Complete Time: : [facility] 04/22 07:58 Order name: EKG - Nurse/Tech; Complete Time: 08: [facility] 04/22 07:58 Order name: IV Saline Lock; Complete Time: 08: [facility] 04/22 07:58 Order name: Labs collected and sent; Complete Time: 08: [facility] 04/22 07:58 Order name: O2 Per Protocol; Complete Time: 08: [facility] 04/22 07:58 Order name: O2 Sat Monitoring; Complete Time: 08: [facility] EC:07 Rate is 77 beats/min. Rhythm is irregularly irregular. QRS [place] is Normal. WA interval iram is normal. QRS interval is normal. QT interval is normal. No Q waves. T waves are Normal. No ST changes noted. Clinical impression: Atrial Flutter and No evidence of ischemia. Interpreted by me. Reviewed by me. Administered Medications: 07:45 Drug: Propofol 5 mcg/kg/min Route: IV; Rate: calculated rate; Site: right femoral; vg1 08:00 Follow up: Response: RASS: Light sedation (-2) vg1 09:12 Follow up: Response: RASS: Drowsy (-1); Rate change 10 mcg/kg/min vg1 09:17 Follow up: Response: RASS: Light sedation (-2) vg1 09:50 Follow up: Response: RASS: Restless (+1); Rate change 15 mcg/kg/min vg1 09:52 Follow up: IV Status: Infusion continued upon transfer vg1 Disposition Summary: 04/22/22 08:04 Transfer Ordered Transfer Location: [facility] iram Reason: Higher level of care iram Condition: Serious iram Problem: new iram Symptoms: have improved iram Accepting Physician: to Dr Townsend, [facility] icu, ventilated and sedated(04/22/22 10:09) vg1 Diagnosis - Acute respiratory failure iram - Dyspnea iram - Morbid (severe) obesity with alveolar hypoventilation iram - Anemia, unspecified iram - Systolic (congestive) heart failure iram Forms: - Medication Reconciliation Form iram - SBAR form iram Signatures: Dispatcher [employer] EDRito Ji MD MD cha Garcia, Victoria RN RN vg1 Corrections: (The following items were deleted from the chart) 08:06 08:[address] Townsend, [facility] icu, ventilated and sedated iram iram 10:09 08:[address] Townsend, [facility] icu, ventilated and sedated iram vg1
--- NOTE | 2022-04-22 08:05 | ER ---
Nurse's Notes [facility] Name: Chrissie Siddiqi Age: 72 yrs Sex: Female : 1950 Arrival Date: 04/22/2022 Time: 07:51 Bed 3 Private MD: Diagnosis: Acute respiratory failure;Dyspnea;Morbid (severe) obesity with alveolar hypoventilation;Anemia, unspecified;Systolic (congestive) heart failure Presentation: 04/22 07:53 Chief complaint: EMS states: Pt was being transported from [facility] to [place] [address] when O2 saturations began to decrease; EMS was told to bring pt to closest ER. Pt arrived to ED with a 16 F loya, NGT, ET 22 at the teeth and is on Propofol 5 mcg. Pt was originally in MED SURG at [place] for Flash Pulmonary Edema. Pt also has a Central line in Right femoral. Before leaving [place] pt was given 100 mg of Ketamine. EMS stated pt had an IV near Left subclavian that infiltrated, site appears to be red and swollen. 07:53 Method Of Arrival: EMS: [place] [facility] 07:53 Acuity: RODRIGO 2 1 07:53 Onset of symptoms was April 22, 2022. vg1 10:09 Initial Sepsis Screen: Does the patient meet any 2 criteria? Temp <36.0*C (96.8*F)) or vg1 > 38.3*C (100.9*F). HR > 90 bpm. Yes Does the patient have a suspected source of infection? No. Patient's initial sepsis screen is negative. Risk Assessment: Do you want to hurt yourself or someone else? Other: unable to verbalize. Triage Assessment: 07:40 General: Appears ill, obese, Behavior is intubated . Pain: Unable to use pain scale. vg1 Patient is intubated. EENT: froth at the mouth . Neuro: Echavarria Agitation-Sedation Scale (RASS): -4 Deep sedation Level of Consciousness is intubated . Cardiovascular: Capillary refill is > 3 seconds in bilateral fingers toes. Respiratory: Airway via oral intubation. GI: Abdomen is round obese. : Loya in place. Derm: Skin temperature is cold Bruising that is on left clavicle, right arm and left arm. Musculoskeletal: Capillary refill is > 3 seconds, in bilateral fingers. toes. Historical: - Allergies: 09:57 Clindamycin; vg1 09:57 Decongestants; vg1 09:57 Vancomycin; vg1 09:57 Bometanide; vg1 - Home Meds: 09:57 Albuterol Inhl [Active]; Amiodarone Oral [Active]; Pepcid Oral [Active]; gabapentin vg1 oral [Active]; Lasix Oral [Active]; Prednisolone Oral [Active]; Synthroid Oral [Active]; Zoloft Oral [Active]; - Immunization history:: Client reports receiving the 2nd dose of the Covid vaccine. - Family history:: not pertinent. - Social history:: Smoking status: Patient/guardian denies using tobacco. Screenin:40 Abuse screen:. Abuse screen: pt sedated unable to verbalize. vg1 07:40 Nutritional screening: pt sedated unable to verbalize. Tuberculosis screening: pt vg1 sedated unable to verbalize. Fall Risk IV access (20 points). Gait- Normal/Bed Rest/Wheelchair (0 pts) Total Castro Fall Scale indicates No Risk (0-24 pts). Assessment: 07:40 Reassessment: SEE TRIAGE. vg1 08:00 Reassessment: Pt left hand appears to have an dwaine bandage; was not given reason in vg1 report. 08:40 Neuro: Echavarria Agitation-Sedation Scale (RASS): -3 Moderate Sedation pt biting at the 1 ET; provider notified. . 08:50 Reassessment: report given to lucy sharma RN at [facility]. tp1 09:01 Reassessment: pt aware of surroundings; educated pt on ET placement. Neuro: Echavarria vg1 Agitation-Sedation Scale (RASS): -2 Light sedation. 09:12 Reassessment: Propofol increased to 10 mcg; pt is moving around and trying to talk. vg1 Provider notified. 09:50 Reassessment: Reassessment: increased propofol to 15 mcg prior to discharge. Neuro: vg1 Echavarria Agitation-Sedation Scale (RASS): +1 Restless. 10:08 Respiratory: Respiratory effort is pt intubated. vg1 Vital Signs: 07:53 BP 141 / 100; Pulse 107; Resp 17; Weight 180 kg; vg1 08:00 Pulse Ox 100% on ETT vent; vg1 08:09 Temp 96.5(R); vg1 09:00 BP 142 / 98; Pulse 115; Resp 12; Pulse Ox 97% on ETT vent; vg1 09:05 BP 146 / 81; Pulse 123; Resp 15; Pulse Ox 95% on ETT vent; vg1 09:15 BP 151 / 96; Pulse 109; Resp 14; Pulse Ox 95% on ETT vent; vg1 09:30 BP 131 / 64; Pulse 123; Resp 20; Pulse Ox 97% on ETT vent; vg1 ED Course: 07:51 Patient arrived in ED. jl7 07:52 Albania Hammond, RN is Primary Nurse. vg1 07:53 Arm band placed on. vg1 07:57 Rito Merrill MD is Attending Physician. [facility] 08:01 Triage completed. vg1 08:27 Patient has correct armband on for positive identification. Placed in gown. Bed in low vg1 position. Call light in reach. Side rails up X2. Client placed on continuous cardiac and pulse oximetry monitoring. NIBP monitoring applied. 08:27 arrived to ED with loya NGT: arrived to ED with NGT. O2 via Pt has ET 22 at the teeth; vg1 see RT chart for further details. 08:50 XRAY Chest (1 view) In Process Unspecified. EDMS 09:55 No provider procedures requiring assistance completed. Patient transferred, IV remains vg1 in place. Administered Medications: 07:45 Drug: Propofol 5 mcg/kg/min Route: IV; Rate: calculated rate; Site: right femoral; vg1 08:00 Follow up: Response: RASS: Light sedation (-2) vg1 09:12 Follow up: Response: RASS: Drowsy (-1); Rate change 10 mcg/kg/min vg1 09:17 Follow up: Response: RASS: Light sedation (-2) vg1 09:50 Follow up: Response: RASS: Restless (+1); Rate change 15 mcg/kg/min vg1 09:52 Follow up: IV Status: Infusion continued upon transfer vg1 Medication: 10:08 VIS not applicable for this client. vg1 Outcome: 08:04 ER care complete, transfer ordered by . [facility] 09:55 Transferred by ground EMS to [facility]. vg1 09:55 critical 09:55 Instructed on the need for transfer. 10:09 Patient left the ED. [facility] Signatures: Dispatcher [employer] EDRito Ji MD MD cha Leal, Jahala RN RN jl7 Albania Hammond RN RN [facility] Cynthia Garza, RN RN tp1 Corrections: (The following items were deleted from the chart) 08:26 07:53 Chief complaint: EMS states: Pt was being transported from [facility] to [address] when O2 saturations began to decrease; EMS was told to bring pt to closest ER. Pt arrived to ED with a 16 F loya, NGT, ET 22 at the teeth and is on Propofol 5 mcg. Pt was originally in MED SURG at [place] for Flash Pulmonary Edema. Pt also has a Central line in Right femoral. Before leaving [place] pt was given 100 mg of Ketamine. EMS stated pt had an IV near Left subclavian that infiltrated, site appears to be red and swollen. [facility] 08:27 08:27 Abuse screen: [place] [id number] 08:30 08:27 O2 via Pt has ET 22 at the teeth; [place] [id number] 08:57 07:40 Neuro: Level of Consciousness is intubated . [place] [id number] 09:43 09:41 Response: RASS: Drowsy (-1); Rate change 10 mcg/kg/min [place] [id number]
[2022-04-22 08:31] LABS: Absolute Lymphocytes (CBC) 0.6 K/uL (0.7-4.9); Hematocrit 27.4 % (36.0-45.0); Lymphocytes % 5.4 % (15.3-44.8); MCV 87.2 fL (80-100); MPV 8.6 fL (7.6-11.3); Protime INR 1.19; RBC Red Blood Cell Count 3.14 M/uL (3.86-4.86)
[2022-04-22 08:49] LABS: Albumin 3.2 g/dL (3.4-5.0); Bilirubin Direct 0.2 mg/dL (0-0.2); Bilirubin Total 0.5 mg/dL (0.2-1.0); Potassium 4.2 mmol/L (3.5-5.1); Protein, Total 7.8 g/dL (6.4-8.2); Troponin High Sensitivity 19.9 pg/mL (<58.9)
[2022-04-22 08:58] LABS: Arterial Blood Carboxyhemoglob 1.8 % (0-1.5); Blood Gas Oxyhemoglobin 95.4 % (94-97); Blood O2 Saturation 98.3 % (92-98.5)
--- NOTE | 2022-04-22 09:03 | RAD REPORT ---
EXAM DESCRIPTION: RAD - Chest Single View - 04/22/2022 8:49 am CLINICAL HISTORY: DYSPNEA COMPARISON: Portable 01/14/2022 TECHNIQUE: AP portable chest image was obtained 04/22/2022 8:49 am . FINDINGS: Endotracheal tube is in place. Tip is top of the aortic arch 5 cm above the freddy. NG/OG tube is in place extending below the diaphragm, off the field of view. Interstitial markings are prominent throughout both lung burgess. Focal airspace consolidation is pres ent in the right upper lobe abutting the minor fissure. There is focal airspace opacification in the upper left lung field as well. Trachea is midline. Cardiomegaly is present. Central vasculature is pr ominent. No pneumothorax is present. Small right pleural effusion is present. No acute bony abnormality seen. No acute aortic findings suspected. IMPRESSION: Endotracheal tube in place the top of the aortic arch 5 cm above the freddy. NG/OG tube in place with tip below the diaphragm, off the field of view. Diffuse interstitial infiltrate or edema pattern with focal airspace opacification of each upper lobe . Focal airspace opacification could be asymmetric pulmonary edema or pneumonia. Cardiomegaly.
[2022-04-22 10:17] VITALS: TEMP 96.5
[2022-04-22 10:32] VITALS: BP 131/64; O2SAT 97
--- NOTE | 2022-04-24 16:32 | EKG ---
Test Date: 2022-04-22 Test Time: 08:21:29 Making Machine Operator: AUBREE MEASUREMENT RESULTS: Intervals: Rate: 119 OR: QRSD: 90 QT: 348 QTc: 489 [place]: P: 103 OR: QRS: 58 T: 88 INTERPRETIVE STATEMENTS: Atrial flutter with 2:[address] and T wave abnormality Abnormal ECG Compared to ECG 08/31/2021 22:25:16 ST (T wave) deviation now present Atrial fibrillation no longer present Electronically Signed On 04-24-22 16:31:48 CDT by Chris Carrington
== END 2022-04-22 10:09 | disposition short-term general hospital (02) ==
LOC: ER 07:40
DX: J96.00 Acute respiratory failure, unspecified whether with hypoxia or hypercapnia (principal); I50.20 Unspecified systolic (congestive) heart failure; E66.2 Morbid (severe) obesity with alveolar hypoventilation; D64.9 Anemia, unspecified; Z88.3 Allergy status to other anti-infective agents; Z88.8 Allergy status to other drugs, medicaments and biological substances
CPT/HCPCS: 36415; 71045; 80048; 80076; 82805; 83735; 83880; 84484; 85025; 85610; 86850; 86900; 86901; 93005; 96365; 96366; 99285